=== PATIENT | male | born 1950 | race Caucasian/White ===

== ENCOUNTER 2020-08-25 07:57 | Day surgery (SDC) | payer MEDICARE, MEDICAID, SELFPAY ==
[2020-08-18 10:04] VITALS: BMI 35.6
--- NOTE | 2020-08-24 09:35 | P.CONAN_ITS ---
Documented by User: Carolyne Escudero 08/24/20 09:45 HPI - Anesthesia Eval Consult details Narrative: 69yo M for Colonoscopy PMFSH Past Medical History Medical History Arthritis Diabetes History of BPH HTN (hypertension) Lab test negative for COVID-19 virus Family History Family History Father Diabetes Mother Kidney problem Sister Asthma Hypertension Surgical History Surgical History History of bilateral cataract extraction History of colonoscopy History of transurethral resection of prostate Social History Social History Are you a primary care program director to a significant other at home: No Do you presently have visiting nurse or other home services: Yes (technical support consultant) Alcohol intake: never Smoking Status: Former smoker Tobacco Type: Cigarette Smoked in Last 30 Days: No Smoking Quit Date: age 29 Use of substances other than those prescribed or required for medical reasons: No Advance Directives Information Provided: No Recently lost weight without trying: No Meds Allergies Allergy/AdvReac Type Severity Reaction Status Date / Time amoxicillin [AMOXICILLIN] Allergy Intermediate Rash Verified 08/18/20 10:11 clindamycin [Clindamycin] Allergy Intermediate RASH Verified 08/18/20 10:11 Sulfa (Sulfonamide Allergy Intermediate RASH Verified 08/18/20 10:11 Antibiotics) Motrin AdvReac Intermediate Gastrointestinal Verified 08/18/20 10:11 Upset Home Medications Medication Instructions Recorded Confirmed Type cholecalciferol (vitamin D3) 25 25 mcg PO DAILY 06/24/20 08/18/20 History mcg (1,000 unit) capsule glipizide 10 mg tablet, extended 10 mg PO DAILY tab 06/24/20 08/18/20 History release 24 hr metformin 1,000 mg tablet 1,000 mg PO BID tab 06/24/20 08/18/20 History pioglitazone 30 mg tablet 30 mg PO DAILY tab 06/24/20 08/18/20 History sitagliptin 100 mg tablet 100 mg PO DAILY tab 06/24/20 08/18/20 History tamsulosin 0.4 mg capsule 0.4 mg PO DAILY cap 06/24/20 08/18/20 History tramadol 50 mg tablet 50 mg PO DAILY tab 06/24/20 08/18/20 History Exam Exam Date and Time: August 24, 2020 0935 Height,Weight and Vital Signs: Height 5 ft 7 in Weight 103.419 kg Pertinent Lab Results Pertinent Lab Results: Laboratory Tests 06/01/20 06/01/20 07:52 07:52 WBC 7.7 Hgb 13.0 L Hct 40.9 L Plt Count 279 Sodium 140 Potassium 4.7 Chloride 104 BUN 20 H Creatinine 1.02 Assessment and Plan Assessment Anesthesia Assessment: Chart Reviewed Documented by User: Libra Moya 08/25/20 09:16 PMFSH Past Medical History Medical History Arthritis Diabetes History of BPH HTN (hypertension) Lab test negative for COVID-19 virus Family History Family History Father Diabetes Mother Kidney problem Sister Asthma Hypertension Surgical History Surgical History History of bilateral cataract extraction History of colonoscopy History of transurethral resection of prostate Social History Social History Are you a primary care program director to a significant other at home: No Do you presently have visiting nurse or other home services: Yes (technical support consultant) Alcohol intake: never Smoking Status: Former smoker Tobacco Type: Cigarette Smoked in Last 30 Days: No Smoking Quit Date: age 29 Use of substances other than those prescribed or required for medical reasons: No Advance Directives Information Provided: No Recently lost weight without trying: No Meds Allergies Allergy/AdvReac Type Severity Reaction Status Date / Time amoxicillin [AMOXICILLIN] Allergy Intermediate Rash Verified 08/18/20 10:11 clindamycin [Clindamycin] Allergy Intermediate RASH Verified 08/18/20 10:11 Sulfa (Sulfonamide Allergy Intermediate RASH Verified 08/18/20 10:11 Antibiotics) Motrin AdvReac Intermediate Gastrointestinal Verified 08/18/20 10:11 Upset Home Medications Medication Instructions Recorded Confirmed Type cholecalciferol (vitamin D3) 25 25 mcg PO DAILY 06/24/20 08/18/20 History mcg (1,000 unit) capsule glipizide 10 mg tablet, extended 10 mg PO DAILY tab 06/24/20 08/18/20 History release 24 hr metformin 1,000 mg tablet 1,000 mg PO BID tab 06/24/20 08/18/20 History pioglitazone 30 mg tablet 30 mg PO DAILY tab 06/24/20 08/18/20 History sitagliptin 100 mg tablet 100 mg PO DAILY tab 06/24/20 08/18/20 History tamsulosin 0.4 mg capsule 0.4 mg PO DAILY cap 06/24/20 08/18/20 History tramadol 50 mg tablet 50 mg PO DAILY tab 06/24/20 08/18/20 History Exam Airway Mallampati Class: II TM Dist: >3cm Neck ROM: Full Denture: Upper and Lower
--- NOTE | 2020-08-25 09:21 | MHC.SHP ---
Pre-Procedural Eval Section B Chief Complaint: Screening Relevant Family History (Specify if Yes): No Present Medications: see Short Stay Collaborative assessment Medical History: Significant History (Arthritis Diabetes History of BPH HTN (hypertension)) History of Previous Operations: Relevant previous surgery/procedure and date(s) (cataract, TURP) Allergies: Allergies Allergy/AdvReac Type Severity Reaction Status Date / Time amoxicillin [AMOXICILLIN] Allergy Intermediate Rash Verified 08/18/20 10:11 clindamycin [Clindamycin] Allergy Intermediate RASH Verified 08/18/20 10:11 Sulfa (Sulfonamide Allergy Intermediate RASH Verified 08/18/20 10:11 Antibiotics) Motrin AdvReac Intermediate Gastrointestinal Verified 08/18/20 10:11 Upset Review of Systems Sugical H&P ROS: Negative: Constitution, Cardiovascular, Respiratory, Neurological, Psychiatric, Hem-Onc, Allergic/Immunologic, Gastrointestinal, Genitourinary, Musculoskeletal, Integumentary, Endocrine and Eyes/Ears/Nose/Throat Exam Surgical H&P Exam: Normal: HEENT, Normal: Heart, Normal: Lungs, Normal: Extremities, Normal: Abdomen, Normal: Skin and Normal: Neurological Plan Diagnosis/Plan: Unchanged Patient has been examined and remains a candidate for the planned procedure
[2020-08-25 09:25] LABS: Glucose, Whole Blood 138 mg/dL (60-115)
[2020-08-25 10:33] VITALS: BP 82/53; PULSE 78; RESP 20; TEMP 36.2; O2SAT 92
[2020-08-25 10:48] VITALS: BP 114/69; PULSE 86; RESP 20; TEMP 36.2; O2SAT 94
--- NOTE | 2020-08-25 11:45 | HO.POSTANES ---
Post Anesthesia Evaluation Post Anesthesia Evaluation Vital Signs: Vital Signs Temp Pulse Resp BP Pulse Ox 08/25/20 10:48 97.2 F 86 20 114/69 94 08/25/20 10:33 97.2 F 78 20 82/53 L 92 Anesthesia: Monitored Mental Status: Awake Pain Control: Satisfactory Nausea/Vomiting: None Hydration: Adequate Anesthesia-Related Issues: No Anes. Related Issues
--- NOTE | 2020-09-23 21:20 | W.PM.OPN ---
Operative Note Operative Note Date of Service: 08/25/20 Narrative: Date of Service: 08/25/20 Pre-op diagnosis: colon screen Post-op diagnosis: same Procedure: Operative Information Procedure Description: Colonoscopy COLONOSCOPY Instrument: Olympus variable stiffness pediatric scope 190L-swapped to adult scope due to looping and instability with pediatric scope Colonoscopy Monitoring: Vital signs and clinical assessment, continuous EKG monitoring, Pulse oximetry, Carbon Dioxide monitoring and blood pressure monitoring were done throughout the procedure. Colon withdrawal time was 41 minutes. Procedure: The patient was placed in the left lateral decubitis position and pre-procedure medications were administered. After a digital rectal examination of the ano-rectum, the video colonoscope was inserted into the rectum and advanced through the colon to the cecum. The colonoscope was slowly withdrawn in a retrograde panoramic fashion and the colon mucosa was carefully examined including a retroflexed view of the rectum. Findings and interventions are described below. Procedure Difficulty: moderate Findings: Terminal Ileum-not intubated Cecum: normal Ascending Colon: x 4 sessile polyps ranging from 8-12 mm in size, 3 removed with cold snare and one with biopsy forceps Transverse Colon -normal Descending Colon: 12-16 mm semi pedunculated polyp removed piece meal with cold snare, x 4 clips applied due to oozing, this stopped after clips applied Sigmoid Colon: many moderate sized to small tics seen Rectum: Retroflexion with small internal hemorrhoids, grade II Anorectum - internal hemorrhoids seen at anal verge Colon preparation: [place] Bowel Preparation Scale Right colon; 1 Transverse colon: 2 Left colon; 1 (0 = Unprepared colon segment with mucosa not seen due to solid stool that cannot be cleared. 1 = Portion of mucosa of the colon segment seen, but other areas of the colon segment not well seen due to staining, residual stool and/or opaque liquid. 2 = Minor amount of residual staining, small fragments of stool and/or opaque liquid, but mucosa of colon segment seen well. 3 = Entire mucosa of colon segment seen well with no residual staining, small fragments of stool or opaque liquid) Impression and Post Procedure Diagnosis: polyps internal hemorrhoids diverticulosis Plan: High fiber diet leaflet Avoid straining at stool, epsom salts and sitz bath, anusol supps or cream Repeat Colonoscopy in 1 year or earlier if clinically indicated avoid nsaids for 5 days, can use tylenol for pain if needed Above findings were reviewed with the patient and relevant handouts were provided if indicated. Surgeon: Talha Chew MD Anesthesia: MAC Estimated blood loss (mL): 0 Condition: stable Disposition: PACU
== END 2020-08-25 11:51 | disposition home or self-care (01) ==
PROVIDERS: PCP Internal Medicine; Visit Provider Internal Medicine Gastroenterology
PROC: 0DJD8ZZ Inspection of Lower Intestinal Tract, Via Natural or Artificial Opening Endoscopic (ICD-10-PCS; CPT 45378; principal; 2020-08-25 09:30)
DX: Z12.11 Encounter for screening for malignant neoplasm of colon (principal); K56.2 Volvulus; D12.2 Benign neoplasm of ascending colon; D12.4 Benign neoplasm of descending colon; K57.30 Diverticulosis of large intestine without perforation or abscess without bleeding; K64.1 Second degree hemorrhoids; E11.9 Type 2 diabetes mellitus without complications; Z79.84 Long term (current) use of oral hypoglycemic drugs; Z88.0 Allergy status to penicillin; Z88.2 Allergy status to sulfonamides; Z88.8 Allergy status to other drugs, medicaments and biological substances
CPT/HCPCS: 45385; 45380; 82947; 88305

== ENCOUNTER → 2020-09-20 10:42 | Outpatient (BNVA) | payer MEDICARE, MEDICAID, SELFPAY | PROVIDERS: PCP Internal Medicine; Visit Provider Physician Assistant | DX: Z76.89 Persons encountering health services in other specified circumstances (principal) | CPT/HCPCS: Q3014 ==

== ENCOUNTER → 2020-09-23 08:31 | Outpatient (BNVA) | payer MEDICARE, MEDICAID, SELFPAY | PROVIDERS: PCP Internal Medicine; Visit Provider Urology | DX: Z13.89 Encounter for screening for other disorder (principal) | CPT/HCPCS: Q3014 ==

== ENCOUNTER 2020-11-04 13:52 | Outpatient (REF) | payer MEDICARE, MEDICAID, SELFPAY ==
--- NOTE | ~2020-11-04 | XR_ITS ---
EXAMINATION: XR KNEE, BILATERAL XR KNEE, LEFT CLINICAL INFORMATION: Pain left knee. COMPARISON: 11/11/2014 TECHNIQUE: AP bilateral knees one view. Left knee two views. FINDINGS: LEFT KNEE: No acute fracture or dislocation. Medial and lateral compartment joint space is maintained. Small marginal patellar spurring. Small chronic ossification adjacent to the medial pole of the patella. Small suprapatellar joint fluid. Enthesopathy of the patella both at the quadriceps and patellar insertions. Tibial tubercle enthesopathy. LEFT KNEE: No acute finding. Joint spaces are maintained. XR/XR knee LT 2V IMPRESSION: No acute findings. Mild left knee patellofemoral arthritis. Additional degenerative changes as above.
--- NOTE | ~2020-11-04 | XR_ITS ---
EXAMINATION: XR KNEE, BILATERAL XR KNEE, LEFT CLINICAL INFORMATION: Pain left knee. COMPARISON: 11/11/2014 TECHNIQUE: AP bilateral knees one view. Left knee two views. FINDINGS: LEFT KNEE: No acute fracture or dislocation. Medial and lateral compartment joint space is maintained. Small marginal patellar spurring. Small chronic ossification adjacent to the medial pole of the patella. Small suprapatellar joint fluid. Enthesopathy of the patella both at the quadriceps and patellar insertions. Tibial tubercle enthesopathy. LEFT KNEE: No acute finding. Joint spaces are maintained. XR/XR knee standing BI IMPRESSION: No acute findings. Mild left knee patellofemoral arthritis. Additional degenerative changes as above.
== END 2020-11-04 13:53 | disposition home or self-care (01) ==
LOC: HO.XRAY 13:52
PROVIDERS: PCP Internal Medicine; Visit Provider Physician Assistant
DX: G89.29 Other chronic pain (principal); M25.562 Pain in left knee
CPT/HCPCS: 73560; 73565; 99212

== ENCOUNTER 2020-11-26 06:37 | Outpatient (REF) | payer MEDICARE, MEDICAID, SELFPAY ==
[2020-11-26 07:01] LABS: MANUAL DIFF FLAG NO
[2020-11-26 07:04] LABS: Basophils Absolute Auto 0.1 X10*3/uL (0.0-0.2); Basophils Percent Auto 0.6 % (0-2); Eosinophils Absolute Auto 0.3 X10*3/uL (0.0-0.4); Eosinophils Percent Auto 3.1 % (0-4); Hematocrit 38.4 % (42-52); Imm Gran Abs Auto 0.03 X10*3/uL (0.00-0.03); Imm Gran Pct Auto 0.3 % (0.0-0.4); Mean Corpuscular HGB Conc 31.3 g/dl (31.0-36.0); Mean Corpuscular Hemoglobin 27.2 pg (27.0-33.0); Mean Corpuscular Volume 87.1 fL (80-98); Mean Platelet Volume 11.4 fL (9.4-12.4); Monocytes Absolute Auto 0.9 X10*3/uL (0.1-1.2); Monocytes Percent Auto 10.8 % (2-11); Neutrophils Absolute Auto 5.4 X10*3/uL (2.0-8.3); Neutrophils Percent Auto 62.2 % (45-73); Platelet Count 248 X10*3/uL (160-400); Red Blood Count 4.41 X10*6/uL (4.60-5.80); Red Cell Distribution Width 15.3 % (11.0-16.0); White Blood Count 8.6 X10*3/uL (4.8-10.8)
[2020-11-26 07:17] LABS: Glucose Urine UA NEG (NEG); Leukocyte Esterase Urine NEG (NEG); Nitrite Urine NEG (NEG); PH 5.5 (5.0-8.0); Specific Gravity - Urine >= 1.030 (1.005-1.025); Urine Blood NEG (NEG); Urine Ketones NEG (NEG); Urine Protein NEG (NEG-TRACE)
[2020-11-26 07:18] LABS: Appearance Urine CLEAR; Color Urine YELLOW
[2020-11-26 07:33] LABS: Estimated Average Glucose 131 mg/dL; Hemoglobin A1c % 6.2 %
[2020-11-26 07:51] LABS: Alanine Aminotransferase 28 U/L (0-40); Albumin Level 4.4 g/dL (3.5-5.0); Alkaline Phosphatase 73 U/L (39-117); Anion Gap 13 (12-20); Aspartate Amino Transferase 26 U/L (5-37); Bilirubin Total 0.7 mg/dL (0.0-1.0); Blood Urea Nitrogen 20 mg/dL (9-16); Calcium 9.5 mg/dL (8.4-10.2); Carbon Dioxide 27 mmol/L (22-29); Chloride 105 mmol/L (96-108); Cholesterol 173 mg/dL; Estimated Glomerular Filt Rate > 60; Glucose Fasting 118 mg/dL (60-99); HDL Cholesterol 83 mg/dL; LDL Cholesterol Calculated 83 mg/dl; Potassium 4.8 mmol/L (3.3-5.1); Sodium 140 mmol/L (135-145); Total Protein 7.2 g/dL (6.5-8.0); Triglycerides 36 mg/dL
[2020-11-26 07:56] LABS: TSH reflex Free T4 1.98 uIU/mL (0.32-4.0); Vitamin D 25-OH Total 47.6 ng/mL (>30)
[2020-11-26 08:10] LABS: Creatinine Urine 145.98 mg/dL; Microalbum/Creatinine Ratio Ur 10.2 ug/mg cr
== END 2020-11-26 06:38 | disposition home or self-care (01) ==
LOC: HO.LAB 06:37
PROVIDERS: PCP Internal Medicine; Visit Provider Internal Medicine
DX: E55.9 Vitamin D deficiency, unspecified (principal); E78.00 Pure hypercholesterolemia, unspecified; E11.9 Type 2 diabetes mellitus without complications; I10 Essential (primary) hypertension; N40.1 Benign prostatic hyperplasia with lower urinary tract symptoms; N13.8 Other obstructive and reflux uropathy
CPT/HCPCS: 36415; 80053; 80061; 81003; 82043; 82306; 83036; 84443; 85025

== ENCOUNTER 2020-12-09 07:00 | Outpatient (RCR) | payer MEDICARE, MEDICAID, SELFPAY ==
--- NOTE | 2020-11-23 08:37 | MHC.PT.EP ---
[facility] [place] Office [place] Office [place] Office [address] Felipe Means [address] [phone] F: [phone] F: [phone] F: [phone] F: [phone] Physical Therapy Plan of Care Date of Evaluation: 11/23/20 Date of Surgery: Diagnosis: unilateral OA of right knee. Assessment: The patient arrived reporting left knee pain that has been getting better since it began a few months ago. He has decreased knee extension ROM, decreased knee extension strength, and decreased functional movements limited by knee pain. X-ray images show OA of the left knee although the patient relates the injury to stepping on 2 steps while carrying a heavy bucket. He has been wearing a knee brace daily, but the brace is leaving a rash. I recommended trying to avoid the use of the brace for one day. I used KT in replacement of the brace and I carefully avoiding covering the rash with the tape. Pt asked to take tape off if it begins to itch. Pt asked to take the tape off in 2 days time. Frequency and Duration: The patient will be seen 2x/week x 4 weeks Short Term Goals: 2 weeks 1.Pt to able to demonstrate proper sitting posture with the use of a lumbar roll to decrease aggravating factors. 2.Pt to be able to demonstrate proper posture for common leisure activities such as crocheting and phone/tablet use. 3.For the patient to demonstrate proper upright sitting posture with use of the lumbar roll to improve compliance and carryover. Agricultural Research Director Goals: 4 weeks - the patient will have no limiting pain in her knees during gait with community ambulation to show improved activity tolerance. 4 weeks - pt will have more quad control with TKE demonstrated by no medial collapse during a curb height step. 4 weeks -patient to be able to return to all functional movements and ADL's without limiting knee pain to show return to PLOF. Treatment Plan: Modalities to reduce pain, spasms and effusion. Manual therapy to restore motion and function. Therapeutic exercise to improve strength and flexibility. Neuromuscular re-education for posture and balance. Therapeutic activities to return to functional activities of daily living. Electronically signed by: Trang Yip PT DPT Please sign and return to therapist. Thank you for your referral.
--- NOTE | 2020-12-17 11:39 | MHC.PT.DC ---
[facility] [place] Office [place] Office [place] Office [address] [phone] F: [phone] F: [phone] F: [phone] F: [phone] Physical Therapy Discharge Report Diagnosis: unilateral OA of right knee. Date of Surgery: Date of Evaluation: 11/23/20 Date of Discharge: 12/17/20 Treatments to Date: 6 Cancellations to Date: 0 No Shows to Date: Discharge Status: Achieved Goals Improved Function Independent with HEP Discharge Summary: No TET today. Pt. reported no px with ex. pt requests D/C today. no pain, if I need to come back I will . Pt.states the ex have helped. Electronically signed by: Evita Hodges CURTAIN CLEANER Please sign and return to therapist. Thank you for your referral.
== END 2020-12-22 07:34 | disposition other institution (70) ==
LOC: HO.PT 07:00
PROVIDERS: PCP Internal Medicine; Visit Provider Physician Assistant
DX: M17.10 Unilateral primary osteoarthritis, unspecified knee (principal)
CPT/HCPCS: 97110; 97140; 97162

== ENCOUNTER → 2021-01-18 10:10 | Outpatient (BNVA) | payer MEDICARE, MEDICAID, SELFPAY | PROVIDERS: Referring Provider Internal Medicine; Visit Provider Internal Medicine Gastroenterology | DX: D36.9 Benign neoplasm, unspecified site (principal) | CPT/HCPCS: 99212 ==

== ENCOUNTER 2021-02-01 07:40 | Outpatient (REF) | payer MEDICARE, MEDICAID, SELFPAY ==
[2021-02-01 08:24] LABS: MANUAL DIFF FLAG NO
[2021-02-01 08:32] LABS: Basophils Percent Auto 0.6 % (0-2); Eosinophils Absolute Auto 0.1 X10*3/uL (0.0-0.4); Eosinophils Percent Auto 1.9 % (0-4); Hematocrit 40.1 % (42-52); Hemoglobin 12.3 g/dl (14.0-18.0); Imm Gran Abs Auto 0.03 X10*3/uL (0.00-0.03); Imm Gran Pct Auto 0.4 % (0.0-0.4); Lymphocytes Absolute Auto 1.7 X10*3/uL (1.2-4.9); Lymphocytes Percent Auto 23.4 % (20-40); Mean Corpuscular HGB Conc 30.7 g/dl (31.0-36.0); Mean Corpuscular Hemoglobin 26.5 pg (27.0-33.0); Mean Corpuscular Volume 86.2 fL (80-98); Mean Platelet Volume 11.6 fL (9.4-12.4); Monocytes Absolute Auto 0.8 X10*3/uL (0.1-1.2); Monocytes Percent Auto 10.5 % (2-11); Neutrophils Absolute Auto 4.6 X10*3/uL (2.0-8.3); Neutrophils Percent Auto 63.2 % (45-73); Platelet Count 254 X10*3/uL (160-400); Red Blood Count 4.65 X10*6/uL (4.60-5.80); Red Cell Distribution Width 15.2 % (11.0-16.0); White Blood Count 7.2 X10*3/uL (4.8-10.8)
[2021-02-01 08:46] LABS: Glucose Urine UA NEG (NEG); Leukocyte Esterase Urine NEG (NEG); Nitrite Urine NEG (NEG); Specific Gravity - Urine >= 1.030 (1.005-1.025); Urine Blood NEG (NEG); Urine Ketones NEG (NEG); Urine Protein NEG (NEG-TRACE)
[2021-02-01 08:47] LABS: Appearance Urine CLEAR; Color Urine YELLOW
[2021-02-01 10:30] LABS: Estimated Average Glucose 128 mg/dL; Hemoglobin A1c % 6.1 %
[2021-02-01 10:34] LABS: Creatinine Urine 147.38 mg/dL; Microalbum/Creatinine Ratio Ur 14.9 ug/mg cr
[2021-02-01 11:22] LABS: Alanine Aminotransferase 20 U/L (0-40); Albumin Level 4.2 g/dL (3.5-5.0); Alkaline Phosphatase 76 U/L (39-117); Anion Gap 15 (12-20); Aspartate Amino Transferase 18 U/L (5-37); Bilirubin Total 0.6 mg/dL (0.0-1.0); Blood Urea Nitrogen 16 mg/dL (9-16); Calcium 9.4 mg/dL (8.4-10.2); Carbon Dioxide 25 mmol/L (22-29); Chloride 103 mmol/L (96-108); Cholesterol 173 mg/dL; Estimated Glomerular Filt Rate > 60; Glucose Fasting 115 mg/dL (60-99); HDL Cholesterol 81 mg/dL; LDL Cholesterol Calculated 84 mg/dl; Potassium 4.6 mmol/L (3.3-5.1); Sodium 138 mmol/L (135-145); Triglycerides 41 mg/dL
[2021-02-01 11:41] LABS: Vitamin D 25-OH Total 52.7 ng/mL (>30)
== END 2021-02-01 07:41 | disposition home or self-care (01) ==
LOC: HO.LAB 07:40
PROVIDERS: Absent Provider Internal Medicine Gastroenterology; PCP Internal Medicine; Visit Provider Internal Medicine
DX: E11.9 Type 2 diabetes mellitus without complications (principal); I10 Essential (primary) hypertension; E66.9 Obesity, unspecified; E78.1 Pure hyperglyceridemia; E55.9 Vitamin D deficiency, unspecified; J30.9 Allergic rhinitis, unspecified
CPT/HCPCS: 36415; 80053; 80061; 81003; 82043; 82306; 83036; 84443; 85025

== ENCOUNTER 2021-02-04 05:56 | Outpatient (REF) | payer MEDICARE, MEDICAID, SELFPAY ==
--- NOTE | ~2021-02-04 | CT_ITS ---
EXAMINATION: CT ABDOMEN AND PELVIS WITH CONTRAST CLINICAL INFORMATION: Benign neoplasm. COMPARISON: None TECHNIQUE: Multidetector volumetric images were obtained from the superior aspect of the liver through the pubic symphysis following administration 85 mL of Omnipaque 350 intravenous contrast. Sagittal and coronal reformatted images were obtained on the technologist's workstation. Oral contrast: No This CT examination was performed using dose optimization techniques as appropriate, variously including the following: *Automated exposure control *Adjustment of mA and/or kV according to patient size (this includes techniques or standardized protocols for targeted exams where dose is matched to indication/reason for exam; i.e. extremities or head) *Use of iterative reconstruction technique DLP: 557 mGy-cm FINDINGS: LUNG BASES: The heart size is borderline enlarged. The lungs are well expanded with minimal atelectatic changes left lung base. LIVER, GALLBLADDER, AND BILIARY TREE: The liver is normal in size, shape, and attenuation. No focal hepatic lesion or biliary ductal dilatation is present. The gallbladder is unremarkable with no evidence of radiopaque gallstones, gallbladder wall thickening, or obvious pericholecystic inflammatory changes. PANCREAS: Unremarkable. SPLEEN: Unremarkable. Lateral to the upper pole of spleen is a small peritoneal-based 5 mm nodule. ADRENAL GLANDS: Unremarkable. KIDNEYS AND URETERS: The kidneys are normal in size, shape, and attenuation. No hydronephrosis, hydroureter, or calculi seen. No perinephric stranding. BLADDER: Unremarkable. GASTROINTESTINAL TRACT: Scattered stool, diverticuli and gas seen throughout the colon without significant distention. The small bowel loops are normal caliber. The IC junction is normal. The appendix is normal caliber. No inflammatory process seen in the abdomen. ABDOMINAL WALL: No significant hernia is appreciated. LYMPH NODES: Normal. VASCULAR: Unremarkable. PELVIC VISCERA: The prostate gland is normal caliber. The central gland calcification seen. OSSEOUS STRUCTURES: There is no lytic process. There is mild ventral spondylosis L3-L4 and L4-L5 disc levels. No lytic or sclerotic process seen. CT/CT abdomen pelvis w con IMPRESSION: Scattered colonic diverticulosis without diverticulitis. Moderate constipation without obstruction. Normal appendix. Nonspecific peritoneal nodule left upper quadrant adjacent to the spleen.
[2021-02-04] MEDS: iohexoL 350 MG/ML 100 ML INFUS..BTL IV (09:53)
[2021-02-04] MEDS: Barium Sulfate Oral (Vanilla) 450 ML ORAL.SUSP 900 ML PO (09:54)
== END 2021-02-04 05:57 | disposition home or self-care (01) ==
LOC: HO.CT 05:56
PROVIDERS: PCP Internal Medicine; Visit Provider Internal Medicine Gastroenterology
DX: D36.9 Benign neoplasm, unspecified site (principal)
CPT/HCPCS: 74177; Q9967

== ENCOUNTER 2021-02-10 11:54 | Day surgery (SDC) | payer MEDICARE, MEDICAID, SELFPAY ==
[2021-02-03 13:04] VITALS: BMI 34.4
--- NOTE | 2021-02-08 14:36 | HO.ANESPROP2 ---
Documented by User: Carolyne Vargasney 02/08/21 14:37 HPI - Anesthesia Eval Consult details Narrative: 70yo M for Colonoscopy s/p colonoscopy with MAC 08/2020 [facility] Active Problems Active Problems: All Active Problems (Updated 02/03/21 @ 13:07 by Gila Son) Tubulovillous adenoma (Acute) Left knee pain (Acute) Patellofemoral arthritis of left knee (Acute) BPH associated with nocturia (Acute) Obesity (BMI 30-39.9) (Acute) Benign prostatic hyperplasia (Acute) Erectile dysfunction (Acute) Allergic rhinitis (Acute) Primary osteoarthritis of left shoulder (Acute) Osteoarthritis of knee (Acute) Vitamin D deficiency (Acute) Hypertriglyceridemia (Acute) Benign essential hypertension (Acute) Diabetes mellitus (Acute) Past Medical History Medical History Allergic rhinitis Arthritis Benign essential hypertension Benign prostatic hyperplasia BPH associated with nocturia Carpal tunnel syndrome on both sides COVID-19 vaccine series completed Diabetes Diabetes mellitus Erectile dysfunction History of BPH HTN (hypertension) Hypertriglyceridemia Lab test negative for COVID-19 virus Obesity (BMI 30-39.9) Osteoarthritis of knee Primary osteoarthritis of left shoulder Vitamin D deficiency Family History Family History Father Diabetes Mother Kidney problem Sister Asthma Hypertension Surgical History Surgical History History of bilateral cataract extraction History of colonoscopy History of transurethral resection of prostate Social History Social History Are you a primary tree care foreman to a significant other at home: No Do you presently have visiting nurse or other home services: No Alcohol intake: never Patient Tobacco Use Status: Former Tobacco user Tobacco use type: Cigarette Use of substances other than those prescribed or required for medical reasons: No Have you been hit, kicked, punched, or otherwise hurt by someone within the past year? If so, by whom?: No Are you DNR?: No Advance Directives: No Advance Directives Information Provided: No Advance Directives on File: No Recently lost weight without trying: No Eating poorly because of decreased appetite: No Nutrition Risks: No Nutritional Risk Meds Allergies Allergy/AdvReac Type Severity Reaction Status Date / Time amoxicillin [AMOXICILLIN] Allergy Intermediate Rash Verified 02/03/21 12:48 clindamycin [Clindamycin] Allergy Intermediate RASH Verified 02/03/21 12:48 Sulfa (Sulfonamide Allergy Intermediate RASH Verified 02/03/21 12:48 Antibiotics) Motrin AdvReac Intermediate Gastrointestinal Verified 02/03/21 12:48 Upset Home Medications Medication Instructions Recorded Confirmed Last Taken Type glipizide 10 mg tablet, extended 10 mg PO DAILY tab 06/24/20 02/03/21 Unknown History release 24 hr metformin 1,000 mg tablet 1,000 mg PO BID tab 06/24/20 02/03/21 Unknown History pioglitazone 30 mg tablet 30 mg PO DAILY tab 06/24/20 02/03/21 Unknown History sitagliptin [Januvia] 1 tab PO DAILY 02/03/21 02/03/21 Unknown History Exam Exam Date and Time: February 08, 2021 1436 Height,Weight and Vital Signs: Height 5 ft 7 in Weight 99.79 kg Assessment and Plan Assessment Anesthesia Assessment: Chart Reviewed Documented by User: Rashida Chang 02/10/21 12:39 [facility] Past Medical History Medical History Allergic rhinitis Arthritis Benign essential hypertension Benign prostatic hyperplasia BPH associated with nocturia Carpal tunnel syndrome on both sides COVID-19 vaccine series completed Diabetes Diabetes mellitus Erectile dysfunction History of BPH HTN (hypertension) Hypertriglyceridemia Lab test negative for COVID-19 virus Obesity (BMI 30-39.9) Osteoarthritis of knee Primary osteoarthritis of left shoulder Vitamin D deficiency Family History Family History Father Diabetes Mother Kidney problem Sister Asthma Hypertension Surgical History Surgical History History of bilateral cataract extraction History of colonoscopy History of transurethral resection of prostate Social History Social History Are you a primary tree care foreman to a significant other at home: No Do you presently have visiting nurse or other home services: No Alcohol intake: never Patient Tobacco Use Status: Former Tobacco user Tobacco use type: Cigarette Use of substances other than those prescribed or required for medical reasons: No Have you been hit, kicked, punched, or otherwise hurt by someone within the past year? If so, by whom?: No Are you DNR?: No Advance Directives: No Advance Directives Information Provided: No Advance Directives on File: No Recently lost weight without trying: No Eating poorly because of decreased appetite: No Nutrition Risks: No Nutritional Risk Meds Allergies Allergy/AdvReac Type Severity Reaction Status Date / Time amoxicillin [AMOXICILLIN] Allergy Intermediate Rash Verified 02/03/21 12:48 clindamycin [Clindamycin] Allergy Intermediate RASH Verified 02/03/21 12:48 Sulfa (Sulfonamide Allergy Intermediate RASH Verified 02/03/21 12:48 Antibiotics) Motrin AdvReac Intermediate Gastrointestinal Verified 02/03/21 12:48 Upset Home Medications Medication Instructions Recorded Confirmed Last Taken Type glipizide 10 mg tablet, extended 10 mg PO DAILY tab 06/24/20 02/03/21 Unknown History release 24 hr metformin 1,000 mg tablet 1,000 mg PO BID tab 06/24/20 02/03/21 Unknown History pioglitazone 30 mg tablet 30 mg PO DAILY tab 06/24/20 02/03/21 Unknown History sitagliptin [Januvia] 1 tab PO DAILY 02/03/21 02/03/21 Unknown History Exam Airway Mallampati Class: II TM Dist: >3cm Neck ROM: Full Assessment and Plan Assessment Anesthesia Assessment: Chart Reviewed Final Anesthetic Review NPO: Yes ASA Class: II Final Preanesthetic Review: No Changes in Pt Med Stat, Meds/Allgs Chart Reviewed, Consent Obtained/Reviewed and Anes Risks/Benef Reviewed Patient Risk: Low Procedure Risk: Low Assessment/Block/Sedation in SS: Assess/Block/Sedation-SS Anesthetic Plan Anesthetic Plan: MAC: Disposition: Standard PACU
[2021-02-10 12:38] VITALS: BP 134/77; PULSE 104; RESP 18; TEMP 36.5; O2SAT 96
[2021-02-10 12:48] LABS: Glucose, Whole Blood 113 mg/dL (60-115)
--- NOTE | 2021-02-10 12:50 | MHC.SHP ---
Pre-Procedural Eval Section B Chief Complaint: tubulovillous adenoma Relevant Family History (Specify if Yes): No Relevant Social History: None Present Medications: see Short Stay Collaborative assessment Medical History: Significant History (Allergic rhinitis Arthritis Benign essential hypertension Benign prostatic hyperplasia BPH associated with nocturia Carpal tunnel syndrome on both sides COVID-19 vaccine series completed Diabetes Diabetes mellitus Erectile dysfunction History of BPH HTN (hypertension) Hypertriglyceridemia Lab test n) History of Previous Operations: Relevant previous surgery/procedure and date(s) (History of bilateral cataract extraction History of colonoscopy History of transurethral resection of prostate) Allergies: Allergies Allergy/AdvReac Type Severity Reaction Status Date / Time amoxicillin [AMOXICILLIN] Allergy Intermediate Rash Verified 02/10/21 12:45 clindamycin [Clindamycin] Allergy Intermediate RASH Verified 02/10/21 12:45 Sulfa (Sulfonamide Allergy Intermediate RASH Verified 02/10/21 12:45 Antibiotics) Motrin AdvReac Intermediate Gastrointestinal Verified 02/10/21 12:45 Upset Review of Systems Sugical H&P ROS: Negative: Constitution, Cardiovascular, Respiratory, Neurological, Psychiatric, Hem-Onc, Allergic/Immunologic, Gastrointestinal, Genitourinary, Musculoskeletal, Integumentary, Endocrine and Eyes/Ears/Nose/Throat Exam Surgical H&P Exam: Normal: HEENT, Normal: Heart, Normal: Lungs, Normal: Extremities, Normal: Abdomen, Normal: Skin and Normal: Neurological Plan Diagnosis/Plan: Unchanged I have reviewed the history and physical and performed a pertinent physical examination on my patient. No changes have occurred unless specified.
[2021-02-10] MEDS: Lactated Ringers 1,000 ML 100 ML IVCONT (12:52)
--- NOTE | 2021-02-10 13:24 | PM.OP ---
Brief Operative Note Date of Service: 02/10/21 Pre-op diagnosis: hx of polyps, incl with HGD Post-op diagnosis: same Procedure: see op note Surgeon: Talha Chew MD Anesthesia: MAC Was an District Scout Executive used for this Procedure?: No Estimated blood loss (mL): 0 Condition: stable Disposition: PACU
--- NOTE | 2021-02-10 13:24 | W.PM.OPN ---
Operative Note Operative Note Date of Service: 02/10/21 Narrative: Operative Information Procedure Description: Colonoscopy COLONOSCOPY Instrument: Olympus variable stiffness adult scope 190L Colonoscopy Monitoring: Vital signs and clinical assessment, continuous EKG monitoring, Pulse oximetry, Carbon Dioxide monitoring and blood pressure monitoring were done throughout the procedure. Colon withdrawal time was 39 minutes. Procedure: The patient was placed in the left lateral decubitis position and pre-procedure medications were administered. After a digital rectal examination of the ano-rectum, the video colonoscope was inserted into the rectum and advanced through the colon to the cecum The colonoscope was slowly withdrawn in a retrograde panoramic fashion and the colon mucosa was carefully examined including a retroflexed view of the rectum. Findings and interventions are described below. Procedure Difficulty:difficult due to looping and poor prep Findings: Terminal Ileum-unable to see Cecum:normal Ascending Colon: x 4 sessile polyps noted, 2 removed with cold snare measuring 6-9 mm and x 2 removed with forcpes measuring 6-8 mm. Transverse Colon - x 1 sessile polyp removed with cold snare 8-10 mm Descending Colon: x 2 sessile polyps 8-9 mm removed with cold snare Sigmoid Colon: diverticulosis noted Rectum: Retroflexion not done Anorectum - internal hemorrhoids seen on forward view Colon preparation: [place] Bowel Preparation Scale Right colon; 1 Transverse colon: 1 Left colon; 1 (0 = Unprepared colon segment with mucosa not seen due to solid stool that cannot be cleared. 1 = Portion of mucosa of the colon segment seen, but other areas of the colon segment not well seen due to staining, residual stool and/or opaque liquid. 2 = Minor amount of residual staining, small fragments of stool and/or opaque liquid, but mucosa of colon segment seen well. 3 = Entire mucosa of colon segment seen well with no residual staining, small fragments of stool or opaque liquid) Impression and Post Procedure Diagnosis: polyps internal hemorrhoids diverticular disease Plan: High fiber diet leaflet Avoid straining at stool, epsom salts and sitz bath, anusol supps or cream Repeat Colonoscopy in 6-12 months, needs compliance with prep, lots of soldi debris present, may need 2 d of clears next time Above findings were reviewed with the patient and relevant handouts were provided if indicated.
[2021-02-10 14:27] VITALS: BP 104/62; PULSE 86; RESP 14; TEMP 36.9; O2SAT 94
[2021-02-10 14:42] VITALS: BP 124/74; PULSE 88; RESP 18; O2SAT 95
== END 2021-02-10 15:21 | disposition home or self-care (01) ==
PROVIDERS: PCP Internal Medicine; Visit Provider Internal Medicine Gastroenterology
PROC: 0DJD8ZZ Inspection of Lower Intestinal Tract, Via Natural or Artificial Opening Endoscopic (ICD-10-PCS; CPT 45378; principal; 2021-02-10 13:40)
DX: Z12.11 Encounter for screening for malignant neoplasm of colon (principal); Z86.010 Personal history of colon polyps; D12.2 Benign neoplasm of ascending colon; D12.3 Benign neoplasm of transverse colon; D12.4 Benign neoplasm of descending colon; K57.30 Diverticulosis of large intestine without perforation or abscess without bleeding; K64.8 Other hemorrhoids; I10 Essential (primary) hypertension; N40.1 Benign prostatic hyperplasia with lower urinary tract symptoms; R35.1 Nocturia; E55.9 Vitamin D deficiency, unspecified; E11.9 Type 2 diabetes mellitus without complications; Z79.84 Long term (current) use of oral hypoglycemic drugs; Z79.899 Other long term (current) drug therapy; Z87.891 Personal history of nicotine dependence; Z88.1 Allergy status to other antibiotic agents; Z88.2 Allergy status to sulfonamides; Z88.8 Allergy status to other drugs, medicaments and biological substances
CPT/HCPCS: 45385; 45380; 82947; 88305; J1610

== ENCOUNTER 2021-03-02 09:26 | Outpatient (REF) | payer MEDICARE, MEDICAID, SELFPAY | END 2021-03-02 09:27 | disposition home or self-care (01) | LOC: HO.LAB 09:26 | PROVIDERS: PCP Internal Medicine; Visit Provider Urology | DX: Z12.5 Encounter for screening for malignant neoplasm of prostate (principal); N13.8 Other obstructive and reflux uropathy; N40.1 Benign prostatic hyperplasia with lower urinary tract symptoms | CPT/HCPCS: 36415; 84153 ==

== ENCOUNTER → 2021-03-16 13:28 | Outpatient (REF) | payer MEDICARE, MEDICAID, SELFPAY ==
--- NOTE | 2021-03-16 13:32 | CA_ITS ---
Transthoracic Echocardiogram Patient (Last, First, Middle): Alex Palacio E Gender: Male Date of : 1950 Age: 70 Procedure Date: 03/16/2021 Procedure Type: Transthoracic Echocardiogram Location: OP Height: 170.18 cm Weight: 102.06 kg BSA: 2.13 m2 Heart Rate: bpm BP: 130 / 80 mmHg Solar Sales Consultant: DORIS Referring MD: Alphonse Senior MD Symptoms: I49.9 - Cardiac arrhythmia, unspecified Study Quality: Technically Difficult/Contrast ECG Rhythm: Sinus Conclusions: - The left ventricular systolic function is severely decreased. The visually estimated ejection fraction is between 15-20%. - No obvious valvular pathology seen on this study. - Mild pulmonary hypertension is present. Findings Procedure Information Contrast agent, definity, is being given per protocol without apparent complications. Left Ventricle Mildly increased left ventricular cavity size. There is normal left ventricular wall thickness. The left ventricular systolic function is severely decreased. The visually estimated ejection fraction is between 15 20%. There is severe global hypokinesis. Probable grade 2 diastolic dysfunction. Right Ventricle Normal right ventricular cavity size and systolic function. Atria The left atrium is mildly dilated. The right atrium is normal in size. Dilated coronary sinus. Aortic Valve There is a normal trileaflet aortic valve. There is no aortic valve stenosis. There is no aortic valve regurgitation. Mitral Valve The mitral valve appears normal. There is mild mitral valve regurgitation. There is no mitral valve stenosis. Pulmonic Valve The pulmonic valve was not well visualized. There is trace pulmonic valve regurgitation. Tricuspid Valve Normal tricuspid valve structure. There is mild tricuspid valve regurgitation. The right ventricular systolic pressure is 47 mmHg. Mild pulmonary hypertension is present. Great Vessels The asc aorta is normal in size. Venous The inferior vena cava is mildly dilated and collapses less than 50% with inspiration. Pericardium/Pleural There is no evidence of pericardial effusion. Prior Study Comparison No prior study available for comparison. Recommendations, Care & Conclusions No obvious valvular pathology seen on this study. Measurements 2D Linear Measurements IVSd: 0.98 0.6-0.9/0.6-1.0 cm LVIDd: 5.90 3.9-5.3/4.2-5.9 cm LVIDd Index: 2.77 2.4-3.2/2.2-3.1 cm/m2 LVIDs: 5.47 2.0-3.6 cm LVPWd: 0.90 0.7-1.1 cm Ao Root: 3.30 2.1-3.5 cm LA Diam: 3.80 2.7-3.8/3.0-4.0 cm LAIDs Index: 1.78 1.5-2.3 cm/m2 LV Mass: 277.10 67-162/88-224 g LV Mass Index: 130.09 43-95/49-115 g/m2 LVOT Diam: 2.00 3.0+(-)1.3 cm 2D Systolic Function EF 4C: 16.60 >55% EF 2C: 17.10 >55% EF BiP: 19.20 >55% Aortic Valve AoV Pk Wilver: 1.16 AoV Mn Wilver: 0.80 AoV VTI: 0.23 AoV Pk Grad: 5.00 Aov Mn Grad: 3.00 VONNIE Cont.VTI: 2.16 LVOT LVOT Pk Wilver: 0.76 LVOT Mn Wilver: 0.48 LVOT VTI: 0.16 LVOT Pk Grad: 2.00 LVOT Mn Grad: 1.00 LVOT Diam: 2.00 LVOT Area: 3.14 Tricuspid Valve TR Pk Wilver: 2.85 TR Pk Grad: 32.00 RA Press: 15.00 RVSP: 47.00 Great Vessels Aorta Ao Root-2D: 3.30 2.0-3.7 cm Ao Asc: 3.00 2.1-3.4 cm Ao Arch: 2.30 Updated in Other Vendor System with Status of Final Alfa Freedman MD electronically signed on 03/18/2021 11:13:26 AM with status of Final
== END ==
LOC: HO.CARD 13:28
PROVIDERS: Visit Provider Internal Medicine
DX: I49.9 Cardiac arrhythmia, unspecified (principal)
CPT/HCPCS: 93306; Q9957

== ENCOUNTER → 2021-03-29 13:39 | Outpatient (BNVA) | payer MEDICARE, MEDICAID, SELFPAY | PROVIDERS: PCP Internal Medicine; Referring Provider Internal Medicine; Visit Provider Internal Medicine Cardiovascular Disease | DX: I42.9 Cardiomyopathy, unspecified (principal); E11.9 Type 2 diabetes mellitus without complications; I10 Essential (primary) hypertension; N40.1 Benign prostatic hyperplasia with lower urinary tract symptoms; R35.1 Nocturia; E55.9 Vitamin D deficiency, unspecified; E78.1 Pure hyperglyceridemia; Z87.891 Personal history of nicotine dependence; Z88.1 Allergy status to other antibiotic agents; Z88.6 Allergy status to analgesic agent; Z88.2 Allergy status to sulfonamides; Z79.84 Long term (current) use of oral hypoglycemic drugs; Z79.899 Other long term (current) drug therapy | CPT/HCPCS: 93005; 99202 ==

== ENCOUNTER 2021-03-30 06:20 | Outpatient (REF) | payer MEDICARE, MEDICAID, SELFPAY ==
[2021-03-30 06:56] LABS: Hematocrit 39.4 % (42-52); Hemoglobin 12.1 g/dl (14.0-18.0); INTERNATIONAL NORM RATIO 1.1 (0.9-1.1); Mean Corpuscular HGB Conc 30.7 g/dl (31.0-36.0); Mean Corpuscular Hemoglobin 26.1 pg (27.0-33.0); Mean Corpuscular Volume 85.1 fL (80-98); Mean Platelet Volume 10.9 fL (9.4-12.4); Platelet Count 255 X10*3/uL (160-400); Prothrombin Time 12.1 SEC (9.9-13.0); Red Blood Count 4.63 X10*6/uL (4.60-5.80); Red Cell Distribution Width 16.1 % (11.0-16.0); White Blood Count 7.5 X10*3/uL (4.8-10.8)
[2021-03-30 07:27] LABS: Anion Gap 14 (12-20); Blood Urea Nitrogen 20 mg/dL (9-16); Calcium 9.5 mg/dL (8.4-10.2); Carbon Dioxide 25 mmol/L (22-29); Chloride 104 mmol/L (96-108); Estimated Glomerular Filt Rate > 60; Glucose Random 131 mg/dL (60-115); Potassium 4.6 mmol/L (3.3-5.1); Sodium 138 mmol/L (135-145)
== END 2021-03-30 06:21 | disposition home or self-care (01) ==
LOC: HO.LAB 06:20
PROVIDERS: PCP Internal Medicine; Visit Provider Internal Medicine Cardiovascular Disease
DX: I42.9 Cardiomyopathy, unspecified (principal)
CPT/HCPCS: 36415; 80048; 85027; 85610

== ENCOUNTER → 2021-05-11 16:07 | Outpatient (BNVA) | payer MEDICARE, MEDICAID, SELFPAY | PROVIDERS: PCP Internal Medicine; Visit Provider Urology | DX: N40.1 Benign prostatic hyperplasia with lower urinary tract symptoms (principal); R35.1 Nocturia; N52.9 Male erectile dysfunction, unspecified | CPT/HCPCS: Q3014 ==

== ENCOUNTER → 2021-05-17 13:22 | Outpatient (BNVA) | payer MEDICARE, MEDICAID, SELFPAY | PROVIDERS: PCP Internal Medicine; Visit Provider Nurse Practitioner Family | DX: I42.9 Cardiomyopathy, unspecified (principal); I44.7 Left bundle-branch block, unspecified; I10 Essential (primary) hypertension; Z98.890 Other specified postprocedural states | CPT/HCPCS: 99212 ==

== ENCOUNTER 2021-06-09 06:19 | Outpatient (REF) | payer MEDICARE, MEDICAID, SELFPAY ==
[2021-06-09 06:40] LABS: MANUAL DIFF FLAG NO
[2021-06-09 07:21] LABS: Basophils Percent Auto 0.5 % (0-2); Eosinophils Absolute Auto 0.3 X10*3/uL (0.0-0.4); Eosinophils Percent Auto 3.3 % (0-4); Hematocrit 37.6 % (42-52); Hemoglobin 11.6 g/dl (14.0-18.0); Imm Gran Abs Auto 0.04 X10*3/uL (0.00-0.03); Imm Gran Pct Auto 0.5 % (0.0-0.4); Lymphocytes Absolute Auto 1.8 X10*3/uL (1.2-4.9); Lymphocytes Percent Auto 23.2 % (20-40); Mean Corpuscular HGB Conc 30.9 g/dl (31.0-36.0); Mean Corpuscular Hemoglobin 26.2 pg (27.0-33.0); Mean Corpuscular Volume 84.9 fL (80-98); Mean Platelet Volume 11.1 fL (9.4-12.4); Monocytes Absolute Auto 0.9 X10*3/uL (0.1-1.2); Monocytes Percent Auto 11.4 % (2-11); Neutrophils Absolute Auto 4.8 X10*3/uL (2.0-8.3); Neutrophils Percent Auto 61.1 % (45-73); Platelet Count 257 X10*3/uL (160-400); Red Blood Count 4.43 X10*6/uL (4.60-5.80); Red Cell Distribution Width 16.4 % (11.0-16.0); White Blood Count 7.9 X10*3/uL (4.8-10.8)
[2021-06-09 08:08] LABS: Alanine Aminotransferase 18 U/L (0-40); Albumin Level 4.1 g/dL (3.5-5.0); Alkaline Phosphatase 90 U/L (39-117); Anion Gap 15 (12-20); Aspartate Amino Transferase 20 U/L (5-37); Bilirubin Total 0.5 mg/dL (0.0-1.0); Blood Urea Nitrogen 16 mg/dL (9-16); Calcium 9.5 mg/dL (8.4-10.2); Carbon Dioxide 23 mmol/L (22-29); Chloride 104 mmol/L (96-108); Cholesterol 134 mg/dL; Estimated Glomerular Filt Rate > 60; Glucose Fasting 105 mg/dL (60-99); HDL Cholesterol 75 mg/dL; LDL Cholesterol Calculated 52 mg/dl; Potassium 4.7 mmol/L (3.3-5.1); Sodium 137 mmol/L (135-145); Triglycerides 36 mg/dL
[2021-06-09 08:10] LABS: TSH reflex Free T4 2.12 uIU/mL (0.32-4.0); Vitamin D 25-OH Total 40.2 ng/mL (>30)
[2021-06-09 08:26] LABS: Estimated Average Glucose 128 mg/dL; Hemoglobin A1c % 6.1 %
[2021-06-09 10:06] LABS: Appearance Urine CLEAR; Color Urine YELLOW; Glucose Urine UA NEG (NEG); Leukocyte Esterase Urine NEG (NEG); Nitrite Urine NEG (NEG); Specific Gravity - Urine 1.025 (1.005-1.025); Urine Blood NEG (NEG); Urine Ketones NEG (NEG); Urine Protein NEG (NEG-TRACE)
[2021-06-09 13:12] LABS: Creatinine Urine 88.28 mg/dL
== END 2021-06-09 06:20 | disposition home or self-care (01) ==
LOC: HO.LAB 06:19
PROVIDERS: PCP Internal Medicine; Visit Provider Internal Medicine
DX: I10 Essential (primary) hypertension (principal); I47.9 Paroxysmal tachycardia, unspecified; E11.9 Type 2 diabetes mellitus without complications; E78.1 Pure hyperglyceridemia; E78.00 Pure hypercholesterolemia, unspecified; E55.9 Vitamin D deficiency, unspecified
CPT/HCPCS: 36415; 80053; 80061; 81003; 82043; 82306; 83036; 84443; 85025

== ENCOUNTER → 2021-08-02 14:52 | Outpatient (REF) | payer MEDICARE, MEDICAID, SELFPAY ==
--- NOTE | 2021-08-02 15:22 | CA_ITS ---
Transthoracic Echocardiogram Patient (Last, First, Middle): Alex Palacio E Gender: Male Date of : 1950 Age: 70 Procedure Date: 08/02/2021 Procedure Type: Transthoracic Echocardiogram Location: OP Height: 170.18 cm Weight: 103.42 kg BSA: 2.14 m2 Heart Rate: bpm BP: 128 / 60 mmHg Back Roll Lathe Operator: NORIS Referring MD: Beatriz Givens REGULATORY CONSULTANT-Willow Estate Administrator: Saud Chawla MD Symptoms: I42.9 - Cardiomyopathy, unspecified Study Quality: Fair, Good with Contrast ECG Rhythm: Sinus with extra beats Conclusions: - severe LV systolic dysfunction with LVEF of 20-25% with moderately dilated left ventricle Findings Procedure Information Contrast agent, definity, is being given per protocol without apparent complications. Left Ventricle Moderately increased left ventricular cavity size. There is normal left ventricular wall thickness. The left ventricular systolic function is severely decreased. The visually estimated ejection fraction is between 20 25%. There is severe global hypokinesis. There is paradoxical septal motion consistent with a left bundle branch block. Diastolic function is indeterminate on the basis of available data. Pericardium/Pleural There is no evidence of pericardial effusion. Prior Study Comparison No significant change compared to prior study dated: 03/16/2021. Measurements 2D Linear Measurements IVSd: 1.15 0.6-0.9/0.6-1.0 cm LVIDd: 6.23 3.9-5.3/4.2-5.9 cm LVIDd Index: 2.91 2.4-3.2/2.2-3.1 cm/m2 LVIDs: 5.23 2.0-3.6 cm LVPWd: 1.07 0.7-1.1 cm LV Mass: 376.01 67-162/88-224 g LV Mass Index: 175.70 43-95/49-115 g/m2 LVOT Diam: 1.90 3.0+(-)1.3 cm 2D Systolic Function EF 4C: 18.30 >55% EF 2C: 27.30 >55% EF BiP: 23.10 >55% LVOT LVOT Pk Wilver: 0.88 LVOT Mn Wilver: 0.63 LVOT VTI: 0.17 LVOT Pk Grad: 3.00 LVOT Mn Grad: 2.00 LVOT Diam: 1.90 LVOT Area: 2.84 Updated in Other Vendor System with Status of Final Saud Chawla MD electronically signed on 08/04/2021 10:03:06 AM with status of Final
== END ==
LOC: HO.CARD 14:52
PROVIDERS: PCP Internal Medicine; Visit Provider Nurse Practitioner Family
DX: I42.9 Cardiomyopathy, unspecified (principal)
CPT/HCPCS: 93308; Q9957

== ENCOUNTER → 2021-08-08 15:20 | Outpatient (BNVA) | payer MEDICARE, MEDICAID, SELFPAY | PROVIDERS: PCP Internal Medicine; Referring Provider Internal Medicine; Visit Provider Internal Medicine Cardiovascular Disease | DX: I44.7 Left bundle-branch block, unspecified (principal); I42.9 Cardiomyopathy, unspecified | CPT/HCPCS: 99212 ==

== ENCOUNTER 2021-12-07 06:02 | Outpatient (REF) | payer MEDICARE, MEDICAID, SELFPAY ==
[2021-12-07 06:33] LABS: MANUAL DIFF FLAG NO
[2021-12-07 07:35] LABS: Basophils Absolute Auto 0.1 X10*3/uL (0.0-0.2); Basophils Percent Auto 0.8 % (0-2); Eosinophils Absolute Auto 0.2 X10*3/uL (0.0-0.4); Hematocrit 39.6 % (42.0-52.0); Hemoglobin 12.4 g/dl (14.0-18.0); Imm Gran Abs Auto 0.05 X10*3/uL (0.00-0.03); Imm Gran Pct Auto 0.6 % (0.0-0.4); Lymphocytes Absolute Auto 1.4 X10*3/uL (1.2-4.9); Lymphocytes Percent Auto 17.4 % (20-40); Mean Corpuscular HGB Conc 31.3 g/dl (31.0-36.0); Mean Corpuscular Hemoglobin 27.1 pg (27.0-33.0); Mean Corpuscular Volume 86.5 fL (80.0-98.0); Mean Platelet Volume 11.6 fL (9.4-12.4); Monocytes Absolute Auto 0.8 X10*3/uL (0.1-1.2); Monocytes Percent Auto 10.2 % (2-11); Neutrophils Absolute Auto 5.4 x10*3/uL (2.0-8.3); Platelet Count 212 X10*3/uL (160-400); Red Blood Count 4.58 X10*6/uL (4.60-5.80); Red Cell Distribution Width 15.2 % (11.0-16.0)
[2021-12-07 07:51] LABS: Estimated Average Glucose 151 mg/dL; Hemoglobin A1c % 6.9 %
[2021-12-07 08:01] LABS: Alanine Aminotransferase 24 U/L (0-40); Albumin Level 4.2 g/dL (3.5-5.0); Alkaline Phosphatase 100 U/L (39-117); Anion Gap 13 (12-20); Aspartate Amino Transferase 21 U/L (5-37); Bilirubin Total 0.4 mg/dL (0.0-1.0); Blood Urea Nitrogen 18 mg/dL (9-16); Calcium 9.8 mg/dL (8.4-10.2); Carbon Dioxide 26 mmol/L (22-29); Chloride 103 mmol/L (96-108); Cholesterol 135 mg/dL; Estimated Glomerular Filt Rate > 60; Glucose Fasting 114 mg/dL (60-99); HDL Cholesterol 65 mg/dL; LDL Cholesterol Calculated 56 mg/dl; Potassium 4.7 mmol/L (3.3-5.1); Sodium 137 mmol/L (135-145); Total Protein 7.2 g/dL (6.5-8.0); Triglycerides 74 mg/dL
[2021-12-07 08:02] LABS: B Type Natriuretic Peptide 175 pg/mL (<100)
[2021-12-07 08:24] LABS: TSH reflex Free T4 1.88 uIU/mL (0.32-4.0); Vitamin D 25-OH Total 39.9 ng/mL (>30)
[2021-12-07 09:17] LABS: Appearance Urine CLEAR; Color Urine YELLOW; Glucose Urine UA NEG (NEG); Leukocyte Esterase Urine NEG (NEG); Nitrite Urine NEG (NEG); PH 5.5 (5.0-8.0); Specific Gravity - Urine >= 1.030 (1.005-1.025); Urine Blood NEG (NEG); Urine Ketones NEG (NEG); Urine Protein NEG (NEG-TRACE)
[2021-12-07 10:11] LABS: Microalbum/Creatinine Ratio Ur 13.5 ug/mg cr
== END 2021-12-07 06:03 | disposition home or self-care (01) ==
LOC: HO.LAB 06:02
PROVIDERS: PCP Internal Medicine; Visit Provider Internal Medicine
DX: I10 Essential (primary) hypertension (principal); E55.9 Vitamin D deficiency, unspecified; E11.9 Type 2 diabetes mellitus without complications; E78.00 Pure hypercholesterolemia, unspecified; I42.9 Cardiomyopathy, unspecified
CPT/HCPCS: 36415; 80053; 80061; 81003; 82043; 82306; 83036; 83880; 84443; 85025

== ENCOUNTER → 2021-12-08 10:34 | Outpatient (BNVA) | payer MEDICARE, MEDICAID, SELFPAY | PROVIDERS: PCP Internal Medicine; Referring Provider Internal Medicine; Visit Provider Internal Medicine Cardiovascular Disease | DX: Z45.018 Encounter for adjustment and management of other part of cardiac pacemaker (principal); I42.9 Cardiomyopathy, unspecified; I10 Essential (primary) hypertension | CPT/HCPCS: 93005; 99212 ==

== ENCOUNTER → 2022-02-21 08:03 | Outpatient (REF) | payer MEDICARE, MEDICAID, SELFPAY ==
--- NOTE | 2022-02-21 08:06 | CA_ITS ---
Transthoracic Echocardiogram Patient (Last, First, Middle): Alex Palacio E Gender: Male Date of : 1950 Age: 71 Procedure Date: 02/21/2022 Procedure Type: Transthoracic Echocardiogram Location: OP Height: 170.18 cm Weight: 99.79 kg BSA: 2.11 m2 Heart Rate: 80 bpm BP: 146 / 79 mmHg Linen Room Attendant: SB Referring MD: Jairo Lua MD Symptoms: I42.9 - Cardiomyopathy, unspecified Study Quality: Fair/Contrast ECG Rhythm: Sinus Conclusions: - Mildly increased left ventricular cavity size. There is normal left ventricular wall thickness. The left ventricular systolic function is mildly decreased. The visually estimated ejection fraction is between 40-45%. - Normal right ventricular cavity size and systolic function. - The left atrium is mildly dilated. Findings Left Ventricle Mildly increased left ventricular cavity size. There is normal left ventricular wall thickness. The left ventricular systolic function is mildly decreased. The visually estimated ejection fraction is between 40-45%. Abnormal diastolic function is noted. Spectral Doppler is indicative of an impaired relaxation filling pattern. E/E prime ratio is between 8 and 15 consistent with indeterminate filling pressures. Right Ventricle Normal right ventricular cavity size and systolic function. Atria The left atrium is mildly dilated. Aortic Valve The aortic valve was not well visualized. There is no aortic valve stenosis. There is no aortic valve regurgitation. Mitral Valve There is mild mitral annular calcification. There is no mitral valve regurgitation. There is no mitral valve stenosis. Pulmonic Valve The pulmonic valve is likely normal. Tricuspid Valve Normal tricuspid valve structure. There is no tricuspid valve regurgitation. Tricuspid regurgitation envelope is inadequate for calculation of right ventricular systolic pressure. Great Vessels All visible segments of the aorta are normal in size. The visualized portions of the pulmonary artery and branches are normal. Venous The inferior vena cava is normal in size and collapses greater than 50% with inspiration. Pericardium/Pleural There is no evidence of pericardial effusion. Prior Study Comparison Changes noted compared to prior study. LVEF 40-45% now Measurements 2D Linear Measurements IVSd: 0.74 0.6-0.9/0.6-1.0 cm LVIDd: 6.25 3.9-5.3/4.2-5.9 cm LVIDd Index: 2.96 2.4-3.2/2.2-3.1 cm/m2 LVIDs: 4.93 2.0-3.6 cm LVPWd: 0.85 0.7-1.1 cm LA Diam: 3.80 2.7-3.8/3.0-4.0 cm LAIDs Index: 1.80 1.5-2.3 cm/m2 LV Mass: 246.88 67-162/88-224 g LV Mass Index: 117.00 43-95/49-115 g/m2 LVOT Diam: 2.00 3.0+(-)1.3 cm 2D Systolic Function EF 4C: 37.70 >55% EF 2C: 47.80 >55% EF BiP: 41.20 >55% Mitral Valve MV Pk E: 0.70 MV PK A: 1.16 MV Decel Time: 211.00 E/A: 0.60 E'Lateral: 6.20 E'Medial: 3.92 E/E' Med: 17.80 E/E' Lat: 11.30 PHT: 62.00 MVA PHT: 3.55 Decel [place]: 3.31 Aortic Valve AoV Pk Wilver: 1.47 AoV Mn Wilver: 1.02 AoV VTI: 0.29 AoV Pk Grad: 9.00 Aov Mn Grad: 5.00 VONNIE Cont.VTI: 1.70 LVOT LVOT Pk Wilver: 0.79 LVOT Mn Wilver: 0.58 LVOT VTI: 0.16 LVOT Pk Grad: 3.00 LVOT Mn Grad: 1.00 LVOT Diam: 2.00 LVOT Area: 3.14 Diastolic Function MV Pk E: 0.70 MV Pk A: 1.16 E/A: 0.60 E'Medial: 3.92 E/E' Med: 17.80 E' Laterial: 6.20 E/E' Lat: 11.30 Right Ventricle TVS' Wilver: 25.10 Tricuspid Valve RA Press: 8.00 Great Vessels Aorta Sinus of Valsalva: 2.93 2.0-3.5 cm Ao Asc: 3.20 2.1-3.4 cm Pulmonary Veins Pulm Vein S/D 1.30 Pulmonary Valve PV Pk Wilver: 1.22 Peak PV Grad: 6.00 Updated in Other Vendor System with Status of Final Jairo Lua MD electronically signed on 02/21/2022 10:23:18 PM with status of Final
== END ==
LOC: HO.CARD 08:03
PROVIDERS: PCP Internal Medicine; Visit Provider Internal Medicine Cardiovascular Disease
DX: I42.9 Cardiomyopathy, unspecified (principal)
CPT/HCPCS: 93306; Q9957

== ENCOUNTER 2022-03-16 06:11 | Outpatient (REF) | payer MEDICARE, MEDICAID, SELFPAY ==
[2022-03-16 06:30] LABS: MANUAL DIFF FLAG NO
[2022-03-16 07:25] LABS: Basophils Absolute Auto 0.1 X10*3/uL (0.0-0.2); Basophils Percent Auto 0.7 % (0-2); Eosinophils Absolute Auto 0.2 X10*3/uL (0.0-0.4); Eosinophils Percent Auto 2.1 % (0-4); Hematocrit 39.8 % (42.0-52.0); Hemoglobin 12.4 g/dl (14.0-18.0); Imm Gran Abs Auto 0.08 X10*3/uL (0.00-0.03); Imm Gran Pct Auto 0.9 % (0.0-0.4); Lymphocytes Absolute Auto 1.7 X10*3/uL (1.2-4.9); Lymphocytes Percent Auto 18.3 % (20-40); Mean Corpuscular HGB Conc 31.2 g/dl (31.0-36.0); Mean Corpuscular Hemoglobin 27.2 pg (27.0-33.0); Mean Corpuscular Volume 87.3 fL (80.0-98.0); Mean Platelet Volume 11.9 fL (9.4-12.4); Monocytes Absolute Auto 0.9 X10*3/uL (0.1-1.2); Monocytes Percent Auto 10.1 % (2-11); Neutrophils Absolute Auto 6.4 x10*3/uL (2.0-8.3); Neutrophils Percent Auto 67.9 % (45-73); Platelet Count 241 X10*3/uL (160-400); Red Blood Count 4.56 X10*6/uL (4.60-5.80); Red Cell Distribution Width 14.9 % (11.0-16.0); White Blood Count 9.4 X10*3/uL (4.8-10.8)
[2022-03-16 07:40] LABS: Alanine Aminotransferase 32 U/L (0-40); Albumin Level 4.3 g/dL (3.5-5.0); Alkaline Phosphatase 106 U/L (39-117); Anion Gap 15 (12-20); Aspartate Amino Transferase 27 U/L (5-37); Bilirubin Total 0.5 mg/dL (0.0-1.0); Blood Urea Nitrogen 18 mg/dL (9-16); Calcium 9.2 mg/dL (8.4-10.2); Carbon Dioxide 25 mmol/L (22-29); Chloride 103 mmol/L (96-108); Cholesterol 109 mg/dL; Estimated Glomerular Filt Rate > 60; Glucose Fasting 139 mg/dL (60-99); HDL Cholesterol 54 mg/dL; LDL Cholesterol Calculated 43 mg/dl; Potassium 4.9 mmol/L (3.3-5.1); Sodium 138 mmol/L (135-145); Total Protein 7.3 g/dL (6.5-8.0); Triglycerides 60 mg/dL
[2022-03-16 07:43] LABS: Estimated Average Glucose 160 mg/dL; Hemoglobin A1c % 7.2 %
[2022-03-16 08:01] LABS: TSH reflex Free T4 2.91 uIU/mL (0.32-4.0); Vitamin D 25-OH Total 47.2 ng/mL (>30)
[2022-03-16 09:09] LABS: Appearance Urine CLEAR; Color Urine YELLOW; Glucose Urine UA NEG (NEG); Leukocyte Esterase Urine NEG (NEG); Nitrite Urine NEG (NEG); PH 5.5 (5.0-8.0); Specific Gravity - Urine >= 1.030 (1.005-1.025); Urine Blood NEG (NEG); Urine Ketones NEG (NEG); Urine Protein NEG (NEG-TRACE)
[2022-03-16 09:36] LABS: Creatinine Urine 108.83 mg/dL; Microalbum/Creatinine Ratio Ur 7.3 ug/mg cr
== END 2022-03-16 06:12 | disposition home or self-care (01) ==
LOC: HO.LAB 06:11
PROVIDERS: PCP Internal Medicine; Visit Provider Internal Medicine
DX: E78.00 Pure hypercholesterolemia, unspecified (principal); E11.9 Type 2 diabetes mellitus without complications; E55.9 Vitamin D deficiency, unspecified; I10 Essential (primary) hypertension
CPT/HCPCS: 36415; 80053; 80061; 81003; 82043; 82306; 83036; 84443; 85025

== ENCOUNTER 2022-04-26 05:52 | Outpatient (REF) | payer MEDICARE, MEDICAID, SELFPAY ==
[2022-04-26 08:07] LABS: Prostate Specific Antigen 3.34 ng/mL (<0.05-4.0)
== END 2022-04-26 05:53 | disposition home or self-care (01) ==
LOC: HO.LAB 05:52
PROVIDERS: PCP Internal Medicine; Visit Provider Urology
DX: Z12.5 Encounter for screening for malignant neoplasm of prostate (principal); N40.1 Benign prostatic hyperplasia with lower urinary tract symptoms; N13.8 Other obstructive and reflux uropathy
CPT/HCPCS: 36415; 84153

== ENCOUNTER → 2022-05-11 09:55 | Outpatient (BNVA) | payer MEDICARE, MEDICAID, SELFPAY | PROVIDERS: PCP Internal Medicine; Visit Provider Urology | DX: N40.1 Benign prostatic hyperplasia with lower urinary tract symptoms (principal); N13.8 Other obstructive and reflux uropathy; R35.1 Nocturia; N52.9 Male erectile dysfunction, unspecified; Z79.899 Other long term (current) drug therapy | CPT/HCPCS: Q3014 ==

== ENCOUNTER 2022-06-14 05:59 | Outpatient (REF) | payer MEDICARE, MEDICAID, SELFPAY ==
[2022-06-14 06:13] LABS: MANUAL DIFF FLAG NO
[2022-06-14 07:34] LABS: Basophils Absolute Auto 0.1 X10*3/uL (0.0-0.2); Basophils Percent Auto 1.1 % (0-2); Eosinophils Absolute Auto 0.2 X10*3/uL (0.0-0.4); Eosinophils Percent Auto 2.5 % (0-4); Hematocrit 38.3 % (42.0-52.0); Imm Gran Abs Auto 0.04 X10*3/uL (0.00-0.03); Imm Gran Pct Auto 0.5 % (0.0-0.4); Lymphocytes Absolute Auto 1.8 X10*3/uL (1.2-4.9); Lymphocytes Percent Auto 23.5 % (20-40); Mean Corpuscular HGB Conc 31.3 g/dl (31.0-36.0); Mean Corpuscular Hemoglobin 27.6 pg (27.0-33.0); Mean Corpuscular Volume 88.2 fL (80.0-98.0); Mean Platelet Volume 11.5 fL (9.4-12.4); Monocytes Absolute Auto 0.9 X10*3/uL (0.1-1.2); Neutrophils Absolute Auto 4.5 x10*3/uL (2.0-8.3); Neutrophils Percent Auto 60.4 % (45-73); Platelet Count 238 X10*3/uL (160-400); Red Blood Count 4.34 X10*6/uL (4.60-5.80); Red Cell Distribution Width 15.1 % (11.0-16.0); White Blood Count 7.5 X10*3/uL (4.8-10.8)
[2022-06-14 07:53] LABS: Estimated Average Glucose 146 mg/dL; Hemoglobin A1c % 6.7 %
[2022-06-14 08:02] LABS: Appearance Urine Clear; B Type Natriuretic Peptide 34 pg/mL (<100); Color Urine Yellow; Glucose Urine UA Negative (Negative); Leukocyte Esterase Urine Negative (Negative); Nitrite Urine Negative (Negative); PH 5.5 (5.0-9.0); Specific Gravity - Urine 1.025 (1.005-1.025); Urine Blood Negative (Negative); Urine Ketones Trace mg/dL (Negative); Urine Protein Negative (Neg-Trace)
[2022-06-14 08:04] LABS: Alanine Aminotransferase 22 U/L (0-40); Albumin Level 4.2 g/dL (3.5-5.0); Alkaline Phosphatase 80 U/L (39-117); Anion Gap 14 (12-20); Aspartate Amino Transferase 22 U/L (5-37); Bilirubin Total 0.5 mg/dL (0.0-1.0); Blood Urea Nitrogen 17 mg/dL (9-16); Calcium 9.2 mg/dL (8.4-10.2); Carbon Dioxide 26 mmol/L (22-29); Chloride 103 mmol/L (96-108); Cholesterol 128 mg/dL; Estimated Glomerular Filt Rate > 60; Glucose Fasting 101 mg/dL (60-99); HDL Cholesterol 72 mg/dL; LDL Cholesterol Calculated 45 mg/dl; Potassium 4.4 mmol/L (3.3-5.1); Sodium 139 mmol/L (135-145); Triglycerides 59 mg/dL
[2022-06-14 08:13] LABS: Creatinine Urine 152.48 mg/dL; Microalbum/Creatinine Ratio Ur 5.9 ug/mg cr
[2022-06-14 08:26] LABS: Vitamin D 25-OH Total 42.3 ng/mL (>30)
== END 2022-06-14 06:00 | disposition home or self-care (01) ==
LOC: HO.LAB 05:59
PROVIDERS: PCP Internal Medicine; Visit Provider Internal Medicine
DX: I11.0 Hypertensive heart disease with heart failure (principal); I50.9 Heart failure, unspecified; E78.00 Pure hypercholesterolemia, unspecified; E11.9 Type 2 diabetes mellitus without complications; E55.9 Vitamin D deficiency, unspecified
CPT/HCPCS: 36415; 80053; 80061; 81003; 82043; 82306; 83036; 83880; 84443; 85025

== ENCOUNTER → 2022-07-03 15:18 | Outpatient (BNVA) | payer MEDICARE, MEDICAID, SELFPAY | PROVIDERS: PCP Internal Medicine; Referring Provider Internal Medicine; Visit Provider Internal Medicine Cardiovascular Disease | DX: I42.9 Cardiomyopathy, unspecified (principal); I44.7 Left bundle-branch block, unspecified | CPT/HCPCS: 93005; 99212 ==

== ENCOUNTER → 2022-09-05 13:24 | Outpatient (REF) | payer MEDICARE, MEDICAID, SELFPAY ==
--- NOTE | 2022-09-05 13:27 | CA_ITS ---
Transthoracic Echocardiogram Patient (Last, First, Middle): Alex Palacio E Gender: Male Date of : 1950 Age: 71 Procedure Date: 09/05/2022 Procedure Type: Transthoracic Echocardiogram Location: OP Height: 172.72 cm Weight: 104.33 kg BSA: 2.17 m2 Heart Rate: bpm BP: 138 / 64 mmHg Public Health Outreach Worker: TO Referring MD: Jairo Lua MD Commodities Requirements Analyst: Jairo Lua MD Symptoms: I42.9 - Cardiomyopathy, unspecified Study Quality: Technically Difficult/Contrast Conclusions: - There is normal left ventricular wall thickness. The left ventricular systolic function is borderline reduced. The visually estimated ejection fraction is between 45-50%. - LV size is at upper limit of normal. - Normal right ventricular cavity size and systolic function. - The right ventricular systolic pressure is 39 mmHg. Moderately elevated right atrial pressure. Mild pulmonary hypertension is present. - There is mild dilatation of the ascending aorta measuring 3.60 cm. Findings Procedure Information Contrast agent, definity, is being given per protocol without apparent complications. Left Ventricle There is normal left ventricular wall thickness. The left ventricular systolic function is borderline reduced. The visually estimated ejection fraction is between 45-50%. There is no evidence of regional wall motion abnormalities. Diastolic function is indeterminate on the basis of available data. LV size is at upper limit of normal. Right Ventricle Normal right ventricular cavity size and systolic function. Atria The left atrium is normal in size. Aortic Valve Normal aortic valve structure and function. There is no aortic valve stenosis. There is no aortic valve regurgitation. Mitral Valve Normal mitral valve structure and function. There is no mitral valve regurgitation. There is no mitral valve stenosis. Pulmonic Valve The pulmonic valve is likely normal. Tricuspid Valve Normal tricuspid valve structure and function. There is no tricuspid valve regurgitation. The right ventricular systolic pressure is 39 mmHg. Moderately elevated right atrial pressure. Mild pulmonary hypertension is present. Great Vessels There is mild dilatation of the ascending aorta measuring 3.60 cm. The visualized portions of the pulmonary artery and branches are normal. Venous The inferior vena cava is dilated and collapses less than 50% with inspiration. Pericardium/Pleural There is no evidence of pericardial effusion. Prior Study Comparison Changes noted compared to prior study dated: 02/21/2022. EF mildly better, Mild pulm hypertension and moderately increased RA pressures. Measurements 2D Linear Measurements IVSd: 0.92 0.6-0.9/0.6-1.0 cm LVIDd: 5.47 3.9-5.3/4.2-5.9 cm LVIDd Index: 2.52 2.4-3.2/2.2-3.1 cm/m2 LVIDs: 4.07 2.0-3.6 cm LVPWd: 0.92 0.7-1.1 cm LA Diam: 3.90 2.7-3.8/3.0-4.0 cm LAIDs Index: 1.80 1.5-2.3 cm/m2 LV Mass: 235.20 67-162/88-224 g LV Mass Index: 108.39 43-95/49-115 g/m2 LVOT Diam: 2.20 3.0+(-)1.3 cm 2D Systolic Function EF 4C: 40.50 >55% EF 2C: 48.20 >55% EF BiP: 43.80 >55% Mitral Valve MV VTI: 0.34 MV Pk Wilver: 1.26 MV Mn Wilver: 0.76 MV Pk Grad: 6.00 MV Mn Grad: 3.00 MV Pk E: 0.74 MV PK A: 1.04 MV Decel Time: 211.00 E/A: 0.70 E'Lateral: 7.94 E'Medial: 5.77 E/E' Med: 12.80 E/E' Lat: 9.30 PHT: 62.00 MVA PHT: 3.55 MVA Continuity: 1.89 Decel [place]: 3.51 Aortic Valve AoV Pk Wilver: 1.49 AoV Mn Wilver: 1.06 AoV VTI: 0.32 AoV Pk Grad: 9.00 Aov Mn Grad: 5.00 VONNIE Cont.VTI: 2.02 LVOT LVOT Pk Wilver: 0.79 LVOT Mn Wilver: 0.54 LVOT VTI: 0.17 LVOT Pk Grad: 2.00 LVOT Mn Grad: 1.00 LVOT Diam: 2.20 LVOT Area: 3.80 Diastolic Function MV Pk E: 0.74 MV Pk A: 1.04 E/A: 0.70 E'Medial: 5.77 E/E' Med: 12.80 E' Laterial: 7.94 E/E' Lat: 9.30 Right Ventricle TAPSE (mm): 29.50 TVS' Wilver: 19.40 Tricuspid Valve TR Pk Wilver: 2.44 TR Pk Grad: 24.00 RA Press: 15.00 RVSP: 39.00 Great Vessels Aorta Sinus of Valsalva: 3.47 2.0-3.[address] [place]: 2.71 1.7-3.4 cm Ao Asc: 3.60 2.1-3.4 cm Updated in Other Vendor System with Status of Final Jairo Lua MD electronically signed on 09/06/2022 1:11:37 PM with status of Final
== END ==
LOC: HO.CARD 13:24
PROVIDERS: PCP Internal Medicine; Visit Provider Internal Medicine Cardiovascular Disease
DX: I42.9 Cardiomyopathy, unspecified (principal)
CPT/HCPCS: 93306; Q9957

== ENCOUNTER 2022-10-18 05:58 | Outpatient (REF) | payer MEDICARE, MEDICAID, SELFPAY ==
[2022-10-18 06:09] LABS: MANUAL DIFF FLAG NO
[2022-10-18 07:40] LABS: Basophils Absolute Auto 0.1 X10*3/uL (0.0-0.2); Basophils Percent Auto 0.8 % (0-2); Eosinophils Absolute Auto 0.3 X10*3/uL (0.0-0.4); Eosinophils Percent Auto 3.3 % (0-4); Hematocrit 35.7 % (42.0-52.0); Hemoglobin 11.2 g/dl (14.0-18.0); Imm Gran Abs Auto 0.06 X10*3/uL (0.00-0.03); Imm Gran Pct Auto 0.8 % (0.0-0.4); Lymphocytes Absolute Auto 1.8 X10*3/uL (1.2-4.9); Lymphocytes Percent Auto 23.4 % (20-40); Mean Corpuscular HGB Conc 31.4 g/dl (31.0-36.0); Mean Corpuscular Hemoglobin 27.8 pg (27.0-33.0); Mean Corpuscular Volume 88.6 fL (80.0-98.0); Mean Platelet Volume 11.1 fL (9.4-12.4); Monocytes Absolute Auto 0.9 X10*3/uL (0.1-1.2); Monocytes Percent Auto 12.3 % (2-11); Neutrophils Absolute Auto 4.5 x10*3/uL (2.0-8.3); Neutrophils Percent Auto 59.4 % (45-73); Platelet Count 214 X10*3/uL (160-400); Red Blood Count 4.03 X10*6/uL (4.60-5.80); Red Cell Distribution Width 15.1 % (11.0-16.0); White Blood Count 7.6 X10*3/uL (4.8-10.8)
[2022-10-18 07:46] LABS: Estimated Average Glucose 134 mg/dL; Hemoglobin A1c % 6.3 %
[2022-10-18 08:09] LABS: Alanine Aminotransferase 15 U/L (0-40); Albumin Level 3.9 g/dL (3.5-5.0); Alkaline Phosphatase 82 U/L (39-117); Anion Gap 17 (12-20); Aspartate Amino Transferase 18 U/L (5-37); Bilirubin Total 0.6 mg/dL (0.0-1.0); Blood Urea Nitrogen 16 mg/dL (9-16); Calcium 9.1 mg/dL (8.4-10.2); Carbon Dioxide 22 mmol/L (22-29); Chloride 105 mmol/L (96-108); Cholesterol 130 mg/dL; Estimated Glomerular Filt Rate > 60; Glucose Fasting 102 mg/dL (60-99); HDL Cholesterol 73 mg/dL; LDL Cholesterol Calculated 50 mg/dl; Potassium 4.6 mmol/L (3.3-5.1); Sodium 139 mmol/L (135-145); Total Protein 6.6 g/dL (6.5-8.0); Triglycerides 37 mg/dL
[2022-10-18 08:13] LABS: Appearance Urine Clear; Color Urine Yellow; Glucose Urine UA Negative (Negative); Leukocyte Esterase Urine Negative (Negative); Nitrite Urine Negative (Negative); PH 5.5 (5.0-9.0); Specific Gravity - Urine <= 1.005 (1.005-1.025); Urine Blood Negative (Negative); Urine Ketones Negative (Negative); Urine Protein Negative (Neg-Trace)
[2022-10-18 08:29] LABS: TSH reflex Free T4 1.87 uIU/mL (0.32-4.0); Vitamin D 25-OH Total 40.9 ng/mL (>30)
== END 2022-10-18 05:59 | disposition home or self-care (01) ==
LOC: HO.LAB 05:58
PROVIDERS: PCP Internal Medicine; Visit Provider Internal Medicine
DX: E11.9 Type 2 diabetes mellitus without complications (principal); I10 Essential (primary) hypertension; E55.9 Vitamin D deficiency, unspecified; R30.0 Dysuria; E78.00 Pure hypercholesterolemia, unspecified
CPT/HCPCS: 36415; 80053; 80061; 81003; 82306; 83036; 84443; 85025

== ENCOUNTER → 2023-01-26 09:57 | Outpatient (BNVA) | payer MEDICARE, MEDICAID, SELFPAY | PROVIDERS: PCP Internal Medicine; Visit Provider Internal Medicine Gastroenterology | DX: Z86.010 Personal history of colon polyps (principal) | CPT/HCPCS: 99212 ==

== ENCOUNTER → 2023-02-08 14:32 | Outpatient (BNVA) | payer MEDICARE, MEDICAID, SELFPAY | PROVIDERS: PCP Internal Medicine; Referring Provider Internal Medicine; Visit Provider Internal Medicine Cardiovascular Disease | DX: I42.9 Cardiomyopathy, unspecified (principal) | CPT/HCPCS: 93005; 99212 ==

== ENCOUNTER 2023-03-08 08:26 | Day surgery (SDC) | payer MEDICARE, MEDICAID, SELFPAY ==
[2023-03-06 10:02] VITALS: BMI 35.4
--- NOTE | 2023-03-07 13:06 | P.CONAN_ITS ---
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 Clinically he did not have heart failure before and continues to be euvolemic and compensated.? [facility] Active Problems Active Problems: All Active Problems (Updated 03/06/23 @ 09:55 by Isela Timmons RN) Tubulovillous adenoma (Acute) Left knee pain (Acute) Patellofemoral arthritis of left knee (Acute) Left bundle branch block (Acute) Adult general medical exam (Acute) Screening for colon cancer (Acute) Left foot pain (Acute) Status post cardiac catheterization (Acute) Cardiomyopathy (Acute) Cardiac arrhythmia, unspecified (Acute) BPH associated with nocturia (Acute) Obesity (BMI 30-39.9) (Acute) Benign prostatic hyperplasia (Acute) Erectile dysfunction (Acute) Allergic rhinitis (Acute) Primary osteoarthritis of left shoulder (Acute) Osteoarthritis of knee (Acute) Vitamin D deficiency (Acute) Hypertriglyceridemia (Acute) Benign essential hypertension (Acute) Diabetes mellitus (Acute) Past Medical History Medical History (Updated 03/08/23 @ 09:33 by Ying Carter, DWIGHT) Allergic rhinitis Arthritis Benign essential hypertension Benign prostatic hyperplasia BPH associated with nocturia Cardiac arrhythmia, unspecified Cardiomyopathy Carpal tunnel syndrome on both sides COVID-19 vaccine series completed Diabetes Diabetes mellitus Erectile dysfunction History of BPH History of macular degeneration HTN (hypertension) Hx of TB skin testing Hypertriglyceridemia Obesity (BMI 30-39.9) Osteoarthritis of knee Primary osteoarthritis of left shoulder Vitamin D deficiency Family History Family History Father Diabetes Mother Kidney problem Sister Asthma Hypertension Surgical History Surgical History H/O cardiac catheterization History of bilateral cataract extraction History of colonoscopy History of implantable cardioverter-defibrillator (ICD) insertion History of transurethral resection of prostate Status post cardiac catheterization Social History Social History Housing: Apartment Are you a primary healthcare administration intern to a significant other at home: No Do you presently have visiting nurse or other home services: No Alcohol intake: never Patient Tobacco Use Status: Former Tobacco user Quit Date: 15 yrs ago Tobacco use type: Cigarette e-Cigarette/Vaping Use: Never Used Second Hand Smoke Exposure: Yes Use of substances other than those prescribed or required for medical reasons: No Are you DNR?: No Advance Directives: No Advance Directives Information Provided: Yes service: No Current occupational status: employed Cognitive needs: No Hearing needs: No Vision needs: Yes Meds Allergies Allergy/AdvReac Type Severity Reaction Status Date / Time amoxicillin [AMOXICILLIN] Allergy Intermediate Rash Verified 03/08/23 09:05 clindamycin [Clindamycin] Allergy Intermediate RASH Verified 03/08/23 09:05 Sulfa (Sulfonamide Allergy Intermediate RASH Verified 03/08/23 09:05 Antibiotics) ibuprofen [From Motrin] AdvReac Intermediate Gastrointestinal Verified 03/08/23 09:05 Upset Home Medications Medication Instructions Recorded Confirmed Last Taken Type atorvastatin 20 mg tablet 20 mg PO BEDTIME 01/26/23 03/08/23 Unknown History carvedilol 12.5 mg tablet 12.5 mg PO BID 01/26/23 03/08/23 Unknown History aspirin 81 mg tablet 81 mg PO DAILY 03/08/23 03/08/23 03/01/23 History Exam Exam Date and Time: March 07, 2023 1306 Height,Weight and Vital Signs: Height 5 ft 7 in Weight 102.512 kg Narrative Narrative: EKG 02/2023 Sinus rhythm, rightward axis, low voltage, atrial sensed V pacing with QRS interval of 94 milliseconds.? QTC 430 milliseconds. Cardiac Device Check 02/2023 Details: HF monitoring 99% V paced Stable thoracic impedance Assessment and Plan Assessment Anesthesia Assessment: Chart Reviewed Documented by User: Helio Camarillo MD 03/08/23 09:43 [facility] Past Medical History Medical History (Updated 03/08/23 @ 09:33 by Ying Carter RN) Allergic rhinitis Arthritis Benign essential hypertension Benign prostatic hyperplasia BPH associated with nocturia Cardiac arrhythmia, unspecified Cardiomyopathy Carpal tunnel syndrome on both sides COVID-19 vaccine series completed Diabetes Diabetes mellitus Erectile dysfunction History of BPH History of macular degeneration HTN (hypertension) Hx of TB skin testing Hypertriglyceridemia Obesity (BMI 30-39.9) Osteoarthritis of knee Primary osteoarthritis of left shoulder Vitamin D deficiency Family History Family History Father Diabetes Mother Kidney problem Sister Asthma Hypertension Family history of problems with anesthesia: No Surgical History Surgical History H/O cardiac catheterization History of bilateral cataract extraction History of colonoscopy History of implantable cardioverter-defibrillator (ICD) insertion History of transurethral resection of prostate Status post cardiac catheterization History of Problems with Anesthesia: No Social History Social History Housing: Apartment Are you a primary healthcare administration intern to a significant other at home: No Do you presently have visiting nurse or other home services: No Alcohol intake: never Patient Tobacco Use Status: Former Tobacco user Quit Date: 15 yrs ago Tobacco use type: Cigarette e-Cigarette/Vaping Use: Never Used Second Hand Smoke Exposure: Yes Use of substances other than those prescribed or required for medical reasons: No Are you DNR?: No Advance Directives: No Advance Directives Information Provided: Yes service: No Current occupational status: employed Cognitive needs: No Hearing needs: No Vision needs: Yes Meds Allergies Allergy/AdvReac Type Severity Reaction Status Date / Time amoxicillin [AMOXICILLIN] Allergy Intermediate Rash Verified 03/08/23 09:05 clindamycin [Clindamycin] Allergy Intermediate RASH Verified 03/08/23 09:05 Sulfa (Sulfonamide Allergy Intermediate RASH Verified 03/08/23 09:05 Antibiotics) ibuprofen [From Motrin] AdvReac Intermediate Gastrointestinal Verified 03/08/23 09:05 Upset Home Medications Medication Instructions Recorded Confirmed Last Taken Type atorvastatin 20 mg tablet 20 mg PO BEDTIME 01/26/23 03/08/23 Unknown History carvedilol 12.5 mg tablet 12.5 mg PO BID 01/26/23 03/08/23 Unknown History aspirin 81 mg tablet 81 mg PO DAILY 03/08/23 03/08/23 03/01/23 History Exam Airway Mallampati Class: I TM Dist: >3cm Neck ROM: Full Heart: ok Lungs: ok Assessment and Plan Assessment Anesthesia Assessment: Anesthesia Plan Discussed Final Anesthetic Review Family History of Problems with Anesthesia: No History of Problems with Anesthesia: No NPO: Yes ASA Class: III Final Preanesthetic Review: No Changes in Pt Med Stat, Meds/Allgs Chart Reviewed, Consent Obtained/Reviewed and Anes Risks/Benef Reviewed Patient Risk: Intermediate Procedure Risk: Low Anesthetic Plan Anesthetic Plan: MAC: and Agree w/ Assess. and Plan Disposition: Standard PACU
[2023-03-08 09:11] VITALS: BP 148/85; PULSE 90; RESP 16; TEMP 36; O2SAT 95
[2023-03-08 09:13] LABS: Glucose, Whole Blood 129 mg/dL (60-115)
[2023-03-08] MEDS: Lactated Ringers 1,000 ML 50 ML IVCONT (09:31)
--- NOTE | 2023-03-08 09:38 | MHC.SHP ---
Pre-Procedural Eval Section A Date of Service: 03/08/23 Section B Chief Complaint: Encounter for screening for malignant neoplasm Relevant Family History (Specify if Yes): No Relevant Social History: None Present Medications: see Short Stay Collaborative assessment Medical History: Significant History (Allergic rhinitis Arthritis Benign essential hypertension Benign prostatic hyperplasia BPH associated with nocturia Cardiac arrhythmia, unspecified Cardiomyopathy Carpal tunnel syndrome on both sides COVID-19 vaccine series completed Diabetes Diabetes mellitus Erectile dysfunction History of BPH His) History of Previous Operations: Relevant previous surgery/procedure and date(s) (H/O cardiac catheterization History of bilateral cataract extraction History of colonoscopy History of implantable cardioverter-defibrillator (ICD) insertion History of transurethral resection of prostate Status post cardiac catheterization) Allergies: Allergies Allergy/AdvReac Type Severity Reaction Status Date / Time amoxicillin [AMOXICILLIN] Allergy Intermediate Rash Verified 03/08/23 09:05 clindamycin [Clindamycin] Allergy Intermediate RASH Verified 03/08/23 09:05 Sulfa (Sulfonamide Allergy Intermediate RASH Verified 03/08/23 09:05 Antibiotics) ibuprofen [From Motrin] AdvReac Intermediate Gastrointestinal Verified 03/08/23 09:05 Upset Review of Systems Sugical H&P ROS: Negative: Constitution, Cardiovascular, Respiratory, Neurological, Psychiatric, Hem-Onc, Allergic/Immunologic, Gastrointestinal, Genitourinary, Musculoskeletal, Integumentary, Endocrine and Eyes/Ears/Nose/Throat Exam Surgical H&P Exam: Normal: HEENT, Normal: Heart, Normal: Lungs, Normal: Extremities, Normal: Abdomen, Normal: Skin and Normal: Neurological Plan Diagnosis/Plan: Unchanged I have reviewed the history and physical and performed a pertinent physical examination on my patient. No changes have occurred unless specified. Time Spent With Patient Time: Total time managing care of this patient today ____ minutes.
--- NOTE | 2023-03-08 11:10 | P.OP_ITS ---
Operative Note Operative Note Date of Service: 03/08/23 Narrative: Operative Information Procedure Description: Colonoscopy Indication: hx of colon polyps Anesthesia: MAC COLONOSCOPY Instrument: Olympus variable stiffness ADULT scope 190L Colonoscopy Monitoring: Vital signs and clinical assessment, continuous EKG monitoring, Pulse oximetry, Carbon Dioxide monitoring and blood pressure monitoring were done throughout the procedure. Colon withdrawal time was 12 minutes. Procedure: The patient was placed in the left lateral decubitis position and pre-procedure medications were administered. After a digital rectal examination of the ano-rectum, the video colonoscope was inserted into the rectum and advanced through the colon to the cecum/TI. The colonoscope was slowly withdrawn in a retrograde panoramic fashion and the colon mucosa was carefully examined including a retroflexed view of the rectum. Findings and interventions are described below. Procedure Difficulty: moderate Findings: Terminal Ileum-not intubated Cecum: x 2 sessile polyps 4-6 mm removed with cold forceps Ascending Colon: normal Transverse Colon -normal Descending Colon: x 2 semi pedunculated polyps 8-10 mm removed with cold snare Sigmoid Colon: mild diverticulosis Rectum: Retroflexion with small internal hemorrhoids, grade I Anorectum - normal Colon preparation: Mcwilliams Bowel Preparation Scale Right colon; 2 Transverse colon: 2 Left colon; 2 (0 = Unprepared colon segment with mucosa not seen due to solid stool that cannot be cleared. 1 = Portion of mucosa of the colon segment seen, but other areas of the colon segment not well seen due to staining, residual stool and/or opaque liquid. 2 = Minor amount of residual staining, small fragments of stool and/or opaque liquid, but mucosa of colon segment seen well. 3 = Entire mucosa of colon segment seen well with no residual staining, small fragments of stool or opaque liquid) Impression and Post Procedure Diagnosis: polyps internal hemorrhoids diverticular disease Plan: High fiber diet leaflet Avoid straining at stool, epsom salts and sitz bath, anusol supps or cream Repeat Colonoscopy in 3 years or earlier if clinically indicated Above findings were reviewed with the patient and relevant handouts were provided if indicated.
[2023-03-08 11:12] VITALS: BP 88/56; PULSE 79; RESP 16; TEMP 36.5; O2SAT 95
[2023-03-08 11:27] VITALS: BP 110/66; PULSE 83; RESP 16; TEMP 37; O2SAT 98
== END 2023-03-08 12:30 | disposition home or self-care (01) ==
PROVIDERS: PCP Internal Medicine; Visit Provider Internal Medicine Gastroenterology
PROC: 0DJD8ZZ Inspection of Lower Intestinal Tract, Via Natural or Artificial Opening Endoscopic (ICD-10-PCS; CPT 45378; principal; 2023-03-08 10:30)
DX: Z12.11 Encounter for screening for malignant neoplasm of colon (principal); D12.0 Benign neoplasm of cecum; D12.4 Benign neoplasm of descending colon; K57.30 Diverticulosis of large intestine without perforation or abscess without bleeding; K64.0 First degree hemorrhoids; Z86.010 Personal history of colon polyps; I10 Essential (primary) hypertension; E11.9 Type 2 diabetes mellitus without complications; Z88.1 Allergy status to other antibiotic agents; Z88.2 Allergy status to sulfonamides
CPT/HCPCS: 45385; 45380; 82947; 88305

== ENCOUNTER → 2023-03-11 23:59 | Outpatient (BNV) | payer MEDICARE, MEDICAID, SELFPAY ==
--- NOTE | 2023-04-03 20:49 | MHC.OFFVIS ---
Intake Intake Visit Reasons: Remote HF Monitoring- [employer] Allergies amoxicillin [AMOXICILLIN] Allergy (Intermediate, Verified 03/08/23 09:05) Rash clindamycin [Clindamycin] Allergy (Intermediate, Verified 03/08/23 09:05) RASH Sulfa (Sulfonamide Antibiotics) Allergy (Intermediate, Verified 03/08/23 09:05) RASH ibuprofen [From Motrin] Adverse Reaction (Intermediate, Verified 03/08/23 09:05) Gastrointestinal Upset PFSH Medical History (Updated 03/08/23 @ 09:33 by Ying Carter, RN) Allergic rhinitis Arthritis Benign essential hypertension Benign prostatic hyperplasia BPH associated with nocturia Cardiac arrhythmia, unspecified Cardiomyopathy Carpal tunnel syndrome on both sides COVID-19 vaccine series completed Diabetes Diabetes mellitus Erectile dysfunction History of BPH History of macular degeneration HTN (hypertension) Hx of TB skin testing Hypertriglyceridemia Obesity (BMI 30-39.9) Osteoarthritis of knee Primary osteoarthritis of left shoulder Vitamin D deficiency Surgical History H/O cardiac catheterization History of bilateral cataract extraction History of colonoscopy History of implantable cardioverter-defibrillator (ICD) insertion History of transurethral resection of prostate Status post cardiac catheterization Family History Father Diabetes Mother Kidney problem Sister Asthma Hypertension Social History Housing: Apartment Are you a primary palliative care nurse to a significant other at home: No Do you presently have visiting nurse or other home services: No Alcohol intake: never Patient Tobacco Use Status: Former Tobacco user Quit Date: 15 yrs ago Tobacco use type: Cigarette e-Cigarette/Vaping Use: Never Used Second Hand Smoke Exposure: Yes service: No Current occupational status: employed Cognitive needs: No Hearing needs: No Vision needs: Yes Office Procedures Cardiac Device Check Cardiac Device Check Details: HF monitoring. Stable thoracic impedance. [id number] Cardiac Device Interrogation, cardio physiologic monitor Procedure code (CPT) selection complete Assessment & Plan Assessment & Plan (1) Cardiomyopathy: Code(s): I42.9 - Cardiomyopathy, unspecified Qualifiers: Cardiomyopathy type: unspecified Qualified Code(s): I42.9 - Cardiomyopathy, unspecified Coding Level of Care Code Procedure Only Diagnoses Cardiomyopathy I42.9 Cardiomyopathy type: unspecified CPT Codes Cardiac Device Check - Cardiac Device 15: [id number] Cardiac Device Interrogation, cardio physiologic monitor ([id number])
== END ==
PROVIDERS: PCP Internal Medicine; Visit Provider Internal Medicine Cardiovascular Disease
DX: I42.9 Cardiomyopathy, unspecified (principal)
CPT/HCPCS: 93297

== ENCOUNTER → 2023-04-11 23:59 | Outpatient (BNV) | payer MEDICARE, MEDICAID, SELFPAY ==
--- NOTE | 2023-05-06 19:05 | A.OFFVIS_ITS ---
Intake Intake Visit Reasons: Remote ICD Check- [employer] Allergies amoxicillin [AMOXICILLIN] Allergy (Intermediate, Verified 03/08/23 09:05) Rash clindamycin [Clindamycin] Allergy (Intermediate, Verified 03/08/23 09:05) RASH Sulfa (Sulfonamide Antibiotics) Allergy (Intermediate, Verified 03/08/23 09:05) RASH ibuprofen [From Motrin] Adverse Reaction (Intermediate, Verified 03/08/23 09:05) Gastrointestinal Upset PFSH Medical History (Updated 03/08/23 @ 09:33 by Ying Carter, RN) Allergic rhinitis Arthritis Benign essential hypertension Benign prostatic hyperplasia BPH associated with nocturia Cardiac arrhythmia, unspecified Cardiomyopathy Carpal tunnel syndrome on both sides COVID-19 vaccine series completed Diabetes Diabetes mellitus Erectile dysfunction History of BPH History of macular degeneration HTN (hypertension) Hx of TB skin testing Hypertriglyceridemia Obesity (BMI 30-39.9) Osteoarthritis of knee Primary osteoarthritis of left shoulder Vitamin D deficiency Surgical History H/O cardiac catheterization History of bilateral cataract extraction History of colonoscopy History of implantable cardioverter-defibrillator (ICD) insertion History of transurethral resection of prostate Status post cardiac catheterization Family History Father Diabetes Mother Kidney problem Sister Asthma Hypertension Social History Housing: Apartment Are you a primary health care facility administrator to a significant other at home: No Do you presently have visiting nurse or other home services: No Alcohol intake: never Patient Tobacco Use Status: Former Tobacco user Quit Date: 15 yrs ago Tobacco use type: Cigarette e-Cigarette/Vaping Use: Never Used Second Hand Smoke Exposure: Yes service: No Current occupational status: employed Cognitive needs: No Hearing needs: No Vision needs: Yes Office Procedures Cardiac Device Check Cardiac Device Check Details: Good battery life. Nonsustained VT noted. V paced 99% percent. [id number] Cardiac Device Interrogation, pacemaker or defibrillator Procedure code (CPT) selection complete Assessment & Plan Assessment & Plan (1) Cardiomyopathy: Code(s): I42.9 - Cardiomyopathy, unspecified Qualifiers: Cardiomyopathy type: unspecified Qualified Code(s): I42.9 - Cardiomyopathy, unspecified Coding Level of Care Code Procedure Only Diagnoses Cardiomyopathy I42.9 Cardiomyopathy type: unspecified CPT Codes Cardiac Device Check - Cardiac Device 14: [id number] Cardiac Device Interrogation, pacemaker or defibrillator ([id number])
== END ==
PROVIDERS: PCP Internal Medicine; Visit Provider Internal Medicine Cardiovascular Disease
DX: I42.9 Cardiomyopathy, unspecified (principal); Z95.810 Presence of automatic (implantable) cardiac defibrillator
CPT/HCPCS: 93295

== ENCOUNTER 2023-05-09 07:38 | Outpatient (REF) | payer MEDICARE, MEDICAID, SELFPAY ==
[2023-05-09 09:10] LABS: Prostate Specific Antigen 3.19 ng/mL (<0.05-4.0)
== END 2023-05-09 07:39 | disposition home or self-care (01) ==
LOC: HO.LAB 07:38
PROVIDERS: PCP Internal Medicine; Visit Provider Urology
DX: Z12.5 Encounter for screening for malignant neoplasm of prostate (principal); N13.8 Other obstructive and reflux uropathy; N40.1 Benign prostatic hyperplasia with lower urinary tract symptoms; R35.1 Nocturia
CPT/HCPCS: 36415; 84153

== ENCOUNTER → 2023-05-12 23:59 | Outpatient (BNV) | payer MEDICARE, MEDICAID, SELFPAY ==
--- NOTE | 2023-06-06 21:00 | A.OFFVIS_ITS ---
Intake Intake Visit Reasons: Remote HF Monitoring- [employer] Allergies amoxicillin [AMOXICILLIN] Allergy (Intermediate, Verified 05/15/23 14:53) Rash clindamycin [Clindamycin] Allergy (Intermediate, Verified 05/15/23 14:53) RASH Sulfa (Sulfonamide Antibiotics) Allergy (Intermediate, Verified 05/15/23 14:53) RASH ibuprofen [From Motrin] Adverse Reaction (Intermediate, Verified 05/15/23 14:53) Gastrointestinal Upset PFSH Medical History Allergic rhinitis Arthritis Benign essential hypertension Benign prostatic hyperplasia BPH associated with nocturia Cardiac arrhythmia, unspecified Cardiomyopathy Carpal tunnel syndrome on both sides COVID-19 vaccine series completed Diabetes Diabetes mellitus Erectile dysfunction History of BPH History of macular degeneration HTN (hypertension) Hx of TB skin testing Hypertriglyceridemia Obesity (BMI 30-39.9) Osteoarthritis of knee Primary osteoarthritis of left shoulder Vitamin D deficiency Surgical History H/O cardiac catheterization History of bilateral cataract extraction History of colonoscopy History of implantable cardioverter-defibrillator (ICD) insertion History of transurethral resection of prostate Status post cardiac catheterization Family History Father Diabetes Mother Kidney problem Sister Asthma Hypertension Social History Housing: Apartment Are you a primary wound care physician to a significant other at home: No Do you presently have visiting nurse or other home services: No Alcohol intake: never Patient Tobacco Use Status: Former Tobacco user Quit Date: 15 yrs ago Tobacco use type: Cigarette e-Cigarette/Vaping Use: Never Used Second Hand Smoke Exposure: Yes service: No Current occupational status: employed Cognitive needs: No Hearing needs: No Vision needs: Yes Office Procedures Cardiac Device Check Cardiac Device Check Details: HF monitoring Stable thoracic impedance. [id number] Cardiac Device Interrogation, cardio physiologic monitor Procedure code (CPT) selection complete Assessment & Plan Assessment & Plan (1) Cardiomyopathy: Code(s): I42.9 - Cardiomyopathy, unspecified Qualifiers: Cardiomyopathy type: unspecified Qualified Code(s): I42.9 - Cardiomyopathy, unspecified Coding Level of Care Code Procedure Only Diagnoses Cardiomyopathy, unspecified type I42.9 Cardiomyopathy type: unspecified CPT Codes Cardiac Device Check - Cardiac Device 15: [id number] Cardiac Device Interrogation, cardio physiologic monitor ([id number])
== END ==
PROVIDERS: PCP Internal Medicine; Visit Provider Internal Medicine Cardiovascular Disease
DX: I42.9 Cardiomyopathy, unspecified (principal)
CPT/HCPCS: 93297

== ENCOUNTER 2023-05-15 14:45 | Outpatient (AMB) | payer MEDICARE, MEDICAID, SELFPAY ==
--- NOTE | 2023-05-15 14:50 | MHC.OFFVIS ---
Intake Intake Visit Reasons: 1Y PSA(set) Intake Note: Patient is present for Follow Up PSA Urology Med: Tamsulosin Antibiotic Allergy: Amoxicillin, Clindamycin, Sulfa Blood Thinner: Aspirin Pharmacy: [facility] Allergies amoxicillin [AMOXICILLIN] Allergy (Intermediate, Verified 05/15/23 14:53) Rash clindamycin [Clindamycin] Allergy (Intermediate, Verified 05/15/23 14:53) RASH Sulfa (Sulfonamide Antibiotics) Allergy (Intermediate, Verified 05/15/23 14:53) RASH ibuprofen [From Motrin] Adverse Reaction (Intermediate, Verified 05/15/23 14:53) Gastrointestinal Upset Medication List - Last Reconciled 05/15/23 by Romie Sanchez MD aspirin 81 mg PO DAILY atorvastatin 20 mg PO BEDTIME carvedilol 12.5 mg PO BID 90 days cholecalciferol (vitamin D3) (Vitamin D3) 25 mcg PO DAILY flash glucose scanning reader ([employer] Zofia 14 Day [place]) As directed flash glucose sensor ([employer]ube[employer] Zofia 14 Day Sensor kit) 1 ea topical DIRECTED glipizide ER 10 mg PO DAILY 90 days loratadine 10 mg PO DAILY PRN 90 days losartan 50 mg PO DAILY metformin 1,000 mg PO BID pioglitazone 45 mg PO DAILY 90 days sitagliptin phosphate (Januvia) 100 mg PO DAILY tamsulosin 0.4 mg PO BEDTIME 90 days tramadol 50 mg PO BID-TID PRN HPI HPI Comments History of Present Illness Details Alex is a pleasant male. He is seen for the following urologic condition - lower urinary tract symptoms Accompanied by billiard table mechanic Twelve month follow-up PSA stable PVR low Continue good response to tamsulosin Twelve month follow-up Lower urinary tract symptoms Primarily obstructive symptoms at initial diagnosis, weakness of stream, incomplete emptying Previously found to have high postvoid residual of 180 cc Current therapy tamsulosin PSA - 2018 3.1, 02/28 3.1, 05/01 3.3, 11/30 3.2 No family history of prostate cancer Therapeutic plan - remain on Flomax with yearly PSA testing Erectile dysfunction Background of diabetes Successful with oral medications May increase dose is required [facility] Medical History Allergic rhinitis Arthritis Benign essential hypertension Benign prostatic hyperplasia BPH associated with nocturia Cardiac arrhythmia, unspecified Cardiomyopathy Carpal tunnel syndrome on both sides COVID-19 vaccine series completed Diabetes Diabetes mellitus Erectile dysfunction History of BPH History of macular degeneration HTN (hypertension) Hx of TB skin testing Hypertriglyceridemia Obesity (BMI 30-39.9) Osteoarthritis of knee Primary osteoarthritis of left shoulder Vitamin D deficiency Surgical History H/O cardiac catheterization History of bilateral cataract extraction History of colonoscopy History of implantable cardioverter-defibrillator (ICD) insertion History of transurethral resection of prostate Status post cardiac catheterization Family History Father Diabetes Mother Kidney problem Sister Asthma Hypertension Social History Housing: Apartment Are you a primary child care education coordinator to a significant other at home: No Do you presently have visiting nurse or other home services: No Alcohol intake: never Patient Tobacco Use Status: Former Tobacco user Quit Date: 15 yrs ago Tobacco use type: Cigarette e-Cigarette/Vaping Use: Never Used Second Hand Smoke Exposure: Yes service: No Current occupational status: employed Cognitive needs: No Hearing needs: No Vision needs: Yes Review of Systems Const Denies chills and Denies fever(s) Card Reports no additional complaints and Denies syncope Resp Denies cough GI Denies abdominal pain and Denies heartburn Reports as per HPI and Denies change in libido Neuro Denies syncope Psych Denies change in libido Endo Denies change in libido Physical Exam Const General: cooperative, healthy appearing, comfortable and no acute distress Orientation/consciousness: patient oriented x3 HEENT Face and sinus: Yes normal facial exam Mouth: moist mucous membranes Neck Neck: Yes normal visual inspection, Yes full ROM and Yes trachea midline Chest Chest palpation & inspection: normal inspection of the chest Resp Effort & Inspection: normal respiratory effort, able to speak in complete sentences and no respiratory distress GI Inspection: Yes normal to inspection Back/Spine/Pelvis Cervical Spine: normal cervical lordosis Thoracic/Lumbar Spine: thoracic and lumbar spine normal to inspection Skin General skin exam: no rashes or lesions noted Neuro General: patient oriented x3, gait normal, tone normal and moves all extremities Extrem General: Yes normal to inspection and Yes capillary refill normal Assessment & Plan Assessment & Plan (1) BPH associated with nocturia: Code(s): N40.1 - Benign prostatic hyperplasia with lower urinary tract symptoms; R35.1 - Nocturia Plan Twelve month follow-up PVR and PSA Patient Instructions: Imaging studies, laboratory and physical exam results were discussed and reviewed in detail. No major barriers to patient understanding were identified. An opportunity to ask questions regarding the treatment plan was provided. All questions were answered. The patient expressed understanding and agreement with the above treatment plan. The patient is aware they should contact our office by phone for worsening of their current condition or the appearance of new urologic symptoms. Compliance is encouraged with any medications and followup testing that is ordered. It is a privilege to participate in the urologic care of your patient. If you have any questions or concerns regarding treatment for the above conditions, or other urologic issues, please do not hesitate to contact me. The office telephone contact is [phone]. This note is constructed using voice recognition software. While every effort has been made to ensure accuracy truck and transport mechanic errors may have been included. Yours sincerely, Dr Romie Sanchez MD, [facility] - Urology Providers of Expert, Compassionate Care for the Genitourinary System Telehealth Telehealth Location of provider rendering services: practice address Location of patient: address on file Patient Identification confirmed using: Name, : Yes Telehealth method: voice only Patient verbally consented to treatment: Yes Patient verbally consented to billing insurance company: Yes Patient informed of any privacy concerns related to visit: Yes Coding Level of Care Code Est Pt Level 4 (92917) Diagnoses BPH associated with nocturia N40.1; R35.1
== END 2023-05-15 15:14 | disposition home or self-care (01) ==
LOC: HO.HUSH 14:45
PROVIDERS: PCP Internal Medicine; Visit Provider Urology
DX: N40.1 Benign prostatic hyperplasia with lower urinary tract symptoms (principal); R35.1 Nocturia
CPT/HCPCS: 99442

== ENCOUNTER → 2023-05-15 14:45 | Outpatient (BNVA) | payer MEDICARE, MEDICAID, SELFPAY | PROVIDERS: PCP Internal Medicine; Visit Provider Urology ==

== ENCOUNTER 2023-06-11 15:20 | Outpatient (AMB) | payer MEDICARE, MEDICAID, SELFPAY ==
--- NOTE | 2023-06-11 15:26 | MHC.PC.OV ---
Vital Signs 06/11/23 15:27 Height 5 ft 7 in Weight 222 lb 4 oz BMI 34.8 BP 126/80 Blood Pressure Location Lt brachial Position Sitting Pulse 76 Pulse Source Pulse Oximeter Pulse Oximetry (%) 98 Oxygen Delivery Method Room Air Intake Visit Reasons: hyperlipidemia, HTN, DM Annual Giving Director Required: No Accompanied by: Self / Same As Patient Allergies amoxicillin [AMOXICILLIN] Allergy (Intermediate, Verified 06/11/23 15:58) Rash clindamycin [Clindamycin] Allergy (Intermediate, Verified 06/11/23 15:58) RASH Sulfa (Sulfonamide Antibiotics) Allergy (Intermediate, Verified 06/11/23 15:58) RASH ibuprofen [From Motrin] Adverse Reaction (Intermediate, Verified 06/11/23 15:58) Gastrointestinal Upset Medication List - Last Reconciled 06/11/23 by Alphonse Senior MD aspirin 81 mg PO DAILY atorvastatin 20 mg PO BEDTIME carvedilol 12.5 mg PO BID 90 days cholecalciferol (vitamin D3) (Vitamin D3) 25 mcg PO DAILY flash glucose scanning reader ([employer] Zofia 14 Day [place]) As directed flash glucose sensor ([employer] Zofia 14 Day Sensor kit) 1 ea topical DIRECTED glipizide ER 10 mg PO DAILY 90 days loratadine 10 mg PO DAILY PRN 90 days losartan 50 mg PO DAILY metformin 1,000 mg PO BID pioglitazone 45 mg PO DAILY 90 days sitagliptin phosphate (Januvia) 100 mg PO DAILY tamsulosin 0.4 mg PO BEDTIME 90 days tramadol 50 mg PO BID-TID PRN Tobacco use date assessed: 06/11/23 Fall risk assessment: No Falls in past year Last assessed Fall Risk: 06/11/23 Dental Screening Dental Screen Date: 06/11/23 Did you have a dental visit in the last 12 months?: No Did you have a dental problem in the last 6 months where you did not have access to dental care?: No Was dental information given to patient?: Patient has dentist HPI hyperlipidemia, HTN, DM HPI Details Patient comes in today for his follow up visit States that he feels okay He denies any headaches or dizziness Denies any chest pains, no SOB No nausea/vomiting, no abdominal pain No change in bowel habits noted Needs his Tramadol Rx refilled today for his joint pains; also needs his Pioglitazone Rx refilled Was not able to get his follow up labs done before his appt today; states that he will try to get them done [facility] Medical History Hx of TB skin testing History of macular degeneration Cardiomyopathy Cardiac arrhythmia, unspecified COVID-19 vaccine series completed BPH associated with nocturia Obesity (BMI 30-39.9) Carpal tunnel syndrome on both sides Benign prostatic hyperplasia Erectile dysfunction Allergic rhinitis Primary osteoarthritis of left shoulder Osteoarthritis of knee Vitamin D deficiency Hypertriglyceridemia Benign essential hypertension Diabetes mellitus Arthritis Diabetes History of BPH HTN (hypertension) Surgical History History of implantable cardioverter-defibrillator (ICD) insertion Status post cardiac catheterization H/O cardiac catheterization History of bilateral cataract extraction History of colonoscopy History of transurethral resection of prostate Family History Father Diabetes Mother Kidney problem Sister Asthma Hypertension Social History Housing: Apartment Are you a primary healthcare science specialist to a significant other at home: No Do you presently have visiting nurse or other home services: No Alcohol intake: never Patient Tobacco Use Status: Former Tobacco user Quit Date: 15 yrs ago Tobacco use type: Cigarette e-Cigarette/Vaping Use: Never Used Second Hand Smoke Exposure: Yes service: No Current occupational status: employed Cognitive needs: No Hearing needs: No Vision needs: Yes Questionnaire PHQ-9 Over the last 2 weeks, how often have you been bothered by any of the following problems? 1. Little interest or pleasure in doing things: not at all 2. Feeling down, depressed, or hopeless: not at all 3. Trouble falling or staying asleep, or sleeping too much: not at all 4. Feeling tired or having little energy: not at all 5. Poor appetite or overeating: not at all 6. Feeling bad about yourself - or that you are a failure or have let yourself or your family down: not at all 7. Trouble concentrating on things, such as reading the newspaper or watching television: not at all 8. Moving or speaking so slowly that other people could have noticed. Or the opposite - being so fidgety or restless that you have been moving around a lot more than usual: not at all 9. Thoughts that you would be better off or of hurting yourself in some way: not at all Total score: 0 Depression Screening Interpretation: Negative 32963 - PHQ-9 Billing: Yes Source: Developed by Drs. Edu Will, Brittanie Salgado, Yogesh Copeland and colleagues, with an educational celina from [employer]. Thrive Questionnaire Date Thrive assessed: 06/11/23 I am a: Patient What is your living situation today?: I have a steady place to live Within the past 12 months, did the food you bought not last and you didn't have the money to get more?: Never true Within the past 12 months, did you worry whether your food would run out before you got money to buy more?: Never true Do you have trouble paying for medicines?: No Do you have trouble getting transportation to medical appointments?: No Do you have trouble paying your heating and electricity bill?: No Do you have trouble taking care of your child, family member or friend?: No Do you have trouble with day-to-day activities such as bathing, preparing meals, shopping, managing finances, etc.?: No Are you currently unemployed and looking for a job?: No Are you interested in more education?: No Please select the resources that you would like help with: None Currently or been in a relationship where the following occur: no concerns reported AUDIT C Alcohol Use Questionnaire (AUDIT-C) 1. How often do you have a drink containing alcohol?: Never 3. How often do you have six or more drinks on one occasion?: Never Total Score: 0 Score Reviewed/Action Taken: Yes CAREY-7 AMB Questionnaire CAREY-7 Date CAREY - 7 assessed: 06/11/23 Feeling nervous, anxious, or on edge: 0 = Not at all Not being able to stop or control worryin = Not at all Worrying too much about different things: 0 = Not at all Trouble relaxin = Not at all Being so restless that it is hard to sit still: 0 = Not at all Becoming easily annoyed or irritable: 0 = Not at all Feeling afraid as if something awful might happen: 0 = Not at all Total CAREY-7 score (0-4 normal; 5-9 mild; 10-14 moderate; 15-21 severe): 0 Source: Developed by Drs. Edu Will, Brittanie Salgado, Yogesh Copeland and colleagues, with an educational celina from [employer]. CAREY-7 Assessment Billing CAREY-7 Assessment Tool: CAREY-7 Assessment 09252 Review of Systems Const Denies fatigue, Denies fever(s) and Denies headache(s) ENT Denies dysphagia, Denies dizziness, Denies otalgia, Denies headache(s), Denies neck pain, Denies odynophagia and Denies sore throat Card Denies chest pain, Denies palpitations and Denies dyspnea Resp Denies cough and Denies dyspnea GI Denies abdominal pain, Denies constipation, Denies dysphagia, Denies heartburn, Denies diarrhea, Denies nausea, Denies odynophagia and Denies vomiting Denies dysuria, Denies nocturia and Denies urinary frequency Musc Reports arthralgias (on and off in both knees) and Denies neck pain Skin/Breast Denies rash Neuro Denies dizziness and Denies headache(s) Endo Denies fatigue and Denies palpitations Physical exam (Primary Care) Vital Signs: Last Vital Signs Pulse 76 06/11/23 15:27 BP 126/80 06/11/23 15:27 Pulse Ox 98 06/11/23 15:27 Oxygen Delivery Method Room Air 06/11/23 15:27 BMI result Body Mass Index 34.8 Tobacco/Smoking Status: Tobacco use Status Tobacco use date assessed 06/11/23 06/11/23 15:37 Patient Tobacco Use Status Former Tobacco user 06/11/23 15:37 Tobacco use type Cigarette 06/11/23 15:37 e-Cigarette/Vaping Use Never Used 06/11/23 15:37 PHQ-9: PHQ-9 Score PHQ-9: Total score 0 06/11/23 15:56 Depression Screening Interpretation: Negative Thrive Assessment: Date of Thrive Assessment Date Thrive assessed 06/11/23 06/11/23 15:37 Currently or been in a relationship where the following occur: no concerns reported Const General: no acute distress and alert HENMT Ears: TM's normal bilaterally and EAC's normal Throat: Yes posterior oropharynx normal and Yes tonsils normal (no TP congestion noted) Neck Neck: Yes no lymphadenopathy and Yes supple Resp Auscultation: clear to auscultation bilaterally, no rales and no wheezes Cardio Rate: regular rate Rhythm: abnormal rhythm with ectopic beats Heart sounds: no murmurs GI Palpation (GI): Soft to palpation and nontender Auscultation: normal bowel sounds General: Yes no CVA tenderness Back/Spine/Pelvis Back: no CVA tenderness Skin Rashes: no rashes Extrem General: Yes no clubbing, cyanosis or edema Left upper extremity: shoulder/upper arm Details: tenderness (mild) Location: of the A-C joint Left lower extremity: knee Details: tenderness; no swelling and foot Details: tenderness Location: of the dorsal foot and no edema Office Procedures Flu Questionnaire Does the patient have a severe egg allergy?: No Immunizations flu vacc [id number] 6mos up(PF) 60 mcg(15 mcgx4)/0.5 mL IM syringe Performing Provider: Alphonse Senior MD [facility] Documented (not given) by: Kenny Yu on 06/11/23 15:51 Reason Not Given: Received Previously Assessment and Plan Assessment & Plan (1) Benign essential hypertension: Code(s): I10 - Essential (primary) hypertension Plan: Reinforced low-sodium diet - goal is systolic BP of at least 130 to 140 mm or less Continue Losartan 50 mg QD and Verapamil ER 300 mg Q HS (2) Diabetes mellitus: Code(s): E11.9 - Type 2 diabetes mellitus without complications Qualifiers: Diabetes mellitus complication status: without complication Diabetes mellitus senior living insulin use: without termite control service representative use Diabetes mellitus type: type 2 Qualified Code(s): E11.9 - Type 2 diabetes mellitus without complications Plan: HgbA1c was at 6.3% a few months ago & was at 6.7% previously - goal is < 7.0% Reinforced diabetic diet Continue Glipizide ER 10 mg QD, Metformin 1000 mg BID, Januvia 100 mg QD and Pioglitazone 45 mg QD (3) Hypertriglyceridemia: Code(s): E78.1 - Pure hyperglyceridemia Plan: Was not able to get his follow up labs done prior to his appt today - states that he will try to get them done [facility] Reinforced low cholesterol diet Continue Atorvastatin 20 mg QD Will recheck his labs and fasting lipids in 4 months for follow-up (4) Cardiomyopathy: Code(s): I42.9 - Cardiomyopathy, unspecified Qualifiers: Cardiomyopathy type: unspecified Qualified Code(s): I42.9 - Cardiomyopathy, unspecified Plan: EF was incidentally noted to be at 15-20% on echocardiogram; patient was clinically not in heart failure as he denied any symptoms or shortness of breath, easy fatigability or edema at the time S/P DRY CAN TENDER - defibrillator placed by cardiology on 11/23/2021 Most recent echocardiogram done in August 2022 showed (+) significant improvement of his cardiac function - there is normal left ventricular wall thickness;?the left ventricular systolic function is borderline reduced and?the visually estimated ejection fraction is between 45-50% Follow up with cardiology as scheduled (5) Vitamin D deficiency: Code(s): E55.9 - Vitamin D deficiency, unspecified Plan: Corrected - continue Vitamin D3 1000 units QD (6) Primary osteoarthritis of left shoulder: Code(s): M19.012 - Primary osteoarthritis, left shoulder Plan: X-rays of the left shoulder done a few months ago showed (+) OA changes Encouraged to continue with regular shoulder exercises to help manage her symptoms Follow-up with Orthopedics as scheduled (7) Osteoarthritis of knee: Code(s): M17.10 - Unilateral primary osteoarthritis, unspecified knee Qualifiers: Laterality: unspecified laterality Osteoarthritis type: primary Qualified Code(s): M17.10 - Unilateral primary osteoarthritis, unspecified knee Plan: Continue Ibuprofen 400 mg 3 times a day as needed and Tramadol 50 mg TID PRN (Rx refilled) for symptomatic relief (8) Allergic rhinitis: Code(s): J30.9 - Allergic rhinitis, unspecified Qualifiers: Allergic rhinitis seasonality: unspecified Allergic rhinitis trigger: unspecified Qualified Code(s): J30.9 - Allergic rhinitis, unspecified Plan: Continue Loratadine 10 mg QD PRN (9) Erectile dysfunction: Code(s): N52.9 - Male erectile dysfunction, unspecified Qualifiers: Erectile dysfunction type: unspecified Qualified Code(s): N52.9 - Male erectile dysfunction, unspecified Plan: Continue SIldenafil 50 mg QD PRN as instructed (10) Benign prostatic hyperplasia: Code(s): N40.0 - Benign prostatic hyperplasia without lower urinary tract symptoms Qualifiers: Lower urinary tract symptom presence: unspecified whether lower urinary tract symptoms present Qualified Code(s): N40.0 - Benign prostatic hyperplasia without lower urinary tract symptoms Plan: Continue Tamsulosin 0.4 mg Q HS PSA done was most recently at 3.10 a few months ago Follow-up with urology as scheduled (11) Obesity (BMI 30-39.9): Code(s): E66.9 - Obesity, unspecified Plan: Reinforced diet/ exercise as tolerated/ lose weight Plan Follow up in 4 months Orders: Orders Lipid Panel 4 Months E78.00 - Pure hypercholesterolemia, unspecified Complete Blood Count Auto Diff 4 Months I10 - Essential (primary) hypertension Microalbumin, Random (w Creat) 4 Months E11.9 - Type 2 diabetes mellitus without complications UA CC w/rflx Micro + Cult 4 Months R30.0 - Dysuria Vitamin D 25-OH Total 4 Months E55.9 - Vitamin D deficiency, unspecified Influenza [id number] Immunization 06/11/23 Z23 - Encounter for immunization Comprehensive [place]. Panel Fast 4 Months E78.00 - Pure hypercholesterolemia, unspecified Hemoglobin A1c 4 Months E11.9 - Type 2 diabetes mellitus without complications TSH reflex Free T4 4 Months E78.00 - Pure hypercholesterolemia, unspecified Medications: Refilled pioglitazone 45 mg PO DAILY 90 tabs 1RF 90 days tramadol 50 mg PO BID-TID PRN 30 tabs 0RF pain G89.29 - Other chronic pain, M25.562 - Pain in left knee Coding Level of Care Code Est Pt Level 4 (84127) Diagnoses Benign essential hypertension I10 Type 2 diabetes mellitus without complication, without long-term current use of insulin E11.9 Diabetes mellitus complication status: without complication 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 insulin use: without senior living use Diabetes mellitus type: type 2 Hypertriglyceridemia E78.1 Cardiomyopathy, unspecified type I42.9 Cardiomyopathy type: unspecified Vitamin D deficiency E55.9 Primary osteoarthritis of left shoulder M19.012 Primary osteoarthritis of knee, unspecified laterality M17.10 Laterality: unspecified laterality Osteoarthritis type: primary Allergic rhinitis, unspecified seasonality, unspecified trigger J30.9 Allergic rhinitis seasonality: unspecified Allergic rhinitis trigger: unspecified Erectile dysfunction, unspecified erectile dysfunction type N52.9 Erectile dysfunction type: unspecified Benign prostatic hyperplasia, unspecified whether lower urinary tract symptoms present N40.0 Lower urinary tract symptom presence: unspecified whether lower urinary tract symptoms present Obesity (BMI 30-39.9) E66.9 Additional Codes CAREY-7 Assessment Billing - CAREY-7 Assessment Tool: CAREY-7 Assessment 97484 ([id number])
[2023-06-11 15:27] VITALS: BP 126/80; PULSE 76; O2SAT 98; BMI 34.8
== END 2023-06-11 16:08 | disposition home or self-care (01) ==
PROVIDERS: PCP Internal Medicine; Visit Provider Internal Medicine
DX: E11.9 Type 2 diabetes mellitus without complications (principal); I42.9 Cardiomyopathy, unspecified; I10 Essential (primary) hypertension; E78.1 Pure hyperglyceridemia; E55.9 Vitamin D deficiency, unspecified; M19.012 Primary osteoarthritis, left shoulder; M17.10 Unilateral primary osteoarthritis, unspecified knee; J30.9 Allergic rhinitis, unspecified; N52.9 Male erectile dysfunction, unspecified; N40.0 Benign prostatic hyperplasia without lower urinary tract symptoms; E66.9 Obesity, unspecified
CPT/HCPCS: 99214

== ENCOUNTER → 2023-06-12 23:59 | Outpatient (BNV) | payer MEDICARE, MEDICAID, SELFPAY ==
--- NOTE | 2023-06-13 09:20 | A.OFFVIS_ITS ---
Intake Intake Visit Reasons: Remote HF Monitoring- [employer] Allergies amoxicillin [AMOXICILLIN] Allergy (Intermediate, Verified 06/11/23 15:58) Rash clindamycin [Clindamycin] Allergy (Intermediate, Verified 06/11/23 15:58) RASH Sulfa (Sulfonamide Antibiotics) Allergy (Intermediate, Verified 06/11/23 15:58) RASH ibuprofen [From Motrin] Adverse Reaction (Intermediate, Verified 06/11/23 15:58) Gastrointestinal Upset PFSH Medical History Allergic rhinitis Arthritis Benign essential hypertension Benign prostatic hyperplasia BPH associated with nocturia Cardiac arrhythmia, unspecified Cardiomyopathy Carpal tunnel syndrome on both sides COVID-19 vaccine series completed Diabetes Diabetes mellitus Erectile dysfunction History of BPH History of macular degeneration HTN (hypertension) Hx of TB skin testing Hypertriglyceridemia Obesity (BMI 30-39.9) Osteoarthritis of knee Primary osteoarthritis of left shoulder Vitamin D deficiency Surgical History History of implantable cardioverter-defibrillator (ICD) insertion Status post cardiac catheterization H/O cardiac catheterization History of bilateral cataract extraction History of colonoscopy History of transurethral resection of prostate Family History Father Diabetes Mother Kidney problem Sister Asthma Hypertension Social History Housing: Apartment Are you a primary healthcare network pricing consultant to a significant other at home: No Do you presently have visiting nurse or other home services: No Alcohol intake: never Patient Tobacco Use Status: Former Tobacco user Quit Date: 15 yrs ago Tobacco use type: Cigarette e-Cigarette/Vaping Use: Never Used Second Hand Smoke Exposure: Yes service: No Current occupational status: employed Cognitive needs: No Hearing needs: No Vision needs: Yes Office Procedures Cardiac Device Check Cardiac Device Check Details: HF monitoring Stable thoracic impedance. [id number] Cardiac Device Interrogation, cardio physiologic monitor Procedure code (CPT) selection complete Assessment & Plan Assessment & Plan (1) Cardiomyopathy: Code(s): I42.9 - Cardiomyopathy, unspecified Qualifiers: Cardiomyopathy type: unspecified Qualified Code(s): I42.9 - Cardiomyopathy, unspecified Orders: Orders AMB Cardiac Device Follow-up 06/12/23 I42.9 - Cardiomyopathy, unspecified Coding Level of Care Code Procedure Only Diagnoses Cardiomyopathy, unspecified type I42.9 Cardiomyopathy type: unspecified CPT Codes Cardiac Device Check - Cardiac Device 15: [id number] Cardiac Device Interrogation, cardio physiologic monitor ([id number])
== END ==
PROVIDERS: PCP Internal Medicine; Visit Provider Internal Medicine Cardiovascular Disease
DX: I42.9 Cardiomyopathy, unspecified (principal)
CPT/HCPCS: 93297

== ENCOUNTER 2023-06-15 07:14 | Outpatient (REF) | payer MEDICARE, MEDICAID, SELFPAY | END 2023-06-15 07:15 | disposition home or self-care (01) | LOC: HO.LAB 07:14 | PROVIDERS: PCP Internal Medicine; Visit Provider Internal Medicine | DX: R30.0 Dysuria (principal); I11.0 Hypertensive heart disease with heart failure; I50.9 Heart failure, unspecified; E11.9 Type 2 diabetes mellitus without complications; E78.00 Pure hypercholesterolemia, unspecified | CPT/HCPCS: 36415; 80053; 80061; 81003; 82043; 82570; 83036; 83880; 84443; 85025 ==

== ENCOUNTER 2023-06-22 15:09 | Outpatient (AMB) | payer MEDICARE, MEDICAID, SELFPAY ==
[2023-06-22 15:21] VITALS: BP 136/62; PULSE 69; O2SAT 99; BMI 34.5
--- NOTE | 2023-06-22 15:21 | AM.OFFVISMDC ---
Intake Vital Signs 06/22/23 15:21 Height 5 ft 7 in Weight 220 lb 0.4 oz BMI 34.5 BP 136/62 Blood Pressure Location Lt brachial Position Sitting Pulse 69 Pulse Source Pulse Oximeter Temp Source Skin Pulse Oximetry (%) 99 Oxygen Delivery Method Room Air Intake Visit Reasons: MARBINV G0439, Discuss/Bill ACP Senior Integration Architect Required: No Allergies amoxicillin [AMOXICILLIN] Allergy (Intermediate, Verified 06/22/23 16:06) Rash clindamycin [Clindamycin] Allergy (Intermediate, Verified 06/22/23 16:06) RASH Sulfa (Sulfonamide Antibiotics) Allergy (Intermediate, Verified 06/22/23 16:06) RASH ibuprofen [From Motrin] Adverse Reaction (Intermediate, Verified 06/22/23 16:06) Gastrointestinal Upset Medication List - Last Reconciled 06/22/23 by AVERY Renteria aspirin 81 mg PO DAILY atorvastatin 20 mg PO BEDTIME carvedilol 12.5 mg PO BID 90 days cholecalciferol (vitamin D3) (Vitamin D3) 25 mcg PO DAILY flash glucose scanning reader (Svpply Zofia 14 Day Joseph) As directed flash glucose sensor ([employer] Zofia 14 Day Sensor kit) 1 ea topical DIRECTED glipizide ER 10 mg PO DAILY 90 days loratadine 10 mg PO DAILY PRN 90 days losartan 50 mg PO DAILY metformin 1,000 mg PO BID pioglitazone 45 mg PO DAILY 90 days sitagliptin phosphate (Januvia) 100 mg PO DAILY tamsulosin 0.4 mg PO BEDTIME 90 days tramadol 50 mg PO BID-TID PRN HPI SWV [id number], Discuss/Bill ACP HPI Details Patient is a 72-year-old male who presents today for subsequent wellness visit. Patient of Dr. Senior. Patient is up-to-date with his health preventative screenings and immunizations. Colonoscopy 02/2023 with tubular adenoma and repeat in [address] Chew. [place] of care was reviewed with the patient and he was provided with a screening schedule. End of life planning was discussed with the patient and he was provided with healthcare proxy and MOLST forms. [facility] Medical History Hx of TB skin testing History of macular degeneration Cardiomyopathy Cardiac arrhythmia, unspecified COVID-19 vaccine series completed BPH associated with nocturia Obesity (BMI 30-39.9) Carpal tunnel syndrome on both sides Benign prostatic hyperplasia Erectile dysfunction Allergic rhinitis Primary osteoarthritis of left shoulder Osteoarthritis of knee Vitamin D deficiency Hypertriglyceridemia Benign essential hypertension Diabetes mellitus Arthritis Diabetes History of BPH HTN (hypertension) Surgical History (Updated 06/22/23 @ 16:28 by AVERY Renteria) History of implantable cardioverter-defibrillator (ICD) insertion Status post cardiac catheterization H/O cardiac catheterization History of bilateral cataract extraction History of colonoscopy History of transurethral resection of prostate Family History Father Diabetes Mother Kidney problem Sister Asthma Hypertension Social History Housing: Apartment Are you a primary healthcare administrator to a significant other at home: No Do you presently have visiting nurse or other home services: No Alcohol intake: never Patient Tobacco Use Status: Former Tobacco user Quit Date: 15 yrs ago Tobacco use type: Cigarette e-Cigarette/Vaping Use: Never Used Second Hand Smoke Exposure: Yes service: No Current occupational status: employed Cognitive needs: No Hearing needs: No Vision needs: Yes Questionnaire Medicare Wellness Checkup [age] What gender do you identify with?: male During the past 4 weeks, how much have you been bothered by emotional problems such as feeling anxious, depressed, irritable, sad or downhearted, and blue?: not at all During the past 4 weeks, has your physical & emotional health limited your social activities with family, friends, neighbors, or groups?: not at all During the past 4 weeks, how much bodily pain have you generally had?: mild pain During the past 4 weeks, was someone available to help you if you needed & wanted help?: yes, quite a bit During the past 4 weeks, what was the hardest physical activity you could do for at least 2 minutes?: very heavy Can you get to places out of walking distance without help? (For eg., can you travel alone on buses, taxis or drive your car?): Yes Can you go shopping for groceries or clothes without someone's help?: Yes Can you prepare your own meals?: Yes Can you do your housework without help?: Yes Because of any health problems, do you need the help of another person with your personal care needs such as eating, bathing, dressing or getting around the house?: No Can you handle your own money without help?: Yes During the past 4 weeks, how would you rate your health in general?: good During the past 4 weeks how have things been going for you?: very well; could hardly better Are you having difficulties driving your car?: not applicable, I don't use a car Do you always fasten your seat belt when you are in a car?: yes, usually During past 4 weeks, have you been bothered by the following: never: Falling or dizzy when standing up, Trouble eating well?, Teeth or denture problems? and Problems using the telephone? and sometimes: Sexual problems? and Tiredness or fatigue? Have you fallen 2 or more times in the past year?: Yes Are you afraid of falling?: Yes Are you a smoker?: no During the past 4 weeks, how many drinks of wine, beer, or other alcoholic beverages did you have?: no alcohol at all Do you exercise for about 20 minutes 3 or more times a week?: yes, most of the time (walking) Have you been given information to help with the following?: yes: Keeping track of your medications? and no: Hazards in your house that might hurt you? How often do you have trouble taking medicines the way you have been told to take them?: I always take medicine as prescribed How confident are you that you can control & manage most of your health problems?: very confident What is your race?: White Mini Mental State Exam (MMSE) Orientation What is the (year) (season) (date) (day) (month)?: year, season, date, day and month Score Score: 5 Activity of Daily Living Bathing - sponge bath, tub bath or shower: receives no assistance (gets in/out by self, if usual bathing means Dressing - getting clothes from closets & drawers, including inner/outer garments & fasteners.: gets clothes & gets completely dressed without help Toileting - going to the 'toilet room' for urine/bowel elimination & cleaning self/arranging clothes: goes to toilet room, cleans self, arranges clothes without help Transfer: moves in & out of bed and chair without help (may use support object) Continence: controls urination/bowel movements completely by self Feeding: feeds self without help Total Score: 0 Information obtained from: patient Using telephone: independent Traveling: needs assistance Shopping: independent Preparing meals: independent Housework: independent Taking medicine: independent Managing money: independent PHQ-9 Over the last 2 weeks, how often have you been bothered by any of the following problems? 1. Little interest or pleasure in doing things: not at all 2. Feeling down, depressed, or hopeless: not at all 3. Trouble falling or staying asleep, or sleeping too much: not at all 4. Feeling tired or having little energy: not at all 5. Poor appetite or overeating: not at all 6. Feeling bad about yourself - or that you are a failure or have let yourself or your family down: not at all 7. Trouble concentrating on things, such as reading the newspaper or watching television: not at all 8. Moving or speaking so slowly that other people could have noticed. Or the opposite - being so fidgety or restless that you have been moving around a lot more than usual: not at all 9. Thoughts that you would be better off or of hurting yourself in some way: not at all Total score: 0 Depression Screening Interpretation: Negative Depression Screening Done: Yes 29205 - PHQ-9 Billing: Yes Source: Developed by Drs. Edu Will, Brittanie Salgado, Ygoesh Copeland and colleagues, with an educational celina from [employer]. Physical Exam Vital Signs: Last Vital Signs Pulse 69 06/22/23 15:21 BP 136/62 06/22/23 15:21 Pulse Ox 99 06/22/23 15:21 Oxygen Delivery Method Room Air 06/22/23 15:21 BMI result Body Mass Index 34.5 Const General: cooperative and no acute distress Orientation/consciousness: patient oriented x3 HEENT Other: Whisper test: fail Neuro Other: Balance: Normal Get up and walk: able to Romberg: negative Tandem gait: unable to General: patient oriented x3 Assessment & Plan Assessment & Plan (1) Adult general medical exam: Code(s): Z00.00 - Encounter for general adult medical examination without abnormal findings (2) Left bundle branch block: Code(s): I44.7 - Left bundle-branch block, unspecified Plan: Continue to follow-up with [facility] (3) Cardiomyopathy: Code(s): I42.9 - Cardiomyopathy, unspecified Qualifiers: Cardiomyopathy type: unspecified Qualified Code(s): I42.9 - Cardiomyopathy, unspecified Plan: Continue to follow-up with [facility] (4) Tubulovillous adenoma: Code(s): D36.9 - Benign neoplasm, unspecified site Plan: Colonoscopy 02/2023 with tubular adenoma and repeat in [address] Chew. (5) Obesity (BMI 30-39.9): Code(s): E66.9 - Obesity, unspecified Plan: Reinforced healthy food choices and exercise as tolerated (6) Benign prostatic hyperplasia: Code(s): N40.0 - Benign prostatic hyperplasia without lower urinary tract symptoms Qualifiers: Lower urinary tract symptom presence: unspecified whether lower urinary tract symptoms present Qualified Code(s): N40.0 - Benign prostatic hyperplasia without lower urinary tract symptoms Plan: Continue to follow-up with urology Dr. Sanchez. Patient is on tamsulosin (7) Allergic rhinitis: Code(s): J30.9 - Allergic rhinitis, unspecified Qualifiers: Allergic rhinitis trigger: unspecified Allergic rhinitis seasonality: unspecified Qualified Code(s): J30.9 - Allergic rhinitis, unspecified Plan: Continue current treatment (8) Vitamin D deficiency: Code(s): E55.9 - Vitamin D deficiency, unspecified Plan: On vitamin D3 25 mcg daily (9) Hypertriglyceridemia: Code(s): E78.1 - Pure hyperglyceridemia Plan: Continue current treatment. Reinforced low-cholesterol diet. (10) Diabetes mellitus: Code(s): E11.9 - Type 2 diabetes mellitus without complications Qualifiers: Diabetes mellitus type: type 2 Diabetes mellitus mechanical design drafter insulin use: without group home use Diabetes mellitus complication status: without complication Qualified Code(s): E11.9 - Type 2 diabetes mellitus without complications Plan: A1c 5.9 06/2023. Continue current treatment. Reinforced low-carbohydrate diet. (11) Benign essential hypertension: Code(s): I10 - Essential (primary) hypertension Plan: Continue current treatment. Reinforced low-sodium diet and weight loss Quality Reporting (2019) Depression/Bipolar (159/160/161/177) PHQ-9: Total score: 0 Coding Level of Care Code Medicare Subsequent (G0439) Diagnoses Adult general medical exam Z00.00 Left bundle branch block I44.7 Cardiomyopathy, unspecified type I42.9 Cardiomyopathy type: unspecified Tubulovillous adenoma D36.9 Obesity (BMI 30-39.9) E66.9 Benign prostatic hyperplasia, unspecified whether lower urinary tract symptoms present N40.0 Lower urinary tract symptom presence: unspecified whether lower urinary tract symptoms present Allergic rhinitis, unspecified seasonality, unspecified trigger J30.9 Allergic rhinitis trigger: unspecified Allergic rhinitis seasonality: unspecified Vitamin D deficiency E55.9 Hypertriglyceridemia E78.1 Type 2 diabetes mellitus without complication, without long-term current use of insulin E11.9 Diabetes mellitus type: type 2 Diabetes mellitus mechanical design drafter insulin use: without mechanical design drafter use Diabetes mellitus complication status: without complication Benign essential hypertension I10 CPT Codes Advance Care Planning - Time spent: 1-15 minutes, not on file ([id number]) Advance Care Planning Date of discussion: 06/22/23 Who was present: pt and inpatient services rn Forms completed: None Time spent: 1-15 minutes, not on file Actual minutes spent: 3 Did not discuss due to Cultural/Spiritual beliefs: No
== END 2023-06-22 16:22 | disposition home or self-care (01) ==
PROVIDERS: Visit Provider Nurse Practitioner Family
DX: Z00.00 Encounter for general adult medical examination without abnormal findings (principal); I47.9 Paroxysmal tachycardia, unspecified; E11.9 Type 2 diabetes mellitus without complications; Z86.010 Personal history of colon polyps; E66.9 Obesity, unspecified; N40.0 Benign prostatic hyperplasia without lower urinary tract symptoms; J30.9 Allergic rhinitis, unspecified; E55.9 Vitamin D deficiency, unspecified; E78.1 Pure hyperglyceridemia; I10 Essential (primary) hypertension
CPT/HCPCS: 1124F; G0439

== ENCOUNTER → 2023-07-13 23:59 | Outpatient (BNV) | payer MEDICARE, MEDICAID, SELFPAY ==
--- NOTE | 2023-08-06 21:36 | A.OFFVIS_ITS ---
Intake Intake Visit Reasons: Remote HF Monitoring- Medtronic Allergies amoxicillin [AMOXICILLIN] Allergy (Intermediate, Verified 07/27/23 09:27) Rash clindamycin [Clindamycin] Allergy (Intermediate, Verified 07/27/23 09:27) RASH Sulfa (Sulfonamide Antibiotics) Allergy (Intermediate, Verified 07/27/23 09:27) RASH ibuprofen [From Motrin] Adverse Reaction (Intermediate, Verified 07/27/23 09:27) Gastrointestinal Upset PFSH Medical History Hx of TB skin testing History of macular degeneration Cardiomyopathy Cardiac arrhythmia, unspecified COVID-19 vaccine series completed BPH associated with nocturia Obesity (BMI 30-39.9) Carpal tunnel syndrome on both sides Benign prostatic hyperplasia Erectile dysfunction Allergic rhinitis Primary osteoarthritis of left shoulder Osteoarthritis of knee Vitamin D deficiency Hypertriglyceridemia Benign essential hypertension Diabetes mellitus Arthritis Diabetes History of BPH HTN (hypertension) Surgical History History of implantable cardioverter-defibrillator (ICD) insertion Status post cardiac catheterization H/O cardiac catheterization History of bilateral cataract extraction History of colonoscopy History of transurethral resection of prostate Family History Father Diabetes Mother Kidney problem Sister Asthma Hypertension Housing: Apartment Are you a primary attending ambulatory care to a significant other at home: No Do you presently have visiting nurse or other home services: No Alcohol intake: never Patient Tobacco Use Status: Former Tobacco user Quit Date: 15 yrs ago Tobacco use type: Cigarette e-Cigarette/Vaping Use: Never Used Second Hand Smoke Exposure: Yes service: No Current occupational status: employed Cognitive needs: No Hearing needs: No Vision needs: Yes Office Procedures Cardiac Device Check Cardiac Device Check Details: HF monitoring Stable thoracic impedance. [id number] Cardiac Device Interrogation, cardio physiologic monitor Procedure code (CPT) selection complete Assessment & Plan Assessment & Plan (1) Cardiomyopathy: Code(s): I42.9 - Cardiomyopathy, unspecified Qualifiers: Cardiomyopathy type: unspecified Qualified Code(s): I42.9 - Cardiomyopathy, unspecified Coding Level of Care Code Procedure Only Diagnoses Cardiomyopathy, unspecified type I42.9 Cardiomyopathy type: unspecified CPT Codes Cardiac Device Check - Cardiac Device 15: [id number] Cardiac Device Interrogation, cardio physiologic monitor ([id number])
== END ==
PROVIDERS: PCP Internal Medicine; Visit Provider Internal Medicine Cardiovascular Disease
DX: I42.9 Cardiomyopathy, unspecified (principal); Z95.810 Presence of automatic (implantable) cardiac defibrillator
CPT/HCPCS: 93297

== ENCOUNTER → 2023-07-13 23:59 | Outpatient (BNV) | payer MEDICARE, MEDICAID, SELFPAY ==
--- NOTE | 2023-08-06 21:34 | MHC.OFFVIS ---
Intake Intake Visit Reasons: Remote ICD Check- Medtronic Allergies amoxicillin [AMOXICILLIN] Allergy (Intermediate, Verified 07/27/23 09:27) Rash clindamycin [Clindamycin] Allergy (Intermediate, Verified 07/27/23 09:27) RASH Sulfa (Sulfonamide Antibiotics) Allergy (Intermediate, Verified 07/27/23 09:27) RASH ibuprofen [From Motrin] Adverse Reaction (Intermediate, Verified 07/27/23 09:27) Gastrointestinal Upset PFSH Medical History Hx of TB skin testing History of macular degeneration Cardiomyopathy Cardiac arrhythmia, unspecified COVID-19 vaccine series completed BPH associated with nocturia Obesity (BMI 30-39.9) Carpal tunnel syndrome on both sides Benign prostatic hyperplasia Erectile dysfunction Allergic rhinitis Primary osteoarthritis of left shoulder Osteoarthritis of knee Vitamin D deficiency Hypertriglyceridemia Benign essential hypertension Diabetes mellitus Arthritis Diabetes History of BPH HTN (hypertension) Surgical History History of implantable cardioverter-defibrillator (ICD) insertion Status post cardiac catheterization H/O cardiac catheterization History of bilateral cataract extraction History of colonoscopy History of transurethral resection of prostate Family History Father Diabetes Mother Kidney problem Sister Asthma Hypertension Housing: Apartment Are you a primary cattle care worker to a significant other at home: No Do you presently have visiting nurse or other home services: No Alcohol intake: never Patient Tobacco Use Status: Former Tobacco user Quit Date: 15 yrs ago Tobacco use type: Cigarette e-Cigarette/Vaping Use: Never Used Second Hand Smoke Exposure: Yes service: No Current occupational status: employed Cognitive needs: No Hearing needs: No Vision needs: Yes Office Procedures Cardiac Device Check Cardiac Device Check Details: BivAICD Good battery life. No new alerts. 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 [id number] Cardiac Device Interrogation, pacemaker or defibrillator Procedure code (CPT) selection complete Assessment & Plan Assessment & Plan (1) Cardiomyopathy: Code(s): I42.9 - Cardiomyopathy, unspecified Qualifiers: Cardiomyopathy type: unspecified Qualified Code(s): I42.9 - Cardiomyopathy, unspecified Coding Level of Care Code Procedure Only Diagnoses Cardiomyopathy, unspecified type I42.9 Cardiomyopathy type: unspecified CPT Codes Cardiac Device Check - Cardiac Device 14: [id number] Cardiac Device Interrogation, pacemaker or defibrillator ([id number])
== END ==
PROVIDERS: PCP Internal Medicine; Visit Provider Internal Medicine Cardiovascular Disease
DX: I42.9 Cardiomyopathy, unspecified (principal); Z95.810 Presence of automatic (implantable) cardiac defibrillator
CPT/HCPCS: 93295

== ENCOUNTER 2023-07-27 09:19 | Outpatient (AMB) | payer MEDICARE, MEDICAID, SELFPAY ==
--- NOTE | 2023-07-27 09:27 | A.OFFVIS_ITS ---
Intake Vital Signs 07/27/23 09:29 Height 5 ft 5.5 in Weight 218 lb BMI 35.7 BP 142/64 H Blood Pressure Location Lt brachial Position Sitting Pulse 63 Intake Visit Reasons: 6 mnth follow up Intake Note: Patient follow up for Patient denies any GI issues. Scarifier Operator Required: No Accompanied by: Employee Allergies amoxicillin [AMOXICILLIN] Allergy (Intermediate, Verified 07/27/23 09:27) Rash clindamycin [Clindamycin] Allergy (Intermediate, Verified 07/27/23 09:27) RASH Sulfa (Sulfonamide Antibiotics) Allergy (Intermediate, Verified 07/27/23 09:27) RASH ibuprofen [From Motrin] Adverse Reaction (Intermediate, Verified 07/27/23 09:27) Gastrointestinal Upset HPI 6 mnth follow up HPI Details 72 yr old m here for f/u RECAP: He had colonoscopy 2020, x 7 colon polyps removed, poor prep also colo 2019-- with 5 polyps removed, tubulovillous and adenomas -poor prep chronic anemia on labs Colonoscopy: 2022: tubulovillous polyp in descending and adenomas as well INTERIM: no abdominal pain appetite is good no complaints EXAM: GENERAL: The patient is well developed and nontoxic. VITAL SIGNS:see workflow HEENT: Nonicteric sclerae, PERRLA, EOMI. Oropharynx clear. Moist mucous membranes. Conjunctivae appear well perfused. No thyroid mass. CHEST: Chest wall is nontender. HEART: Regular rate and rhythm without murmurs. LUNGS: Clear to auscultation bilaterally. ABDOMEN: Soft, positive bowel sounds, nontender, no organomegaly.no flank tenderness SKIN: No rash, no excessive bruising, petechiae, or purpura. NEUROLOGIC: Cranial nerves II-XII intact without motor/sensory deficit. a/P: 1/ Hx of colonic polyps, tubulovillous t ype also removed PLAN: 1/ Initially I had said 3 yrs for next c olo in my report but due to recurrent tubulovillous adenoma in descending will repeat in about 1 year--- 2 d clears, suprep 2/refer for genetic testing [facility] Medical History Hx of TB skin testing History of macular degeneration Cardiomyopathy Cardiac arrhythmia, unspecified COVID-19 vaccine series completed BPH associated with nocturia Obesity (BMI 30-39.9) Carpal tunnel syndrome on both sides Benign prostatic hyperplasia Erectile dysfunction Allergic rhinitis Primary osteoarthritis of left shoulder Osteoarthritis of knee Vitamin D deficiency Hypertriglyceridemia Benign essential hypertension Diabetes mellitus Arthritis Diabetes History of BPH HTN (hypertension) Surgical History History of implantable cardioverter-defibrillator (ICD) insertion Status post cardiac catheterization H/O cardiac catheterization History of bilateral cataract extraction History of colonoscopy History of transurethral resection of prostate Family History Father Diabetes Mother Kidney problem Sister Asthma Hypertension Social History Housing: Apartment Are you a primary complex care nurse to a significant other at home: No Do you presently have visiting nurse or other home services: No Alcohol intake: never Patient Tobacco Use Status: Former Tobacco user Quit Date: 15 yrs ago Tobacco use type: Cigarette e-Cigarette/Vaping Use: Never Used Second Hand Smoke Exposure: Yes service: No Current occupational status: employed Cognitive needs: No Hearing needs: No Vision needs: Yes Physical Exam Vital Signs: Last Vital Signs Pulse 63 07/27/23 09:29 BP 142/64 H 07/27/23 09:29 BMI result Body Mass Index 35.7 Assessment & Plan Assessment & Plan (1) Tubulovillous adenoma: Code(s): D36.9 - Benign neoplasm, unspecified site (2) Screening for colon cancer: Code(s): Z12.11 - Encounter for screening for malignant neoplasm of colon Coding Level of Care Code Est Pt Level 3 (11344) Diagnoses Tubulovillous adenoma D36.9 Screening for colon cancer Z12.11
[2023-07-27 09:29] VITALS: BP 142/64; PULSE 63; BMI 35.7
== END 2023-07-27 10:08 | disposition home or self-care (01) ==
PROVIDERS: PCP Internal Medicine; Visit Provider Internal Medicine Gastroenterology
DX: D36.9 Benign neoplasm, unspecified site (principal); Z12.11 Encounter for screening for malignant neoplasm of colon
CPT/HCPCS: 99213

== ENCOUNTER → 2023-07-27 09:19 | Outpatient (BNVA) | payer MEDICARE, MEDICAID, SELFPAY | PROVIDERS: PCP Internal Medicine; Visit Provider Internal Medicine Gastroenterology | DX: Z12.11 Encounter for screening for malignant neoplasm of colon (principal); D36.9 Benign neoplasm, unspecified site | CPT/HCPCS: 99212 ==

== ENCOUNTER → 2023-08-12 23:59 | Outpatient (BNV) | payer MEDICARE, MEDICAID, SELFPAY ==
--- NOTE | 2023-08-20 17:43 | MHC.OFFVIS ---
Intake Intake Visit Reasons: Remote HF Monitoring- Medtronic Allergies amoxicillin [AMOXICILLIN] Allergy (Intermediate, Verified 07/27/23 09:27) Rash clindamycin [Clindamycin] Allergy (Intermediate, Verified 07/27/23 09:27) RASH Sulfa (Sulfonamide Antibiotics) Allergy (Intermediate, Verified 07/27/23 09:27) RASH ibuprofen [From Motrin] Adverse Reaction (Intermediate, Verified 07/27/23 09:27) Gastrointestinal Upset PFSH Medical History Hx of TB skin testing History of macular degeneration Cardiomyopathy Cardiac arrhythmia, unspecified COVID-19 vaccine series completed BPH associated with nocturia Obesity (BMI 30-39.9) Carpal tunnel syndrome on both sides Benign prostatic hyperplasia Erectile dysfunction Allergic rhinitis Primary osteoarthritis of left shoulder Osteoarthritis of knee Vitamin D deficiency Hypertriglyceridemia Benign essential hypertension Diabetes mellitus Arthritis Diabetes History of BPH HTN (hypertension) Surgical History History of implantable cardioverter-defibrillator (ICD) insertion Status post cardiac catheterization H/O cardiac catheterization History of bilateral cataract extraction History of colonoscopy History of transurethral resection of prostate Family History Father Diabetes Mother Kidney problem Sister Asthma Hypertension Social History Housing: Apartment Are you a primary career development associate to a significant other at home: No Do you presently have visiting nurse or other home services: No Alcohol intake: never Patient Tobacco Use Status: Former Tobacco user Quit Date: 15 yrs ago Tobacco use type: Cigarette e-Cigarette/Vaping Use: Never Used Second Hand Smoke Exposure: Yes service: No Current occupational status: employed Cognitive needs: No Hearing needs: No Vision needs: Yes Office Procedures Cardiac Device Check Cardiac Device Check Details: HF monitoring Stable thoracic impedance. [id number] Device Interrogation, subcut cardiac rhythm monitor [id number] Cardiac Device Interrogation, pacemaker Procedure code (CPT) selection complete Assessment & Plan Assessment & Plan (1) Cardiomyopathy: Code(s): I42.9 - Cardiomyopathy, unspecified Qualifiers: Cardiomyopathy type: unspecified Qualified Code(s): I42.9 - Cardiomyopathy, unspecified Plan: Coding Level of Care Code Procedure Only Diagnoses Cardiomyopathy, unspecified type I42.9 Cardiomyopathy type: unspecified CPT Codes Cardiac Device Check - Cardiac Device 11: [id number] Device Interrogation, subcut cardiac rhythm monitor ([id number]) Cardiac Device Check - Cardiac Device 12: [id number] Cardiac Device Interrogation, pacemaker ([id number])
== END ==
PROVIDERS: PCP Internal Medicine; Visit Provider Internal Medicine Cardiovascular Disease
DX: I42.9 Cardiomyopathy, unspecified (principal)
CPT/HCPCS: 93297

== ENCOUNTER 2023-08-29 14:15 | Outpatient (AMB) | payer MEDICARE, MEDICAID, SELFPAY ==
[2023-08-29 14:26] VITALS: BP 108/56; PULSE 84; BMI 36.5
--- NOTE | 2023-08-29 14:26 | MHC.OFFVIS ---
Intake Vital Signs 08/29/23 14:26 Height 5 ft 5.5 in Weight 222 lb 10.67 oz BMI 36.5 BP 108/56 L Blood Pressure Location Lt brachial Position Sitting Pulse 84 Intake Visit Reasons: 6 mth fu Intake Note: 6 month follow up Bankman Required: No Accompanied by: Self / Same As Patient Allergies amoxicillin [AMOXICILLIN] Allergy (Intermediate, Verified 08/29/23 14:26) Rash clindamycin [Clindamycin] Allergy (Intermediate, Verified 08/29/23 14:26) RASH Sulfa (Sulfonamide Antibiotics) Allergy (Intermediate, Verified 08/29/23 14:26) RASH ibuprofen [From Motrin] Adverse Reaction (Intermediate, Verified 08/29/23 14:26) Gastrointestinal Upset Medication List - Last Reconciled 08/29/23 by Jairo Lua MD aspirin 81 mg PO DAILY atorvastatin 20 mg PO BEDTIME carvedilol 12.5 mg PO BID 90 days cholecalciferol (vitamin D3) (Vitamin D3) 25 mcg PO DAILY flash glucose scanning reader ([email or web address] Zofia 14 Day Coyle) As directed flash glucose sensor ([employer] Zofia 14 Day Sensor kit) 1 ea topical DIRECTED glipizide ER 10 mg PO DAILY 90 days loratadine 10 mg PO DAILY PRN 90 days losartan 50 mg PO DAILY metformin 1,000 mg PO BID pioglitazone 45 mg PO DAILY 90 days sitagliptin phosphate (Januvia) 100 mg PO DAILY tamsulosin 0.4 mg PO BEDTIME 90 days tramadol 50 mg PO BID-TID PRN HPI HPI Comments History of Present Illness Details 72-year-old gentleman who has a background history of hypertension and diabetes who is presenting for new diagnosis of cardiomyopathy on echocardiography. He said he saw his primary care physician and underwent echocardiography. Echocardiography showed EF of 15-20%. He is denying any chest discomfort shortness of breath. No orthopnea PND. No significant peripheral edema. He underwent cardiac catheterization which did not show any significant coronary disease. He was referred for Bi V pacing. Underwent [employer] D with left bundle-branch pacing by Dr Zhou. Repeat echocardiography showed ejection fraction of 45-50%. Continues to be asymptomatic. No chest discomfort shortness of breath. Not in heart failure clinically. Blood pressure control is good. 08/29/2023: He returns for follow-up. He has been doing well. No chest pain or shortness of breath. He is asking whether pioglitazone is safe for him to use. He has known history of cardiomyopathy and pioglitazone can lead to fluid buildup. He is saying he has not been taking it since the pharmacist told him not to take it. He will discuss this with his primary care physician. [facility] Medical History Hx of TB skin testing History of macular degeneration Cardiomyopathy Cardiac arrhythmia, unspecified COVID-19 vaccine series completed BPH associated with nocturia Obesity (BMI 30-39.9) Carpal tunnel syndrome on both sides Benign prostatic hyperplasia Erectile dysfunction Allergic rhinitis Primary osteoarthritis of left shoulder Osteoarthritis of knee Vitamin D deficiency Hypertriglyceridemia Benign essential hypertension Diabetes mellitus Arthritis Diabetes History of BPH HTN (hypertension) Surgical History History of implantable cardioverter-defibrillator (ICD) insertion Status post cardiac catheterization H/O cardiac catheterization History of bilateral cataract extraction History of colonoscopy History of transurethral resection of prostate Family History Father Diabetes Mother Kidney problem Sister Asthma Hypertension Social History Housing: Apartment Are you a primary pet care technician to a significant other at home: No Do you presently have visiting nurse or other home services: No Alcohol intake: never Patient Tobacco Use Status: Former Tobacco user Quit Date: 15 yrs ago Tobacco use type: Cigarette e-Cigarette/Vaping Use: Never Used Second Hand Smoke Exposure: Yes service: No Current occupational status: employed Cognitive needs: No Hearing needs: No Vision needs: Yes Review of Systems Const Denies weakness ENT Denies dizziness Card Denies chest pain, Denies chest pain with activity, Denies syncope, Denies rapid heart rate, Denies pedal edema, Denies edema, Denies leg edema, Denies lightheadedness, Denies palpitations, Denies dyspnea, Denies dyspnea on exertion and Denies orthopnea Resp Denies cough, Denies dyspnea and Denies dyspnea on exertion GI Denies hematochezia and Denies change in stool character Musc Denies abnormal gait, Denies muscle cramps, Denies muscle weakness, Denies numbness, Denies radiating pain into limb and Denies tingling Neuro Denies abnormal gait, Denies dizziness, Denies syncope, Denies numbness, Denies tingling and Denies weakness Endo Denies palpitations Physical Exam Vital Signs: Last Vital Signs Pulse 84 08/29/23 14:26 BP 108/56 L 08/29/23 14:26 BMI result Body Mass Index 36.5 GENERAL APPEARANCE: in no acute distress, pleasant. NECK: no carotid bruit, no jugular venous distention. SKIN: no suspicious lesions, warm and dry. HEART: no murmurs, regular rate and rhythm. LUNGS: clear to auscultation bilaterally. ABDOMEN: soft, nontender. EXTREMITIES: no edema. PERIPHERAL PULSES: equal. NEUROLOGIC: No gross deficits, AAO X 3 Assessment & Plan Assessment & Plan (1) Benign essential hypertension: Code(s): I10 - Essential (primary) hypertension (2) Cardiomyopathy: Code(s): I42.9 - Cardiomyopathy, unspecified Qualifiers: Cardiomyopathy type: unspecified Qualified Code(s): I42.9 - Cardiomyopathy, unspecified Plan Pleasant 72-year-old gentleman presenting for follow-up. He has known history of left bundle-branch block and nonischemic cardiomyopathy secondary to left bundle-branch block. He had [employer] D and improvement in ejection fraction. No congestive heart failure. NYHA class 1. Clinically stable and should continue same medications for now. He will discuss about pioglitazone with his primary care physician. Follow-up in 6 months. Thank you for allowing me to participate in the care of your patient. Please feel free to contact me if you have any questions. Coding Level of Care Code Est Pt Level 3 (27413) Diagnoses Benign essential hypertension I10 Cardiomyopathy, unspecified type I42.9 Cardiomyopathy type: unspecified
== END 2023-08-29 14:59 | disposition home or self-care (01) ==
PROVIDERS: PCP Internal Medicine; Visit Provider Internal Medicine Cardiovascular Disease
DX: I10 Essential (primary) hypertension (principal); I42.9 Cardiomyopathy, unspecified
CPT/HCPCS: 99213

== ENCOUNTER → 2023-08-29 14:15 | Outpatient (BNVA) | payer MEDICARE, MEDICAID, SELFPAY | PROVIDERS: PCP Internal Medicine; Visit Provider Internal Medicine Cardiovascular Disease | DX: I10 Essential (primary) hypertension (principal); I42.9 Cardiomyopathy, unspecified | CPT/HCPCS: 99212 ==

== ENCOUNTER → 2023-09-12 23:59 | Outpatient (BNV) | payer MEDICARE, MEDICAID, SELFPAY ==
--- NOTE | 2023-09-17 13:38 | MHC.OFFVIS ---
Intake Intake Visit Reasons: Remote HF Monitoring- [employer] Allergies amoxicillin [AMOXICILLIN] Allergy (Intermediate, Verified 08/29/23 14:26) Rash clindamycin [Clindamycin] Allergy (Intermediate, Verified 08/29/23 14:26) RASH Sulfa (Sulfonamide Antibiotics) Allergy (Intermediate, Verified 08/29/23 14:26) RASH ibuprofen [From Motrin] Adverse Reaction (Intermediate, Verified 08/29/23 14:26) Gastrointestinal Upset PFSH Medical History Hx of TB skin testing History of macular degeneration Cardiomyopathy Cardiac arrhythmia, unspecified COVID-19 vaccine series completed BPH associated with nocturia Obesity (BMI 30-39.9) Carpal tunnel syndrome on both sides Benign prostatic hyperplasia Erectile dysfunction Allergic rhinitis Primary osteoarthritis of left shoulder Osteoarthritis of knee Vitamin D deficiency Hypertriglyceridemia Benign essential hypertension Diabetes mellitus Arthritis Diabetes History of BPH HTN (hypertension) Surgical History History of implantable cardioverter-defibrillator (ICD) insertion Status post cardiac catheterization H/O cardiac catheterization History of bilateral cataract extraction History of colonoscopy History of transurethral resection of prostate Family History Father Diabetes Mother Kidney problem Sister Asthma Hypertension Social History Housing: Apartment Are you a primary in home caregiver to a significant other at home: No Do you presently have visiting nurse or other home services: No Alcohol intake: never Patient Tobacco Use Status: Former Tobacco user Quit Date: 15 yrs ago Tobacco use type: Cigarette e-Cigarette/Vaping Use: Never Used Second Hand Smoke Exposure: Yes service: No Current occupational status: employed Cognitive needs: No Hearing needs: No Vision needs: Yes Office Procedures Cardiac Device Check Cardiac Device Check Details: Heart failure monitoring. Stable thoracic impedance. [id number] Cardiac Device Interrogation, cardio physiologic monitor Procedure code (CPT) selection complete Assessment & Plan Assessment & Plan (1) Cardiomyopathy: Code(s): I42.9 - Cardiomyopathy, unspecified Qualifiers: Cardiomyopathy type: unspecified Qualified Code(s): I42.9 - Cardiomyopathy, unspecified Plan Orders: Orders AMB Cardiac Device Follow-up 09/12/23 I42.9 - Cardiomyopathy, unspecified Coding Level of Care Code Procedure Only Diagnoses Cardiomyopathy, unspecified type I42.9 Cardiomyopathy type: unspecified CPT Codes Cardiac Device Check - Cardiac Device 15: [id number] Cardiac Device Interrogation, cardio physiologic monitor ([id number])
== END ==
PROVIDERS: PCP Internal Medicine; Visit Provider Internal Medicine Cardiovascular Disease
DX: I42.9 Cardiomyopathy, unspecified (principal); Z95.810 Presence of automatic (implantable) cardiac defibrillator
CPT/HCPCS: 93297

== ENCOUNTER 2023-09-28 06:25 | Outpatient (REF) | payer MEDICARE, MEDICAID, SELFPAY ==
[2023-09-28 06:40] LABS: MANUAL DIFF FLAG NO
[2023-09-28 07:07] LABS: Basophils Absolute Auto 0.1 X10*3/uL (0.0-0.2); Basophils Percent Auto 0.6 % (0-2); Eosinophils Absolute Auto 0.2 X10*3/uL (0.0-0.4); Eosinophils Percent Auto 2.1 % (0-4); Hematocrit 37.5 % (42.0-52.0); Hemoglobin 11.9 g/dl (14.0-18.0); Imm Gran Abs Auto 0.03 X10*3/uL (0.00-0.03); Imm Gran Pct Auto 0.3 % (0.0-0.4); Lymphocytes Absolute Auto 1.8 X10*3/uL (1.2-4.9); Lymphocytes Percent Auto 20.7 % (20-40); Mean Corpuscular HGB Conc 31.7 g/dl (31.0-36.0); Mean Corpuscular Hemoglobin 27.1 pg (27.0-33.0); Mean Corpuscular Volume 85.4 fL (80.0-98.0); Mean Platelet Volume 11.3 fL (9.4-12.4); Monocytes Absolute Auto 0.9 X10*3/uL (0.1-1.2); Monocytes Percent Auto 9.6 % (2-11); Neutrophils Absolute Auto 5.9 x10*3/uL (2.0-8.3); Neutrophils Percent Auto 66.7 % (45-73); Platelet Count 228 X10*3/uL (160-400); Red Blood Count 4.39 X10*6/uL (4.60-5.80); Red Cell Distribution Width 14.7 % (11.0-16.0); White Blood Count 8.9 X10*3/uL (4.8-10.8)
[2023-09-28 07:12] LABS: Estimated Average Glucose 146 mg/dL; Hemoglobin A1c % 6.7 % (<6.0)
[2023-09-28 07:27] LABS: Alanine Aminotransferase 24 U/L (0-40); Albumin Level 4.1 g/dL (3.5-5.0); Alkaline Phosphatase 93 U/L (39-117); Anion Gap 12 (12-20); Aspartate Amino Transferase 22 U/L (5-37); Bilirubin Total 0.5 mg/dL (0.0-1.0); Blood Urea Nitrogen 13 mg/dL (9-16); Calcium 9.4 mg/dL (8.4-10.2); Carbon Dioxide 27 mmol/L (22-29); Chloride 105 mmol/L (96-108); Cholesterol 116 mg/dL (<200); Estimated Glomerular Filt Rate > 60; Glucose Fasting 148 mg/dL (60-99); HDL Cholesterol 63 mg/dL (>40); LDL Cholesterol Calculated 45 mg/dL (<100); Potassium 4.4 mmol/L (3.3-5.1); Sodium 140 mmol/L (135-145); Total Protein 7.5 g/dL (6.5-8.0); Triglycerides 42 mg/dL (<150)
[2023-09-28 07:36] LABS: TSH reflex Free T4 2.06 uIU/mL (0.32-4.0); Vitamin D 25-OH Total 37.8 ng/mL (>30)
[2023-09-28 07:40] LABS: Appearance Urine Clear; Color Urine Yellow; Glucose Urine UA Negative (Negative); Leukocyte Esterase Urine Negative (Negative); Nitrite Urine Negative (Negative); PH 5.5 (5.0-9.0); Urine Blood Negative (Negative); Urine Ketones Negative (Negative); Urine Protein Negative (Neg-Trace)
[2023-09-28 08:08] LABS: Creatinine Urine 148.81 mg/dL; Microalbum/Creatinine Ratio Ur 7.3 ug/mg cr (<30)
== END 2023-09-28 06:26 | disposition home or self-care (01) ==
LOC: HO.LAB 06:25
PROVIDERS: PCP Internal Medicine; Visit Provider Internal Medicine
DX: E78.00 Pure hypercholesterolemia, unspecified (principal); E55.9 Vitamin D deficiency, unspecified; R30.0 Dysuria; E11.9 Type 2 diabetes mellitus without complications; I10 Essential (primary) hypertension
CPT/HCPCS: 36415; 80053; 80061; 81003; 82043; 82306; 82570; 83036; 84443; 85025

== ENCOUNTER → 2023-10-12 23:59 | Outpatient (BNV) | payer MEDICARE, MEDICAID, SELFPAY ==
--- NOTE | 2023-10-20 20:41 | MHC.OFFVIS ---
Intake Intake Visit Reasons: Remote HF Monitoring- [employer] Allergies amoxicillin [AMOXICILLIN] Allergy (Intermediate, Verified 10/15/23 16:35) Rash clindamycin [Clindamycin] Allergy (Intermediate, Verified 10/15/23 16:35) RASH Sulfa (Sulfonamide Antibiotics) Allergy (Intermediate, Verified 10/15/23 16:35) RASH ibuprofen [From Motrin] Adverse Reaction (Intermediate, Verified 10/15/23 16:35) Gastrointestinal Upset PFSH Medical History (Updated 10/16/23 @ 04:43 by Alphonse Senior MD) Hx of TB skin testing History of macular degeneration Cardiomyopathy Cardiac arrhythmia, unspecified COVID-19 vaccine series completed BPH associated with nocturia Obesity (BMI 30-39.9) Carpal tunnel syndrome on both sides Benign prostatic hyperplasia Erectile dysfunction Allergic rhinitis Primary osteoarthritis of left shoulder Osteoarthritis of knee Vitamin D deficiency Hypertriglyceridemia Benign essential hypertension Diabetes mellitus Arthritis Diabetes History of BPH Surgical History History of implantable cardioverter-defibrillator (ICD) insertion Status post cardiac catheterization H/O cardiac catheterization History of bilateral cataract extraction History of colonoscopy History of transurethral resection of prostate Family History Father Diabetes Mother Kidney problem Sister Asthma Hypertension Social History Housing: Apartment Are you a primary customer care consultant to a significant other at home: No Do you presently have visiting nurse or other home services: No Alcohol intake: never Patient Tobacco Use Status: Former Tobacco user Quit Date: 15 yrs ago Tobacco use type: Cigarette e-Cigarette/Vaping Use: Never Used Second Hand Smoke Exposure: Yes service: No Current occupational status: employed Cognitive needs: No Hearing needs: No Vision needs: Yes Office Procedures Cardiac Device Check Cardiac Device Check Details: HF monitoring Stable thoracic impedance [id number] Cardiac Device Interrogation, cardio physiologic monitor Procedure code (CPT) selection complete Assessment & Plan Assessment & Plan (1) Cardiomyopathy: Code(s): I42.9 - Cardiomyopathy, unspecified Qualifiers: Cardiomyopathy type: unspecified Qualified Code(s): I42.9 - Cardiomyopathy, unspecified Plan Coding Level of Care Code Procedure Only Diagnoses Cardiomyopathy, unspecified type I42.9 Cardiomyopathy type: unspecified CPT Codes Cardiac Device Check - Cardiac Device 15: [id number] Cardiac Device Interrogation, cardio physiologic monitor ([id number])
== END ==
PROVIDERS: PCP Internal Medicine; Visit Provider Internal Medicine Cardiovascular Disease
DX: I42.9 Cardiomyopathy, unspecified (principal); Z95.810 Presence of automatic (implantable) cardiac defibrillator
CPT/HCPCS: 93297

== ENCOUNTER → 2023-10-12 23:59 | Outpatient (BNV) | payer MEDICARE, MEDICAID, SELFPAY ==
--- NOTE | 2023-10-20 20:43 | A.OFFVIS_ITS ---
Intake Intake Visit Reasons: Remote ICD Check- [employer] Allergies amoxicillin [AMOXICILLIN] Allergy (Intermediate, Verified 10/15/23 16:35) Rash clindamycin [Clindamycin] Allergy (Intermediate, Verified 10/15/23 16:35) RASH Sulfa (Sulfonamide Antibiotics) Allergy (Intermediate, Verified 10/15/23 16:35) RASH ibuprofen [From Motrin] Adverse Reaction (Intermediate, Verified 10/15/23 16:35) Gastrointestinal Upset PFSH Medical History (Updated 10/16/23 @ 04:43 by Alphonse Senior MD) Hx of TB skin testing History of macular degeneration Cardiomyopathy Cardiac arrhythmia, unspecified COVID-19 vaccine series completed BPH associated with nocturia Obesity (BMI 30-39.9) Carpal tunnel syndrome on both sides Benign prostatic hyperplasia Erectile dysfunction Allergic rhinitis Primary osteoarthritis of left shoulder Osteoarthritis of knee Vitamin D deficiency Hypertriglyceridemia Benign essential hypertension Diabetes mellitus Arthritis Diabetes History of BPH Surgical History History of implantable cardioverter-defibrillator (ICD) insertion Status post cardiac catheterization H/O cardiac catheterization History of bilateral cataract extraction History of colonoscopy History of transurethral resection of prostate Family History Father Diabetes Mother Kidney problem Sister Asthma Hypertension Social History Housing: Apartment Are you a primary skin care instructor to a significant other at home: No Do you presently have visiting nurse or other home services: No Alcohol intake: never Patient Tobacco Use Status: Former Tobacco user Quit Date: 15 yrs ago Tobacco use type: Cigarette e-Cigarette/Vaping Use: Never Used Second Hand Smoke Exposure: Yes service: No Current occupational status: employed Cognitive needs: No Hearing needs: No Vision needs: Yes Office Procedures Cardiac Device Check Cardiac Device Check Details: MEDICAL SERVICES COORDINATOR-D Good battery life MANAGER OF PURCHASING 99%. No new alerts. [id number] Cardiac Device Interrogation, pacemaker or defibrillator Procedure code (CPT) selection complete Assessment & Plan Assessment & Plan (1) Cardiomyopathy: Code(s): I42.9 - Cardiomyopathy, unspecified Qualifiers: Cardiomyopathy type: unspecified Qualified Code(s): I42.9 - Cardiomyopathy, unspecified Plan Coding Level of Care Code Procedure Only Diagnoses Cardiomyopathy, unspecified type I42.9 Cardiomyopathy type: unspecified CPT Codes Cardiac Device Check - Cardiac Device 14: [id number] Cardiac Device Interrogation, pacemaker or defibrillator ([id number])
== END ==
PROVIDERS: PCP Internal Medicine; Visit Provider Internal Medicine Cardiovascular Disease
DX: I42.9 Cardiomyopathy, unspecified (principal); Z95.810 Presence of automatic (implantable) cardiac defibrillator
CPT/HCPCS: 93295

== ENCOUNTER 2023-10-15 14:53 | Outpatient (AMB) | payer MEDICARE, MEDICAID, SELFPAY ==
[2023-10-15 14:54] VITALS: BP 138/84; PULSE 86; O2SAT 97; BMI 35.8
--- NOTE | 2023-10-15 14:54 | A.OFFPC_ITS ---
Vital Signs 10/15/23 14:54 Height 5 ft 5.5 in Weight 218 lb 4 oz BMI 35.8 BP 138/84 Blood Pressure Location Lt brachial Position Sitting Pulse 86 Pulse Source Pulse Oximeter Pulse Oximetry (%) 97 Oxygen Delivery Method Room Air Intake Visit Reasons: DM, hyperlipidemia, HTN Manager Skilled Required: No Accompanied by: Self / Same As Patient Allergies amoxicillin [AMOXICILLIN] Allergy (Intermediate, Verified 10/15/23 16:35) Rash clindamycin [Clindamycin] Allergy (Intermediate, Verified 10/15/23 16:35) RASH Sulfa (Sulfonamide Antibiotics) Allergy (Intermediate, Verified 10/15/23 16:35) RASH ibuprofen [From Motrin] Adverse Reaction (Intermediate, Verified 10/15/23 16:35) Gastrointestinal Upset Medication List - Last Reconciled 10/15/23 by Alphonse Senior MD aspirin 81 mg PO DAILY atorvastatin 20 mg PO BEDTIME carvedilol 12.5 mg PO BID 90 days cholecalciferol (vitamin D3) (Vitamin D3) 25 mcg PO DAILY flash glucose scanning reader ([email or web address] Zofia 14 Day [place]) As directed flash glucose sensor ([employer] Zofia 14 Day Sensor kit) 1 ea topical DIRECTED glipizide ER 10 mg PO DAILY 90 days loratadine 10 mg PO DAILY PRN 90 days losartan 50 mg PO DAILY metformin 1,000 mg PO BID pioglitazone 45 mg PO DAILY 90 days sitagliptin phosphate (Januvia) 100 mg PO DAILY tamsulosin 0.4 mg PO BEDTIME 90 days tramadol 50 mg PO BID-TID PRN Tobacco use date assessed: 10/15/23 Fall risk assessment: No Falls in past year Last assessed Fall Risk: 10/15/23 Dental Screening Dental Screen Date: 10/15/23 Did you have a dental visit in the last 12 months?: Yes Did you have a dental problem in the last 6 months where you did not have access to dental care?: No Was dental information given to patient?: Patient has dentist HPI DM, hyperlipidemia, HTN HPI Details Patient comes in today for his follow up visit States that he feels okay He denies any headaches or dizziness Denies any chest pains, no SOB No nausea/vomiting, no abdominal pain No change in bowel habits noted Had his follow up labs done a few weeks ago - to discuss his results [facility] Medical History (Updated 10/16/23 @ 04:43 by Alphonse Senior MD) Hx of TB skin testing History of macular degeneration Cardiomyopathy Cardiac arrhythmia, unspecified COVID-19 vaccine series completed BPH associated with nocturia Obesity (BMI 30-39.9) Carpal tunnel syndrome on both sides Benign prostatic hyperplasia Erectile dysfunction Allergic rhinitis Primary osteoarthritis of left shoulder Osteoarthritis of knee Vitamin D deficiency Hypertriglyceridemia Benign essential hypertension Diabetes mellitus Arthritis Diabetes History of BPH Surgical History History of implantable cardioverter-defibrillator (ICD) insertion Status post cardiac catheterization H/O cardiac catheterization History of bilateral cataract extraction History of colonoscopy History of transurethral resection of prostate Family History Father Diabetes Mother Kidney problem Sister Asthma Hypertension Social History Housing: Apartment Are you a primary laboratory animal care veterinarian to a significant other at home: No Do you presently have visiting nurse or other home services: No Alcohol intake: never Patient Tobacco Use Status: Former Tobacco user Quit Date: 15 yrs ago Tobacco use type: Cigarette e-Cigarette/Vaping Use: Never Used Second Hand Smoke Exposure: Yes service: No Current occupational status: employed Cognitive needs: No Hearing needs: No Vision needs: Yes Questionnaire PHQ-9 Over the last 2 weeks, how often have you been bothered by any of the following problems? 1. Little interest or pleasure in doing things: not at all 2. Feeling down, depressed, or hopeless: not at all 3. Trouble falling or staying asleep, or sleeping too much: not at all 4. Feeling tired or having little energy: not at all 5. Poor appetite or overeating: not at all 6. Feeling bad about yourself - or that you are a failure or have let yourself or your family down: not at all 7. Trouble concentrating on things, such as reading the newspaper or watching television: not at all 8. Moving or speaking so slowly that other people could have noticed. Or the opposite - being so fidgety or restless that you have been moving around a lot more than usual: not at all 9. Thoughts that you would be better off or of hurting yourself in some way: not at all Total score: 0 Depression Screening Interpretation: Negative Depression Screening Done: Yes [id number] - PHQ-9 Billing: Yes Source: Developed by Drs. Edu Will, Brittanie Salgado, Yogesh Copeland and colleagues, with an educational celina from [employer]. Thrive Questionnaire Date Thrive assessed: 10/15/23 I am a: Patient What is your living situation today?: I have a steady place to live Within the past 12 months, did the food you bought not last and you didn't have the money to get more?: Never true Within the past 12 months, did you worry whether your food would run out before you got money to buy more?: Never true Do you have trouble paying for medicines?: No Do you have trouble getting transportation to medical appointments?: No Do you have trouble paying your heating and electricity bill?: No Do you have trouble taking care of your child, family member or friend?: No Do you have trouble with day-to-day activities such as bathing, preparing meals, shopping, managing finances, etc.?: No Are you currently unemployed and looking for a job?: No Are you interested in more education?: No Please select the resources that you would like help with: None Currently or been in a relationship where the following occur: no concerns reported THRIVE Score: 0 AUDIT C Alcohol Use Questionnaire (AUDIT-C) 1. How often do you have a drink containing alcohol?: Never 3. How often do you have six or more drinks on one occasion?: Never Total Score: 0 Score Reviewed/Action Taken: Yes CAREY-7 AMB Questionnaire CAREY-7 Date CAREY - 7 assessed: 10/15/23 Feeling nervous, anxious, or on edge: 0 = Not at all Not being able to stop or control worryin = Not at all Worrying too much about different things: 0 = Not at all Trouble relaxin = Not at all Being so restless that it is hard to sit still: 0 = Not at all Becoming easily annoyed or irritable: 0 = Not at all Feeling afraid as if something awful might happen: 0 = Not at all Total CAREY-7 score (0-4 normal; 5-9 mild; 10-14 moderate; 15-21 severe): 0 Source: Developed by Drs. Edu Will, Brittanie Salgado, Yogesh Copeland and colleagues, with an educational celina from [employer]. CAREY-7 Assessment Billing CAREY-7 Assessment Tool: CAREY-7 Assessment 41657 Review of Systems Const Denies chills, Denies fatigue, Denies fever(s) and Denies headache(s) ENT Denies dysphagia, Denies dizziness, Denies otalgia, Denies headache(s), Denies neck pain, Denies odynophagia and Denies sore throat Card Denies chest pain, Denies palpitations and Denies dyspnea Resp Denies cough and Denies dyspnea GI Denies abdominal pain, Denies constipation, Denies dysphagia, Denies heartburn, Denies diarrhea, Denies nausea, Denies odynophagia and Denies vomiting Denies dysuria, Denies nocturia and Denies urinary frequency Musc Denies back pain, Reports arthralgias (on and off in both knees) and Denies neck pain Skin/Breast Denies rash Neuro Denies dizziness and Denies headache(s) Endo Denies fatigue and Denies palpitations Physical exam (Primary Care) Vital Signs: Last Vital Signs Pulse 86 10/15/23 14:54 BP 138/84 10/15/23 14:54 Pulse Ox 97 10/15/23 14:54 Oxygen Delivery Method Room Air 10/15/23 14:54 BMI result Body Mass Index 35.8 Tobacco/Smoking Status: Tobacco use Status Tobacco use date assessed 10/15/23 10/15/23 14:56 Patient Tobacco Use Status Former Tobacco user 10/15/23 14:56 Tobacco use type Cigarette 10/15/23 14:56 e-Cigarette/Vaping Use Never Used 10/15/23 14:56 PHQ-9: PHQ-9 Score PHQ-9: Total score 0 10/15/23 16:37 Depression Screening Interpretation: Negative Thrive Assessment: Date of Thrive Assessment Date Thrive assessed 10/15/23 10/15/23 14:56 Currently or been in a relationship where the following occur: no concerns reported Const General: no acute distress and alert HENMT Ears: TM's normal bilaterally and EAC's normal Throat: Yes posterior oropharynx normal and Yes tonsils normal (no TP congestion noted) Neck Neck: Yes no lymphadenopathy and Yes supple Resp Auscultation: clear to auscultation bilaterally, no rales and no wheezes Cardio Rate: regular rate Rhythm: abnormal rhythm with ectopic beats Heart sounds: no murmurs GI Palpation (GI): Soft to palpation and nontender Auscultation: normal bowel sounds General: Yes no CVA tenderness Back/Spine/Pelvis Back: no CVA tenderness Skin Rashes: no rashes Extrem General: Yes no clubbing, cyanosis or edema Left upper extremity: shoulder/upper arm Details: tenderness (mild) Location: of the A-C joint Left lower extremity: knee Details: tenderness; no swelling and foot Details: tenderness Location: of the dorsal foot and no edema Results Reviewed Results Reviewed: Laboratory Tests 09/28/23 09/28/23 09/28/23 06:10 06:10 06:39 WBC 8.9 Hgb 11.9 L Hct 37.5 L Plt Count 228 Sodium 140 Potassium 4.4 Creatinine 1.06 Estimated GFR > 60 Fasting Glucose 148 H Hemoglobin A1c % Calcium 9.4 AST 22 ALT 24 Triglycerides 42 Cholesterol 116 LDL Cholesterol, Calc 45 HDL Cholesterol 63 25-OH Vitamin D Total 37.8 TSH 2.06 Ur Specific [place] 1.020 Urine Protein Negative Urine Glucose (UA) Negative Urine Blood Negative Urine Nitrite Negative Ur Leukocyte Esterase Negative Microalb/Creat Ratio 7.3 09/28/23 06:39 WBC Hgb Hct Plt Count Sodium Potassium Creatinine Estimated GFR Fasting Glucose Hemoglobin A1c % 6.7 H Calcium AST ALT Triglycerides Cholesterol LDL Cholesterol, Calc HDL Cholesterol 25-OH Vitamin D Total TSH Ur Specific [place] Urine Protein Urine Glucose (UA) Urine Blood Urine Nitrite Ur Leukocyte Esterase Microalb/Creat Ratio Assessment and Plan Assessment & Plan (1) Diabetes mellitus: Code(s): E11.9 - Type 2 diabetes mellitus without complications Qualifiers: Diabetes mellitus complication status: without complication Diabetes mellitus exterminator helper insulin use: without retirement use Diabetes mellitus type: type 2 Qualified Code(s): E11.9 - Type 2 diabetes mellitus without complications Plan: HgbA1c was at 6.7% on his labs done a few weeks ago (was previously at 6.3% a few months ago) - goal is < 7.0% Reinforced diabetic diet Continue Glipizide ER 10 mg QD, Metformin 1000 mg BID and Januvia 100 mg QD He was also on Pioglitazone 45 mg QD but patient has not taken this in a while since his pharmacist mentioned to him that Pioglitazone can cause fluid to build up and exacerbate heart failure symptoms - this is also probably why his HgbA1c has gone from before Have advised patient that he is presently no longer in heart failure and that it should be safe him to go back on Pioglitazone and we will continue to monitor him closely and regularly regarding this going forward (2) Benign essential hypertension: Code(s): I10 - Essential (primary) hypertension Plan: Reinforced low-sodium diet - goal is systolic BP of at least 130 to 140 mm or less Continue Losartan 50 mg QD and Verapamil ER 300 mg Q HS (3) Hypertriglyceridemia: Code(s): E78.1 - Pure hyperglyceridemia Plan: Results of his labs done a few weeks ago reviewed and discussed with patient Reinforced low cholesterol diet Continue Atorvastatin 20 mg QD Will recheck his labs and fasting lipids in 4 months for follow-up (4) Cardiomyopathy: Code(s): I42.9 - Cardiomyopathy, unspecified Qualifiers: Cardiomyopathy type: unspecified Qualified Code(s): I42.9 - Cardiomyopathy, unspecified Plan: EF was incidentally noted to be at 15-20% on echocardiogram; patient was clinically not in heart failure as he denied any symptoms or shortness of breath, easy fatigability or edema at the time 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 placed by cardiology on 11/23/2021 Most recent echocardiogram done in August 2022 showed (+) significant improvement of his cardiac function - there is normal left ventricular wall thickness;?the left ventricular systolic function is borderline reduced and?the visually estimated ejection fraction is between 45-50% Follow up with cardiology as scheduled (5) Vitamin D deficiency: Code(s): E55.9 - Vitamin D deficiency, unspecified Plan: Continue Vitamin D3 1000 units QD (6) Primary osteoarthritis of left shoulder: Code(s): M19.012 - Primary osteoarthritis, left shoulder Plan: X-rays of the left shoulder done last year showed (+) OA changes Patient is encouraged to continue with regular shoulder exercises to help manage his symptoms Follow-up with Orthopedics as scheduled (7) Osteoarthritis of knee: Code(s): M17.10 - Unilateral primary osteoarthritis, unspecified knee Qualifiers: Laterality: unspecified laterality Osteoarthritis type: primary Qualified Code(s): M17.10 - Unilateral primary osteoarthritis, unspecified knee Plan: Continue Ibuprofen 400 mg 3 times a day as needed and Tramadol 50 mg TID PRN for symptomatic relief (8) Allergic rhinitis: Code(s): J30.9 - Allergic rhinitis, unspecified Qualifiers: Allergic rhinitis seasonality: unspecified Allergic rhinitis trigger: unspecified Qualified Code(s): J30.9 - Allergic rhinitis, unspecified Plan: Continue Loratadine 10 mg QD PRN (9) Erectile dysfunction: Code(s): N52.9 - Male erectile dysfunction, unspecified Qualifiers: Erectile dysfunction type: unspecified Qualified Code(s): N52.9 - Male erectile dysfunction, unspecified Plan: Continue SIldenafil 50 mg QD PRN as instructed (10) Benign prostatic hyperplasia: Code(s): N40.0 - Benign prostatic hyperplasia without lower urinary tract symptoms Qualifiers: Lower urinary tract symptom presence: unspecified whether lower urinary tract symptoms present Qualified Code(s): N40.0 - Benign prostatic hyperplasia without lower urinary tract symptoms Plan: Continue Tamsulosin 0.4 mg Q HS Follow-up with urology as scheduled (11) Obesity (BMI 30-39.9): Code(s): E66.9 - Obesity, unspecified Plan: Reinforced diet/ exercise as tolerated/ lose weight Plan Follow up in 4 months Orders: Orders B Type Natriuretic Peptide 4 Months I50.9 - Heart failure, unspecified Hemoglobin A1c 4 Months E11.9 - Type 2 diabetes mellitus without complications Complete Blood Count Auto Diff 4 Months D64.9 - Anemia, unspecified Comprehensive [place]. Panel Fast 4 Months E78.00 - Pure hypercholesterolemia, unspecified Lipid Panel 4 Months E78.00 - Pure hypercholesterolemia, unspecified TSH reflex Free T4 4 Months E78.00 - Pure hypercholesterolemia, unspecified Microalbumin, Random (w Creat) 4 Months E11.9 - Type 2 diabetes mellitus without complications Vitamin B12 and Folate 4 Months E53.8 - Deficiency of other specified B group vitamins UA CC w/rflx Micro + Cult 4 Months R30.0 - Dysuria Vitamin D 25-OH Total 4 Months E55.9 - Vitamin D deficiency, unspecified Coding Level of Care Code Est Pt Level 4 (74201) Diagnoses Type 2 diabetes mellitus without complication, without long-term current use of insulin E11.9 Diabetes mellitus complication status: without complication Diabetes mellitus exterminator helper insulin use: without exterminator helper use Diabetes mellitus type: type 2 Benign essential hypertension I10 Hypertriglyceridemia E78.1 Cardiomyopathy, unspecified type I42.9 Cardiomyopathy type: unspecified Vitamin D deficiency E55.9 Primary osteoarthritis of left shoulder M19.012 Primary osteoarthritis of knee, unspecified laterality M17.10 Laterality: unspecified laterality Osteoarthritis type: primary Allergic rhinitis, unspecified seasonality, unspecified trigger J30.9 Allergic rhinitis seasonality: unspecified Allergic rhinitis trigger: unspecified Erectile dysfunction, unspecified erectile dysfunction type N52.9 Erectile dysfunction type: unspecified Benign prostatic hyperplasia, unspecified whether lower urinary tract symptoms present N40.0 Lower urinary tract symptom presence: unspecified whether lower urinary tract symptoms present Obesity (BMI 30-39.9) E66.9 Additional Codes CAREY-7 Assessment Billing - CAREY-7 Assessment Tool: CAREY-7 Assessment 20616 ([id number])
== END 2023-10-15 17:26 | disposition home or self-care (01) ==
LOC: HO.HMGH 14:53
PROVIDERS: PCP Internal Medicine; Visit Provider Internal Medicine
DX: E11.9 Type 2 diabetes mellitus without complications (principal); I42.9 Cardiomyopathy, unspecified; E66.9 Obesity, unspecified; Z68.35 Body mass index [BMI] 35.0-35.9, adult; I10 Essential (primary) hypertension; E78.1 Pure hyperglyceridemia; E55.9 Vitamin D deficiency, unspecified; M19.012 Primary osteoarthritis, left shoulder; M17.10 Unilateral primary osteoarthritis, unspecified knee; J30.9 Allergic rhinitis, unspecified; N52.9 Male erectile dysfunction, unspecified; N40.0 Benign prostatic hyperplasia without lower urinary tract symptoms
CPT/HCPCS: 99214

== ENCOUNTER → 2023-11-12 23:59 | Outpatient (BNV) | payer MEDICARE, MEDICAID, SELFPAY ==
--- NOTE | 2023-11-26 12:49 | A.OFFVIS_ITS ---
Intake Intake Visit Reasons: Remote HF Monitoring- [employer] Allergies amoxicillin [AMOXICILLIN] Allergy (Intermediate, Verified 10/15/23 16:35) Rash clindamycin [Clindamycin] Allergy (Intermediate, Verified 10/15/23 16:35) RASH Sulfa (Sulfonamide Antibiotics) Allergy (Intermediate, Verified 10/15/23 16:35) RASH ibuprofen [From Motrin] Adverse Reaction (Intermediate, Verified 10/15/23 16:35) Gastrointestinal Upset PFSH Medical History (Updated 10/16/23 @ 04:43 by Alphonse Senior MD) Hx of TB skin testing History of macular degeneration Cardiomyopathy Cardiac arrhythmia, unspecified COVID-19 vaccine series completed BPH associated with nocturia Obesity (BMI 30-39.9) Carpal tunnel syndrome on both sides Benign prostatic hyperplasia Erectile dysfunction Allergic rhinitis Primary osteoarthritis of left shoulder Osteoarthritis of knee Vitamin D deficiency Hypertriglyceridemia Benign essential hypertension Diabetes mellitus Arthritis Diabetes History of BPH Surgical History History of implantable cardioverter-defibrillator (ICD) insertion Status post cardiac catheterization H/O cardiac catheterization History of bilateral cataract extraction History of colonoscopy History of transurethral resection of prostate Family History Father Diabetes Mother Kidney problem Sister Asthma Hypertension Social History Housing: Apartment Are you a primary adult day care worker to a significant other at home: No Do you presently have visiting nurse or other home services: No Alcohol intake: never Patient Tobacco Use Status: Former Tobacco user Quit Date: 15 yrs ago Tobacco use type: Cigarette e-Cigarette/Vaping Use: Never Used Second Hand Smoke Exposure: Yes service: No Current occupational status: employed Cognitive needs: No Hearing needs: No Vision needs: Yes Office Procedures Cardiac Device Check Cardiac Device Check Details: Heart failure monitoring. Stable thoracic impedance. [id number] Cardiac Device Interrogation, cardio physiologic monitor Procedure code (CPT) selection complete Assessment & Plan Assessment & Plan (1) Cardiomyopathy: Code(s): I42.9 - Cardiomyopathy, unspecified Qualifiers: Cardiomyopathy type: unspecified Qualified Code(s): I42.9 - Cardiomyopathy, unspecified Plan Coding Level of Care Code Procedure Only Diagnoses Cardiomyopathy, unspecified type I42.9 Cardiomyopathy type: unspecified CPT Codes Cardiac Device Check - Cardiac Device 15: [id number] Cardiac Device Interrogation, cardio physiologic monitor ([id number])
== END ==
PROVIDERS: PCP Internal Medicine; Visit Provider Internal Medicine Cardiovascular Disease
DX: I42.9 Cardiomyopathy, unspecified (principal); Z95.810 Presence of automatic (implantable) cardiac defibrillator
CPT/HCPCS: 93297

== ENCOUNTER 2023-12-12 06:44 | Outpatient (REF) | payer MEDICARE, MEDICAID, SELFPAY ==
[2023-12-12 06:56] LABS: MANUAL DIFF FLAG NO
[2023-12-12 07:11] LABS: Basophils Absolute Auto 0.1 X10*3/uL (0.0-0.2); Basophils Percent Auto 0.6 % (0-2); Eosinophils Absolute Auto 0.2 X10*3/uL (0.0-0.4); Eosinophils Percent Auto 2.4 % (0-4); Hematocrit 38.3 % (42.0-52.0); Imm Gran Abs Auto 0.05 X10*3/uL (0.00-0.03); Imm Gran Pct Auto 0.6 % (0.0-0.4); Lymphocytes Absolute Auto 1.6 X10*3/uL (1.2-4.9); Lymphocytes Percent Auto 20.4 % (20-40); Mean Corpuscular HGB Conc 31.3 g/dl (31.0-36.0); Mean Corpuscular Hemoglobin 27.3 pg (27.0-33.0); Mean Platelet Volume 10.7 fL (9.4-12.4); Monocytes Absolute Auto 0.8 X10*3/uL (0.1-1.2); Neutrophils Absolute Auto 5.3 x10*3/uL (2.0-8.3); Platelet Count 254 X10*3/uL (160-400); Red Cell Distribution Width 14.8 % (11.0-16.0)
[2023-12-12 07:40] LABS: B Type Natriuretic Peptide 58 pg/mL (<100)
[2023-12-12 07:56] LABS: Alanine Aminotransferase 25 U/L (0-40); Alkaline Phosphatase 104 U/L (39-117); Anion Gap 13 (12-20); Aspartate Amino Transferase 22 U/L (5-37); Bilirubin Total 0.4 mg/dL (0.0-1.0); Blood Urea Nitrogen 14 mg/dL (9-16); Calcium 9.3 mg/dL (8.4-10.2); Carbon Dioxide 27 mmol/L (22-29); Chloride 104 mmol/L (96-108); Cholesterol 114 mg/dL (<200); Estimated Glomerular Filt Rate > 60; Glucose Fasting 173 mg/dL (60-99); HDL Cholesterol 61 mg/dL (>40); LDL Cholesterol Calculated 45 mg/dL (<100); Potassium 4.3 mmol/L (3.3-5.1); Sodium 140 mmol/L (135-145); Total Protein 7.6 g/dL (6.5-8.0); Triglycerides 41 mg/dL (<150)
[2023-12-12 08:00] LABS: Estimated Average Glucose 151 mg/dL; Hemoglobin A1c % 6.9 % (<6.0)
[2023-12-12 08:02] LABS: TSH reflex Free T4 2.23 uIU/mL (0.32-4.0)
[2023-12-12 08:11] LABS: Folate 14.7 ng/mL (> or = 4.0); Vitamin B12 306 pg/mL (200-900)
[2023-12-12 08:40] LABS: Appearance Urine Clear; Color Urine Yellow; Glucose Urine UA 100 mg/dL (Negative); Leukocyte Esterase Urine Negative (Negative); Nitrite Urine Negative (Negative); PH 5.5 (5.0-9.0); Urine Blood Negative (Negative); Urine Ketones Negative (Negative); Urine Protein Negative (Neg-Trace)
[2023-12-12 09:15] LABS: Creatinine Urine 119.42 mg/dL; Microalbum/Creatinine Ratio Ur 9.2 ug/mg cr (<30)
== END 2023-12-12 06:45 | disposition home or self-care (01) ==
LOC: HO.LAB 06:44
PROVIDERS: PCP Internal Medicine; Visit Provider Internal Medicine
DX: E78.00 Pure hypercholesterolemia, unspecified (principal); E55.9 Vitamin D deficiency, unspecified; E53.8 Deficiency of other specified B group vitamins; R30.0 Dysuria; E11.9 Type 2 diabetes mellitus without complications; D64.9 Anemia, unspecified; I50.9 Heart failure, unspecified
CPT/HCPCS: 36415; 80053; 80061; 81003; 82043; 82306; 82570; 82607; 82746; 83036; 83880; 84443; 85025

== ENCOUNTER → 2023-12-13 23:59 | Outpatient (BNV) | payer MEDICARE, MEDICAID, SELFPAY ==
--- NOTE | 2023-12-14 20:17 | A.OFFVIS_ITS ---
Intake Intake Visit Reasons: Remote HF Monitoring- [employer] Allergies amoxicillin [AMOXICILLIN] Allergy (Intermediate, Verified 10/15/23 16:35) Rash clindamycin [Clindamycin] Allergy (Intermediate, Verified 10/15/23 16:35) RASH Sulfa (Sulfonamide Antibiotics) Allergy (Intermediate, Verified 10/15/23 16:35) RASH ibuprofen [From Motrin] Adverse Reaction (Intermediate, Verified 10/15/23 16:35) Gastrointestinal Upset PFSH Medical History (Updated 10/16/23 @ 04:43 by Alphonse Senior MD) Hx of TB skin testing History of macular degeneration Cardiomyopathy Cardiac arrhythmia, unspecified COVID-19 vaccine series completed BPH associated with nocturia Obesity (BMI 30-39.9) Carpal tunnel syndrome on both sides Benign prostatic hyperplasia Erectile dysfunction Allergic rhinitis Primary osteoarthritis of left shoulder Osteoarthritis of knee Vitamin D deficiency Hypertriglyceridemia Benign essential hypertension Diabetes mellitus Arthritis Diabetes History of BPH Surgical History History of implantable cardioverter-defibrillator (ICD) insertion Status post cardiac catheterization H/O cardiac catheterization History of bilateral cataract extraction History of colonoscopy History of transurethral resection of prostate Family History Father Diabetes Mother Kidney problem Sister Asthma Hypertension Social History Housing: Apartment Are you a primary school childcare attendant to a significant other at home: No Do you presently have visiting nurse or other home services: No Alcohol intake: never Patient Tobacco Use Status: Former Tobacco user Quit Date: 15 yrs ago Tobacco use type: Cigarette e-Cigarette/Vaping Use: Never Used Second Hand Smoke Exposure: Yes service: No Current occupational status: employed Cognitive needs: No Hearing needs: No Vision needs: Yes Office Procedures Cardiac Device Check Cardiac Device Check Details: 12/13/23 HF monitoring Stable thoracic impedance. [id number] Cardiac Device Interrogation, cardio physiologic monitor Procedure code (CPT) selection complete Assessment & Plan Assessment & Plan (1) Cardiomyopathy: Code(s): I42.9 - Cardiomyopathy, unspecified Qualifiers: Cardiomyopathy type: unspecified Qualified Code(s): I42.9 - Cardiomyopathy, unspecified Plan: Orders: Orders AMB Cardiac Device Follow-up 12/13/23 I48.0 - Paroxysmal atrial fibrillation Coding Level of Care Code Procedure Only Diagnoses Cardiomyopathy, unspecified type I42.9 Cardiomyopathy type: unspecified CPT Codes Cardiac Device Check - Cardiac Device 15: [id number] Cardiac Device Interrogation, cardio physiologic monitor ([id number])
== END ==
PROVIDERS: PCP Internal Medicine; Visit Provider Internal Medicine Cardiovascular Disease
DX: I42.9 Cardiomyopathy, unspecified (principal); Z95.810 Presence of automatic (implantable) cardiac defibrillator
CPT/HCPCS: 93297

== ENCOUNTER → 2024-01-13 23:59 | Outpatient (BNV) | payer MEDICARE, MEDICAID, SELFPAY ==
--- NOTE | 2024-02-11 12:13 | A.OFFVIS_ITS ---
Intake Visit Reasons: Remote HF monitoring- [employer] Allergies amoxicillin [AMOXICILLIN] Allergy (Intermediate, Verified 10/15/23 16:35) Rash clindamycin [Clindamycin] Allergy (Intermediate, Verified 10/15/23 16:35) RASH Sulfa (Sulfonamide Antibiotics) Allergy (Intermediate, Verified 10/15/23 16:35) RASH ibuprofen [From Motrin] Adverse Reaction (Intermediate, Verified 10/15/23 16:35) Gastrointestinal Upset PFSH Medical History (Updated 10/16/23 @ 04:43 by Alphonse Senior MD) Hx of TB skin testing History of macular degeneration Cardiomyopathy Cardiac arrhythmia, unspecified COVID-19 vaccine series completed BPH associated with nocturia Obesity (BMI 30-39.9) Carpal tunnel syndrome on both sides Benign prostatic hyperplasia Erectile dysfunction Allergic rhinitis Primary osteoarthritis of left shoulder Osteoarthritis of knee Vitamin D deficiency Hypertriglyceridemia Benign essential hypertension Diabetes mellitus Arthritis Diabetes History of BPH Surgical History History of implantable cardioverter-defibrillator (ICD) insertion Status post cardiac catheterization H/O cardiac catheterization History of bilateral cataract extraction History of colonoscopy History of transurethral resection of prostate Family History Father Diabetes Mother Kidney problem Sister Asthma Hypertension Social History Housing: Apartment Are you a primary medicare compliance auditor to a significant other at home: No Do you presently have visiting nurse or other home services: No Alcohol intake: never Patient Tobacco Use Status: Former Tobacco user Tobacco use type: Cigarette e-Cigarette/Vaping Use: Never Used Second Hand Smoke Exposure: Yes service: No Current occupational status: employed Cognitive needs: No Hearing needs: No Vision needs: Yes Office Procedures Cardiac Device Check Cardiac Device Check Details: HF monitoring PURSE [employer]KER 99% Stable thoracic impedance. [id number] Cardiac Device Interrogation, cardio physiologic monitor Procedure code (CPT) selection complete Assessment & Plan Assessment & Plan (1) Cardiomyopathy: Code(s): I42.9 - Cardiomyopathy, unspecified Category: Medical Qualifiers: Cardiomyopathy type: unspecified Qualified Code(s): I42.9 - Cardiomyopathy, unspecified Plan Coding Level of Care Code Procedure Only Diagnoses Cardiomyopathy, unspecified type I42.9 Cardiomyopathy type: unspecified CPT Codes Cardiac Device Check - Cardiac Device 15: [id number] Cardiac Device Interrogation, cardio physiologic monitor ([id number])
== END ==
PROVIDERS: PCP Internal Medicine; Visit Provider Internal Medicine Cardiovascular Disease
DX: I42.9 Cardiomyopathy, unspecified (principal); Z95.810 Presence of automatic (implantable) cardiac defibrillator
CPT/HCPCS: 93297

== ENCOUNTER → 2024-01-13 23:59 | Outpatient (BNV) | payer MEDICARE, MEDICAID, SELFPAY ==
--- NOTE | 2024-02-11 12:15 | MHC.OFFVIS ---
Intake Visit Reasons: Remote ICD check- [employer] Allergies amoxicillin [AMOXICILLIN] Allergy (Intermediate, Verified 10/15/23 16:35) Rash clindamycin [Clindamycin] Allergy (Intermediate, Verified 10/15/23 16:35) RASH Sulfa (Sulfonamide Antibiotics) Allergy (Intermediate, Verified 10/15/23 16:35) RASH ibuprofen [From Motrin] Adverse Reaction (Intermediate, Verified 10/15/23 16:35) Gastrointestinal Upset PFSH Medical History (Updated 10/16/23 @ 04:43 by Alphonse Senior MD) Hx of TB skin testing History of macular degeneration Cardiomyopathy Cardiac arrhythmia, unspecified COVID-19 vaccine series completed BPH associated with nocturia Obesity (BMI 30-39.9) Carpal tunnel syndrome on both sides Benign prostatic hyperplasia Erectile dysfunction Allergic rhinitis Primary osteoarthritis of left shoulder Osteoarthritis of knee Vitamin D deficiency Hypertriglyceridemia Benign essential hypertension Diabetes mellitus Arthritis Diabetes History of BPH Surgical History History of implantable cardioverter-defibrillator (ICD) insertion Status post cardiac catheterization H/O cardiac catheterization History of bilateral cataract extraction History of colonoscopy History of transurethral resection of prostate Family History Father Diabetes Mother Kidney problem Sister Asthma Hypertension Social History Housing: Apartment Are you a primary client care specialist to a significant other at home: No Do you presently have visiting nurse or other home services: No Alcohol intake: never Patient Tobacco Use Status: Former Tobacco user Tobacco use type: Cigarette e-Cigarette/Vaping Use: Never Used Second Hand Smoke Exposure: Yes service: No Current occupational status: employed Cognitive needs: No Hearing needs: No Vision needs: Yes Office Procedures Cardiac Device Check Cardiac Device Check Details: Biv AICD DDD V paced 99.2 No new alerts. [id number] Cardiac Device Check, multi lead implantable defibrillator Procedure code (CPT) selection complete Assessment & Plan Assessment & Plan (1) Cardiomyopathy: Code(s): I42.9 - Cardiomyopathy, unspecified Category: Medical Qualifiers: Cardiomyopathy type: unspecified Qualified Code(s): I42.9 - Cardiomyopathy, unspecified Plan Coding Level of Care Code Procedure Only Diagnoses Cardiomyopathy, unspecified type I42.9 Cardiomyopathy type: unspecified CPT Codes Cardiac Device Check - Cardiac Device 6: [id number] Cardiac Device Check, multi lead implantable defibrillator ([id number])
== END ==
PROVIDERS: PCP Internal Medicine; Visit Provider Internal Medicine Cardiovascular Disease
DX: I42.9 Cardiomyopathy, unspecified (principal); Z95.810 Presence of automatic (implantable) cardiac defibrillator
CPT/HCPCS: 93295

== ENCOUNTER → 2024-02-13 23:59 | Outpatient (BNV) | payer MEDICARE, MEDICAID, SELFPAY ==
--- NOTE | 2024-02-26 21:59 | A.OFFVIS_ITS ---
Intake Visit Reasons: Remote HF Monitoring- [employer] Allergies amoxicillin [AMOXICILLIN] Allergy (Intermediate, Verified 02/15/24 13:58) Rash clindamycin [Clindamycin] Allergy (Intermediate, Verified 02/15/24 13:58) RASH Sulfa (Sulfonamide Antibiotics) Allergy (Intermediate, Verified 02/15/24 13:58) RASH ibuprofen [From Motrin] Adverse Reaction (Intermediate, Verified 02/15/24 13:58) Gastrointestinal Upset PFSH Medical History Hx of TB skin testing History of macular degeneration Cardiomyopathy Cardiac arrhythmia, unspecified COVID-19 vaccine series completed BPH associated with nocturia Obesity (BMI 30-39.9) Carpal tunnel syndrome on both sides Benign prostatic hyperplasia Erectile dysfunction Allergic rhinitis Primary osteoarthritis of left shoulder Osteoarthritis of knee Vitamin D deficiency Hypertriglyceridemia Benign essential hypertension Diabetes mellitus Arthritis Diabetes History of BPH Surgical History History of implantable cardioverter-defibrillator (ICD) insertion Status post cardiac catheterization H/O cardiac catheterization History of bilateral cataract extraction History of colonoscopy History of transurethral resection of prostate Family History Father Diabetes Mother Kidney problem Sister Asthma Hypertension Social History Housing: Apartment Are you a primary career development facilitator to a significant other at home: No Do you presently have visiting nurse or other home services: No Alcohol intake: never Patient Tobacco Use Status: Former Tobacco user Tobacco use type: Cigarette e-Cigarette/Vaping Use: Never Used Second Hand Smoke Exposure: Yes service: No Current occupational status: employed Cognitive needs: No Hearing needs: No Vision needs: Yes (glasses) Office Procedures Cardiac Device Check Cardiac Device Check Details: HF monitoring Stable thoracic impedance. [id number] Cardiac Device Interrogation, cardio physiologic monitor Procedure code (CPT) selection complete Assessment & Plan Assessment & Plan (1) Cardiomyopathy: Code(s): I42.9 - Cardiomyopathy, unspecified Category: Medical Qualifiers: Cardiomyopathy type: unspecified Qualified Code(s): I42.9 - Cardiomyopathy, unspecified Plan Coding Level of Care Code Procedure Only Diagnoses Cardiomyopathy, unspecified type I42.9 Cardiomyopathy type: unspecified CPT Codes Cardiac Device Check - Cardiac Device 15: [id number] Cardiac Device Interrogation, cardio physiologic monitor ([id number])
== END ==
PROVIDERS: PCP Internal Medicine; Visit Provider Internal Medicine Cardiovascular Disease
DX: I42.9 Cardiomyopathy, unspecified (principal); Z95.810 Presence of automatic (implantable) cardiac defibrillator
CPT/HCPCS: 93297

== ENCOUNTER 2024-02-15 12:59 | Outpatient (AMB) | payer MEDICARE, MEDICAID, SELFPAY ==
--- NOTE | 2024-02-15 13:03 | MHC.PC.OV ---
Vital Signs 02/15/24 13:04 Height 5 ft 5.5 in Weight 215 lb BMI 35.2 BP 112/58 L Blood Pressure Location Lt brachial Position Sitting Pulse 75 Pulse Source Pulse Oximeter Pulse Oximetry (%) 99 Oxygen Delivery Method Room Air Intake Visit Reasons: DM, hyperlipidemia, HTN, OA, cardiomyopathy Tenter Required: No Oracle Pl Sql Developer: Not Required per policy Accompanied by: Self / Same As Patient Allergies amoxicillin [AMOXICILLIN] Allergy (Intermediate, Verified 02/15/24 13:58) Rash clindamycin [Clindamycin] Allergy (Intermediate, Verified 02/15/24 13:58) RASH Sulfa (Sulfonamide Antibiotics) Allergy (Intermediate, Verified 02/15/24 13:58) RASH ibuprofen [From Motrin] Adverse Reaction (Intermediate, Verified 02/15/24 13:58) Gastrointestinal Upset Medication List - Last Reconciled 02/15/24 by Alphonse Senior MD aspirin 81 mg PO DAILY atorvastatin 20 mg PO BEDTIME carvedilol 12.5 mg PO BID 90 days cholecalciferol (vitamin D3) (Vitamin D3) 25 mcg PO DAILY flash glucose scanning reader ([employer] Zofia 14 Day [place]) As directed flash glucose sensor ([employer] Zofia 14 Day Sensor kit) 1 ea topical DIRECTED glipizide ER 10 mg PO DAILY 90 days loratadine 10 mg PO DAILY PRN 90 days losartan 50 mg PO DAILY pioglitazone 30 mg PO DAILY sitagliptin phosphate (Januvia) 100 mg PO DAILY tamsulosin 0.4 mg PO BEDTIME 90 days Tradjenta (linagliptin) 5 mg PO DAILY NS tramadol 50 mg PO BID-TID PRN Tobacco use date assessed: 10/15/23 Fall risk assessment: No Falls in past year Last assessed Fall Risk: 02/15/24 Dental Screening Dental Screen Date: 10/15/23 HPI DM, hyperlipidemia, HTN, OA, cardiomyopathy HPI Details Patient comes in today for his follow up visit States that he feels okay He denies any headaches or dizziness Denies any chest pains, no SOB No nausea/vomiting, no abdominal pain No change in bowel habits noted Had his follow up labs done a couple of months ago - to discuss his results [facility] Medical History Hx of TB skin testing History of macular degeneration Cardiomyopathy Cardiac arrhythmia, unspecified COVID-19 vaccine series completed BPH associated with nocturia Obesity (BMI 30-39.9) Carpal tunnel syndrome on both sides Benign prostatic hyperplasia Erectile dysfunction Allergic rhinitis Primary osteoarthritis of left shoulder Osteoarthritis of knee Vitamin D deficiency Hypertriglyceridemia Benign essential hypertension Diabetes mellitus Arthritis Diabetes History of BPH Surgical History History of implantable cardioverter-defibrillator (ICD) insertion Status post cardiac catheterization H/O cardiac catheterization History of bilateral cataract extraction History of colonoscopy History of transurethral resection of prostate Family History Father Diabetes Mother Kidney problem Sister Asthma Hypertension Social History Housing: Apartment Are you a primary care process manager to a significant other at home: No Do you presently have visiting nurse or other home services: No Alcohol intake: never Patient Tobacco Use Status: Former Tobacco user Tobacco use type: Cigarette e-Cigarette/Vaping Use: Never Used Second Hand Smoke Exposure: Yes service: No Current occupational status: employed Cognitive needs: No Hearing needs: No Vision needs: Yes (glasses) Questionnaire Thrive Questionnaire Date Thrive assessed: 10/15/23 CAREY-7 AMB Questionnaire CAREY-7 Date CAREY - 7 assessed: 10/15/23 Source: Developed by Drs. Edu Will, Brittanie Salgado, Yogesh Copeland and colleagues, with an educational celina from [employer]. Review of Systems Const Denies chills, Denies fatigue, Denies fever(s) and Denies headache(s) ENT Denies dysphagia, Denies dizziness, Denies otalgia, Denies headache(s), Denies neck pain, Denies odynophagia and Denies sore throat Card Denies chest pain, Denies palpitations and Denies dyspnea Resp Denies cough and Denies dyspnea GI Denies abdominal pain, Denies constipation, Denies dysphagia, Denies heartburn, Denies diarrhea, Denies nausea, Denies odynophagia and Denies vomiting Denies dysuria, Denies nocturia and Denies urinary frequency Musc Denies back pain, Reports arthralgias (on and off in both knees) and Denies neck pain Skin/Breast Denies rash Neuro Denies dizziness and Denies headache(s) Endo Denies fatigue and Denies palpitations Physical exam (Primary Care) Vital Signs: Last Vital Signs Pulse 75 02/15/24 13:04 BP 112/58 L 02/15/24 13:04 Pulse Ox 99 02/15/24 13:04 Oxygen Delivery Method Room Air 02/15/24 13:04 BMI result Body Mass Index 35.2 Tobacco/Smoking Status: Tobacco use Status Tobacco use date assessed 10/15/23 02/15/24 13:04 Patient Tobacco Use Status Former Tobacco user 02/15/24 13:04 Tobacco use type Cigarette 02/15/24 13:04 e-Cigarette/Vaping Use Never Used 02/15/24 13:04 Thrive Assessment: Date of Thrive Assessment Date Thrive assessed 10/15/23 02/15/24 13:04 Const General: no acute distress and alert HENMT Ears: TM's normal bilaterally and EAC's normal Throat: Yes posterior oropharynx normal and Yes tonsils normal (no TP congestion noted) Neck Neck: Yes no lymphadenopathy and Yes supple Thyroid: Thyroid normal Resp Auscultation: clear to auscultation bilaterally, no rales and no wheezes Cardio Rate: regular rate Rhythm: abnormal rhythm with ectopic beats Heart sounds: no murmurs GI Palpation (GI): Soft to palpation and nontender Auscultation: normal bowel sounds General: Yes no CVA tenderness Back/Spine/Pelvis Back: no CVA tenderness Skin Rashes: no rashes Extrem General: Yes no clubbing, cyanosis or edema Left upper extremity: shoulder/upper arm Details: tenderness (mild) Location: of the A-C joint Left lower extremity: knee Details: tenderness; no swelling and foot Details: tenderness Location: of the dorsal foot and no edema Results Reviewed Results Reviewed: Laboratory Tests 12/12/23 12/12/23 06:50 06:54 WBC 8.0 Hgb 12.0 L Hct 38.3 L Plt Count 254 Sodium 140 Potassium 4.3 Creatinine 1.01 Estimated GFR > 60 Fasting Glucose 173 H Hemoglobin A1c % 6.9 H Calcium 9.3 AST 22 ALT 25 B-Natriuretic Peptide 58 Triglycerides 41 Cholesterol 114 LDL Cholesterol, Calc 45 HDL Cholesterol 61 Vitamin B12 306 25-OH Vitamin D Total 36.0 TSH 2.23 Ur Specific [place] 1.020 Urine Protein Negative Urine Glucose (UA) 100 H Urine Blood Negative Urine Nitrite Negative Ur Leukocyte Esterase Negative Urine Microalbumin 11.0 Microalb/Creat Ratio 9.2 Assessment and Plan Assessment & Plan (1) Diabetes mellitus: Code(s): E11.9 - Type 2 diabetes mellitus without complications Qualifiers: Diabetes mellitus type: type 2 Diabetes mellitus correction insulin use: without correction use Diabetes mellitus complication status: without complication Qualified Code(s): E11.9 - Type 2 diabetes mellitus without complications Plan: His HgbA1c was at 6.9% on his labs done a couple of months ago (was previously at 6.7% a few months ago) - goal is < 7.0% He is cautioned that since last year, his HgbA1c has been slowly but steadily climbing up so he should really try watching his diet better Is advised that if his HgbA1c goes over 7.0% at his next appointment, we will then need to make some adjustments to his medications or Rx Reinforced diabetic diet Continue Glipizide ER 10 mg QD, Metformin 1000 mg BID, Januvia 100 mg QD and Piogitazone 30 mg QD He previously stopped taking his Pioglitazone for a while as his pharmacist mentioned to him that Pioglitazone can cause fluid to build up and exacerbate heart failure symptoms but have advised him at his last visit that as he is presently no longer in heart failure, it should be safe him to go back on Pioglitazone (2) Hypertriglyceridemia: Code(s): E78.1 - Pure hyperglyceridemia Plan: Results of his labs done a couple of months ago reviewed and discussed with patient Reinforced low cholesterol diet Continue Atorvastatin 20 mg QD Will recheck his labs and fasting lipids in 4 months for follow-up (3) Benign essential hypertension: Code(s): I10 - Essential (primary) hypertension Plan: Reinforced low-sodium diet - goal is systolic BP of at least 130 to 140 mm or less Continue Losartan 50 mg QD (4) Cardiomyopathy: Code(s): I42.9 - Cardiomyopathy, unspecified Qualifiers: Cardiomyopathy type: unspecified Qualified Code(s): I42.9 - Cardiomyopathy, unspecified Plan: EF was incidentally noted to be at 15-20% on echocardiogram; patient was clinically not in heart failure as he denied any symptoms or shortness of breath, easy fatigability or edema at the time S/P [employer]OCK[employer]ER - defibrillator placed by cardiology on 11/23/2021 Most recent echocardiogram done in August 2022 showed (+) significant improvement of his cardiac function - there is normal left ventricular wall thickness;?the left ventricular systolic function is borderline reduced and?the visually estimated ejection fraction is between 45-50% Follow up with cardiology as scheduled (5) Vitamin D deficiency: Code(s): E55.9 - Vitamin D deficiency, unspecified Plan: Continue Vitamin D3 1000 units QD (6) Primary osteoarthritis of left shoulder: Code(s): M19.012 - Primary osteoarthritis, left shoulder Plan: X-rays of the left shoulder done last year showed (+) OA changes Patient is encouraged to continue with regular shoulder exercises to help manage his symptoms Follow-up with Orthopedics as scheduled (7) Osteoarthritis of knee: Code(s): M17.10 - Unilateral primary osteoarthritis, unspecified knee Qualifiers: Osteoarthritis type: primary Laterality: unspecified laterality Qualified Code(s): M17.10 - Unilateral primary osteoarthritis, unspecified knee Plan: Continue Ibuprofen 400 mg 3 times a day as needed and Tramadol 50 mg TID PRN for symptomatic relief (8) Allergic rhinitis: Code(s): J30.9 - Allergic rhinitis, unspecified Qualifiers: Allergic rhinitis trigger: unspecified Allergic rhinitis seasonality: unspecified Qualified Code(s): J30.9 - Allergic rhinitis, unspecified Plan: Continue Loratadine 10 mg QD PRN (9) Erectile dysfunction: Code(s): N52.9 - Male erectile dysfunction, unspecified Qualifiers: Erectile dysfunction type: unspecified Qualified Code(s): N52.9 - Male erectile dysfunction, unspecified Plan: Continue SIldenafil 50 mg QD PRN as instructed (10) Benign prostatic hyperplasia: Code(s): N40.0 - Benign prostatic hyperplasia without lower urinary tract symptoms Qualifiers: Lower urinary tract symptom presence: unspecified whether lower urinary tract symptoms present Qualified Code(s): N40.0 - Benign prostatic hyperplasia without lower urinary tract symptoms Plan: Continue Tamsulosin 0.4 mg Q HS Follow-up with urology as scheduled (11) Obesity (BMI 30-39.9): Code(s): E66.9 - Obesity, unspecified Plan: Reinforced diet/ exercise as tolerated/ lose weight Plan Follow up in 4 months Orders: Orders Lipid Panel 4 Months E78.00 - Pure hypercholesterolemia, unspecified TSH reflex Free T4 4 Months E78.00 - Pure hypercholesterolemia, unspecified Microalbumin, Random (w Creat) 4 Months E11.9 - Type 2 diabetes mellitus without complications UA CC w/rflx Micro + Cult 4 Months R30.0 - Dysuria Vitamin D 25-OH Total 4 Months E55.9 - Vitamin D deficiency, unspecified B Type Natriuretic Peptide 4 Months I50.9 - Heart failure, unspecified Hemoglobin A1c 4 Months E11.9 - Type 2 diabetes mellitus without complications Complete Blood Count Auto Diff 4 Months D64.9 - Anemia, unspecified Comprehensive [place]. Panel Fast 4 Months E78.00 - Pure hypercholesterolemia, unspecified Vitamin B12 and Folate 4 Months E53.8 - Deficiency of other specified B group vitamins Coding Level of Care Code Est Pt Level 4 (40560) Complex EM visit Add On G2211 Diagnoses Type 2 diabetes mellitus without complication, without long-term current use of insulin E11.9 Diabetes mellitus type: type 2 Diabetes mellitus correction insulin use: without correction use Diabetes mellitus complication status: without complication Hypertriglyceridemia E78.1 Benign essential hypertension I10 Cardiomyopathy, unspecified type I42.9 Cardiomyopathy type: unspecified Vitamin D deficiency E55.9 Primary osteoarthritis of left shoulder M19.012 Primary osteoarthritis of knee, unspecified laterality M17.10 Osteoarthritis type: primary Laterality: unspecified laterality Allergic rhinitis, unspecified seasonality, unspecified trigger J30.9 Allergic rhinitis trigger: unspecified Allergic rhinitis seasonality: unspecified Erectile dysfunction, unspecified erectile dysfunction type N52.9 Erectile dysfunction type: unspecified Benign prostatic hyperplasia, unspecified whether lower urinary tract symptoms present N40.0 Lower urinary tract symptom presence: unspecified whether lower urinary tract symptoms present Obesity (BMI 30-39.9) E66.9
[2024-02-15 13:04] VITALS: BP 112/58; PULSE 75; O2SAT 99; BMI 35.2
== END 2024-02-15 14:10 | disposition home or self-care (01) ==
PROVIDERS: PCP Internal Medicine; Visit Provider Internal Medicine
DX: E11.9 Type 2 diabetes mellitus without complications (principal); E78.1 Pure hyperglyceridemia; I10 Essential (primary) hypertension; I42.9 Cardiomyopathy, unspecified; E55.9 Vitamin D deficiency, unspecified; M19.012 Primary osteoarthritis, left shoulder; M17.10 Unilateral primary osteoarthritis, unspecified knee; J30.9 Allergic rhinitis, unspecified; N52.9 Male erectile dysfunction, unspecified; N40.0 Benign prostatic hyperplasia without lower urinary tract symptoms
CPT/HCPCS: 99214; G2211

== ENCOUNTER 2024-03-10 08:52 | Outpatient (AMB) | payer MEDICARE, MEDICAID, SELFPAY ==
[2024-03-10 08:57] VITALS: BP 140/60; PULSE 76; BMI 35.9
--- NOTE | 2024-03-10 08:57 | A.OFFVIS_ITS ---
Vital Signs 03/10/24 08:57 Height 5 ft 5 in Weight 216 lb 0.848 oz BMI 35.9 BP 140/60 H Blood Pressure Location Lt brachial Position Sitting Pulse 76 Pulse Source Monitor Intake Visit Reasons: 6 mth f/up Intake Note: pt is here for his 6 mith f/up with ekg/ pt state that he is doing fine. Sort Line Required: No Accompanied by: Self / Same As Patient Allergies amoxicillin [AMOXICILLIN] Allergy (Intermediate, Verified 02/15/24 13:58) Rash clindamycin [Clindamycin] Allergy (Intermediate, Verified 02/15/24 13:58) RASH Sulfa (Sulfonamide Antibiotics) Allergy (Intermediate, Verified 02/15/24 13:58) RASH ibuprofen [From Motrin] Adverse Reaction (Intermediate, Verified 02/15/24 13:58) Gastrointestinal Upset Medication List - Last Reconciled 03/10/24 by Jairo Lua MD aspirin 81 mg PO DAILY atorvastatin 20 mg PO BEDTIME carvedilol 12.5 mg PO BID 90 days cholecalciferol (vitamin D3) (Vitamin D3) 25 mcg PO DAILY flash glucose scanning reader ([employer] 14 Day [place]) As directed flash glucose sensor ([employer]ofia 14 Day Sensor kit) 1 ea topical DIRECTED glipizide ER 10 mg PO DAILY 90 days loratadine 10 mg PO DAILY PRN 90 days losartan 25 mg PO DAILY pioglitazone 30 mg PO DAILY tamsulosin 0.4 mg PO BEDTIME 90 days Tradjenta (linagliptin) 5 mg PO DAILY NS tramadol 50 mg PO BID-TID PRN HPI Comments Details: 73-year-old gentleman who has a background history of hypertension and diabetes who is presenting for new diagnosis of cardiomyopathy on echocardiography. He said he saw his primary care physician and underwent echocardiography. Echocardiography showed EF of 15-20%. He is denying any chest discomfort shortness of breath. No orthopnea PND. No significant peripheral edema. He underwent cardiac catheterization which did not show any significant coronary disease. He was referred for Bi V pacing. Underwent TYING MACHINE OPERATOR LUMBER D with left bundle- branch pacing by Dr Zhou. Repeat echocardiography showed ejection fraction of 45-50%. Continues to be asymptomatic. No chest discomfort shortness of breath. Not in heart failure clinically. Blood pressure control is good. 08/29/2023: He returns for follow-up. He has been doing well. No chest pain or shortness of breath. He is asking whether pioglitazone is safe for him to use. He has known history of cardiomyopathy and pioglitazone can lead to fluid buildup. He is saying he has not been taking it since the pharmacist told him not to take it. He will discuss this with his primary care physician. 03/10/24: He is here for follow-up. He has been doing well. No chest pain or shortness of breath. Taking medications regularly. He is saying that he has been laid off from his job and has not been as active as before. [facility] [place] Medical History Hx of TB skin testing History of macular degeneration Cardiomyopathy Cardiac arrhythmia, unspecified COVID-19 vaccine series completed BPH associated with nocturia Obesity (BMI 30-39.9) Carpal tunnel syndrome on both sides Benign prostatic hyperplasia Erectile dysfunction Allergic rhinitis Primary osteoarthritis of left shoulder Osteoarthritis of knee Vitamin D deficiency Hypertriglyceridemia Benign essential hypertension Diabetes mellitus Arthritis Diabetes History of BPH Surgical History History of implantable cardioverter-defibrillator (ICD) insertion Status post cardiac catheterization H/O cardiac catheterization History of bilateral cataract extraction History of colonoscopy History of transurethral resection of prostate Family History Father Diabetes Mother Kidney problem Sister Asthma Hypertension Social History Housing: Apartment Are you a primary healthcare interpreter to a significant other at home: No Do you presently have visiting nurse or other home services: No Alcohol intake: never Patient Tobacco Use Status: Former Tobacco user Tobacco use type: Cigarette e-Cigarette/Vaping Use: Never Used Second Hand Smoke Exposure: Yes service: No Current occupational status: employed Cognitive needs: No Hearing needs: No Vision needs: Yes (glasses) Review of Systems Const Denies chills, Denies fatigue, Denies fever(s), Denies frequent falls, Denies weakness, Denies weight gain and Denies weight loss ENT Denies dizziness Card Denies chest pain, Denies leg edema, Denies lightheadedness, Denies palpitations, Denies dyspnea and Denies dyspnea on exertion Resp Denies cough, Denies dyspnea and Denies dyspnea on exertion GI Denies hematochezia Musc Denies abnormal gait, Denies muscle weakness, Denies numbness, Denies radiating pain into limb and Denies tingling Neuro Denies abnormal gait, Denies dizziness, Denies frequent falls, Denies numbness, Denies tingling and Denies weakness Endo Denies fatigue and Denies palpitations Physical Exam Vital Signs: Last Vital Signs Pulse 76 03/10/24 08:57 BP 140/60 H 03/10/24 08:57 BMI result Body Mass Index 35.9 Manual blood pressure 120/60. GENERAL APPEARANCE: in no acute distress, pleasant. NECK: no carotid bruit, no jugular venous distention. SKIN: no suspicious lesions, warm and dry. HEART: no murmurs, regular rate and rhythm. LUNGS: clear to auscultation bilaterally. ABDOMEN: soft, nontender. EXTREMITIES: no edema. PERIPHERAL PULSES: equal. NEUROLOGIC: No gross deficits, AAO X 3 Office Procedures EKG Details: Sinus rhythm 76 beats per minute, normal axis, ventricular pacing with QRS duration 94 milliseconds, low voltage, QTC 456 milliseconds. [id number], Complete Assessment & Plan Assessment & Plan (1) Cardiomyopathy: Code(s): I42.9 - Cardiomyopathy, unspecified Category: Medical Qualifiers: Cardiomyopathy type: unspecified Qualified Code(s): I42.9 - Cardiomyopathy, unspecified Plan Pleasant 73 year gentleman who is here for follow-up. He has history of left bundle-branch block and bundle-branch cardiomyopathy. He was treated with TYING MACHINE OPERATOR LUMBER and had significant improvement in ejection fraction. Clinically never developed congestive heart failure. Overall stable. Taking medications regularly. Advised him to continue same medications for now. He will see us back in 6 months. Thank you for allowing me to participate in the care of your patient. Please feel free to contact me if you have any questions. Coding Level of Care Code Est Pt Level 4 (70933) Diagnoses Cardiomyopathy, unspecified type I42.9 Cardiomyopathy type: unspecified CPT Codes EKG - CPT: 20100-[id number], Complete ([id number])
== END 2024-03-10 09:18 | disposition home or self-care (01) ==
PROVIDERS: PCP Internal Medicine; Visit Provider Internal Medicine Cardiovascular Disease
DX: I42.9 Cardiomyopathy, unspecified (principal)
CPT/HCPCS: 93010; 99214

== ENCOUNTER → 2024-03-10 08:52 | Outpatient (BNVA) | payer MEDICARE, MEDICAID, SELFPAY | PROVIDERS: PCP Internal Medicine; Visit Provider Internal Medicine Cardiovascular Disease | DX: I42.9 Cardiomyopathy, unspecified (principal); I10 Essential (primary) hypertension | CPT/HCPCS: 93005; 99212 ==

== ENCOUNTER → 2024-03-15 23:59 | Outpatient (BNV) | payer MEDICARE, MEDICAID, SELFPAY ==
--- NOTE | 2024-04-02 09:17 | MHC.OFFVIS ---
Intake Visit Reasons: Remote HF Monitoring- [employer] Allergies amoxicillin [AMOXICILLIN] Allergy (Intermediate, Verified 02/15/24 13:58) Rash clindamycin [Clindamycin] Allergy (Intermediate, Verified 02/15/24 13:58) RASH Sulfa (Sulfonamide Antibiotics) Allergy (Intermediate, Verified 02/15/24 13:58) RASH ibuprofen [From Motrin] Adverse Reaction (Intermediate, Verified 02/15/24 13:58) Gastrointestinal Upset PFSH Medical History Hx of TB skin testing History of macular degeneration Cardiomyopathy Cardiac arrhythmia, unspecified COVID-19 vaccine series completed BPH associated with nocturia Obesity (BMI 30-39.9) Carpal tunnel syndrome on both sides Benign prostatic hyperplasia Erectile dysfunction Allergic rhinitis Primary osteoarthritis of left shoulder Osteoarthritis of knee Vitamin D deficiency Hypertriglyceridemia Benign essential hypertension Diabetes mellitus Arthritis Diabetes History of BPH Surgical History History of implantable cardioverter-defibrillator (ICD) insertion Status post cardiac catheterization H/O cardiac catheterization History of bilateral cataract extraction History of colonoscopy History of transurethral resection of prostate Family History Father Diabetes Mother Kidney problem Sister Asthma Hypertension Social History Housing: Apartment Are you a primary healthcare administrative assistant to a significant other at home: No Do you presently have visiting nurse or other home services: No Alcohol intake: never Patient Tobacco Use Status: Former Tobacco user Tobacco use type: Cigarette e-Cigarette/Vaping Use: Never Used Second Hand Smoke Exposure: Yes service: No Current occupational status: employed Cognitive needs: No Hearing needs: No Vision needs: Yes (glasses) Office Procedures Cardiac Device Check Cardiac Device Check Details: Heart failure monitoring. No arrhythmia documented. V pacing 98.9%. Atrial pacing 4.4%. Stable thoracic impedance. [id number] Cardiac Device Interrogation, cardio physiologic monitor Procedure code (CPT) selection complete Assessment & Plan Assessment & Plan (1) Cardiomyopathy: Code(s): I42.9 - Cardiomyopathy, unspecified Category: Medical Qualifiers: Cardiomyopathy type: unspecified Qualified Code(s): I42.9 - Cardiomyopathy, unspecified Plan Coding Level of Care Code Procedure Only Diagnoses Cardiomyopathy, unspecified type I42.9 Cardiomyopathy type: unspecified CPT Codes Cardiac Device Check - Cardiac Device 15: [id number] Cardiac Device Interrogation, cardio physiologic monitor ([id number])
== END ==
PROVIDERS: PCP Internal Medicine; Visit Provider Internal Medicine Cardiovascular Disease
DX: I42.9 Cardiomyopathy, unspecified (principal); Z95.810 Presence of automatic (implantable) cardiac defibrillator
CPT/HCPCS: 93297

== ENCOUNTER → 2024-04-15 23:59 | Outpatient (BNV) | payer MEDICARE, MEDICAID, SELFPAY ==
--- NOTE | 2024-04-16 21:13 | MHC.OFFVIS ---
Intake Visit Reasons: Remote HF monitoring- [employer] Allergies amoxicillin [AMOXICILLIN] Allergy (Intermediate, Verified 02/15/24 13:58) Rash clindamycin [Clindamycin] Allergy (Intermediate, Verified 02/15/24 13:58) RASH Sulfa (Sulfonamide Antibiotics) Allergy (Intermediate, Verified 02/15/24 13:58) RASH ibuprofen [From Motrin] Adverse Reaction (Intermediate, Verified 02/15/24 13:58) Gastrointestinal Upset PFSH Medical History Hx of TB skin testing History of macular degeneration Cardiomyopathy Cardiac arrhythmia, unspecified COVID-19 vaccine series completed BPH associated with nocturia Obesity (BMI 30-39.9) Carpal tunnel syndrome on both sides Benign prostatic hyperplasia Erectile dysfunction Allergic rhinitis Primary osteoarthritis of left shoulder Osteoarthritis of knee Vitamin D deficiency Hypertriglyceridemia Benign essential hypertension Diabetes mellitus Arthritis Diabetes History of BPH Surgical History History of implantable cardioverter-defibrillator (ICD) insertion Status post cardiac catheterization H/O cardiac catheterization History of bilateral cataract extraction History of colonoscopy History of transurethral resection of prostate Family History Father Diabetes Mother Kidney problem Sister Asthma Hypertension Social History Housing: Apartment Are you a primary hospice home care coordinator to a significant other at home: No Do you presently have visiting nurse or other home services: No Alcohol intake: never Patient Tobacco Use Status: Former Tobacco user Tobacco use type: Cigarette e-Cigarette/Vaping Use: Never Used Second Hand Smoke Exposure: Yes service: No Current occupational status: employed Cognitive needs: No Hearing needs: No Vision needs: Yes (glasses) Office Procedures Cardiac Device Check Cardiac Device Check Details: HF monitoring Stable thoracic impedance. [id number] Cardiac Device Interrogation, cardio physiologic monitor Procedure code (CPT) selection complete Assessment & Plan Assessment & Plan (1) Cardiomyopathy: Code(s): I42.9 - Cardiomyopathy, unspecified Category: Medical Qualifiers: Cardiomyopathy type: unspecified Qualified Code(s): I42.9 - Cardiomyopathy, unspecified Plan: Orders: Orders AMB Cardiac Device Follow-up 04/15/24 I42.9 - Cardiomyopathy, unspecified Coding Level of Care Code Procedure Only Diagnoses Cardiomyopathy, unspecified type I42.9 Cardiomyopathy type: unspecified CPT Codes Cardiac Device Check - Cardiac Device 15: [id number] Cardiac Device Interrogation, cardio physiologic monitor ([id number])
== END ==
PROVIDERS: PCP Internal Medicine; Visit Provider Internal Medicine Cardiovascular Disease
DX: I42.9 Cardiomyopathy, unspecified (principal); Z95.810 Presence of automatic (implantable) cardiac defibrillator
CPT/HCPCS: 93297

== ENCOUNTER → 2024-04-15 23:59 | Outpatient (BNV) | payer MEDICARE, MEDICAID, SELFPAY ==
--- NOTE | 2024-04-16 21:15 | MHC.OFFVIS ---
Intake Visit Reasons: Remote ICD check- Medtronic Allergies amoxicillin [AMOXICILLIN] Allergy (Intermediate, Verified 02/15/24 13:58) Rash clindamycin [Clindamycin] Allergy (Intermediate, Verified 02/15/24 13:58) RASH Sulfa (Sulfonamide Antibiotics) Allergy (Intermediate, Verified 02/15/24 13:58) RASH ibuprofen [From Motrin] Adverse Reaction (Intermediate, Verified 02/15/24 13:58) Gastrointestinal Upset PFSH Medical History Hx of TB skin testing History of macular degeneration Cardiomyopathy Cardiac arrhythmia, unspecified COVID-19 vaccine series completed BPH associated with nocturia Obesity (BMI 30-39.9) Carpal tunnel syndrome on both sides Benign prostatic hyperplasia Erectile dysfunction Allergic rhinitis Primary osteoarthritis of left shoulder Osteoarthritis of knee Vitamin D deficiency Hypertriglyceridemia Benign essential hypertension Diabetes mellitus Arthritis Diabetes History of BPH Surgical History History of implantable cardioverter-defibrillator (ICD) insertion Status post cardiac catheterization H/O cardiac catheterization History of bilateral cataract extraction History of colonoscopy History of transurethral resection of prostate Family History Father Diabetes Mother Kidney problem Sister Asthma Hypertension Social History Housing: Apartment Are you a primary lead caregiver to a significant other at home: No Do you presently have visiting nurse or other home services: No Alcohol intake: never Patient Tobacco Use Status: Former Tobacco user Tobacco use type: Cigarette e-Cigarette/Vaping Use: Never Used Second Hand Smoke Exposure: Yes service: No Current occupational status: employed Cognitive needs: No Hearing needs: No Vision needs: Yes (glasses) Office Procedures Cardiac Device Check Cardiac Device Check Details: DIRECTOR OF PHYSICIAN PRACTICES-D Good battery SENIOR MANAGER ASSET PROTECTION 99% No new alerts. [id number] Cardiac Device Check, multi lead implantable defibrillator Procedure code (CPT) selection complete Assessment & Plan Assessment & Plan (1) Cardiomyopathy: Code(s): I42.9 - Cardiomyopathy, unspecified Category: Medical Qualifiers: Cardiomyopathy type: unspecified Qualified Code(s): I42.9 - Cardiomyopathy, unspecified Plan: Orders: Orders AMB Cardiac Device Follow-up 04/15/24 I42.9 - Cardiomyopathy, unspecified, I48.0 - Paroxysmal atrial fibrillation Coding Level of Care Code Procedure Only Diagnoses Cardiomyopathy, unspecified type I42.9 Cardiomyopathy type: unspecified CPT Codes Cardiac Device Check - Cardiac Device 6: [id number] Cardiac Device Check, multi lead implantable defibrillator ([id number])
== END ==
PROVIDERS: PCP Internal Medicine; Visit Provider Internal Medicine Cardiovascular Disease
DX: I42.9 Cardiomyopathy, unspecified (principal); Z95.810 Presence of automatic (implantable) cardiac defibrillator
CPT/HCPCS: 93295

== ENCOUNTER 2024-05-10 07:07 | Outpatient (REF) | payer MEDICARE, MEDICAID, SELFPAY ==
[2024-05-10 07:31] LABS: MANUAL DIFF FLAG NO
[2024-05-10 08:22] LABS: Basophils Absolute Auto 0.1 X10*3/uL (0.0-0.2); Eosinophils Absolute Auto 0.2 X10*3/uL (0.0-0.4); Eosinophils Percent Auto 2.9 % (0-4); Hematocrit 39.2 % (42.0-52.0); Hemoglobin 12.4 g/dl (14.0-18.0); Imm Gran Abs Auto 0.05 X10*3/uL (0.00-0.03); Imm Gran Pct Auto 0.7 % (0.0-0.4); Lymphocytes Absolute Auto 1.6 X10*3/uL (1.2-4.9); Lymphocytes Percent Auto 21.3 % (20-40); Mean Corpuscular HGB Conc 31.6 g/dl (31.0-36.0); Mean Corpuscular Hemoglobin 27.5 pg (27.0-33.0); Mean Corpuscular Volume 86.9 fL (80.0-98.0); Mean Platelet Volume 11.7 fL (9.4-12.4); Monocytes Absolute Auto 0.8 X10*3/uL (0.1-1.2); Monocytes Percent Auto 10.3 % (2-11); Neutrophils Absolute Auto 4.6 x10*3/uL (2.0-8.3); Neutrophils Percent Auto 63.8 % (45-73); Platelet Count 226 X10*3/uL (160-400); Red Blood Count 4.51 X10*6/uL (4.60-5.80); Red Cell Distribution Width 14.7 % (11.0-16.0); White Blood Count 7.3 X10*3/uL (4.8-10.8)
[2024-05-10 08:29] LABS: Estimated Average Glucose 140 mg/dL; Hemoglobin A1c % 6.5 % (<6.0)
[2024-05-10 08:46] LABS: B Type Natriuretic Peptide 41 pg/mL (<100)
[2024-05-10 08:55] LABS: Alanine Aminotransferase 28 U/L (0-40); Albumin Level 4.2 g/dL (3.5-5.0); Alkaline Phosphatase 111 U/L (39-117); Anion Gap 14 (12-20); Aspartate Amino Transferase 25 U/L (5-37); Bilirubin Total 0.4 mg/dL (0.0-1.0); Blood Urea Nitrogen 11 mg/dL (9-16); Calcium 9.5 mg/dL (8.4-10.2); Carbon Dioxide 24 mmol/L (22-29); Chloride 108 mmol/L (96-108); Cholesterol 104 mg/dL (<200); Estimated Glomerular Filt Rate > 60; Glucose Fasting 130 mg/dL (60-99); HDL Cholesterol 57 mg/dL (>40); LDL Cholesterol Calculated 40 mg/dL (<100); Potassium 4.6 mmol/L (3.3-5.1); Sodium 141 mmol/L (135-145); Total Protein 7.5 g/dL (6.5-8.0); Triglycerides 38 mg/dL (<150)
[2024-05-10 09:05] LABS: Prostate Specific Antigen 3.82 ng/mL (<0.05-4.0)
[2024-05-10 09:05] LABS: Appearance Urine Clear; Color Urine Yellow; Glucose Urine UA Negative (Negative); Leukocyte Esterase Urine Negative (Negative); Nitrite Urine Negative (Negative); PH 5.5 (5.0-9.0); Specific Gravity - Urine 1.025 (1.005-1.025); Urine Blood Negative (Negative); Urine Ketones Trace mg/dL (Negative); Urine Protein Negative (Neg-Trace)
[2024-05-10 09:13] LABS: TSH reflex Free T4 2.23 uIU/mL (0.32-4.0); Vitamin D 25-OH Total 44.5 ng/mL (>30)
[2024-05-10 09:19] LABS: Folate 18.3 ng/mL (> or = 4.0); Vitamin B12 299 pg/mL (200-900)
[2024-05-10 09:42] LABS: Creatinine Urine 155.33 mg/dL; Microalbum/Creatinine Ratio Ur 6.4 ug/mg cr (<30)
== END 2024-05-10 07:08 | disposition home or self-care (01) ==
LOC: HO.LAB 07:07
PROVIDERS: Absent Provider Urology; PCP Internal Medicine; Visit Provider Internal Medicine
DX: E78.00 Pure hypercholesterolemia, unspecified (principal); R30.0 Dysuria; E11.9 Type 2 diabetes mellitus without complications; D64.9 Anemia, unspecified; E55.9 Vitamin D deficiency, unspecified; I50.9 Heart failure, unspecified; E53.8 Deficiency of other specified B group vitamins; N40.1 Benign prostatic hyperplasia with lower urinary tract symptoms; R35.1 Nocturia; N40.0 Benign prostatic hyperplasia without lower urinary tract symptoms; N52.9 Male erectile dysfunction, unspecified; Z12.5 Encounter for screening for malignant neoplasm of prostate
CPT/HCPCS: 36415; 80053; 80061; 81003; 82043; 82306; 82570; 82607; 82746; 83036; 83880; 84153; 84443; 85025

== ENCOUNTER 2024-05-14 15:33 | Outpatient (AMB) | payer MEDICARE, MEDICAID, SELFPAY ==
--- NOTE | 2024-05-14 15:36 | MHC.OFFVIS ---
Intake Visit Reasons: 1Y Follow Up-PSA/PVR(set) Intake Note: Patient is present for 1 yr Follow Up PSA Urology Med: Tamsulosin Antibiotic Allergy: Amoxicillin, Clindamycin, Sulfa Blood Thinner: Aspirin Pharmacy: [facility] Granulizing Machine Operator Required: No Allergies amoxicillin [AMOXICILLIN] Allergy (Intermediate, Verified 05/14/24 15:38) Rash clindamycin [Clindamycin] Allergy (Intermediate, Verified 05/14/24 15:38) RASH Sulfa (Sulfonamide Antibiotics) Allergy (Intermediate, Verified 05/14/24 15:38) RASH ibuprofen [From Motrin] Adverse Reaction (Intermediate, Verified 05/14/24 15:38) Gastrointestinal Upset Medication List - Last Reconciled 05/14/24 by Romie Sanchez MD aspirin 81 mg PO DAILY atorvastatin 20 mg PO BEDTIME carvedilol 12.5 mg PO BID 90 days cholecalciferol (vitamin D3) (Vitamin D3) 25 mcg PO DAILY flash glucose scanning reader ([employer] Zofia 14 Day [place]) As directed flash glucose sensor ([employer] Zofia 14 Day Sensor kit) 1 ea topical DIRECTED glipizide ER 10 mg PO DAILY 90 days loratadine 10 mg PO DAILY PRN 90 days losartan 25 mg PO DAILY metformin 1,000 mg PO BID 90 days pioglitazone 30 mg PO DAILY tamsulosin 0.4 mg PO BEDTIME 90 days Tradjenta (linagliptin) 5 mg PO DAILY NS tramadol 50 mg PO BID-TID PRN HPI Comments Details: Alex is a pleasant male. He is seen for the following urologic condition - lower urinary tract symptoms Twelve month follow-up PSA stable PVR low Continue good response to tamsulosin Twelve month follow-up Lower urinary tract symptoms Primarily obstructive symptoms at initial diagnosis, weakness of stream, incomplete emptying Previously found to have high postvoid residual of 180 cc Current therapy tamsulosin PSA - 2018 3.1, 02/28 3.1, 05/01 3.3, 11/30 3.2, 05/03 3.8 No family history of prostate cancer Therapeutic plan - remain on Flomax with yearly PSA testing Erectile dysfunction Background of diabetes Successful with oral medications May increase dose is required PFSH Medical History Hx of TB skin testing History of macular degeneration Cardiomyopathy Cardiac arrhythmia, unspecified COVID-19 vaccine series completed BPH associated with nocturia Obesity (BMI 30-39.9) Carpal tunnel syndrome on both sides Benign prostatic hyperplasia Erectile dysfunction Allergic rhinitis Primary osteoarthritis of left shoulder Osteoarthritis of knee Vitamin D deficiency Hypertriglyceridemia Benign essential hypertension Diabetes mellitus Arthritis Diabetes History of BPH Surgical History History of implantable cardioverter-defibrillator (ICD) insertion Status post cardiac catheterization H/O cardiac catheterization History of bilateral cataract extraction History of colonoscopy History of transurethral resection of prostate Family History Father Diabetes Mother Kidney problem Sister Asthma Hypertension Social History Housing: Apartment Are you a primary career development associate to a significant other at home: No Do you presently have visiting nurse or other home services: No Alcohol intake: never Patient Tobacco Use Status: Former Tobacco user Tobacco use type: Cigarette e-Cigarette/Vaping Use: Never Used Second Hand Smoke Exposure: Yes service: No Current occupational status: employed Cognitive needs: No Hearing needs: No Vision needs: Yes (glasses) Review of Systems Const Denies chills and Denies fever(s) Card Reports no additional complaints and Denies syncope Resp Denies cough GI Denies abdominal pain and Denies heartburn Reports as per HPI and Denies change in libido Neuro Denies syncope Psych Denies change in libido Endo Denies change in libido Physical Exam Const General: cooperative, healthy appearing, comfortable and no acute distress Orientation/consciousness: patient oriented x3 HEENT Face and sinus: Yes normal facial exam Mouth: moist mucous membranes Neck Neck: Yes normal visual inspection, Yes full ROM and Yes trachea midline Chest Chest palpation & inspection: normal inspection of the chest Resp Effort & Inspection: normal respiratory effort, able to speak in complete sentences and no respiratory distress GI Inspection: Yes normal to inspection Back/Spine/Pelvis Cervical Spine: normal cervical lordosis Thoracic/Lumbar Spine: thoracic and lumbar spine normal to inspection Skin General skin exam: no rashes or lesions noted Neuro General: patient oriented x3, gait normal, tone normal and moves all extremities Extrem General: Yes normal to inspection and Yes capillary refill normal Results AMB Urinalysis, Automated UA Leukoctes 0 Thom/uL Last Edit by Cherry Cassius on 05/14/24 15:53 UA Nitrite Negative Last Edit by Cherry Cassius on 05/14/24 15:53 UA Urobilinogen 0.2 mg/dL Last Edit by Cherry Cassius on 05/14/24 15:53 UA Protein 0 mg/dL Last Edit by Cherry Cassius on 05/14/24 15:53 UA pH 6.0 Last Edit by Cherry Cassius on 05/14/24 15:53 UA Blood 0 Danilo/uL Last Edit by Cherry Cassius on 05/14/24 15:53 UA Specific [place] 1.015 Last Edit by Cherry Cassius on 05/14/24 15:53 UA Ketone Negative Last Edit by Cherry Cassius on 05/14/24 15:53 UA Bilirubin 0 mg/dL Last Edit by Cherry Cassius on 05/14/24 15:53 UA Glucose 0 mg/dL Last Edit by Cherry Cassius on 05/14/24 15:53 Results Reviewed Results Reviewed: Laboratory Last Values Urine pH (Auto) 6.0 05/14/24 15:51 Specific [place] (Auto) 1.015 05/14/24 15:51 Urine Protein (Auto) 0 mg/dL 05/14/24 15:51 Glucose (UA)(Auto) 0 mg/dL 05/14/24 15:51 Urine Ketones (Auto) Negative 05/14/24 15:51 Urine Blood (Auto) 0 Danilo/uL 05/14/24 15:51 Urine Nitrite (Auto) Negative 05/14/24 15:51 Urine Bilirubin (Auto) 0 mg/dL 05/14/24 15:51 Urine Urobilinogen (Auto) 0.2 mg/dL 05/14/24 15:51 Leukocyte Esterase (Auto) 0 Thom/uL 05/14/24 15:51 Assessment & Plan Assessment & Plan (1) BPH associated with nocturia: Code(s): N40.1 - Benign prostatic hyperplasia with lower urinary tract symptoms; R35.1 - Nocturia Category: Medical Plan Twelve month follow-up Orders: Orders AMB Urinalysis Automated Today N40.0 - Benign prostatic hyperplasia without lower urinary tract symptoms Prostate Specific Antigen 364 Days N40.1 - Benign prostatic hyperplasia with lower urinary tract symptoms, R35.1 - Nocturia Patient Instructions: Imaging studies, laboratory and physical exam results were discussed and reviewed in detail. No major barriers to patient understanding were identified. An opportunity to ask questions regarding the treatment plan was provided. All questions were answered. The patient expressed understanding and agreement with the above treatment plan. The patient is aware they should contact our office by phone for worsening of their current condition or the appearance of new urologic symptoms. Compliance is encouraged with any medications and followup testing that is ordered. It is a privilege to participate in the urologic care of your patient. If you have any questions or concerns regarding treatment for the above conditions, or other urologic issues, please do not hesitate to contact me. The office telephone contact is [phone]. This note is constructed using voice recognition software. While every effort has been made to ensure accuracy patcher wood welder errors may have been included. Yours sincerely, Dr Romie Sanchez MD, [facility] - Urology Providers of Expert, Compassionate Care for the Genitourinary System Coding Level of Care Code Est Pt Level 4 (38371) Diagnoses BPH associated with nocturia N40.1; R35.1
== END 2024-05-14 16:06 | disposition home or self-care (01) ==
PROVIDERS: PCP Internal Medicine; Visit Provider Urology
DX: N40.1 Benign prostatic hyperplasia with lower urinary tract symptoms (principal); R35.1 Nocturia; N40.0 Benign prostatic hyperplasia without lower urinary tract symptoms
CPT/HCPCS: 99214

== ENCOUNTER → 2024-05-14 15:33 | Outpatient (BNVA) | payer MEDICARE, MEDICAID, SELFPAY | PROVIDERS: PCP Internal Medicine; Visit Provider Urology | DX: N40.1 Benign prostatic hyperplasia with lower urinary tract symptoms (principal); R35.1 Nocturia | CPT/HCPCS: 81003; 99212 ==

== ENCOUNTER → 2024-06-16 23:59 | Outpatient (BNV) | payer MEDICARE, MEDICAID, SELFPAY ==
--- NOTE | 2024-06-22 18:37 | A.OFFVIS_ITS ---
Intake Visit Reasons: Remote HF monitoring- [employer] Allergies amoxicillin [AMOXICILLIN] Allergy (Intermediate, Verified 05/14/24 15:38) Rash clindamycin [Clindamycin] Allergy (Intermediate, Verified 05/14/24 15:38) RASH Sulfa (Sulfonamide Antibiotics) Allergy (Intermediate, Verified 05/14/24 15:38) RASH ibuprofen [From Motrin] Adverse Reaction (Intermediate, Verified 05/14/24 15:38) Gastrointestinal Upset PFSH Medical History Hx of TB skin testing History of macular degeneration Cardiomyopathy Cardiac arrhythmia, unspecified COVID-19 vaccine series completed BPH associated with nocturia Obesity (BMI 30-39.9) Carpal tunnel syndrome on both sides Benign prostatic hyperplasia Erectile dysfunction Allergic rhinitis Primary osteoarthritis of left shoulder Osteoarthritis of knee Vitamin D deficiency Hypertriglyceridemia Benign essential hypertension Diabetes mellitus Arthritis Diabetes History of BPH Surgical History History of implantable cardioverter-defibrillator (ICD) insertion Status post cardiac catheterization H/O cardiac catheterization History of bilateral cataract extraction History of colonoscopy History of transurethral resection of prostate Family History Father Diabetes Mother Kidney problem Sister Asthma Hypertension Social History Housing: Apartment Are you a primary career resource technician to a significant other at home: No Do you presently have visiting nurse or other home services: No Alcohol intake: never Patient Tobacco Use Status: Former Tobacco user Tobacco use type: Cigarette e-Cigarette/Vaping Use: Never Used Second Hand Smoke Exposure: Yes service: No Current occupational status: employed Cognitive needs: No Hearing needs: No Vision needs: Yes (glasses) Office Procedures Cardiac Device Check Cardiac Device Check Details: HF monitoring Stable thoracic impedance. [id number] Device Interrogation, cardiac physiologic monitor system Procedure code (CPT) selection complete Assessment & Plan Assessment & Plan (1) Cardiomyopathy: Code(s): I42.9 - Cardiomyopathy, unspecified Category: Medical Qualifiers: Cardiomyopathy type: unspecified Qualified Code(s): I42.9 - Cardiomyopathy, unspecified Plan: Orders: Orders AMB Cardiac Device Follow-up 06/16/24 I42.9 - Cardiomyopathy, unspecified Coding Level of Care Code Procedure Only Diagnoses Cardiomyopathy, unspecified type I42.9 Cardiomyopathy type: unspecified CPT Codes Cardiac Device Check - Cardiac Device 10: [id number] Device Interrogation, cardiac physiologic monitor system ([id number])
== END ==
PROVIDERS: PCP Internal Medicine; Visit Provider Internal Medicine Cardiovascular Disease
DX: I42.9 Cardiomyopathy, unspecified (principal); Z95.810 Presence of automatic (implantable) cardiac defibrillator
CPT/HCPCS: 93297

== ENCOUNTER 2024-06-25 15:36 | Outpatient (AMB) | payer MEDICARE, MEDICAID, SELFPAY ==
[2024-06-25 16:00] VITALS: BP 110/70; PULSE 84; O2SAT 93; BMI 34.9
--- NOTE | 2024-06-25 16:00 | MHC.PC.OV ---
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 Required: No Accompanied by: Self / Same As Patient Allergies amoxicillin [AMOXICILLIN] Allergy (Intermediate, Verified 06/25/24 16:01) Rash clindamycin [Clindamycin] Allergy (Intermediate, Verified 06/25/24 16:01) RASH Sulfa (Sulfonamide Antibiotics) Allergy (Intermediate, Verified 06/25/24 16:01) RASH ibuprofen [From Motrin] Adverse Reaction (Intermediate, Verified 06/25/24 16:01) Gastrointestinal Upset Tobacco use date assessed: 06/25/24 Fall risk assessment: No Falls in past year Last assessed Fall Risk: 06/25/24 Dental Screening Dental Screen Date: 06/25/24 [facility] Medical History Hx of TB skin testing History of macular degeneration Cardiomyopathy Cardiac arrhythmia, unspecified COVID-19 vaccine series completed BPH associated with nocturia Obesity (BMI 30-39.9) Carpal tunnel syndrome on both sides Benign prostatic hyperplasia Erectile dysfunction Allergic rhinitis Primary osteoarthritis of left shoulder Osteoarthritis of knee Vitamin D deficiency Hypertriglyceridemia Benign essential hypertension Diabetes mellitus Arthritis Diabetes History of BPH Surgical History History of implantable cardioverter-defibrillator (ICD) insertion Status post cardiac catheterization H/O cardiac catheterization History of bilateral cataract extraction History of colonoscopy History of transurethral resection of prostate Family History Father Diabetes Mother Kidney problem Sister Asthma Hypertension Social History Housing: Apartment Are you a primary veterinarian laboratory animal care to a significant other at home: No Do you presently have visiting nurse or other home services: No Alcohol intake: never Patient Tobacco Use Status: Former Tobacco user Tobacco use type: Cigarette e-Cigarette/Vaping Use: Never Used Second Hand Smoke Exposure: Yes service: No Current occupational status: employed Cognitive needs: No Hearing needs: No Vision needs: Yes (glasses) Questionnaire PHQ-9 Over the last 2 weeks, how often have you been bothered by any of the following problems? 1. Little interest or pleasure in doing things: not at all 2. Feeling down, depressed, or hopeless: not at all 3. Trouble falling or staying asleep, or sleeping too much: not at all 4. Feeling tired or having little energy: not at all 5. Poor appetite or overeating: not at all 6. Feeling bad about yourself - or that you are a failure or have let yourself or your family down: not at all 7. Trouble concentrating on things, such as reading the newspaper or watching television: not at all 8. Moving or speaking so slowly that other people could have noticed. Or the opposite - being so fidgety or restless that you have been moving around a lot more than usual: not at all 9. Thoughts that you would be better off or of hurting yourself in some way: not at all Total score: 0 Depression Screening Interpretation: Negative Depression Screening Done: Yes [id number] - PHQ-9 Billing: Yes Source: Developed by Drs. Edu Will, Brittanie Salgado, Yogesh Copeland and colleagues, with an educational celina from [employer]. Thrive Questionnaire Date Thrive assessed: 06/25/24 I am a: Patient What is your living situation today?: I have a steady place to live Within the past 12 months, did the food you bought not last and you didn't have the money to get more?: Never true Within the past 12 months, did you worry whether your food would run out before you got money to buy more?: Never true Do you have trouble paying for medicines?: No Do you have trouble getting transportation to medical appointments?: No Do you have trouble paying your heating and electricity bill?: No Do you have trouble taking care of your child, family member or friend?: No Do you have trouble with day-to-day activities such as bathing, preparing meals, shopping, managing finances, etc.?: No Are you currently unemployed and looking for a job?: No Are you interested in more education?: No Please select the resources that you would like help with: None Currently or been in a relationship where the following occur: No concerns reported THRIVE Score: 0 AUDIT C Alcohol Use Questionnaire (AUDIT-C) 1. How often do you have a drink containing alcohol?: Never 3. How often do you have six or more drinks on one occasion?: Never Total Score: 0 Score Reviewed/Action Taken: Yes CAREY-7 AMB Questionnaire CAREY-7 Date CAREY - 7 assessed: 06/25/24 Feeling nervous, anxious, or on edge: 0 = Not at all Not being able to stop or control worryin = Not at all Worrying too much about different things: 0 = Not at all Trouble relaxin = Not at all Being so restless that it is hard to sit still: 0 = Not at all Becoming easily annoyed or irritable: 0 = Not at all Feeling afraid as if something awful might happen: 0 = Not at all Total CAREY-7 score (0-4 normal; 5-9 mild; 10-14 moderate; 15-21 severe): 0 Source: Developed by Drs. Edu Will, Brittanie Salgado, Yogesh Copeland and colleagues, with an educational celina from [employer]. Physical exam (Primary Care) Tobacco/Smoking Status: Tobacco use Status Tobacco use date assessed 10/15/23 02/15/24 13:04 Patient Tobacco Use Status Former Tobacco user 02/15/24 13:04 Tobacco use type Cigarette 02/15/24 13:04 e-Cigarette/Vaping Use Never Used 02/15/24 13:04 Depression Screening Interpretation: Negative Thrive Assessment: Date of Thrive Assessment Date Thrive assessed 10/15/23 02/15/24 13:04 Currently or been in a relationship where the following occur: No concerns reported Coding
--- NOTE | 2024-06-25 16:04 | AM.OFFVISMDC ---
Intake Vital Signs 06/25/24 16:00 Height 5 ft 5 in Weight 209 lb 8 oz BMI 34.9 BP 110/70 Blood Pressure Location Lt brachial Position Sitting Pulse 84 Pulse Source Pulse Oximeter Pulse Oximetry (%) 93 Oxygen Delivery Method Room Air Intake Visit Reasons: HUSEYIN G0439 - see comments Bi Developer Required: No Accompanied by: Self / Same As Patient Allergies amoxicillin [AMOXICILLIN] Allergy (Intermediate, Verified 06/29/24 01:24) Rash clindamycin [Clindamycin] Allergy (Intermediate, Verified 06/29/24 01:24) RASH Sulfa (Sulfonamide Antibiotics) Allergy (Intermediate, Verified 06/29/24 01:24) RASH ibuprofen [From Motrin] Adverse Reaction (Intermediate, Verified 06/29/24 01:24) Gastrointestinal Upset Medication List - Last Reconciled 06/29/24 by Alphonse Senior MD aspirin 81 mg PO DAILY atorvastatin 20 mg PO BEDTIME carvedilol 12.5 mg PO BID 90 days cholecalciferol (vitamin D3) (Vitamin D3) 25 mcg PO DAILY flash glucose scanning reader (L3 Zofia 14 Day Lily) As directed flash glucose sensor (Actiwaveyle Zofia 14 Day Sensor kit) 1 ea topical DIRECTED glipizide ER 10 mg PO DAILY 90 days loratadine 10 mg PO DAILY PRN 90 days losartan 25 mg PO DAILY metformin 1,000 mg PO BID 90 days pioglitazone 30 mg PO DAILY tamsulosin 0.4 mg PO BEDTIME 90 days Tradjenta (linagliptin) 5 mg PO DAILY NS tramadol 50 mg PO BID-TID PRN Do you need a note to return to daycare/school/sports/work: No HPI [facility] G0439 - see comments HPI Details Patient comes in today for Annual Medicare Wellness Exam Patient states that he feels okay He denies any headaches or dizziness Denies any chest pains, no shortness of breath No nausea/vomiting, no abdominal pain No change in bowel habits noted Needs his Tramadol Rx refilled He had his screening colonoscopy last done on 03/08/2023 - was recommended for repeat colonoscopy in 3 years (2025) [place] of care was reviewed and updated today Patient has a healthcare proxy in place and on file IPPE/AWV: c/o of Annual Wellness Visit, subsequent visit. Medical / Social History Reviewed Past Medical History Yes . [place] of Care / Care Team list updated Yes . Surgical/Hospitalization History Yes . Current Medications (including OTC and supplements) Yes . Family History Yes . Tobacco Control form Yes . AUDIT-C (Alcohol use) form Yes . Illicit drug use in Social History Yes . Current diagnosis of depression? No Appropriate PHQ2/PHQ9 completed Yes . Data entered by Elastic Attacher Coverstitch and reviewed by provider Home Safety Throw rugs? No Grab bars? No Raised toilet seats? No Working smoke detectors? Yes Working carbon monoxide detectors? Yes Data entered by Elastic Attacher Coverstitch and reviewed by provider Activities of Daily Living (ADLs) Difficulty bathing or showering? No Difficulty dressing? No Difficulty using the toilet? No Difficulty getting in and out of bed? No Difficulty walking? No Receives help from another person with any of the above tasks? No Instrumental Activities of Daily Living (IADLs) Uses the telephone without help Gets to places out of walking distance without help Goes shopping for groceries without help Prepares own meals without help Does own minor home maintenance without help Does own laundry without help Does own housework without help Manages own money without help Currently takes medications? Yes Takes medication without help End-of-Life Planning Discussed advance directive Yes Advance directive on file Discussed wishes expressed in advance directive agreed to following patient's wishes Fall Risk: Fall History Have you had any falls with injury in the past year? No . Have you had two or more falls in the past year? No . Fall Risk Assessment: No falls in the past year . HRA filled out by the patient, reviewed by Provider and scanned. [facility] Medical History Hx of TB skin testing History of macular degeneration Cardiomyopathy Cardiac arrhythmia, unspecified COVID-19 vaccine series completed BPH associated with nocturia Obesity (BMI 30-39.9) Carpal tunnel syndrome on both sides Benign prostatic hyperplasia Erectile dysfunction Allergic rhinitis Primary osteoarthritis of left shoulder Osteoarthritis of knee Vitamin D deficiency Hypertriglyceridemia Benign essential hypertension Diabetes mellitus Arthritis Diabetes History of BPH Surgical History History of implantable cardioverter-defibrillator (ICD) insertion Status post cardiac catheterization H/O cardiac catheterization History of bilateral cataract extraction History of colonoscopy History of transurethral resection of prostate Family History Father Diabetes Mother Kidney problem Sister Asthma Hypertension Social History Housing: Apartment Are you a primary lawn caretaker to a significant other at home: No Do you presently have visiting nurse or other home services: No Alcohol intake: never Patient Tobacco Use Status: Former Tobacco user Tobacco use type: Cigarette e-Cigarette/Vaping Use: Never Used Second Hand Smoke Exposure: Yes service: No Current occupational status: employed Cognitive needs: No Hearing needs: No Vision needs: Yes (glasses) Questionnaire Medicare Wellness Checkup [age] What gender do you identify with?: male During the past 4 weeks, how much have you been bothered by emotional problems such as feeling anxious, depressed, irritable, sad or downhearted, and blue?: not at all During the past 4 weeks, has your physical & emotional health limited your social activities with family, friends, neighbors, or groups?: not at all During the past 4 weeks, how much bodily pain have you generally had?: mild pain During the past 4 weeks, was someone available to help you if you needed & wanted help?: yes, as much as I wanted During the past 4 weeks, what was the hardest physical activity you could do for at least 2 minutes?: light Can you get to places out of walking distance without help? (For eg., can you travel alone on buses, taxis or drive your car?): Yes Can you go shopping for groceries or clothes without someone's help?: Yes Can you prepare your own meals?: Yes Can you do your housework without help?: Yes Because of any health problems, do you need the help of another person with your personal care needs such as eating, bathing, dressing or getting around the house?: No Can you handle your own money without help?: Yes During the past 4 weeks, how would you rate your health in general?: fair During the past 4 weeks how have things been going for you?: good & bad parts about equal Are you having difficulties driving your car?: no Do you always fasten your seat belt when you are in a car?: yes, usually During past 4 weeks, have you been bothered by the following: never: Falling or dizzy when standing up, Trouble eating well? and Problems using the telephone?, seldom: Teeth or denture problems? and sometimes: Sexual problems? and Tiredness or fatigue? Have you fallen 2 or more times in the past year?: No Are you afraid of falling?: Yes Are you a smoker?: no During the past 4 weeks, how many drinks of wine, beer, or other alcoholic beverages did you have?: no alcohol at all Do you exercise for about 20 minutes 3 or more times a week?: yes, most of the time Have you been given information to help with the following?: yes: Keeping track of your medications? and no: Hazards in your house that might hurt you? How often do you have trouble taking medicines the way you have been told to take them?: I always take medicine as prescribed How confident are you that you can control & manage most of your health problems?: very confident What is your race?: White Mini Mental State Exam (MMSE) Orientation What is the (year) (season) (date) (day) (month)?: year, season, date, day and month Where are we (state) (county) (town or city) (hospital) (floor)?: state, county, town or city, hospital/clinic and floor Score Score: 10 Activity of Daily Living Bathing - sponge bath, tub bath or shower: receives no assistance (gets in/out by self, if usual bathing means Dressing - getting clothes from closets & drawers, including inner/outer garments & fasteners.: gets clothes & gets completely dressed without help Toileting - going to the 'toilet room' for urine/bowel elimination & cleaning self/arranging clothes: goes to toilet room, cleans self, arranges clothes without help Transfer: moves in & out of bed and chair without help (may use support object) Continence: controls urination/bowel movements completely by self Feeding: feeds self without help Total Score: 0 Information obtained from: patient Using telephone: independent Traveling: needs assistance Shopping: independent Preparing meals: independent Housework: independent Taking medicine: independent Managing money: independent PHQ-9 Over the last 2 weeks, how often have you been bothered by any of the following problems? 1. Little interest or pleasure in doing things: nearly every day 2. Feeling down, depressed, or hopeless: several days 3. Trouble falling or staying asleep, or sleeping too much: not at all 4. Feeling tired or having little energy: not at all 5. Poor appetite or overeating: not at all 6. Feeling bad about yourself - or that you are a failure or have let yourself or your family down: not at all 7. Trouble concentrating on things, such as reading the newspaper or watching television: nearly every day 8. Moving or speaking so slowly that other people could have noticed. Or the opposite - being so fidgety or restless that you have been moving around a lot more than usual: nearly every day 9. Thoughts that you would be better off or of hurting yourself in some way: not at all Total score: 10 Depression Screening Interpretation: Negative (on Rx) Depression Screening Done: Yes 62328 - PHQ-9 Billing: Yes Source: Developed by Drs. Edu Will, Brittanie Salgado, Ygoesh Copeland and colleagues, with an educational celina from [employer]. PHQ-2/PHQ-9 PHQ-2 Over the last 2 weeks, how often have you been bothered by any of the following problems? 1. Little interest or pleasure in doing things: nearly every day 2. Feeling down, depressed, or hopeless: several days Total score: 4 If score is 3 or greater, continue 3. Trouble falling or staying asleep, or sleeping too much: not at all 4. Feeling tired or having little energy: not at all 5. Poor appetite or overeating: not at all 6. Feeling bad about yourself - or that you are a failure or have let yourself or your family down: not at all 7. Trouble concentrating on things, such as reading the newspaper or watching television: nearly every day 8. Moving or speaking so slowly that other people could have noticed. Or the opposite - being so fidgety or restless that you have been moving around a lot more than usual: nearly every day 9. Thoughts that you would be better off or of hurting yourself in some way: not at all Total score: 10 0-4 None-Minimal, 5-9 Mild, 10-14 Moderate, 15-19 Moderately Severe, 20-27 Severe Source: Developed by Drs. Edu Will, Yogesh Saini and colleagues, with an educational celina from [employer]. Thrive Questionnaire Date Thrive assessed: 06/25/24 I am a: Patient What is your living situation today?: I have a steady place to live Within the past 12 months, did the food you bought not last and you didn't have the money to get more?: Never true Within the past 12 months, did you worry whether your food would run out before you got money to buy more?: Never true Do you have trouble paying for medicines?: No Do you have trouble getting transportation to medical appointments?: No Do you have trouble paying your heating and electricity bill?: No Do you have trouble taking care of your child, family member or friend?: No Do you have trouble with day-to-day activities such as bathing, preparing meals, shopping, managing finances, etc.?: No Are you currently unemployed and looking for a job?: No Are you interested in more education?: No Please select the resources that you would like help with: None Currently or been in a relationship where the following occur: No concerns reported THRIVE Score: 0 CAREY-7 AMB Questionnaire CAREY-7 Date CAREY - 7 assessed: 06/25/24 Feeling nervous, anxious, or on edge: 0 = Not at all Not being able to stop or control worryin = Not at all Worrying too much about different things: 0 = Not at all Trouble relaxin = Not at all Being so restless that it is hard to sit still: 0 = Not at all Becoming easily annoyed or irritable: 0 = Not at all Feeling afraid as if something awful might happen: 0 = Not at all Total CAREY-7 score (0-4 normal; 5-9 mild; 10-14 moderate; 15-21 severe): 0 Source: Developed by Drs. Edu Will, Brittanie Salgado, Yogesh Copeland and colleagues, with an educational celina from [employer]. Review of Systems Const Denies chills, Denies fatigue, Denies fever(s) and Denies headache(s) ENT Denies dysphagia, Denies dizziness, Denies otalgia, Denies headache(s), Denies neck pain, Denies odynophagia and Denies sore throat Card Denies chest pain, Denies palpitations and Denies dyspnea Resp Denies cough and Denies dyspnea GI Denies abdominal pain, Denies constipation, Denies dysphagia, Denies heartburn, Denies diarrhea, Denies nausea, Denies odynophagia and Denies vomiting Denies dysuria, Denies nocturia and Denies urinary frequency Musc Denies back pain, Reports arthralgias (on and off in both knees) and Denies neck pain Skin/Breast Denies rash Neuro Denies dizziness and Denies headache(s) Endo Denies fatigue and Denies palpitations Physical Exam Vital Signs: Last Vital Signs Pulse 84 06/25/24 16:00 BP 110/70 06/25/24 16:00 Pulse Ox 93 06/25/24 16:00 Oxygen Delivery Method Room Air 06/25/24 16:00 BMI result Body Mass Index 34.9 IPPE/AWV: Balance Romberg Yes . Tandem walk Yes . Walk and Turn Yes . Rise from sit to stand Yes . Vision Corrective lens No Vision screen pass Hearing Whisper test pass . Urinary incont. no. EKG Not clinically necessary. Const General: no acute distress and alert HEENT Ears: TM's normal bilaterally and EAC's normal Throat: Yes posterior oropharynx normal and Yes tonsils normal (no TP congestion) Neck Neck: Yes no lymphadenopathy and Yes supple Resp Auscultation: clear to auscultation bilaterally, no rales and no wheezes Cardio Rate: regular rate Rhythm: regular rhythm Heart sounds: no murmurs GI Palpation (GI): Soft to palpation, nontender and No hepatosplenomegaly present Skin General skin exam: no rashes or lesions noted Extrem General: Yes no clubbing, cyanosis or edema Assessment & Plan Assessment & Plan (1) Medicare annual wellness visit, subsequent: Code(s): Z00.00 - Encounter for general adult medical examination without abnormal findings Plan: HRA form discussed and completed with patient; form will be scanned into patient's chart (2) Diabetes mellitus: Code(s): E11.9 - Type 2 diabetes mellitus without complications Qualifiers: Diabetes mellitus type: type 2 Diabetes mellitus [facility] insulin use: without [facility] use Diabetes mellitus complication status: without complication Qualified Code(s): E11.9 - Type 2 diabetes mellitus without complications Plan: His HgbA1c was at 6.5% back on 05/10/2025 - goal is <7.0% Reinforced diabetic diet Continue Glipizide ER 10 mg QD, Metformin 1000 mg BID, Januvia 100 mg QD and Piogitazone 30 mg QD (3) Hypertriglyceridemia: Code(s): E78.1 - Pure hyperglyceridemia Plan: Reinforced low cholesterol diet Continue Atorvastatin 20 mg QD Will recheck his labs and fasting lipids in 4 months for follow-up (4) Benign essential hypertension: Code(s): I10 - Essential (primary) hypertension Plan: Reinforced low-sodium diet - goal is systolic BP of at least 130 to 140 mm or less Continue Losartan 50 mg QD (5) Cardiomyopathy: Code(s): I42.9 - Cardiomyopathy, unspecified Qualifiers: Cardiomyopathy type: unspecified Qualified Code(s): I42.9 - Cardiomyopathy, unspecified Plan: EF was incidentally noted to be at 15-20% on echocardiogram; patient was clinically not in heart failure as he denied any symptoms or shortness of breath, easy fatigability or edema at the time 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 on 11/23/2021 Most recent echocardiogram done in August 2022 showed (+) significant improvement of his cardiac function - there is normal left ventricular wall thickness;?the left ventricular systolic function is borderline reduced and?the visually estimated ejection fraction is between 45-50% Follow up with cardiology as scheduled (6) Vitamin D deficiency: Code(s): E55.9 - Vitamin D deficiency, unspecified Plan: Continue Vitamin D3 1000 units QD (7) Primary osteoarthritis of left shoulder: Code(s): M19.012 - Primary osteoarthritis, left shoulder Plan: X-rays of the left shoulder done last year showed (+) OA changes Patient is encouraged to continue with regular shoulder exercises to help manage his symptoms Follow-up with Orthopedics as scheduled (8) Osteoarthritis of knee: Code(s): M17.10 - Unilateral primary osteoarthritis, unspecified knee Qualifiers: Osteoarthritis type: primary Laterality: unspecified laterality Qualified Code(s): M17.10 - Unilateral primary osteoarthritis, unspecified knee Plan: Continue Ibuprofen 400 mg 3 times a day as needed and Tramadol 50 mg TID PRN for symptomatic relief (Rx refilled) (9) Allergic rhinitis: Code(s): J30.9 - Allergic rhinitis, unspecified Qualifiers: Allergic rhinitis trigger: unspecified Allergic rhinitis seasonality: unspecified Qualified Code(s): J30.9 - Allergic rhinitis, unspecified Plan: Continue Loratadine 10 mg QD PRN (10) Erectile dysfunction: Code(s): N52.9 - Male erectile dysfunction, unspecified Qualifiers: Erectile dysfunction type: unspecified Qualified Code(s): N52.9 - Male erectile dysfunction, unspecified Plan: Continue SIldenafil 50 mg QD PRN as instructed (11) Benign prostatic hyperplasia: Code(s): N40.0 - Benign prostatic hyperplasia without lower urinary tract symptoms Qualifiers: Lower urinary tract symptom presence: unspecified whether lower urinary tract symptoms present Qualified Code(s): N40.0 - Benign prostatic hyperplasia without lower urinary tract symptoms Plan: Continue Tamsulosin 0.4 mg Q HS Follow-up with urology as scheduled (12) Obesity (BMI 30-39.9): Code(s): E66.9 - Obesity, unspecified Plan: Reinforced diet/ exercise as tolerated/ lose weight Plan Follow up in 4 months Orders: Orders Lipid Panel 4 Months E78.00 - Pure hypercholesterolemia, unspecified Complete Blood Count Auto Diff 4 Months D64.9 - Anemia, unspecified Hemoglobin A1c 4 Months E11.9 - Type 2 diabetes mellitus without complications Comprehensive [place]. Panel Fast 4 Months E78.00 - Pure hypercholesterolemia, unspecified Medications: Refilled tramadol 50 mg PO BID-TID PRN 30 tabs 0RF pain G89.29 - Other chronic pain, M25.562 - Pain in left knee Quality Reporting (2019) Depression/Bipolar (159/160/161/177) PHQ-9: Total score: 10 Coding Level of Care Code Medicare Subsequent (G0439) Est Pt Level 3 (29165) Diagnoses Medicare annual wellness visit, subsequent Z00.00 Type 2 diabetes mellitus without complication, without long-term current use of insulin E11.9 Diabetes mellitus type: type 2 Diabetes mellitus [facility] insulin use: without vermin exterminator use Diabetes mellitus complication status: without complication Hypertriglyceridemia E78.1 Benign essential hypertension I10 Cardiomyopathy, unspecified type I42.9 Cardiomyopathy type: unspecified Vitamin D deficiency E55.9 Primary osteoarthritis of left shoulder M19.012 Primary osteoarthritis of knee, unspecified laterality M17.10 Osteoarthritis type: primary Laterality: unspecified laterality Allergic rhinitis, unspecified seasonality, unspecified trigger J30.9 Allergic rhinitis trigger: unspecified Allergic rhinitis seasonality: unspecified Erectile dysfunction, unspecified erectile dysfunction type N52.9 Erectile dysfunction type: unspecified Benign prostatic hyperplasia, unspecified whether lower urinary tract symptoms present N40.0 Lower urinary tract symptom presence: unspecified whether lower urinary tract symptoms present Obesity (BMI 30-39.9) E66.9
== END 2024-06-25 17:07 | disposition home or self-care (01) ==
PROVIDERS: PCP Internal Medicine; Visit Provider Internal Medicine
DX: Z00.00 Encounter for general adult medical examination without abnormal findings (principal); E11.9 Type 2 diabetes mellitus without complications; I42.9 Cardiomyopathy, unspecified; E78.1 Pure hyperglyceridemia; I10 Essential (primary) hypertension; E66.9 Obesity, unspecified; E55.9 Vitamin D deficiency, unspecified; M19.012 Primary osteoarthritis, left shoulder; M17.10 Unilateral primary osteoarthritis, unspecified knee; J30.9 Allergic rhinitis, unspecified; N52.9 Male erectile dysfunction, unspecified; N40.0 Benign prostatic hyperplasia without lower urinary tract symptoms

== ENCOUNTER → 2024-06-25 15:36 | Outpatient (BNVA) | payer MEDICARE, MEDICAID, SELFPAY | PROVIDERS: PCP Internal Medicine; Visit Provider Internal Medicine | DX: Z00.00 Encounter for general adult medical examination without abnormal findings (principal); E11.9 Type 2 diabetes mellitus without complications; E78.1 Pure hyperglyceridemia; I10 Essential (primary) hypertension; I42.9 Cardiomyopathy, unspecified; E55.9 Vitamin D deficiency, unspecified; J30.9 Allergic rhinitis, unspecified; N52.9 Male erectile dysfunction, unspecified; N40.0 Benign prostatic hyperplasia without lower urinary tract symptoms | CPT/HCPCS: 96127; 99212 ==

== ENCOUNTER → 2024-07-17 23:59 | Outpatient (BNV) | payer MEDICARE, MEDICAID, SELFPAY ==
--- NOTE | 2024-08-02 20:55 | MHC.OFFVIS ---
Intake Visit Reasons: Remote ICD check- [employer] Allergies amoxicillin [AMOXICILLIN] Allergy (Intermediate, Verified 06/29/24 01:24) Rash clindamycin [Clindamycin] Allergy (Intermediate, Verified 06/29/24 01:24) RASH Sulfa (Sulfonamide Antibiotics) Allergy (Intermediate, Verified 06/29/24 01:24) RASH ibuprofen [From Motrin] Adverse Reaction (Intermediate, Verified 06/29/24 01:24) Gastrointestinal Upset PFSH Medical History Hx of TB skin testing History of macular degeneration Cardiomyopathy Cardiac arrhythmia, unspecified COVID-19 vaccine series completed BPH associated with nocturia Obesity (BMI 30-39.9) Carpal tunnel syndrome on both sides Benign prostatic hyperplasia Erectile dysfunction Allergic rhinitis Primary osteoarthritis of left shoulder Osteoarthritis of knee Vitamin D deficiency Hypertriglyceridemia Benign essential hypertension Diabetes mellitus Arthritis Diabetes History of BPH Surgical History History of implantable cardioverter-defibrillator (ICD) insertion Status post cardiac catheterization H/O cardiac catheterization History of bilateral cataract extraction History of colonoscopy History of transurethral resection of prostate Family History Father Diabetes Mother Kidney problem Sister Asthma Hypertension Social History Housing: Apartment Are you a primary hospice care transitions coordinator to a significant other at home: No Do you presently have visiting nurse or other home services: No Alcohol intake: never Patient Tobacco Use Status: Former Tobacco user Tobacco use type: Cigarette e-Cigarette/Vaping Use: Never Used Second Hand Smoke Exposure: Yes service: No Current occupational status: employed Cognitive needs: No Hearing needs: No Vision needs: Yes (glasses) Office Procedures Cardiac Device Check Cardiac Device Check Details: BiV AICD Good battery life BARKEEP 99% 1 episode NSVT. 20867-[id number] Cardiac Device Check, multi lead implantable defibrillator Procedure code (CPT) selection complete Assessment & Plan Assessment & Plan (1) Cardiomyopathy: Code(s): I42.9 - Cardiomyopathy, unspecified Category: Medical Qualifiers: Cardiomyopathy type: unspecified Qualified Code(s): I42.9 - Cardiomyopathy, unspecified Plan: Coding Level of Care Code Procedure Only Diagnoses Cardiomyopathy, unspecified type I42.9 Cardiomyopathy type: unspecified CPT Codes Cardiac Device Check - Cardiac Device 6: [id number] Cardiac Device Check, multi lead implantable defibrillator ([id number])
== END ==
PROVIDERS: PCP Internal Medicine; Visit Provider Internal Medicine Cardiovascular Disease
DX: I42.9 Cardiomyopathy, unspecified (principal); Z95.810 Presence of automatic (implantable) cardiac defibrillator
CPT/HCPCS: 93295

== ENCOUNTER → 2024-07-17 23:59 | Outpatient (BNV) | payer MEDICARE, MEDICAID, SELFPAY ==
--- NOTE | 2024-08-02 20:51 | A.OFFVIS_ITS ---
Intake Visit Reasons: Remote HF monitoring- [employer] Allergies amoxicillin [AMOXICILLIN] Allergy (Intermediate, Verified 06/29/24 01:24) Rash clindamycin [Clindamycin] Allergy (Intermediate, Verified 06/29/24 01:24) RASH Sulfa (Sulfonamide Antibiotics) Allergy (Intermediate, Verified 06/29/24 01:24) RASH ibuprofen [From Motrin] Adverse Reaction (Intermediate, Verified 06/29/24 01:24) Gastrointestinal Upset PFSH Medical History Hx of TB skin testing History of macular degeneration Cardiomyopathy Cardiac arrhythmia, unspecified COVID-19 vaccine series completed BPH associated with nocturia Obesity (BMI 30-39.9) Carpal tunnel syndrome on both sides Benign prostatic hyperplasia Erectile dysfunction Allergic rhinitis Primary osteoarthritis of left shoulder Osteoarthritis of knee Vitamin D deficiency Hypertriglyceridemia Benign essential hypertension Diabetes mellitus Arthritis Diabetes History of BPH Surgical History History of implantable cardioverter-defibrillator (ICD) insertion Status post cardiac catheterization H/O cardiac catheterization History of bilateral cataract extraction History of colonoscopy History of transurethral resection of prostate Family History Father Diabetes Mother Kidney problem Sister Asthma Hypertension Social History Housing: Apartment Are you a primary career and guidance counselor to a significant other at home: No Do you presently have visiting nurse or other home services: No Alcohol intake: never Patient Tobacco Use Status: Former Tobacco user Tobacco use type: Cigarette e-Cigarette/Vaping Use: Never Used Second Hand Smoke Exposure: Yes service: No Current occupational status: employed Cognitive needs: No Hearing needs: No Vision needs: Yes (glasses) Office Procedures Cardiac Device Check Cardiac Device Check Details: HF monitoring Stable thoracic impedance. [id number] Cardiac Interrogation, subcut cardiac rhythm monitor Procedure code (CPT) selection complete Assessment & Plan Assessment & Plan (1) Cardiomyopathy: Code(s): I42.9 - Cardiomyopathy, unspecified Category: Medical Qualifiers: Cardiomyopathy type: unspecified Qualified Code(s): I42.9 - Cardiomyopathy, unspecified Plan: Coding Level of Care Code Procedure Only Diagnoses Cardiomyopathy, unspecified type I42.9 Cardiomyopathy type: unspecified CPT Codes Cardiac Device Check - Cardiac Device 16: [id number] Cardiac Interrogation, subcut cardiac rhythm monitor ([id number])
== END ==
PROVIDERS: PCP Internal Medicine; Visit Provider Internal Medicine Cardiovascular Disease
DX: I42.9 Cardiomyopathy, unspecified (principal)
CPT/HCPCS: 93297

== ENCOUNTER → 2024-08-17 23:59 | Outpatient (BNV) | payer MEDICARE, MEDICAID, SELFPAY ==
--- NOTE | 2024-08-21 10:20 | A.OFFVIS_ITS ---
Intake Visit Reasons: Remote HF monitoring- [employer] Allergies amoxicillin [AMOXICILLIN] Allergy (Intermediate, Verified 06/29/24 01:24) Rash clindamycin [Clindamycin] Allergy (Intermediate, Verified 06/29/24 01:24) RASH Sulfa (Sulfonamide Antibiotics) Allergy (Intermediate, Verified 06/29/24 01:24) RASH ibuprofen [From Motrin] Adverse Reaction (Intermediate, Verified 06/29/24 01:24) Gastrointestinal Upset PFSH Medical History Hx of TB skin testing History of macular degeneration Cardiomyopathy Cardiac arrhythmia, unspecified COVID-19 vaccine series completed BPH associated with nocturia Obesity (BMI 30-39.9) Carpal tunnel syndrome on both sides Benign prostatic hyperplasia Erectile dysfunction Allergic rhinitis Primary osteoarthritis of left shoulder Osteoarthritis of knee Vitamin D deficiency Hypertriglyceridemia Benign essential hypertension Diabetes mellitus Arthritis Diabetes History of BPH Surgical History History of implantable cardioverter-defibrillator (ICD) insertion Status post cardiac catheterization H/O cardiac catheterization History of bilateral cataract extraction History of colonoscopy History of transurethral resection of prostate Family History Father Diabetes Mother Kidney problem Sister Asthma Hypertension Social History Housing: Apartment Are you a primary healthcare sales representative to a significant other at home: No Do you presently have visiting nurse or other home services: No Alcohol intake: never Patient Tobacco Use Status: Former Tobacco user Tobacco use type: Cigarette e-Cigarette/Vaping Use: Never Used Second Hand Smoke Exposure: Yes service: No Current occupational status: employed Cognitive needs: No Hearing needs: No Vision needs: Yes (glasses) Office Procedures Cardiac Device Check Cardiac Device Check Details: HF monitoring Stable thoracic impedance. [id number] Device Interrogation, cardiac physiologic monitor system Procedure code (CPT) selection complete Assessment & Plan Assessment & Plan (1) Cardiomyopathy: Code(s): I42.9 - Cardiomyopathy, unspecified Category: Medical Qualifiers: Cardiomyopathy type: unspecified Qualified Code(s): I42.9 - Cardiomyopathy, unspecified Plan Orders: Orders AMB Cardiac Device Follow-up 08/17/24 I42.9 - Cardiomyopathy, unspecified Coding Level of Care Code Procedure Only Diagnoses Cardiomyopathy, unspecified type I42.9 Cardiomyopathy type: unspecified CPT Codes Cardiac Device Check - Cardiac Device 10: [id number] Device Interrogation, cardiac physiologic monitor system ([id number])
== END ==
PROVIDERS: PCP Internal Medicine; Visit Provider Internal Medicine Cardiovascular Disease
DX: I42.9 Cardiomyopathy, unspecified (principal); Z95.810 Presence of automatic (implantable) cardiac defibrillator
CPT/HCPCS: 93297

== ENCOUNTER 2024-10-06 15:18 | Outpatient (AMB) | payer MEDICARE, MEDICAID, SELFPAY ==
[2024-10-06 15:23] VITALS: BP 141/68; PULSE 80; BMI 35.4
--- NOTE | 2024-10-06 15:23 | MHC.OFFVIS ---
Vital Signs 10/06/24 15:23 Height 5 ft 5 in Weight 212 lb 15.465 oz BMI 35.4 BP 141/68 H Blood Pressure Location Lt brachial Position Sitting Pulse 80 Intake Visit Reasons: 1 year follow up Intake Note: Alex presents to in office today in 1 year follow up. CC: Patient denies having any GI concerns today. Heel Cover Splitter Required: No Allergies amoxicillin [AMOXICILLIN] Allergy (Intermediate, Verified 10/06/24 15:33) Rash clindamycin [Clindamycin] Allergy (Intermediate, Verified 10/06/24 15:33) RASH Sulfa (Sulfonamide Antibiotics) Allergy (Intermediate, Verified 10/06/24 15:33) RASH ibuprofen [From Motrin] Adverse Reaction (Intermediate, Verified 10/06/24 15:33) Gastrointestinal Upset HPI HPI 1 year follow up: Details: 74 yr old m here for f/u RECAP: He had colonoscopy 2020, x 7 colon polyps removed, poor prep also colo 2019-- with 5 polyps removed, tubulovillous and adenomas -poor prep chronic anemia on labs Colonoscopy: 2022: tubulovillous polyp in descending and adenomas as well INTERIM: he feels good appetite is good no complaints no abdominal pain normal bowel habits EXAM: GENERAL: The patient is well developed and nontoxic. VITAL SIGNS:see workflow HEENT: Nonicteric sclerae, PERRLA, EOMI. Oropharynx clear. Moist mucous membranes. Conjunctivae appear well perfused. No thyroid mass. CHEST: Chest wall is nontender. HEART: Regular rate and rhythm without murmurs. LUNGS: Clear to auscultation bilaterally. ABDOMEN: Soft, positive bowel sounds, nontender, no organomegaly.no flank tenderness SKIN: No rash, no excessive bruising, petechiae, or purpura. NEUROLOGIC: Cranial nerves II-XII intact without motor/sensory deficit. a/P: 1/ Hx of colonic polyps, tubulovillous type also removed PLAN: 1/ Repeat colonoscopy due to hx fo polyps 2 d [facility] Medical History (Reviewed 10/06/24 @ 15:32 by Adrian Coello [facility]) Hx of TB skin testing History of macular degeneration Cardiomyopathy Cardiac arrhythmia, unspecified COVID-19 vaccine series completed BPH associated with nocturia Obesity (BMI 30-39.9) Carpal tunnel syndrome on both sides Benign prostatic hyperplasia Erectile dysfunction Allergic rhinitis Primary osteoarthritis of left shoulder Osteoarthritis of knee Vitamin D deficiency Hypertriglyceridemia Benign essential hypertension Diabetes mellitus Arthritis Diabetes History of BPH Surgical History History of implantable cardioverter-defibrillator (ICD) insertion Status post cardiac catheterization H/O cardiac catheterization History of bilateral cataract extraction History of colonoscopy History of transurethral resection of prostate Family History Father Diabetes Mother Kidney problem Sister Asthma Hypertension Social History Housing: Apartment Are you a primary manager home healthcare to a significant other at home: No Do you presently have visiting nurse or other home services: No Alcohol intake: never Patient Tobacco Use Status: Former Tobacco user Tobacco use type: Cigarette e-Cigarette/Vaping Use: Never Used Second Hand Smoke Exposure: Yes service: No Current occupational status: employed Cognitive needs: No Hearing needs: No Vision needs: Yes (glasses) Physical Exam Vital Signs: Last Vital Signs Pulse 80 10/06/24 15:23 BP 141/68 H 10/06/24 15:23 BMI result Body Mass Index 35.4 Assessment & Plan Assessment & Plan (1) Tubulovillous adenoma: Code(s): D36.9 - Benign neoplasm, unspecified site Category: Medical Plan: as above Coding Level of Care Code Est Pt Level 3 (96197) Diagnoses Tubulovillous adenoma D36.9
== END 2024-10-06 15:43 | disposition home or self-care (01) ==
PROVIDERS: PCP Internal Medicine; Visit Provider Internal Medicine Gastroenterology
DX: D36.9 Benign neoplasm, unspecified site (principal)
CPT/HCPCS: 99213

== ENCOUNTER → 2024-10-06 15:18 | Outpatient (BNVA) | payer MEDICARE, MEDICAID, SELFPAY | PROVIDERS: PCP Internal Medicine; Visit Provider Internal Medicine Gastroenterology | DX: D36.9 Benign neoplasm, unspecified site (principal) | CPT/HCPCS: 99212 ==

== ENCOUNTER → 2024-10-17 23:59 | Outpatient (BNV) | payer MEDICARE, MEDICAID, SELFPAY ==
--- NOTE | 2024-10-20 08:53 | A.OFFVIS_ITS ---
Intake Visit Reasons: Remote ICD check- [employer] Allergies amoxicillin [AMOXICILLIN] Allergy (Intermediate, Verified 10/06/24 15:33) Rash clindamycin [Clindamycin] Allergy (Intermediate, Verified 10/06/24 15:33) RASH Sulfa (Sulfonamide Antibiotics) Allergy (Intermediate, Verified 10/06/24 15:33) RASH ibuprofen [From Motrin] Adverse Reaction (Intermediate, Verified 10/06/24 15:33) Gastrointestinal Upset PFSH Medical History Hx of TB skin testing History of macular degeneration Cardiomyopathy Cardiac arrhythmia, unspecified COVID-19 vaccine series completed BPH associated with nocturia Obesity (BMI 30-39.9) Carpal tunnel syndrome on both sides Benign prostatic hyperplasia Erectile dysfunction Allergic rhinitis Primary osteoarthritis of left shoulder Osteoarthritis of knee Vitamin D deficiency Hypertriglyceridemia Benign essential hypertension Diabetes mellitus Arthritis Diabetes History of BPH Surgical History History of implantable cardioverter-defibrillator (ICD) insertion Status post cardiac catheterization H/O cardiac catheterization History of bilateral cataract extraction History of colonoscopy History of transurethral resection of prostate Family History Father Diabetes Mother Kidney problem Sister Asthma Hypertension Social History Housing: Apartment Are you a primary career technical education teacher to a significant other at home: No Do you presently have visiting nurse or other home services: No Alcohol intake: never Patient Tobacco Use Status: Former Tobacco user Tobacco use type: Cigarette e-Cigarette/Vaping Use: Never Used Second Hand Smoke Exposure: Yes service: No Current occupational status: employed Cognitive needs: No Hearing needs: No Vision needs: Yes (glasses) Office Procedures Cardiac Device Check Cardiac Device Check Details: Heart failure monitoring. V paced 98.8%. Stable thoracic impedance. [id number] Device Interrogation, cardiac physiologic monitor system Procedure code (CPT) selection complete Assessment & Plan Assessment & Plan (1) Cardiomyopathy: Code(s): I42.9 - Cardiomyopathy, unspecified Category: Medical Qualifiers: Cardiomyopathy type: unspecified Qualified Code(s): I42.9 - Cardiom yopathy, unspecified Plan Orders: Orders AMB Cardiac Device Follow-up 10/17/24 I42.9 - Cardiomyopathy, unspecified Coding Level of Care Code Procedure Only Diagnoses Cardiomyopathy, unspecified type I42.9 Cardiomyopathy type: unspecified CPT Codes Cardiac Device Check - Cardiac Device 10: [id number] Device Interrogation, c ardiac physiologic monitor system ([id number])
== END ==
PROVIDERS: PCP Internal Medicine; Visit Provider Internal Medicine Cardiovascular Disease
DX: I42.9 Cardiomyopathy, unspecified (principal); Z95.810 Presence of automatic (implantable) cardiac defibrillator
CPT/HCPCS: 93295

== ENCOUNTER 2024-10-24 06:49 | Outpatient (REF) | payer MEDICARE, MEDICAID, SELFPAY ==
[2024-10-24 07:12] LABS: MANUAL DIFF FLAG NO
[2024-10-24 07:50] LABS: Basophils Absolute Auto 0.1 X10*3/uL (0.0-0.2); Basophils Percent Auto 0.8 % (0-2); Eosinophils Absolute Auto 0.2 X10*3/uL (0.0-0.4); Eosinophils Percent Auto 2.2 % (0-4); Hematocrit 38.9 % (42.0-52.0); Hemoglobin 12.1 g/dl (14.0-18.0); Imm Gran Abs Auto 0.03 X10*3/uL (0.00-0.03); Imm Gran Pct Auto 0.4 % (0.0-0.4); Lymphocytes Absolute Auto 1.7 X10*3/uL (1.2-4.9); Lymphocytes Percent Auto 22.3 % (20-40); Mean Corpuscular HGB Conc 31.1 g/dl (31.0-36.0); Mean Corpuscular Hemoglobin 27.4 pg (27.0-33.0); Mean Platelet Volume 11.2 fL (9.4-12.4); Monocytes Absolute Auto 0.8 X10*3/uL (0.1-1.2); Monocytes Percent Auto 10.6 % (2-11); Neutrophils Absolute Auto 4.7 x10*3/uL (2.0-8.3); Neutrophils Percent Auto 63.7 % (45-73); Platelet Count 237 X10*3/uL (160-400); Red Blood Count 4.42 X10*6/uL (4.60-5.80); Red Cell Distribution Width 14.6 % (11.0-16.0); White Blood Count 7.4 X10*3/uL (4.8-10.8)
[2024-10-24 07:51] LABS: Estimated Average Glucose 140 mg/dL; Hemoglobin A1C 153.5756 umol/L; Hemoglobin A1c % 6.5 % (<6.0); Total Hemoglobin (HGBA1C) 3211.5772 umol/L
[2024-10-24 08:09] LABS: Alanine Aminotransferase 30 U/L (0-40); Albumin Level 4.1 g/dL (3.5-5.0); Alkaline Phosphatase 97 U/L (39-117); Anion Gap 11 (12-20); Aspartate Amino Transferase 28 U/L (5-37); Bilirubin Total 0.6 mg/dL (0.0-1.0); Blood Urea Nitrogen 14 mg/dL (9-16); Calcium 9.2 mg/dL (8.4-10.2); Carbon Dioxide 26 mmol/L (22-29); Chloride 105 mmol/L (96-108); Cholesterol 125 mg/dL (<200); Estimated Glomerular Filt Rate > 60; Glucose Fasting 117 mg/dL (60-99); HDL Cholesterol 71 mg/dL (>40); LDL Cholesterol Calculated 45 mg/dL (<100); Potassium 4.3 mmol/L (3.3-5.1); Sodium 138 mmol/L (135-145); Total Protein 7.5 g/dL (6.5-8.0); Triglycerides 45 mg/dL (<150)
== END 2024-10-24 06:50 | disposition home or self-care (01) ==
LOC: HO.LAB 06:49
PROVIDERS: PCP Internal Medicine; Visit Provider Internal Medicine
DX: E11.9 Type 2 diabetes mellitus without complications (principal); D64.9 Anemia, unspecified; E78.00 Pure hypercholesterolemia, unspecified
CPT/HCPCS: 36415; 80053; 80061; 83036; 85025

== ENCOUNTER 2024-10-27 14:06 | Outpatient (AMB) | payer MEDICARE, MEDICAID, SELFPAY ==
[2024-10-27 14:07] VITALS: BP 120/62; PULSE 72; O2SAT 99; BMI 34.4
--- NOTE | 2024-10-27 14:07 | A.OFFPC_ITS ---
Vital Signs 10/27/24 14:07 Height 5 ft 5 in Weight 207 lb BMI 34.4 BP 120/62 Blood Pressure Location Lt brachial Position Sitting Pulse 72 Pulse Source Pulse Oximeter Pulse Oximetry (%) 99 Oxygen Delivery Method Room Air Intake Visit Reasons: 4 Month follow up Online Marketing Strategist Required: No Accompanied by: Self / Same As Patient Allergies amoxicillin [AMOXICILLIN] Allergy (Intermediate, Verified 10/27/24 14:23) Rash clindamycin [Clindamycin] Allergy (Intermediate, Verified 10/27/24 14:23) RASH Sulfa (Sulfonamide Antibiotics) Allergy (Intermediate, Verified 10/27/24 14:23) RASH ibuprofen [From Motrin] Adverse Reaction (Intermediate, Verified 10/27/24 14:23) Gastrointestinal Upset Medication List - Last Reconciled 10/27/24 by Alphonse Senior MD aspirin 81 mg PO DAILY atorvastatin 20 mg PO BEDTIME carvedilol 12.5 mg PO BID 90 days cholecalciferol (vitamin D3) (Vitamin D3) 25 mcg PO DAILY flash glucose scanning reader (Smart Eye Zofia 14 Day Wassaic) As directed flash glucose sensor (E[employer]aniaStyle Zofia 14 Day Sensor kit) 1 ea topical DIRECTED glipizide ER 10 mg PO DAILY 90 days loratadine 10 mg PO DAILY PRN 90 days losartan 25 mg PO DAILY metformin 1,000 mg PO BID 90 days pioglitazone 30 mg PO DAILY sodium,potassium,mag sulfates 17.5-3.13-1.6 gram (Suprep Bowel Prep Kit) DILUTE; drink 1/2 at 6-8 pm and half at 11 PM- 1AM tamsulosin 0.4 mg PO BEDTIME 90 days Tradjenta (linagliptin) 5 mg PO DAILY NS tramadol 50 mg PO BID-TID PRN Tobacco use date assessed: 10/27/24 Last assessed Fall Risk: 10/27/24 Dental Screening Dental Screen Date: 10/27/24 HPI 4 Month follow up HPI Details Patient comes in today for his follow up visit States that he feels okay He denies any headaches or dizziness Denies any chest pains, no shortness of breath No nausea/vomiting, no abdominal pain No change in bowel habits noted States that he cannot afford to stay on Tradjenta as his insurance recently increased his copay for th Rx to over $300 He had his follow up labs done a few days ago - to discuss his results PFSH Medical History Hx of TB skin testing History of macular degeneration Cardiomyopathy Cardiac arrhythmia, unspecified COVID-19 vaccine series completed BPH associated with nocturia Obesity (BMI 30-39.9) Carpal tunnel syndrome on both sides Benign prostatic hyperplasia Erectile dysfunction Allergic rhinitis Primary osteoarthritis of left shoulder Osteoarthritis of knee Vitamin D deficiency Hypertriglyceridemia Benign essential hypertension Diabetes mellitus Arthritis Diabetes History of BPH Surgical History History of implantable cardioverter-defibrillator (ICD) insertion Status post cardiac catheterization H/O cardiac catheterization History of bilateral cataract extraction History of colonoscopy History of transurethral resection of prostate Family History Father Diabetes Mother Kidney problem Sister Asthma Hypertension Social History Housing: Apartment Are you a primary health care technician to a significant other at home: No Do you presently have visiting nurse or other home services: No Alcohol intake: never Patient Tobacco Use Status: Former Tobacco user Tobacco use type: Cigarette e-Cigarette/Vaping Use: Never Used Second Hand Smoke Exposure: Yes service: No Current occupational status: employed Cognitive needs: No Hearing needs: No Vision needs: Yes (glasses) Questionnaire PHQ-9 Over the last 2 weeks, how often have you been bothered by any of the following problems? 1. Little interest or pleasure in doing things: nearly every day 2. Feeling down, depressed, or hopeless: several days 3. Trouble falling or staying asleep, or sleeping too much: not at all 4. Feeling tired or having little energy: not at all 5. Poor appetite or overeating: not at all 6. Feeling bad about yourself - or that you are a failure or have let yourself or your family down: not at all 7. Trouble concentrating on things, such as reading the newspaper or watching television: nearly every day 8. Moving or speaking so slowly that other people could have noticed. Or the opposite - being so fidgety or restless that you have been moving around a lot more than usual: nearly every day 9. Thoughts that you would be better off or of hurting yourself in some way: not at all Total score: 10 Depression Screening Interpretation: Negative (on Rx) Depression Screening Done: Yes 71400 - PHQ-9 Billing: Yes Source: Developed by Drs. Edu Will, Brittanie Salgado, Yogesh Copeland and colleagues, with an educational celina from [employer]. Thrive Questionnaire Date Thrive assessed: 10/27/24 I am a: Patient What is your living situation today?: I have a steady place to live Within the past 12 months, did the food you bought not last and you didn't have the money to get more?: Never true Within the past 12 months, did you worry whether your food would run out before you got money to buy more?: Never true Do you have trouble paying for medicines?: No Do you have trouble getting transportation to medical appointments?: No Do you have trouble paying your heating and electricity bill?: No Do you have trouble taking care of your child, family member or friend?: No Do you have trouble with day-to-day activities such as bathing, preparing meals, shopping, managing finances, etc.?: No Are you currently unemployed and looking for a job?: No Are you interested in more education?: No Please select the resources that you would like help with: None Currently or been in a relationship where the following occur: No concerns reported THRIVE Score: 0 AUDIT C Alcohol Use Questionnaire (AUDIT-C) 1. How often do you have a drink containing alcohol?: Never 3. How often do you have six or more drinks on one occasion?: Never Total Score: 0 Score Reviewed/Action Taken: Yes CAREY-7 AMB Questionnaire CAREY-7 Date CAREY - 7 assessed: 10/27/24 Feeling nervous, anxious, or on edge: 0 = Not at all Not being able to stop or control worryin = Not at all Worrying too much about different things: 0 = Not at all Trouble relaxin = Not at all Being so restless that it is hard to sit still: 0 = Not at all Becoming easily annoyed or irritable: 0 = Not at all Feeling afraid as if something awful might happen: 0 = Not at all Total CAREY-7 score (0-4 normal; 5-9 mild; 10-14 moderate; 15-21 severe): 0 Source: Developed by Drs. Edu Will, Brittanie Salgado, Yogesh Copeland and colleagues, with an educational celina from [employer]. Review of Systems Const Denies chills, Denies fatigue, Denies fever(s) and Denies headache(s) ENT Denies dysphagia, Denies dizziness, Denies otalgia, Denies headache(s), Denies neck pain, Denies odynophagia and Denies sore throat Card Denies chest pain, Denies palpitations and Denies dyspnea Resp Denies cough and Denies dyspnea GI Denies abdominal pain, Denies constipation, Denies dysphagia, Denies heartburn, Denies diarrhea, Denies nausea, Denies odynophagia and Denies vomiting Denies dysuria, Denies nocturia and Denies urinary frequency Musc Denies back pain, Reports arthralgias (on and off in both knees) and Denies neck pain Skin/Breast Denies rash Neuro Denies dizziness and Denies headache(s) Endo Denies fatigue and Denies palpitations Physical exam (Primary Care) Vital Signs: Last Vital Signs Pulse 72 10/27/24 14:07 BP 120/62 10/27/24 14:07 Pulse Ox 99 10/27/24 14:07 Oxygen Delivery Method Room Air 10/27/24 14:07 BMI result Body Mass Index 34.4 Tobacco/Smoking Status: Tobacco use Status Tobacco use date assessed 10/27/24 10/27/24 14:11 Patient Tobacco Use Status Former Tobacco user 10/27/24 14:11 Tobacco use type Cigarette 10/27/24 14:11 e-Cigarette/Vaping Use Never Used 10/27/24 14:11 PHQ-9: PHQ-9 Score PHQ-9: Total score 10 10/27/24 14:11 Depression Screening Interpretation: Negative (on Rx) Thrive Assessment: Date of Thrive Assessment Date Thrive assessed 10/27/24 10/27/24 14:11 Currently or been in a relationship where the following occur: No concerns reported Const General: no acute distress and alert HENMT Ears: TM's normal bilaterally and EAC's normal Throat: Yes posterior oropharynx normal and Yes tonsils normal (no TP congestion noted) Neck Neck: Yes supple and No lymphadenopathy Thyroid: Thyroid normal Resp Auscultation: clear to auscultation bilaterally, no rales and no wheezes Cardio Rate: regular rate Rhythm: abnormal rhythm with ectopic beats Heart sounds: no murmurs GI Palpation (GI): Soft to palpation and nontender Auscultation: normal bowel sounds General: Yes no CVA tenderness Back/Spine/Pelvis Back: no CVA tenderness Skin Rashes: no rashes Extrem General: Yes no clubbing, cyanosis or edema Left upper extremity: shoulder/upper arm Details: tenderness (mild) Location: of the A-C joint Left lower extremity: knee Details: tenderness; no swelling and foot Details: tenderness Location: of the dorsal foot and no edema Results Reviewed Results Reviewed: Laboratory Tests 10/24/24 07:11 WBC 7.4 Hgb 12.1 L Hct 38.9 L Plt Count 237 Sodium 138 Potassium 4.3 Creatinine 0.93 Estimated GFR > 60 Fasting Glucose 117 H Hemoglobin A1c % 6.5 H Calcium 9.2 AST 28 ALT 30 Triglycerides 45 Cholesterol 125 LDL Cholesterol, Calc 45 HDL Cholesterol 71 Coding Level of Care Code Est Pt Level 4 (29319) Diagnoses Type 2 diabetes mellitus without complication, without long-term current use of insulin E11.9 Diabetes mellitus type: type 2 Diabetes mellitus correction insulin use: without tank terminal gauger use Diabetes mellitus complication status: without complication Hypertriglyceridemia E78.1 Benign essential hypertension I10 Cardiomyopathy, unspecified type I42.9 Cardiomyopathy type: unspecified Vitamin D deficiency E55.9 Primary osteoarthritis of left shoulder M19.012 Primary osteoarthritis of knee, unspecified laterality M17.10 Osteoarthritis type: primary Laterality: unspecified laterality Allergic rhinitis, unspecified seasonality, unspecified trigger J30.9 Allergic rhinitis trigger: unspecified Allergic rhinitis seasonality: unspecified Erectile dysfunction, unspecified erectile dysfunction type N52.9 Erectile dysfunction type: unspecified Benign prostatic hyperplasia, unspecified whether lower urinary tract symptoms present N40.0 Lower urinary tract symptom presence: unspecified whether lower urinary tract symptoms present Obesity (BMI 30-39.9) E66.9 Additional Codes PHQ-9 - 69306 - PHQ-9 Billing: Yes ([id number]) Assessment & Plan Assessment & Plan (1) Diabetes mellitus: Code(s): E11.9 - Type 2 diabetes mellitus without complications Category: Medical Qualifiers: Diabetes mellitus type: type 2 Diabetes mellitus correction insulin use: without tank terminal gauger use Diabetes mellitus complication status: without complicati on Qualified Code(s): E11.9 - Type 2 diabetes mellitus without complications Plan: His HgbA1c was at 6.5% on his recent labs; was previously also at 6.5% back on 05/10/2024 - goal is <7.0% Reinforced diabetic diet Continue Glipizide ER 10 mg QD, Metformin 1000 mg BID and Piogitazone 30 mg QD - he is being switched back from Tradjenta to Januvia 100 mg QD as Tradjenta is no longer covered by his insurance Will also refer him to Dr. Fernandez at [facility] for his annual diabetic foot exam - he used to see Dr. Sorensen, who last May 2024 (2) Hypertriglyceridemia: Code(s): E78.1 - Pure hyperglyceridemia Category: Medical Plan: Results of his labs done a few days ago reviewed and discussed with patient Reinforced low cholesterol diet Continue Atorvastatin 20 mg QD Will recheck his labs and fasting lipids in 4 months for follow-up (3) Benign essential hypertension: Code(s): I10 - Essential (primary) hypertension Category: Medical Plan: Reinforced low-sodium diet - goal is systolic BP of at least 130 to 140 mm or less Continue Losartan 50 mg QD (4) Cardiomyopathy: Code(s): I42.9 - Cardiomyopathy, unspecified Category: Medical Qualifiers: Cardiomyopathy type: unspecified Qualified Code(s): I42.9 - Cardiomyopathy, unspecified Plan: EF was incidentally noted to be at 15-20% on echocardiogram; patient was clinically not in heart failure as he denied any symptoms or shortness of breath, easy fatigability or edema at the time 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 placed by cardiology on 11/23/2021 Most recent echocardiogram done in August 2022 showed (+) significant improvement of his cardiac function - there is normal left ventricular wall thickness;?the left ventricular systolic function is borderline reduced and?the visually estimated ejection fraction is between 45-50% Follow up with cardiology as scheduled (5) Vitamin D deficiency: Code(s): E55.9 - Vitamin D deficiency, unspecified Category: Medical Plan: Continue Vitamin D3 1000 units QD (6) Primary osteoarthritis of left shoulder: Code(s): M19.012 - Primary osteoarthritis, left shoulder Category: Medical Plan: X-rays of the left shoulder done a couple of years ago showed (+) OA changes Patient is encouraged to continue with regular shoulder exercises to help manage his symptoms Follow-up with Orthopedics as scheduled (7) Osteoarthritis of knee: Code(s): M17.10 - Unilateral primary osteoarthritis, unspecified knee Category: Medical Qualifiers: Osteoarthritis type: primary Laterality: unspecified laterality Qualified Code(s): M17.10 - Unilateral primary osteoarthritis, unspecified knee Plan: Continue Ibuprofen 400 mg 3 times a day as needed and Tramadol 50 mg TID PRN for symptomatic relief (8) Allergic rhinitis: Code(s): J30.9 - Allergic rhinitis, unspecified Category: Medical Qualifiers: Allergic rhinitis trigger: unspecified Allergic rhinitis seasonality: unspecified Qualified Code(s): J30.9 - Allergic rhinitis, unspecified Plan: Continue Loratadine 10 mg QD PRN (9) Erectile dysfunction: Code(s): N52.9 - Male erectile dysfunction, unspecified Category: Medical Qualifiers: Erectile dysfunction type: unspecified Qualified Code(s): N52.9 - Male erectile dysfunction, unspecified Plan: Continue Sildenafil 50 mg QD PRN as instructed (10) Benign prostatic hyperplasia: Code(s): N40.0 - Benign prostatic hyperplasia without lower urinary tract symptoms Category: Medical Qualifiers: Lower urinary tract symptom presence: unspecified whether lower urinary tract symptoms present Qualified Code(s): N40.0 - Benign prostatic hyperplasia without lower urinary tract symptoms Plan: Continue Tamsulosin 0.4 mg Q HS Follow-up with urology as scheduled (11) Obesity (BMI 30-39.9): Code(s): E66.9 - Obesity, unspecified Category: Medical Plan: Reinforced diet/ exercise as tolerated/ lose weight Plan Follow up in 4 months Orders: Orders Hemoglobin A1c 4 Months E11.9 - Type 2 diabetes mellitus without complications Comprehensive [place]. Panel Fast 4 Months E78.00 - Pure hypercholesterolemia, unspecified Lipid Panel 4 Months E78.00 - Pure hypercholesterolemia, unspecified UA CC w/rflx Micro + Cult 4 Months R30.0 - Dysuria Vitamin B12 and Folate 4 Months E53.8 - Deficiency of other specified B group vitamins Complete Blood Count Auto Diff 4 Months D64.9 - Anemia, unspecified Microalbumin, Random (w Creat) 4 Months E11.9 - Type 2 diabetes mellitus without complications TSH reflex Free T4 4 Months E78.00 - Pure hypercholesterolemia, unspecified Vitamin D 25-OH Total 4 Months E55.9 - Vitamin D deficiency, unspecified Referrals Podiatry Referral E11.9 - Type 2 diabetes mellitus without complications Medications: New Januvia (sitagliptin phosphate) 100 mg PO DAILY 90 days 90 tabs 1RF NS Discontinued Tradjenta (linagliptin) Discontinued Reason: Insurance Denied 5 mg PO DAILY 90 tabs 3RF NS
== END 2024-10-27 14:41 | disposition home or self-care (01) ==
PROVIDERS: PCP Internal Medicine; Visit Provider Internal Medicine
DX: E11.9 Type 2 diabetes mellitus without complications (principal); I42.9 Cardiomyopathy, unspecified; E66.9 Obesity, unspecified; Z68.34 Body mass index [BMI] 34.0-34.9, adult; E78.1 Pure hyperglyceridemia; I10 Essential (primary) hypertension; E55.9 Vitamin D deficiency, unspecified; M19.012 Primary osteoarthritis, left shoulder; M17.10 Unilateral primary osteoarthritis, unspecified knee; J30.9 Allergic rhinitis, unspecified; N52.9 Male erectile dysfunction, unspecified; N40.0 Benign prostatic hyperplasia without lower urinary tract symptoms

== ENCOUNTER → 2024-10-27 14:06 | Outpatient (BNVA) | payer MEDICARE, MEDICAID, SELFPAY | PROVIDERS: PCP Internal Medicine; Visit Provider Internal Medicine | DX: E11.9 Type 2 diabetes mellitus without complications (principal); E78.1 Pure hyperglyceridemia; I10 Essential (primary) hypertension; I42.9 Cardiomyopathy, unspecified; E55.9 Vitamin D deficiency, unspecified; M19.012 Primary osteoarthritis, left shoulder; M17.10 Unilateral primary osteoarthritis, unspecified knee; J30.9 Allergic rhinitis, unspecified; N52.9 Male erectile dysfunction, unspecified; N40.0 Benign prostatic hyperplasia without lower urinary tract symptoms; E66.9 Obesity, unspecified; Z68.34 Body mass index [BMI] 34.0-34.9, adult; Z71.3 Dietary counseling and surveillance | CPT/HCPCS: 96127; 99212 ==

== ENCOUNTER → 2024-11-16 23:59 | Outpatient (BNV) | payer MEDICARE, MEDICAID, SELFPAY ==
--- NOTE | 2024-12-03 08:54 | MHC.OFFVIS ---
Intake Visit Reasons: Remote HF monitoring- [employer] Allergies amoxicillin [AMOXICILLIN] Allergy (Intermediate, Verified 10/27/24 14:23) Rash clindamycin [Clindamycin] Allergy (Intermediate, Verified 10/27/24 14:23) RASH Sulfa (Sulfonamide Antibiotics) Allergy (Intermediate, Verified 10/27/24 14:23) RASH ibuprofen [From Motrin] Adverse Reaction (Intermediate, Verified 10/27/24 14:23) Gastrointestinal Upset PFSH Medical History Hx of TB skin testing History of macular degeneration Cardiomyopathy Cardiac arrhythmia, unspecified COVID-19 vaccine series completed BPH associated with nocturia Obesity (BMI 30-39.9) Carpal tunnel syndrome on both sides Benign prostatic hyperplasia Erectile dysfunction Allergic rhinitis Primary osteoarthritis of left shoulder Osteoarthritis of knee Vitamin D deficiency Hypertriglyceridemia Benign essential hypertension Diabetes mellitus Arthritis Diabetes History of BPH Surgical History History of implantable cardioverter-defibrillator (ICD) insertion Status post cardiac catheterization H/O cardiac catheterization History of bilateral cataract extraction History of colonoscopy History of transurethral resection of prostate Family History Father Diabetes Mother Kidney problem Sister Asthma Hypertension Social History Housing: Apartment Are you a primary patient care manager to a significant other at home: No Do you presently have visiting nurse or other home services: No Alcohol intake: never Patient Tobacco Use Status: Former Tobacco user Tobacco use type: Cigarette e-Cigarette/Vaping Use: Never Used Second Hand Smoke Exposure: Yes service: No Current occupational status: employed Cognitive needs: No Hearing needs: No Vision needs: Yes (glasses) Office Procedures Cardiac Device Check Cardiac Device Check Details: Heart failure monitoring. V pacing 99.2%. Stable thoracic impedance. [id number] Cardiac Device Interrogation, cardio physiologic monitor Procedure code (CPT) selection complete Assessment & Plan Assessment & Plan (1) Cardiomyopathy: Code(s): I42.9 - Cardiomyopathy, unspecified Category: Medical Qualifiers: Cardiomyopathy type: unspecified Qualified Code(s): I42.9 - Cardiomyopathy, unspecified Plan Coding Level of Care Code Procedure Only Diagnoses Cardiomyopathy, unspecified type I42.9 Cardiomyopathy type: unspecified CPT Codes Cardiac Device Check - Cardiac Device 15: [id number] Cardiac Device Interrogation, cardio physiologic monitor ([id number])
== END ==
PROVIDERS: PCP Internal Medicine; Visit Provider Internal Medicine Cardiovascular Disease
DX: I42.9 Cardiomyopathy, unspecified (principal); Z95.810 Presence of automatic (implantable) cardiac defibrillator
CPT/HCPCS: 93297

== ENCOUNTER → 2024-12-17 23:59 | Outpatient (BNV) | payer MEDICARE, MEDICAID, SELFPAY ==
--- NOTE | 2025-01-04 21:27 | MHC.OFFVIS ---
Intake Visit Reasons: Remote HF monitoring- [employer] Allergies amoxicillin [AMOXICILLIN] Allergy (Intermediate, Verified 10/27/24 14:23) Rash clindamycin [Clindamycin] Allergy (Intermediate, Verified 10/27/24 14:23) RASH Sulfa (Sulfonamide Antibiotics) Allergy (Intermediate, Verified 10/27/24 14:23) RASH ibuprofen [From Motrin] Adverse Reaction (Intermediate, Verified 10/27/24 14:23) Gastrointestinal Upset PFSH Medical History Hx of TB skin testing History of macular degeneration Cardiomyopathy Cardiac arrhythmia, unspecified COVID-19 vaccine series completed BPH associated with nocturia Obesity (BMI 30-39.9) Carpal tunnel syndrome on both sides Benign prostatic hyperplasia Erectile dysfunction Allergic rhinitis Primary osteoarthritis of left shoulder Osteoarthritis of knee Vitamin D deficiency Hypertriglyceridemia Benign essential hypertension Diabetes mellitus Arthritis Diabetes History of BPH Surgical History History of implantable cardioverter-defibrillator (ICD) insertion Status post cardiac catheterization H/O cardiac catheterization History of bilateral cataract extraction History of colonoscopy History of transurethral resection of prostate Family History Father Diabetes Mother Kidney problem Sister Asthma Hypertension Social History Housing: Apartment Are you a primary child care lead teacher to a significant other at home: No Do you presently have visiting nurse or other home services: No Alcohol intake: never Patient Tobacco Use Status: Former Tobacco user Tobacco use type: Cigarette e-Cigarette/Vaping Use: Never Used Second Hand Smoke Exposure: Yes service: No Current occupational status: employed Cognitive needs: No Hearing needs: No Vision needs: Yes (glasses) Office Procedures Cardiac Device Check Cardiac Device Check Details: DIRECTOR OF STRATEGIC COMMUNICATIONS-D HF monitoring Stable thoracic impedance. [id number] Cardiac Device Interrogation, cardio physiologic monitor Procedure code (CPT) selection complete Assessment & Plan Assessment & Plan (1) Cardiomyopathy: Code(s): I42.9 - Cardiomyopathy, unspecified Category: Medical Qualifiers: Cardiomyopathy type: unspecified Qualified Code(s): I42.9 - Cardiomyopathy, unspecified Plan: Coding Level of Care Code Procedure Only Diagnoses Cardiomyopathy, unspecified type I42.9 Cardiomyopathy type: unspecified CPT Codes Cardiac Device Check - Cardiac Device 15: [id number] Cardiac Device Interrogation, cardio physiologic monitor ([id number])
== END ==
PROVIDERS: PCP Internal Medicine; Visit Provider Internal Medicine Cardiovascular Disease
DX: I42.9 Cardiomyopathy, unspecified (principal); Z95.810 Presence of automatic (implantable) cardiac defibrillator
CPT/HCPCS: 93297

== ENCOUNTER → 2025-01-17 23:59 | Outpatient (BNV) | payer MEDICARE, MEDICAID, SELFPAY ==
--- NOTE | 2025-02-20 10:29 | MHC.OFFVIS ---
Intake Visit Reasons: Remote ICD check- Medtronic Allergies amoxicillin [AMOXICILLIN] Allergy (Intermediate, Verified 02/19/25 07:01) Rash clindamycin [Clindamycin] Allergy (Intermediate, Verified 02/19/25 07:01) RASH Sulfa (Sulfonamide Antibiotics) Allergy (Intermediate, Verified 02/19/25 07:01) RASH ibuprofen [From Motrin] Adverse Reaction (Intermediate, Verified 02/19/25 07:01) Gastrointestinal Upset PFSH Medical History Hx of TB skin testing History of macular degeneration Cardiomyopathy Cardiac arrhythmia, unspecified COVID-19 vaccine series completed BPH associated with nocturia Obesity (BMI 30-39.9) Carpal tunnel syndrome on both sides Benign prostatic hyperplasia Erectile dysfunction Allergic rhinitis Primary osteoarthritis of left shoulder Osteoarthritis of knee Vitamin D deficiency Hypertriglyceridemia Benign essential hypertension Diabetes mellitus Arthritis Diabetes History of BPH Surgical History History of implantable cardioverter-defibrillator (ICD) insertion Status post cardiac catheterization H/O cardiac catheterization History of bilateral cataract extraction History of colonoscopy History of transurethral resection of prostate Family History Father Diabetes Mother Kidney problem Sister Asthma Hypertension Social History Housing: Apartment Are you a primary critical care physician to a significant other at home: No Do you presently have visiting nurse or other home services: No Alcohol intake: never Patient Tobacco Use Status: Former Tobacco user Tobacco use type: Cigarette e-Cigarette/Vaping Use: Never Used Second Hand Smoke Exposure: Yes service: No Current occupational status: employed Cognitive needs: No Hearing needs: No Vision needs: Yes (glasses) Office Procedures Cardiac Device Check Cardiac Device Check Details: 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 [id number] Cardiac Device Interrogation, pacemaker or defibrillator Procedure code (CPT) selection complete Assessment & Plan Assessment & Plan (1) Cardiomyopathy: Code(s): I42.9 - Cardiomyopathy, unspecified Category: Medical Qualifiers: Cardiomyopathy type: unspecified Qualified Code(s): I42.9 - Cardiomyopathy, unspecified Plan Coding Level of Care Code Procedure Only Diagnoses Cardiomyopathy, unspecified type I42.9 Cardiomyopathy type: unspecified CPT Codes Cardiac Device Check - Cardiac Device 14: [id number] Cardiac Device Interrogation, pacemaker or defibrillator ([id number])
== END ==
PROVIDERS: PCP Internal Medicine; Visit Provider Internal Medicine Cardiovascular Disease
DX: I42.9 Cardiomyopathy, unspecified (principal); Z95.810 Presence of automatic (implantable) cardiac defibrillator
CPT/HCPCS: 93295

== ENCOUNTER → 2025-01-17 23:59 | Outpatient (BNV) | payer MEDICARE, MEDICAID, SELFPAY ==
--- NOTE | 2025-02-20 10:25 | A.OFFVIS_ITS ---
Intake Visit Reasons: Remote HF monitoring- [employer] Allergies amoxicillin [AMOXICILLIN] Allergy (Intermediate, Verified 02/19/25 07:01) Rash clindamycin [Clindamycin] Allergy (Intermediate, Verified 02/19/25 07:01) RASH Sulfa (Sulfonamide Antibiotics) Allergy (Intermediate, Verified 02/19/25 07:01) RASH ibuprofen [From Motrin] Adverse Reaction (Intermediate, Verified 02/19/25 07:01) Gastrointestinal Upset PFSH Medical History Hx of TB skin testing History of macular degeneration Cardiomyopathy Cardiac arrhythmia, unspecified COVID-19 vaccine series completed BPH associated with nocturia Obesity (BMI 30-39.9) Carpal tunnel syndrome on both sides Benign prostatic hyperplasia Erectile dysfunction Allergic rhinitis Primary osteoarthritis of left shoulder Osteoarthritis of knee Vitamin D deficiency Hypertriglyceridemia Benign essential hypertension Diabetes mellitus Arthritis Diabetes History of BPH Surgical History History of implantable cardioverter-defibrillator (ICD) insertion Status post cardiac catheterization H/O cardiac catheterization History of bilateral cataract extraction History of colonoscopy History of transurethral resection of prostate Family History Father Diabetes Mother Kidney problem Sister Asthma Hypertension Social History Housing: Apartment Are you a primary intensive care unit registered nurse to a significant other at home: No Do you presently have visiting nurse or other home services: No Alcohol intake: never Patient Tobacco Use Status: Former Tobacco user Tobacco use type: Cigarette e-Cigarette/Vaping Use: Never Used Second Hand Smoke Exposure: Yes service: No Current occupational status: employed Cognitive needs: No Hearing needs: No Vision needs: Yes (glasses) Office Procedures Cardiac Device Check Cardiac Device Check Details: HF monitoring Thoracic impedance is stable. [id number] Cardiac Device Interrogation, cardio physiologic monitor Procedure code (CPT) selection complete Assessment & Plan Assessment & Plan (1) Cardiomyopathy: Code(s): I42.9 - Cardiomyopathy, unspecified Category: Medical Qualifiers: Cardiomyopathy type: unspecified Qualified Code(s): I42.9 - Cardiomyopathy, unspecified Plan Coding Level of Care Code Procedure Only Diagnoses Cardiomyopathy, unspecified type I42.9 Cardiomyopathy type: unspecified CPT Codes Cardiac Device Check - Cardiac Device 15: [id number] Cardiac Device Interrogation, cardio physiologic monitor ([id number])
== END ==
PROVIDERS: PCP Internal Medicine; Visit Provider Internal Medicine Cardiovascular Disease
DX: I42.9 Cardiomyopathy, unspecified (principal); Z95.810 Presence of automatic (implantable) cardiac defibrillator
CPT/HCPCS: 93297

== ENCOUNTER 2025-01-19 15:16 | Outpatient (AMB) | payer MEDICARE, MEDICAID, SELFPAY ==
--- OUTSIDE RECORDS SUMMARY | 2025-01-19 15:20 | XMS_ITS | Clinical Summary ---
Author Organization 175 [facility] Address [address] [place] [address] Phone Care Team Providers Care Pharmacy Retail Support Specialist Name Role Phone Alphonse Senior MD Primary Care Provider [phone] Social History Tobacco Use Types Packs/Day Years Used Date Smoking Tobacco: Never Assessed Sex and Gender Information Value Date Recorded Sex Assigned at Not on file Legal Sex Male 10:01 PM EST Gender Identity Not on file Sexual Orientation Not on file Plan of Treatment Upcoming Encounters Date Type Department Care Team ([facility] Contact Info) Description 02/11/2025 10:15 AM EDT Office Visit Orthopedic Surgery [place] [phone] [phone] Jamel Blas, DPM [address] [address] Health Maintenance Due Date Last Done Comments [...] Insurance MEDICARE MEDICAID - [place] Care Teams Pharmacy Retail Support Specialist Relationship Specialty Start Date End Date Alphonse Senior MD [address] [place] [address] [place] [address] PCP - General Internal Medicine 11/10/24
--- NOTE | 2025-01-19 15:49 | MHC.OFFVIS ---
Vital Signs 01/19/25 15:50 Height 5 ft 5 in Weight 210 lb 5.136 oz BMI 35.0 BP 130/62 Blood Pressure Location Lt brachial Position Sitting Pulse 79 Pulse Source Monitor Intake Visit Reasons: r/s 6 mth f/up Intake Note: 6 mth f/up Transmission And Coordination Engineer Required: No Accompanied by: Self / Same As Patient Allergies amoxicillin [AMOXICILLIN] Allergy (Intermediate, Verified 10/27/24 14:23) Rash clindamycin [Clindamycin] Allergy (Intermediate, Verified 10/27/24 14:23) RASH Sulfa (Sulfonamide Antibiotics) Allergy (Intermediate, Verified 10/27/24 14:23) RASH ibuprofen [From Motrin] Adverse Reaction (Intermediate, Verified 10/27/24 14:23) Gastrointestinal Upset Medication List - Last Reconciled 01/19/25 by Jairo Lua MD aspirin 81 mg PO DAILY atorvastatin 20 mg PO BEDTIME carvedilol 12.5 mg PO BID 90 days cholecalciferol (vitamin D3) (Vitamin D3) 25 mcg PO DAILY flash glucose scanning reader (Brandtone Zofia 14 Day [place]) As directed flash glucose sensor (FreeStyle Zofia 14 Day Sensor kit) 1 ea topical DIRECTED glipizide ER 10 mg PO DAILY 90 days Januvia (sitagliptin phosphate) 100 mg PO DAILY 90 days NS loratadine 10 mg PO DAILY PRN 90 days losartan 50 mg PO DAILY metformin 1,000 mg PO BID 90 days pioglitazone 30 mg PO DAILY sodium,potassium,mag sulfates 17.5-3.13-1.6 gram (Suprep Bowel Prep Kit) DILUTE; drink 1/2 at 6-8 pm and half at 11 PM- 1AM tamsulosin 0.4 mg PO BEDTIME 90 days tramadol 50 mg PO BID-TID PRN HPI Comments Details: 74-year-old gentleman who has a background history of hypertension and diabetes who is presenting for new diagnosis of cardiomyopathy on echocardiography. He said he saw his primary care physician and underwent echocardiography. Echocardiography showed EF of 15-20%. He is denying any chest discomfort shortness of breath. No orthopnea PND. No significant peripheral edema. He underwent cardiac catheterization which did not show any significant coronary disease. He was referred for Bi V pacing. Underwent JOURNEYMAN CARPENTER D with left bundle-branch pacing by Dr Zhou. Repeat echocardiography showed ejection fraction of 45-50%. Continues to be asymptomatic. No chest discomfort shortness of breath. Not in heart failure clinically. Blood pressure control is good. 08/29/2023: He returns for follow-up. He has been doing well. No chest pain or shortness of breath. He is asking whether pioglitazone is safe for him to use. He has known history of cardiomyopathy and pioglitazone can lead to fluid buildup. He is saying he has not been taking it since the pharmacist told him not to take it. He will discuss this with his primary care physician. 03/10/24: He is here for follow-up. He has been doing well. No chest pain or shortness of breath. Taking medications regularly. He is saying that he has been laid off from his job and has not been as active as before. 01/19/2025: he is here for follow-up. He is denying chest pain or shortness of breath. Taking medications regularly. [facility] Medical History Hx of TB skin testing History of macular degeneration Cardiomyopathy Cardiac arrhythmia, unspecified COVID-19 vaccine series completed BPH associated with nocturia Obesity (BMI 30-39.9) Carpal tunnel syndrome on both sides Benign prostatic hyperplasia Erectile dysfunction Allergic rhinitis Primary osteoarthritis of left shoulder Osteoarthritis of knee Vitamin D deficiency Hypertriglyceridemia Benign essential hypertension Diabetes mellitus Arthritis Diabetes History of BPH Surgical History History of implantable cardioverter-defibrillator (ICD) insertion Status post cardiac catheterization H/O cardiac catheterization History of bilateral cataract extraction History of colonoscopy History of transurethral resection of prostate Family History Father Diabetes Mother Kidney problem Sister Asthma Hypertension Social History Housing: Apartment Are you a primary career development consultant to a significant other at home: No Do you presently have visiting nurse or other home services: No Alcohol intake: never Patient Tobacco Use Status: Former Tobacco user Tobacco use type: Cigarette e-Cigarette/Vaping Use: Never Used Second Hand Smoke Exposure: Yes service: No Current occupational status: employed Cognitive needs: No Hearing needs: No Vision needs: Yes (glasses) Review of Systems Const Denies chills, Denies fatigue, Denies fever(s), Denies frequent falls, Denies weakness, Denies weight gain and Denies weight loss ENT Denies dizziness Card Denies chest pain, Denies leg edema, Denies lightheadedness, Denies palpitations, Denies dyspnea and Denies dyspnea on exertion Resp Denies cough, Denies dyspnea and Denies dyspnea on exertion GI Denies hematochezia Musc Denies abnormal gait, Denies muscle weakness, Denies numbness, Denies radiating pain into limb and Denies tingling Neuro Denies abnormal gait, Denies dizziness, Denies frequent falls, Denies numbness, Denies tingling and Denies weakness Endo Denies fatigue and Denies palpitations Physical Exam Vital Signs: Last Vital Signs Pulse 79 01/19/25 15:50 BP 130/62 01/19/25 15:50 BMI result Body Mass Index 35.0 GENERAL APPEARANCE: in no acute distress, pleasant. NECK: no carotid bruit, no jugular venous distention. SKIN: no suspicious lesions, warm and dry. HEART: no murmurs, regular rate and rhythm. LUNGS: clear to auscultation bilaterally. ABDOMEN: soft, nontender. EXTREMITIES: no edema. PERIPHERAL PULSES: equal. NEUROLOGIC: No gross deficits, AAO X 3 Office Procedures EKG Details: Sinus rhythm 79 beats per minute, rightward axis, can not rule out anteroseptal infarct, QTC 431 milliseconds. [id number], Complete Assessment & Plan Assessment & Plan (1) Cardiomyopathy: Code(s): I42.9 - Cardiomyopathy, unspecified Category: Medical Qualifiers: Cardiomyopathy type: unspecified Qualified Code(s): I42.9 - Cardiomyopathy, unspecified Plan [age] gentleman with left bundle-branch block and left bundle-branch block cardiomyopathy. He underwent JOURNEYMAN CARPENTER D and had improvement in ejection fraction significantly. Clinically did not develop any congestive heart failure and continues to be NYHA class 1. Blood pressure well controlled. Overall doing well. Same medications for now. Follow up with us in 4 months. Thank you for allowing me to participate in the care of your patient. Please feel free to contact me if you have any questions. Coding Level of Care Code Est Pt Level 4 (34514) Diagnoses Cardiomyopathy, unspecified type I42.9 Cardiomyopathy type: unspecified CPT Codes EKG - CPT: 54203-[id number], Complete ([id number])
[2025-01-19 15:50] VITALS: BP 130/62; PULSE 79; BMI 35.0
== END 2025-01-19 16:15 | disposition home or self-care (01) ==
LOC: HO.HCS 15:17
PROVIDERS: PCP Internal Medicine; Visit Provider Internal Medicine Cardiovascular Disease
DX: I42.9 Cardiomyopathy, unspecified (principal)
CPT/HCPCS: 93010; 99214

== ENCOUNTER → 2025-01-19 15:16 | Outpatient (BNVA) | payer MEDICARE, MEDICAID, SELFPAY | PROVIDERS: PCP Internal Medicine; Visit Provider Internal Medicine Cardiovascular Disease | DX: I10 Essential (primary) hypertension (principal); I42.9 Cardiomyopathy, unspecified; I44.7 Left bundle-branch block, unspecified; Z87.891 Personal history of nicotine dependence | CPT/HCPCS: 93005; 99212 ==

== ENCOUNTER 2025-02-17 06:07 | Outpatient (REF) | payer MEDICARE, MEDICAID, SELFPAY ==
--- OUTSIDE RECORDS SUMMARY | 2025-02-17 06:10 | XMS_ITS | Clinical Summary ---
Author Organization 175 [facility] Address [address] [place] [address] Phone Care Team Providers Care Defensive Secondary Coach Name Role Phone Alphonse Senior MD Primary Care Provider Social History Tobacco Use Types Packs/Day Years Used Date Smoking Tobacco: Never Assessed Sex and Gender Information Value Date Recorded Sex Assigned at Not on file Legal Sex Male 10:01 PM EST Gender Identity Not on file Sexual Orientation Not on file Plan of Treatment Upcoming Encounters Date Type Department Care Team ([facility] Contact Info) Description 04/13/2025 1:45 PM EDT Office Visit Orthopedic Surgery [place] [id number] [phone] Jamel Blas, DPM [address] [address] Health Maintenance Due Date Last Done Comments [...] Insurance MEDICARE [place] - [place] Care Teams Defensive Secondary Coach Relationship Specialty Start Date End Date Alphonse Senior MD [address] [place] [address] [place] [address] PCP - General Internal Medicine 11/10/24
[2025-02-17 06:23] LABS: MANUAL DIFF FLAG NO
[2025-02-17 07:16] LABS: Basophils Absolute Auto 0.1 X10*3/uL (0.0-0.2); Basophils Percent Auto 1.2 % (0-2); Eosinophils Absolute Auto 0.2 X10*3/uL (0.0-0.4); Eosinophils Percent Auto 2.3 % (0-4); Hematocrit 37.7 % (42.0-52.0); Hemoglobin 11.8 g/dl (14.0-18.0); Imm Gran Abs Auto 0.04 X10*3/uL (0.00-0.03); Imm Gran Pct Auto 0.6 % (0.0-0.4); Lymphocytes Absolute Auto 1.6 X10*3/uL (1.2-4.9); Lymphocytes Percent Auto 23.7 % (20-40); Mean Corpuscular HGB Conc 31.3 g/dl (31.0-36.0); Mean Corpuscular Hemoglobin 27.8 pg (27.0-33.0); Mean Corpuscular Volume 88.9 fL (80.0-98.0); Mean Platelet Volume 11.6 fL (9.4-12.4); Monocytes Absolute Auto 0.8 X10*3/uL (0.1-1.2); Monocytes Percent Auto 11.3 % (2-11); Neutrophils Absolute Auto 4.2 x10*3/uL (2.0-8.3); Neutrophils Percent Auto 60.9 % (45-73); Platelet Count 214 X10*3/uL (160-400); Red Blood Count 4.24 X10*6/uL (4.60-5.80); Red Cell Distribution Width 14.9 % (11.0-16.0); White Blood Count 6.9 X10*3/uL (4.8-10.8)
[2025-02-17 07:24] LABS: Estimated Average Glucose 137 mg/dL; Hemoglobin A1C 144.5098 umol/L; Hemoglobin A1c % 6.4 % (<6.0)
[2025-02-17 07:57] LABS: Alanine Aminotransferase 22 U/L (0-40); Albumin Level 4.3 g/dL (3.5-5.0); Alkaline Phosphatase 88 U/L (39-117); Anion Gap 12 (12-20); Aspartate Amino Transferase 25 U/L (5-37); Bilirubin Total 0.6 mg/dL (0.0-1.0); Blood Urea Nitrogen 12 mg/dL (9-16); Calcium 9.1 mg/dL (8.4-10.2); Carbon Dioxide 27 mmol/L (22-29); Chloride 107 mmol/L (96-108); Cholesterol 119 mg/dL (<200); Estimated Glomerular Filt Rate > 60; Glucose Fasting 107 mg/dL (60-99); HDL Cholesterol 65 mg/dL (>40); LDL Cholesterol Calculated 44 mg/dL (<100); Potassium 4.2 mmol/L (3.3-5.1); Sodium 142 mmol/L (135-145); Total Protein 6.9 g/dL (6.5-8.0); Triglycerides 50 mg/dL (<150)
[2025-02-17 08:02] LABS: TSH reflex Free T4 2.19 uIU/mL (0.32-4.0); Vitamin D 25-OH Total 45.2 ng/mL (>30)
[2025-02-17 08:18] LABS: Folate 14.7 ng/mL (> or = 4.0); Vitamin B12 249 pg/mL (200-900)
== END 2025-02-17 06:08 | disposition home or self-care (01) ==
LOC: HO.LAB 06:07
PROVIDERS: PCP Internal Medicine; Visit Provider Internal Medicine
DX: E11.9 Type 2 diabetes mellitus without complications (principal); E78.00 Pure hypercholesterolemia, unspecified; E53.8 Deficiency of other specified B group vitamins; D64.9 Anemia, unspecified; E55.9 Vitamin D deficiency, unspecified
CPT/HCPCS: 36415; 80053; 80061; 82306; 82607; 82746; 83036; 84443; 85025

== ENCOUNTER → 2025-02-17 23:59 | Outpatient (BNV) | payer MEDICARE, MEDICAID, SELFPAY ==
--- NOTE | 2025-02-20 10:50 | A.OFFVIS_ITS ---
Intake Visit Reasons: Remote HF monitoring- Medtronic Allergies amoxicillin [AMOXICILLIN] Allergy (Intermediate, Verified 02/19/25 07:01) Rash clindamycin [Clindamycin] Allergy (Intermediate, Verified 02/19/25 07:01) RASH Sulfa (Sulfonamide Antibiotics) Allergy (Intermediate, Verified 02/19/25 07:01) RASH ibuprofen [From Motrin] Adverse Reaction (Intermediate, Verified 02/19/25 07:01) Gastrointestinal Upset PFSH Medical History Hx of TB skin testing History of macular degeneration Cardiomyopathy Cardiac arrhythmia, unspecified COVID-19 vaccine series completed BPH associated with nocturia Obesity (BMI 30-39.9) Carpal tunnel syndrome on both sides Benign prostatic hyperplasia Erectile dysfunction Allergic rhinitis Primary osteoarthritis of left shoulder Osteoarthritis of knee Vitamin D deficiency Hypertriglyceridemia Benign essential hypertension Diabetes mellitus Arthritis Diabetes History of BPH Surgical History History of implantable cardioverter-defibrillator (ICD) insertion Status post cardiac catheterization H/O cardiac catheterization History of bilateral cataract extraction History of colonoscopy History of transurethral resection of prostate Family History Father Diabetes Mother Kidney problem Sister Asthma Hypertension Social History Housing: Apartment Are you a primary career services coordinator to a significant other at home: No Do you presently have visiting nurse or other home services: No Alcohol intake: never Patient Tobacco Use Status: Former Tobacco user Tobacco use type: Cigarette e-Cigarette/Vaping Use: Never Used Second Hand Smoke Exposure: Yes service: No Current occupational status: employed Cognitive needs: No Hearing needs: No Vision needs: Yes (glasses) Office Procedures Cardiac Device Check Cardiac Device Check Details: HF monitoring Stable thoracic impedance. [id number] Cardiac Device Interrogation, cardio physiologic monitor Procedure code (CPT) selection complete Assessment & Plan Assessment & Plan (1) Cardiomyopathy: Code(s): I42.9 - Cardiomyopathy, unspecified Category: Medical Qualifiers: Cardiomyopathy type: unspecified Qualified Code(s): I42.9 - Cardiomyopathy, unspecified Plan Coding Level of Care Code Procedure Only Diagnoses Cardiomyopathy, unspecified type I42.9 Cardiomyopathy type: unspecified CPT Codes Cardiac Device Check - Cardiac Device 15: [id number] Cardiac Device Interrogation, cardio physiologic monitor ([id number])
== END ==
PROVIDERS: PCP Internal Medicine; Visit Provider Internal Medicine Cardiovascular Disease
DX: I42.9 Cardiomyopathy, unspecified (principal); Z95.810 Presence of automatic (implantable) cardiac defibrillator
CPT/HCPCS: 93297

== ENCOUNTER 2025-02-18 07:52 | Outpatient (REF) | payer MEDICARE, MEDICAID, SELFPAY ==
[2025-02-18 08:00] LABS: Appearance Urine Clear; Color Urine Yellow; Glucose Urine UA Negative (Negative); Leukocyte Esterase Urine Negative (Negative); Nitrite Urine Negative (Negative); PH 7.5 (5.0-9.0); Specific Gravity - Urine 1.015 (1.005-1.025); Urine Blood Negative (Negative); Urine Ketones Negative (Negative); Urine Protein Negative (Neg-Trace)
[2025-02-18 09:09] LABS: Microalbumin Urine < 5.0 mg/L
== END 2025-02-18 07:53 | disposition home or self-care (01) ==
LOC: HO.LNP 07:52
PROVIDERS: Visit Provider Internal Medicine
DX: E11.9 Type 2 diabetes mellitus without complications (principal); R30.0 Dysuria
CPT/HCPCS: 81003; 82043; 82570

== ENCOUNTER 2025-02-19 05:55 | Day surgery (SDC) | payer MEDICARE, MEDICAID, SELFPAY ==
--- OUTSIDE RECORDS SUMMARY | 2025-01-09 07:47 | XMS_ITS | Clinical Summary ---
Author Organization [address] [facility] Address [address] [place] [address] Phone Care Team Providers Care Oxide Furnace Tender Name Role Phone Alphonse Senior MD Primary Care Provider Social History Tobacco Use Types Packs/Day Years Used Date Smoking Tobacco: Never Assessed Sex and Gender Information Value Date Recorded Sex Assigned at Not on file Legal Sex Male 10:01 PM EST Gender Identity Not on file Sexual Orientation Not on file Plan of Treatment Upcoming Encounters Date Type Department Care Team ([facility] Contact Info) Description 02/11/2025 10:15 AM EDT Office Visit Orthopedic Surgery [place] [id number] [phone] Jamel Blas, DPM [address] [address] Health Maintenance Due Date Last Done Comments Diabetes: Annual GFR (Glomer ular Filtration Rate) 1951 Diabetes: Annual Foot Exam 1961 Diabetes: Annual Retina Eye Exam 1961 DTaP,Tdap,and Td Vaccines (1 - Tdap) 1970 Pneumococcal Vaccine: 50+ Ye ars (1 of 2 - PCV) 1970 Zoster Vaccines (1 of 2) 2001 COVID-19 Vaccine (2023-2 5 season) 2024 Abdominal Aortic Aneurysm (A AA) Screen 10/04/2024 Cholesterol Screening (Lipid Panel) 10/04/2024 Colorectal Cancer Screening: Colonoscopy 10/04/2024 Depression Screening 10/04/2024 Falls Risk Assessment 10/04/2024 Hepatitis C Screening 10/04/2024 Medicare Annual Wellness Visit 10/04/2024 Social Influencers of Health Screening 10/04/2024 Diabetes: Annual Urine Albumin-Creatinine Ratio (uACR) 11/11/2024 Diabetes: Blood Sugar Contro l Test (HGBA1C) 11/11/2024 Influenza Vaccine (Season Ended) 2025 RSV Immunization Adult Patie nts (1 - 1-dose 75+ series) 2026 HIB Vaccines Aged Out No longer eligi ble based on patient's age to complete this topic HPV Vaccines Aged Out No longer eligi ble based on patient's age to complete this topic Hepatitis A Vaccines Aged Out No long er eligible based on patient's age to complete this topic Hepatitis B Vaccines Aged Out No long er eligible based on patient's age to complete this topic IPV Vaccines Aged Out No longer eligi ble based on patient's age to complete this topic MMR Vaccines Aged Out No longer eligi ble based on patient's age to complete this topic Meningococcal ACWY Vaccine Aged Out N o longer eligible based on patient's age to complete this topic Meningococcal B Vaccine Aged Out No l onger eligible based on patient's age to complete this topic RSV Immunization Patients Un mona 20 months Aged Out No longer eligible b ased on patient's age to complete this topic Varicella Vaccines Aged Out No longer eligible based on patient's age to complete this topic Insurance MEDICARE MEDICAID - [place] Care Teams Oxide Furnace Tender Relationship Specialty Start Date End Date Alphnose Senior MD [address] [place] [address] [place] [address] PCP - General Internal Medicine 11/10/24
[2025-02-17 15:01] VITALS: BMI 35.0
--- NOTE | 2025-02-18 10:50 | HO.ANESPROP2 ---
Documented by User: Carolyne Escudero NP 02/18/25 11:05 HPI - Anesthesia Eval Consult details Narrative: 74yo M for Colonoscopy [facility]. Last office visit 01/2025 cardiomyopathy secondary to left bundle-branch block.? He underwent AMMONIUM HYDROXIDE OPERATOR D and repeat echocardiography has shown improvement in EF to 45-50%.? Clinically he did not have heart failure before and continues to be euvolemic and compensated.? Anesthesia Pre-Procedure Meds Is the patient on any of the following meds?: GLP1/DPP4 PMFSH Active Problems Active Problems: All Active Problems Medicare annual wellness visit, subsequent (Acute) Tubulovillous adenoma (Acute) Left knee pain (Acute) Patellofemoral arthritis of left knee (Acute) Left bundle branch block (Acute) Adult general medical exam (Acute) Screening for colon cancer (Acute) Left foot pain (Acute) Status post cardiac catheterization (Acute) Cardiomyopathy (Acute) Cardiac arrhythmia, unspecified (Acute) BPH associated with nocturia (Acute) Obesity (BMI 30-39.9) (Acute) Benign prostatic hyperplasia (Acute) Erectile dysfunction (Acute) Allergic rhinitis (Acute) Primary osteoarthritis of left shoulder (Acute) Osteoarthritis of knee (Acute) Vitamin D deficiency (Acute) Hypertriglyceridemia (Acute) Benign essential hypertension (Acute) Diabetes mellitus (Acute) Past Medical History Medical History Hx of TB skin testing History of macular degeneration Cardiomyopathy Cardiac arrhythmia, unspecified COVID-19 vaccine series completed BPH associated with nocturia Obesity (BMI 30-39.9) Carpal tunnel syndrome on both sides Benign prostatic hyperplasia Erectile dysfunction Allergic rhinitis Primary osteoarthritis of left shoulder Osteoarthritis of knee Vitamin D deficiency Hypertriglyceridemia Benign essential hypertension Diabetes mellitus Arthritis Diabetes History of BPH Family History Family History Father Diabetes Mother Kidney problem Sister Asthma Hypertension Family history of problems with anesthesia: No Surgical History Surgical History History of implantable cardioverter-defibrillator (ICD) insertion Status post cardiac catheterization H/O cardiac catheterization History of bilateral cataract extraction History of colonoscopy History of transurethral resection of prostate History of Problems with Anesthesia: No Social History Social History Housing: Apartment Are you a primary child care giver to a significant other at home: No Do you presently have visiting nurse or other home services: No Alcohol intake: never Patient Tobacco Use Status: Former Tobacco user Tobacco use type: Cigarette Smoked in Last 30 Days: No e-Cigarette/Vaping Use: Never Used Second Hand Smoke Exposure: Yes Use of substances other than those prescribed or required for medical reasons: No Have you been hit, kicked, punched, or otherwise hurt by someone within the past year? If so, by whom?: No Are you DNR?: No Advance Directives: No Advance Directives Information Provided: Yes service: No Current occupational status: employed Cognitive needs: No Hearing needs: No Vision needs: Yes (glasses) Meds Allergies Allergy/AdvReac Type Severity Reaction Status Date / Time amoxicillin [AMOXICILLIN] Allergy Intermediate Rash Verified 02/19/25 07:01 clindamycin [Clindamycin] Allergy Intermediate RASH Verified 02/19/25 07:01 Sulfa (Sulfonamide Allergy Intermediate RASH Verified 02/19/25 07:01 Antibiotics) ibuprofen [From Motrin] AdvReac Intermediate Gastrointestinal Verified 02/19/25 07:01 Upset Home Medications ?Medication ?Instructions ?Recorded ?Confirmed ?Last Taken ?Type aspirin 81 mg tablet 81 mg PO DAILY 03/08/23 02/19/25 02/18/25 History Exam Height,Weight and Vital Signs: Height 5 ft 5 in Weight 95.396 kg Pertinent Lab Results Pertinent Lab Results: Laboratory Tests 02/17/25 06:22 WBC 6.9 Hgb 11.8 L Hct 37.7 L Plt Count 214 Sodium 142 Potassium 4.2 Chloride 107 Carbon Dioxide 27 BUN 12 Creatinine 1.04 Narrative Narrative: EKG 01/2025 EKG Details: Sinus rhythm 79 beats per minute, rightward axis, can not rule out anteroseptal infarct, QTC 431 milliseconds. [id number], Complete ECHO 2021 Conclusions: - There is normal left ventricular wall thickness. The left ventricular systolic function is borderline reduced. The visually estimated ejection fraction is between 45-50%. - LV size is at upper limit of normal. - Normal right ventricular cavity size and systolic function. - The right ventricular systolic pressure is 39 mmHg. Moderately elevated right atrial pressure. Mild pulmonary hypertension is present. - There is mild dilatation of the ascending aorta measuring 3.60 cm. Assessment and Plan Assessment Anesthesia Assessment: Chart Reviewed Final Anesthetic Review Family History of Problems with Anesthesia: No History of Problems with Anesthesia: No Documented by User: Valentín Dhillon MD 02/19/25 07:35 HPI - Anesthesia Eval Anesthesia Pre-Procedure Meds If yes to any meds - educate patient: Pt education - increased risk of aspiration and/or euvolemic DKA PMFSH Past Medical History Medical History Hx of TB skin testing History of macular degeneration Cardiomyopathy Cardiac arrhythmia, unspecified COVID-19 vaccine series completed BPH associated with nocturia Obesity (BMI 30-39.9) Carpal tunnel syndrome on both sides Benign prostatic hyperplasia Erectile dysfunction Allergic rhinitis Primary osteoarthritis of left shoulder Osteoarthritis of knee Vitamin D deficiency Hypertriglyceridemia Benign essential hypertension Diabetes mellitus Arthritis Diabetes History of BPH Family History Family History Father Diabetes Mother Kidney problem Sister Asthma Hypertension Surgical History Surgical History History of implantable cardioverter-defibrillator (ICD) insertion Status post cardiac catheterization H/O cardiac catheterization History of bilateral cataract extraction History of colonoscopy History of transurethral resection of prostate Social History Social History Housing: Apartment Are you a primary child care giver to a significant other at home: No Do you presently have visiting nurse or other home services: No Alcohol intake: never Patient Tobacco Use Status: Former Tobacco user Tobacco use type: Cigarette Smoked in Last 30 Days: No e-Cigarette/Vaping Use: Never Used Second Hand Smoke Exposure: Yes Use of substances other than those prescribed or required for medical reasons: No Have you been hit, kicked, punched, or otherwise hurt by someone within the past year? If so, by whom?: No Are you DNR?: No Advance Directives: No Advance Directives Information Provided: Yes service: No Current occupational status: employed Cognitive needs: No Hearing needs: No Vision needs: Yes (glasses) Meds Allergies Allergy/AdvReac Type Severity Reaction Status Date / Time amoxicillin [AMOXICILLIN] Allergy Intermediate Rash Verified 02/19/25 07:01 clindamycin [Clindamycin] Allergy Intermediate RASH Verified 02/19/25 07:01 Sulfa (Sulfonamide Allergy Intermediate RASH Verified 02/19/25 07:01 Antibiotics) ibuprofen [From Motrin] AdvReac Intermediate Gastrointestinal Verified 02/19/25 07:01 Upset Home Medications ?Medication ?Instructions ?Recorded ?Confirmed ?Last Taken ?Type aspirin 81 mg tablet 81 mg PO DAILY 03/08/23 02/19/25 02/18/25 History Exam Exam Date and Time: 02/19/2025 Airway Mallampati Class: II TM Dist: >3cm Neck ROM: Full Loose/Missing/Broken Teeth: No Heart: rrr Lungs: cta Assessment and Plan Final Anesthetic Review ASA Class: III Final Preanesthetic Review: No Changes in Pt Med Stat, Meds/Allgs Chart Reviewed, Consent Obtained/Reviewed and Anes Risks/Benef Reviewed Patient Risk: Intermediate Procedure Risk: Low Anesthetic Plan Anesthetic Plan: MAC:
[2025-02-19 06:53] VITALS: BMI 33.5
[2025-02-19 07:06] VITALS: BP 134/63; PULSE 65; RESP 17; TEMP 37.1; O2SAT 99
[2025-02-19] MEDS: Lactated Ringers 1,000 ML 50 ML IVCONT (07:13)
[2025-02-19 07:22] LABS: Glucose, Whole Blood 120 mg/dL (60-115)
--- NOTE | 2025-02-19 07:34 | MHC.SHP ---
Pre-Procedural Eval Section A - 24 Hr Update-Section A only Date of Service: 02/19/25 Section B - Complete if H&P > 30 days Chief Complaint: Benign neoplasm, unspecified site Relevant Family History (Specify if Yes): No Relevant Social History: None Present Medications: see Short Stay Collaborative assessment Medical History: Significant History (Hx of TB skin testing History of macular degeneration Cardiomyopathy Cardiac arrhythmia, unspecified COVID-19 vaccine series completed BPH associated with nocturia Obesity (BMI 30-39.9) Carpal tunnel syndrome on both sides Benign prostatic hyperplasia Erectile dysfunction Allergic rhinitis Primary o) History of Previous Operations: Relevant previous surgery/procedure and date(s) (History of implantable cardioverter-defibrillator (ICD) insertion Status post cardiac catheterization H/O cardiac catheterization History of bilateral cataract extraction History of colonoscopy History of transurethral resection of prostate) Allergies: Allergies Allergy/AdvReac Type Severity Reaction Status Date / Time amoxicillin [AMOXICILLIN] Allergy Intermediate Rash Verified 02/19/25 07:01 clindamycin [Clindamycin] Allergy Intermediate RASH Verified 02/19/25 07:01 Sulfa (Sulfonamide Allergy Intermediate RASH Verified 02/19/25 07:01 Antibiotics) ibuprofen [From Motrin] AdvReac Intermediate Gastrointestinal Verified 02/19/25 07:01 Upset Review of Systems Sugical H&P ROS: Negative: Constitution, Cardiovascular, Respiratory, Neurological, Psychiatric, Hem-Onc, Allergic/Immunologic, Gastrointestinal, Genitourinary, Musculoskeletal, Integumentary, Endocrine and Eyes/Ears/Nose/Throat Exam Surgical H&P Exam: Normal: HEENT, Normal: Heart, Normal: Lungs, Normal: Extremities, Normal: Abdomen, Normal: Skin and Normal: Neurological Plan Diagnosis/Plan: Unchanged I have reviewed the history and physical and performed a pertinent physical examination on my patient. No changes have occurred unless specified. Time Spent With Patient Time: Total time managing care of this patient today ____ minutes.
--- NOTE | 2025-02-19 08:00 | HO.OPN-COLON ---
Colonoscopy Operative Note Operative Note Date of Service: 02/19/25 Narrative: Operative Information Procedure Description: Colonoscopy Indication: screening Anesthesia: MAC COLONOSCOPY Instrument: Olympus variable stiffness ADULT scope 190L Colonoscopy Monitoring: Vital signs and clinical assessment, continuous EKG monitoring, Pulse oximetry, Carbon Dioxide monitoring and blood pressure monitoring were done throughout the procedure. Colon withdrawal time was 8 minutes. Procedure: The patient was placed in the left lateral decubitis position and pre-procedure medications were administered. After a digital rectal examination of the ano-rectum, the video colonoscope was inserted into the rectum and advanced through the colon to the cecum/TI. The colonoscope was slowly withdrawn in a retrograde panoramic fashion and the colon mucosa was carefully examined including a retroflexed view of the rectum. Findings and interventions are described below. Procedure Difficulty: moderate Findings: Terminal Ileum-not intubated Cecum: x 2 sessile polyps 6-8 mm, one removed with cold snare not retreived and the other with cold snare Ascending Colon: x 2 sessile polyps ranging from 8-12 mm in size, removed with cold forceps Transverse Colon - x 1 sessile polyp 5-7 mm removed with cold forceps Descending Colon: normal Sigmoid Colon: many moderate sized to small tics seen Rectum: Retroflexion with small internal hemorrhoids, grade II Anorectum - internal hemorrhoids seen at anal verge Intervention: codl snare and cold forceps Colon preparation: [place] Bowel Preparation Scale Right colon; 1-2 Transverse colon: 2 Left colon; 2 (0 = Unprepared colon segment with mucosa not seen due to solid stool that cannot be cleared. 1 = Portion of mucosa of the colon segment seen, but other areas of the colon segment not well seen due to staining, residual stool and/or opaque liquid. 2 = Minor amount of residual staining, small fragments of stool and/or opaque liquid, but mucosa of colon segment seen well. 3 = Entire mucosa of colon segment seen well with no residual staining, small fragments of stool or opaque liquid) Impression and Post Procedure Diagnosis: diverticulosis colon polyps x 5 internal hemorrhoids Plan: High fiber diet leaflet Avoid straining at stool, epsom salts and sitz bath, anusol supps or cream Repeat Colonoscopy in 1-2 years or earlier if clinically indicated Above findings were reviewed with the patient and relevant handouts were provided if indicated.
[2025-02-19 08:03] VITALS: BP 125/53; PULSE 70; RESP 16; TEMP 36.1; O2SAT 93
[2025-02-19 08:18] VITALS: BP 118/65; PULSE 65; RESP 16; TEMP 36.2; O2SAT 95
== END 2025-02-19 08:52 | disposition home or self-care (01) ==
PROVIDERS: PCP Internal Medicine; Visit Provider Internal Medicine Gastroenterology
PROC: 0DJD8ZZ Inspection of Lower Intestinal Tract, Via Natural or Artificial Opening Endoscopic (ICD-10-PCS; CPT 45378; principal; 2025-02-19 07:30)
DX: Z12.11 Encounter for screening for malignant neoplasm of colon (principal); Z86.0101 Personal history of adenomatous and serrated colon polyps; D12.0 Benign neoplasm of cecum; D12.2 Benign neoplasm of ascending colon; D12.3 Benign neoplasm of transverse colon; K57.30 Diverticulosis of large intestine without perforation or abscess without bleeding; K64.1 Second degree hemorrhoids; I10 Essential (primary) hypertension; E11.9 Type 2 diabetes mellitus without complications; I42.9 Cardiomyopathy, unspecified; I49.9 Cardiac arrhythmia, unspecified; Z95.810 Presence of automatic (implantable) cardiac defibrillator; J30.9 Allergic rhinitis, unspecified; N40.1 Benign prostatic hyperplasia with lower urinary tract symptoms; R35.1 Nocturia; N52.9 Male erectile dysfunction, unspecified; E66.9 Obesity, unspecified; Z68.35 Body mass index [BMI] 35.0-35.9, adult; Z79.82 Long term (current) use of aspirin; Z79.84 Long term (current) use of oral hypoglycemic drugs; Z88.1 Allergy status to other antibiotic agents; Z88.2 Allergy status to sulfonamides; Z88.6 Allergy status to analgesic agent; Z98.890 Other specified postprocedural states; Z87.891 Personal history of nicotine dependence
CPT/HCPCS: 45385; 45380; 82947; 88305; J2003; J2704; J3010

== ENCOUNTER → 2025-02-19 05:55 | Outpatient (BNV) | payer MEDICARE, MEDICAID, SELFPAY | PROVIDERS: PCP Internal Medicine; Visit Provider Internal Medicine Gastroenterology | DX: Z12.11 Encounter for screening for malignant neoplasm of colon (principal); D12.0 Benign neoplasm of cecum; D12.2 Benign neoplasm of ascending colon; D12.3 Benign neoplasm of transverse colon; K57.30 Diverticulosis of large intestine without perforation or abscess without bleeding; K64.1 Second degree hemorrhoids | CPT/HCPCS: 45380; 45385 ==

== ENCOUNTER 2025-03-05 11:03 | Outpatient (AMB) | payer MEDICARE, MEDICAID, SELFPAY ==
[2025-03-05 11:21] VITALS: BP 110/66; PULSE 67; O2SAT 98; BMI 34.4
--- NOTE | 2025-03-05 11:21 | A.OFFPC_ITS ---
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 Required: No Accompanied by: Self / Same As Patient Allergies amoxicillin (AMOXICILLIN) Allergy (Intermediate, Verified 03/05/25 11:51) Rash clindamycin (Clindamycin) Allergy (Intermediate, Verified 03/05/25 11:51) RASH Sulfa (Sulfonamide Antibiotics) Allergy (Intermediate, Verified 03/05/25 11:51) RASH ibuprofen (From Motrin) Adverse Reaction (Intermediate, Verified 03/05/25 11:51) Gastrointestinal Upset Medication List - Last Reconciled 03/05/25 by Alphonse Senior MD aspirin 81 mg PO DAILY atorvastatin 20 mg PO BEDTIME carvedilol 12.5 mg PO BID 90 days cholecalciferol (vitamin D3) (Vitamin D3) 25 mcg PO DAILY flash glucose scanning reader ([email or web address] Zofia 14 Day Cambria) As directed flash glucose sensor ([employer] Zofia 14 Day Sensor kit) 1 ea topical DIRECTED glipizide ER 10 mg PO DAILY 90 days Januvia (sitagliptin phosphate) 100 mg PO DAILY 90 days NS loratadine 10 mg PO DAILY PRN 90 days losartan 50 mg PO DAILY metformin 1,000 mg PO BID 90 days sodium,potassium,mag sulfates 17.5-3.13-1.6 gram (Suprep Bowel Prep Kit) DILUTE; drink 1/2 at 6-8 pm and half at 11 PM- 1AM tamsulosin 0.4 mg PO BEDTIME 90 days tramadol 50 mg PO BID-TID PRN Tobacco use date assessed: 03/05/25 Fall risk assessment: No Falls in past year Last assessed Fall Risk: 03/05/25 Dental Screening Dental Screen Date: 03/05/25 Did you have a dental visit in the last 12 months?: Yes Did you have a dental problem in the last 6 months where you did not have access to dental care?: No Was dental information given to patient?: Patient has dentist HPI 4 month HPI Details Patient comes in for his follow up visit States that he feels okay He denies any headaches or dizziness Denies any chest pains, no increased SOB No nausea/vomiting, no abdominal pain No change in bowel habits noted States that he's had a recurrent itchy rash on the dorsum of both of his hands for a while now He has been applying OTC Cortizone-10 on the rash for a few weeks now but states that it does not seem to be helping much Adds that he had his repeat colonoscopy done about 2 weeks ago on 02/19/[address] Chew His colonoscopy report indicated that he had about 5 polyps removed that came out as tubular adenomas on pathology and he has been recommended for repeat colonoscopy in 1 to 2 years He had his follow up labs done a few weeks ago - to discuss his results [facility] Medical History Hx of TB skin testing History of macular degeneration Cardiomyopathy Cardiac arrhythmia, unspecified COVID-19 vaccine series completed BPH associated with nocturia Obesity (BMI 30-39.9) Carpal tunnel syndrome on both sides Benign prostatic hyperplasia Erectile dysfunction Allergic rhinitis Primary osteoarthritis of left shoulder Osteoarthritis of knee Vitamin D deficiency Hypertriglyceridemia Benign essential hypertension Diabetes mellitus Arthritis Diabetes History of BPH Surgical History History of implantable cardioverter-defibrillator (ICD) insertion Status post cardiac catheterization H/O cardiac catheterization History of bilateral cataract extraction History of colonoscopy History of transurethral resection of prostate Family History Father Diabetes Mother Kidney problem Sister Asthma Hypertension Social History Housing: Apartment Are you a primary direct support professional caregiver to a significant other at home: No Do you presently have visiting nurse or other home services: No Alcohol intake: never Patient Tobacco Use Status: Former Tobacco user Tobacco use type: Cigarette e-Cigarette/Vaping Use: Never Used Second Hand Smoke Exposure: Yes service: No Current occupational status: employed Cognitive needs: No Hearing needs: No Vision needs: Yes (glasses) Questionnaire PHQ-9 Over the last 2 weeks, how often have you been bothered by any of the following problems? 1. Little interest or pleasure in doing things: not at all 2. Feeling down, depressed, or hopeless: not at all 3. Trouble falling or staying asleep, or sleeping too much: not at all 4. Feeling tired or having little energy: not at all 5. Poor appetite or overeating: not at all 6. Feeling bad about yourself - or that you are a failure or have let yourself or your family down: not at all 7. Trouble concentrating on things, such as reading the newspaper or watching television: not at all 8. Moving or speaking so slowly that other people could have noticed. Or the opposite - being so fidgety or restless that you have been moving around a lot more than usual: several days 9. Thoughts that you would be better off or of hurting yourself in some way: not at all Total score: 1 Depression Screening Interpretation: Negative Depression Screening Done: Yes 08609 - PHQ-9 Billing: Yes Source: Developed by Drs. Edu Will, Brittanie Salgado, Yogesh Copeland and colleagues, with an educational celina from [employer]. Thrive Questionnaire Date Thrive assessed: 03/05/25 I am a: Patient What is your living situation today?: I have a steady place to live Within the past 12 months, did the food you bought not last and you didn't have the money to get more?: Never true Within the past 12 months, did you worry whether your food would run out before you got money to buy more?: Never true Do you have trouble paying for medicines?: No Do you have trouble getting transportation to medical appointments?: No Do you have trouble paying your heating and electricity bill?: Yes Do you have trouble taking care of your child, family member or friend?: No Do you have trouble with day-to-day activities such as bathing, preparing meals, shopping, managing finances, etc.?: No Are you currently unemployed and looking for a job?: Yes Are you interested in more education?: No Please select the resources that you would like help with: Utilities Currently or been in a relationship where the following occur: No concerns reported THRIVE Score: 1 AUDIT C Alcohol Use Questionnaire (AUDIT-C) 1. How often do you have a drink containing alcohol?: Never 3. How often do you have six or more drinks on one occasion?: Never Total Score: 0 Score Reviewed/Action Taken: Yes CAREY-7 AMB Questionnaire CAREY-7 Date CAREY - 7 assessed: 03/05/25 Feeling nervous, anxious, or on edge: 0 = Not at all Not being able to stop or control worryin = Not at all Worrying too much about different things: 0 = Not at all Trouble relaxin = Not at all Being so restless that it is hard to sit still: 0 = Not at all Becoming easily annoyed or irritable: 0 = Not at all Feeling afraid as if something awful might happen: 1 = Several days Total CAREY-7 score (0-4 normal; 5-9 mild; 10-14 moderate; 15-21 severe): 1 Source: Developed by Drs. Edu Will, Brittanie Salgado, Yogesh Copeland and colleagues, with an educational celina from [employer]. Review of Systems Const Denies chills, Denies fatigue, Denies fever(s) and Denies headache(s) ENT Denies dysphagia, Denies dizziness, Denies otalgia, Denies headache(s), Denies neck pain, Denies odynophagia and Denies sore throat Card Denies chest pain, Denies palpitations and Denies dyspnea Resp Denies cough and Denies dyspnea GI Denies abdominal pain, Denies constipation, Denies dysphagia, Denies heartburn, Denies diarrhea, Denies nausea, Denies odynophagia and Denies vomiting Denies dysuria, Denies nocturia and Denies urinary frequency Musc Denies back pain, Reports arthralgias (on and off in both knees) and Denies neck pain Skin/Breast Reports rash (recurrent, itchy, on the dorsum of hands bilaterally) Neuro Denies dizziness and Denies headache(s) Endo Denies fatigue and Denies palpitations Physical exam (Primary Care) Vital Signs: Last Vital Signs Pulse 67 03/05/25 11:21 BP 110/66 03/05/25 11:21 Pulse Ox 98 03/05/25 11:21 Oxygen Delivery Method Room Air 03/05/25 11:21 BMI result Body Mass Index 34.4 Tobacco/Smoking Status: Tobacco use Status Tobacco use date assessed 03/05/25 03/05/25 11:26 Patient Tobacco Use Status Former Tobacco user 03/05/25 11:26 Tobacco use type Cigarette 03/05/25 11:26 e-Cigarette/Vaping Use Never Used 03/05/25 11:26 PHQ-9: PHQ-9 Score PHQ-9: Total score 1 03/05/25 12:20 Depression Screening Interpretation: Negative Thrive Assessment: Date of Thrive Assessment Date Thrive assessed 03/05/25 03/05/25 11:26 Currently or been in a relationship where the following occur: No concerns reported Const General: no acute distress and alert HENMT Ears: TM's normal bilaterally and EAC's normal Throat: Yes posterior oropharynx normal and Yes tonsils normal (no TP congestion noted) Neck Neck: Yes supple and No lymphadenopathy Thyroid: Thyroid normal Resp Auscultation: clear to auscultation bilaterally, no rales and no wheezes Cardio Rate: regular rate Rhythm: abnormal rhythm with ectopic beats Heart sounds: no murmurs GI Palpation (GI): Soft to palpation and nontender Auscultation: normal bowel sounds General: Yes no CVA tenderness Back/Spine/Pelvis Back: no CVA tenderness Skin Rashes: rashes noted (erythematous papular rash on the dorsum of both hands) Extrem General: Yes no clubbing, cyanosis or edema Left upper extremity: shoulder/upper arm Details: tenderness (mild) Location: of the A-C joint Left lower extremity: knee Details: tenderness; no swelling and foot Details: tenderness Location: of the dorsal foot and no edema Results Reviewed Results Reviewed: Laboratory Tests 02/17/25 02/18/25 06:22 04:00 WBC 6.9 Hgb 11.8 L Hct 37.7 L Plt Count 214 Sodium 142 Potassium 4.2 Creatinine 1.04 Estimated GFR > 60 Fasting Glucose 107 H Hemoglobin A1c % 6.4 H Calcium 9.1 AST 25 ALT 22 Triglycerides 50 Cholesterol 119 LDL Cholesterol, Calc 44 HDL Cholesterol 65 25-OH Vitamin D Total 45.2 TSH 2.19 Ur Specific [place] 1.015 Urine Protein Negative Urine Glucose (UA) Negative Urine Blood Negative Urine Nitrite Negative Ur Leukocyte Esterase Negative Coding Level of Care Code Est Pt Level 4 (64362) Complex EM visit Add On G2211 Diagnoses Type 2 diabetes mellitus without complication, without long-term current use of insulin E11.9 Diabetes mellitus complication status: without complication Diabetes mellitus long term care phlebotomist insulin use: without long term care phlebotomist use Diabetes mellitus type: type 2 Hypertriglyceridemia E78.1 Benign essential hypertension I10 Cardiomyopathy, unspecified type I42.9 Cardiomyopathy type: unspecified Vitamin D deficiency E55.9 Primary osteoarthritis of left shoulder M19.012 Primary osteoarthritis of knee, unspecified laterality M17.10 Laterality: unspecified laterality Osteoarthritis type: primary Allergic rhinitis, unspecified seasonality, unspecified trigger J30.9 Allergic rhinitis seasonality: unspecified Allergic rhinitis trigger: unspecified Acute atopic dermatitis of hand L20.9 Erectile dysfunction, unspecified erectile dysfunction type N52.9 Erectile dysfunction type: unspecified Benign prostatic hyperplasia, unspecified whether lower urinary tract symptoms present N40.0 Lower urinary tract symptom presence: unspecified whether lower urinary tract symptoms present Obesity (BMI 30-39.9) E66.9 Additional Codes PHQ-9 - 85728 - PHQ-9 Billing: Yes ([id number]) Assessment & Plan Assessment & Plan (1) Diabetes mellitus: Code(s): E11.9 - Type 2 diabetes mellitus without complications Category: Medical Qualifiers: Diabetes mellitus complication status: without complication Diabetes mellitus long term care phlebotomist insulin use: without mcfp use Diabetes mellitus type: type 2 Qualified Code(s): E11.9 - Type 2 diabetes mellitus without complications Plan: His HgbA1c was at 6.4% on his recent labs; was previously at 6.5% a few months ago - goal is <7.0% Reinforced diabetic diet Continue Glipizide ER 10 mg QD, Metformin 1000 mg BID and Piogitazone 30 mg QD He was switched back from Tradjenta to Januvia 100 mg QD previously as Tradjenta was no longer covered by his insurance (2) Hypertriglyceridemia: Code(s): E78.1 - Pure hyperglyceridemia Category: Medical Plan: Results of his labs done a few weeks ago reviewed and discussed with patient Reinforced low cholesterol diet Continue Atorvastatin 20 mg QD Will recheck his labs and fasting lipids in 4 months for follow-up (3) Benign essential hypertension: Code(s): I10 - Essential (primary) hypertension Category: Medical Plan: Reinforced low-sodium diet - goal is systolic BP of at least 130 to 140 mm or less Continue Losartan 50 mg QD (4) Cardiomyopathy: Code(s): I42.9 - Cardiomyopathy, unspecified Category: Medical Qualifiers: Cardiomyopathy type: unspecified Qualified Code(s): I42.9 - Cardiomyopathy, unspecified Plan: EF was incidentally noted to be at 15-20% on echocardiogram; patient was clinically not in heart failure as he denied any symptoms or shortness of breath, easy fatigability or edema at the time 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 Most recent echocardiogram done in August 2022 showed (+) significant improvement of his cardiac function - there is normal left ventricular wall thickness;?the left ventricular systolic function is borderline reduced and?the visually estimated ejection fraction is between 45-50% Follow up with cardiology as scheduled (5) Vitamin D deficiency: Code(s): E55.9 - Vitamin D deficiency, unspecified Category: Medical Plan: Continue Vitamin D3 1000 units QD (6) Primary osteoarthritis of left shoulder: Code(s): M19.012 - Primary osteoarthritis, left shoulder Category: Medical Plan: X-rays of the left shoulder done a couple of years ago showed (+) OA changes Patient is encouraged to continue with regular shoulder exercises to help manage his symptoms Follow-up with Orthopedics as scheduled (7) Osteoarthritis of knee: Code(s): M17.10 - Unilateral primary osteoarthritis, unspecified knee Category: Medical Qualifiers: Laterality: unspecified laterality Osteoarthritis type: primary Qualified Code(s): M17.10 - Unilateral primary osteoarthritis, unspecified knee Plan: Continue Ibuprofen 400 mg 3 times a day as needed and Tramadol 50 mg TID PRN for symptomatic relief (8) Allergic rhinitis: Code(s): J30.9 - Allergic rhinitis, unspecified Category: Medical Qualifiers: Allergic rhinitis seasonality: unspecified Allergic rhinitis trigger: unspecified Qualified Code(s): J30.9 - Allergic rhinitis, unspecified Plan: Continue Loratadine 10 mg QD PRN (9) Acute atopic dermatitis of hand: Code(s): L20.9 - Atopic dermatitis, unspecified Category: Medical Plan: Will start patient on Triamcinolone Acetonide 0.5% cream to the rash on his hands BID (10) Erectile dysfunction: Code(s): N52.9 - Male erectile dysfunction, unspecified Category: Medical Qualifiers: Erectile dysfunction type: unspecified Qualified Code(s): N52.9 - Male erectile dysfunction, unspecified Plan: Continue Sildenafil 50 mg QD PRN as instructed (11) Benign prostatic hyperplasia: Code(s): N40.0 - Benign prostatic hyperplasia without lower urinary tract symptoms Category: Medical Qualifiers: Lower urinary tract symptom presence: unspecified whether lower urinary tract symptoms present Qualified Code(s): N40.0 - Benign prostatic hyperplasia without lower urinary tract symptoms Plan: Continue Tamsulosin 0.4 mg Q HS Follow-up with urology as scheduled (12) Obesity (BMI 30-39.9): Code(s): E66.9 - Obesity, unspecified Category: Medical Plan: Reinforced diet/ exercise as tolerated/ lose weight Plan Follow up in 4 months Orders: Orders Lipid Panel 4 Months E78.00 - Pure hypercholesterolemia, unspecified Comprehensive Elizabeth. Panel Fast 4 Months E78.00 - Pure hypercholesterolemia, unspecified Hemoglobin A1c 4 Months E11.9 - Type 2 diabetes mellitus without complications Microalbumin, Random (w Creat) 4 Months E11.9 - Type 2 diabetes mellitus without complications Complete Blood Count Auto Diff 4 Months D64.9 - Anemia, unspecified Medications: New triamcinolone acetonide 0.5% 1 appl topical BID PRN 15 grams 2RF rash
--- OUTSIDE RECORDS SUMMARY | 2025-03-05 13:12 | XMS_ITS | Clinical Summary ---
Author Organization [address] [facility] Address [address] [place] [address] Phone Care Team Providers Care Auto Finance Sales Rep Name Role Phone Alphonse Senior MD Primary Care Provider Social History Tobacco Use Types Packs/Day Years Used Date Smoking Tobacco: Never Assessed Sex and Gender Information Value Date Recorded Sex Assigned at Not on file Legal Sex Male 10:01 PM EST Gender Identity Not on file Sexual Orientation Not on file Plan of Treatment Upcoming Encounters Date Type Department Care Team ([facility] Contact Info) Description 04/13/2025 1:45 PM EDT Office Visit Orthopedic Surgery [facility] [address] [phone] Jamel Blas, DPM [address] [address] Health Maintenance Due Date Last Done Comments DTaP,Tdap,and Td Vaccines (1 - Tdap) 1969 [...] 10/04/2024 Social Influencers of Health Screening 10/04/2024 Influenza Vaccine (Season Ended) 2025 RSV Immunization [...] Insurance MEDICARE MEDICAID - [place] Care Teams Auto Finance Sales Rep Relationship Specialty Start Date End Date Alphonse Senior MD [address] [place] [address] Jill 101 KO oFx PCP - General Internal Medicine 11/10/24
== END 2025-03-05 12:08 | disposition home or self-care (01) ==
LOC: HO.HMCH 11:04
PROVIDERS: PCP Internal Medicine; Visit Provider Internal Medicine
DX: E11.9 Type 2 diabetes mellitus without complications (principal); I42.9 Cardiomyopathy, unspecified; E66.9 Obesity, unspecified; Z68.34 Body mass index [BMI] 34.0-34.9, adult; E78.1 Pure hyperglyceridemia; I10 Essential (primary) hypertension; E55.9 Vitamin D deficiency, unspecified; M19.012 Primary osteoarthritis, left shoulder; M17.10 Unilateral primary osteoarthritis, unspecified knee; J30.9 Allergic rhinitis, unspecified; L20.9 Atopic dermatitis, unspecified; N52.9 Male erectile dysfunction, unspecified

== ENCOUNTER → 2025-03-05 11:03 | Outpatient (BNVA) | payer MEDICARE, MEDICAID, SELFPAY | PROVIDERS: PCP Internal Medicine; Visit Provider Internal Medicine | DX: E11.9 Type 2 diabetes mellitus without complications (principal); E78.1 Pure hyperglyceridemia; I10 Essential (primary) hypertension; I42.9 Cardiomyopathy, unspecified; E55.9 Vitamin D deficiency, unspecified; M19.012 Primary osteoarthritis, left shoulder; M17.10 Unilateral primary osteoarthritis, unspecified knee; J30.9 Allergic rhinitis, unspecified; L20.9 Atopic dermatitis, unspecified; N52.9 Male erectile dysfunction, unspecified; N40.0 Benign prostatic hyperplasia without lower urinary tract symptoms; E66.9 Obesity, unspecified; Z68.41 Body mass index [BMI] 40.0-44.9, adult; Z71.3 Dietary counseling and surveillance | CPT/HCPCS: 96127; 99212 ==

== ENCOUNTER → 2025-03-20 23:59 | Outpatient (BNV) | payer MEDICARE, MEDICAID, SELFPAY ==
--- NOTE | 2025-04-26 21:20 | MHC.OFFVIS ---
Intake Visit Reasons: Remote HF monitoring- [employer] Allergies amoxicillin (AMOXICILLIN) Allergy (Intermediate, Verified 03/05/25 11:51) Rash clindamycin (Clindamycin) Allergy (Intermediate, Verified 03/05/25 11:51) RASH Sulfa (Sulfonamide Antibiotics) Allergy (Intermediate, Verified 03/05/25 11:51) RASH ibuprofen (From Motrin) Adverse Reaction (Intermediate, Verified 03/05/25 11:51) Gastrointestinal Upset PFSH Medical History Hx of TB skin testing History of macular degeneration Cardiomyopathy Cardiac arrhythmia, unspecified COVID-19 vaccine series completed BPH associated with nocturia Obesity (BMI 30-39.9) Carpal tunnel syndrome on both sides Benign prostatic hyperplasia Erectile dysfunction Allergic rhinitis Primary osteoarthritis of left shoulder Osteoarthritis of knee Vitamin D deficiency Hypertriglyceridemia Benign essential hypertension Diabetes mellitus Arthritis Diabetes History of BPH Surgical History History of implantable cardioverter-defibrillator (ICD) insertion Status post cardiac catheterization H/O cardiac catheterization History of bilateral cataract extraction History of colonoscopy History of transurethral resection of prostate Family History Father Diabetes Mother Kidney problem Sister Asthma Hypertension Social History Housing: Apartment Are you a primary child care group leader to a significant other at home: No Do you presently have visiting nurse or other home services: No Alcohol intake: never Patient Tobacco Use Status: Former Tobacco user Tobacco use type: Cigarette e-Cigarette/Vaping Use: Never Used Second Hand Smoke Exposure: Yes service: No Current occupational status: employed Cognitive needs: No Hearing needs: No Vision needs: Yes (glasses) Office Procedures Cardiac Device Check Cardiac Device Check Details: HF monitoring Thoracic impedance stable [id number] Cardiac Device Interrogation, cardio physiologic monitor Procedure code (CPT) selection complete Assessment & Plan Assessment & Plan (1) Cardiomyopathy: Code(s): I42.9 - Cardiomyopathy, unspecified Category: Medical Qualifiers: Cardiomyopathy type: unspecified Qualified Code(s): I42.9 - Cardiomyopathy, unspecified Plan Coding Level of Care Code Procedure Only Diagnoses Cardiomyopathy, unspecified type I42.9 Cardiomyopathy type: unspecified CPT Codes Cardiac Device Check - Cardiac Device 15: [id number] Cardiac Device Interrogation, cardio physiologic monitor ([id number])
== END ==
PROVIDERS: PCP Internal Medicine; Visit Provider Internal Medicine Cardiovascular Disease
DX: I42.9 Cardiomyopathy, unspecified (principal); Z95.810 Presence of automatic (implantable) cardiac defibrillator
CPT/HCPCS: 93297

== ENCOUNTER → 2025-04-20 23:59 | Outpatient (BNV) | payer MEDICARE, MEDICAID, SELFPAY ==
--- NOTE | 2025-05-10 15:27 | MHC.OFFVIS ---
Intake Visit Reasons: Remote ICD check- [employer] Allergies amoxicillin (AMOXICILLIN) Allergy (Intermediate, Verified 03/05/25 11:51) Rash clindamycin (Clindamycin) Allergy (Intermediate, Verified 03/05/25 11:51) RASH Sulfa (Sulfonamide Antibiotics) Allergy (Intermediate, Verified 03/05/25 11:51) RASH ibuprofen (From Motrin) Adverse Reaction (Intermediate, Verified 03/05/25 11:51) Gastrointestinal Upset PFSH Medical History Hx of TB skin testing History of macular degeneration Cardiomyopathy Cardiac arrhythmia, unspecified COVID-19 vaccine series completed BPH associated with nocturia Obesity (BMI 30-39.9) Carpal tunnel syndrome on both sides Benign prostatic hyperplasia Erectile dysfunction Allergic rhinitis Primary osteoarthritis of left shoulder Osteoarthritis of knee Vitamin D deficiency Hypertriglyceridemia Benign essential hypertension Diabetes mellitus Arthritis Diabetes History of BPH Surgical History History of implantable cardioverter-defibrillator (ICD) insertion Status post cardiac catheterization H/O cardiac catheterization History of bilateral cataract extraction History of colonoscopy History of transurethral resection of prostate Family History Father Diabetes Mother Kidney problem Sister Asthma Hypertension Social History Housing: Apartment Are you a primary district manager primary care sales to a significant other at home: No Do you presently have visiting nurse or other home services: No Alcohol intake: never Patient Tobacco Use Status: Former Tobacco user Tobacco use type: Cigarette e-Cigarette/Vaping Use: Never Used Second Hand Smoke Exposure: Yes service: No Current occupational status: employed Cognitive needs: No Hearing needs: No Vision needs: Yes (glasses) Office Procedures Cardiac Device Check 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 Bi paced 99% [id number] Cardiac Device Interrogation, pacemaker or defibrillator Procedure code (CPT) selection complete Assessment & Plan Assessment & Plan (1) Cardiomyopathy: Code(s): I42.9 - Cardiomyopathy, unspecified Category: Medical Qualifiers: Cardiomyopathy type: unspecified Qualified Code(s): I42.9 - Cardiomyopathy, unspecified Plan Coding Level of Care Code Procedure Only Diagnoses Cardiomyopathy, unspecified type I42.9 Cardiomyopathy type: unspecified CPT Codes Cardiac Device Check - Cardiac Device 14: [id number] Cardiac Device Interrogation, pacemaker or defibrillator ([id number])
== END ==
PROVIDERS: PCP Internal Medicine; Visit Provider Internal Medicine Cardiovascular Disease
DX: I42.9 Cardiomyopathy, unspecified (principal); Z95.810 Presence of automatic (implantable) cardiac defibrillator
CPT/HCPCS: 93295

== ENCOUNTER → 2025-04-20 23:59 | Outpatient (BNV) | payer MEDICARE, MEDICAID, SELFPAY ==
--- NOTE | 2025-05-10 15:29 | MHC.OFFVIS ---
Intake Visit Reasons: Remote HF monitoring- [employer] Allergies amoxicillin (AMOXICILLIN) Allergy (Intermediate, Verified 03/05/25 11:51) Rash clindamycin (Clindamycin) Allergy (Intermediate, Verified 03/05/25 11:51) RASH Sulfa (Sulfonamide Antibiotics) Allergy (Intermediate, Verified 03/05/25 11:51) RASH ibuprofen (From Motrin) Adverse Reaction (Intermediate, Verified 03/05/25 11:51) Gastrointestinal Upset PFSH Medical History Hx of TB skin testing History of macular degeneration Cardiomyopathy Cardiac arrhythmia, unspecified COVID-19 vaccine series completed BPH associated with nocturia Obesity (BMI 30-39.9) Carpal tunnel syndrome on both sides Benign prostatic hyperplasia Erectile dysfunction Allergic rhinitis Primary osteoarthritis of left shoulder Osteoarthritis of knee Vitamin D deficiency Hypertriglyceridemia Benign essential hypertension Diabetes mellitus Arthritis Diabetes History of BPH Surgical History History of implantable cardioverter-defibrillator (ICD) insertion Status post cardiac catheterization H/O cardiac catheterization History of bilateral cataract extraction History of colonoscopy History of transurethral resection of prostate Family History Father Diabetes Mother Kidney problem Sister Asthma Hypertension Social History Housing: Apartment Are you a primary senior resident care director to a significant other at home: No Do you presently have visiting nurse or other home services: No Alcohol intake: never Patient Tobacco Use Status: Former Tobacco user Tobacco use type: Cigarette e-Cigarette/Vaping Use: Never Used Second Hand Smoke Exposure: Yes service: No Current occupational status: employed Cognitive needs: No Hearing needs: No Vision needs: Yes (glasses) Office Procedures Cardiac Device Check Cardiac Device Check Details: HF monitoring Stable thoracic impedance. [id number] Cardiac Device Interrogation, cardio physiologic monitor Procedure code (CPT) selection complete Assessment & Plan Assessment & Plan (1) Cardiomyopathy: Code(s): I42.9 - Cardiomyopathy, unspecified Category: Medical Qualifiers: Cardiomyopathy type: unspecified Qualified Code(s): I42.9 - Cardiomyopathy, unspecified Plan Coding Level of Care Code Procedure Only Diagnoses Cardiomyopathy, unspecified type I42.9 Cardiomyopathy type: unspecified CPT Codes Cardiac Device Check - Cardiac Device 15: [id number] Cardiac Device Interrogation, cardio physiologic monitor ([id number])
== END ==
PROVIDERS: PCP Internal Medicine; Visit Provider Internal Medicine Cardiovascular Disease
DX: I42.9 Cardiomyopathy, unspecified (principal)
CPT/HCPCS: 93297

== ENCOUNTER → 2025-05-21 23:59 | Outpatient (BNV) | payer MEDICARE, MEDICAID, SELFPAY ==
--- NOTE | 2025-07-04 13:14 | A.OFFVIS_ITS ---
Intake Visit Reasons: Remote HF monitoring- [employer] Allergies amoxicillin (AMOXICILLIN) Allergy (Intermediate, Verified 03/05/25 11:51) Rash clindamycin (Clindamycin) Allergy (Intermediate, Verified 03/05/25 11:51) RASH Sulfa (Sulfonamide Antibiotics) Allergy (Intermediate, Verified 03/05/25 11:51) RASH ibuprofen (From Motrin) Adverse Reaction (Intermediate, Verified 03/05/25 11:51) Gastrointestinal Upset PFSH Medical History Hx of TB skin testing History of macular degeneration Cardiomyopathy Cardiac arrhythmia, unspecified COVID-19 vaccine series completed BPH associated with nocturia Obesity (BMI 30-39.9) Carpal tunnel syndrome on both sides Benign prostatic hyperplasia Erectile dysfunction Allergic rhinitis Primary osteoarthritis of left shoulder Osteoarthritis of knee Vitamin D deficiency Hypertriglyceridemia Benign essential hypertension Diabetes mellitus Arthritis Diabetes History of BPH Surgical History History of implantable cardioverter-defibrillator (ICD) insertion Status post cardiac catheterization H/O cardiac catheterization History of bilateral cataract extraction History of colonoscopy History of transurethral resection of prostate Family History Father Diabetes Mother Kidney problem Sister Asthma Hypertension Social History Housing: Apartment Are you a primary animal caretaker to a significant other at home: No Do you presently have visiting nurse or other home services: No Alcohol intake: never Patient Tobacco Use Status: Former Tobacco user Tobacco use type: Cigarette e-Cigarette/Vaping Use: Never Used Second Hand Smoke Exposure: Yes service: No Current occupational status: employed Cognitive needs: No Hearing needs: No Vision needs: Yes (glasses) Office Procedures Cardiac Device Check Cardiac Device Check Details: HF monitoring Good battery life Stable thoracic impedance. [id number] Cardiac Device Interrogation, pacemaker or defibrillator Procedure code (CPT) selection complete Assessment & Plan Assessment & Plan (1) Cardiomyopathy: Code(s): I42.9 - Cardiomyopathy, unspecified Category: Medical Qualifiers: Cardiomyopathy type: unspecified Qualified Code(s): I42.9 - Cardiomyopathy, unspecified Plan Coding Level of Care Code Procedure Only Diagnoses Cardiomyopathy, unspecified type I42.9 Cardiomyopathy type: unspecified CPT Codes Cardiac Device Check - Cardiac Device 14: [id number] Cardiac Device Interrogation, pacemaker or defibrillator ([id number])
== END ==
PROVIDERS: PCP Internal Medicine; Visit Provider Internal Medicine Cardiovascular Disease
DX: I42.9 Cardiomyopathy, unspecified (principal); Z95.810 Presence of automatic (implantable) cardiac defibrillator
CPT/HCPCS: 93297

== ENCOUNTER → 2025-06-21 23:59 | Outpatient (BNV) | payer MEDICARE, MEDICAID, SELFPAY ==
--- NOTE | 2025-07-06 21:49 | MHC.OFFVIS ---
Intake Visit Reasons: Remote HF monitoring- [employer] Allergies amoxicillin (AMOXICILLIN) Allergy (Intermediate, Verified 03/05/25 11:51) Rash clindamycin (Clindamycin) Allergy (Intermediate, Verified 03/05/25 11:51) RASH Sulfa (Sulfonamide Antibiotics) Allergy (Intermediate, Verified 03/05/25 11:51) RASH ibuprofen (From Motrin) Adverse Reaction (Intermediate, Verified 03/05/25 11:51) Gastrointestinal Upset PFSH Medical History Hx of TB skin testing History of macular degeneration Cardiomyopathy Cardiac arrhythmia, unspecified COVID-19 vaccine series completed BPH associated with nocturia Obesity (BMI 30-39.9) Carpal tunnel syndrome on both sides Benign prostatic hyperplasia Erectile dysfunction Allergic rhinitis Primary osteoarthritis of left shoulder Osteoarthritis of knee Vitamin D deficiency Hypertriglyceridemia Benign essential hypertension Diabetes mellitus Arthritis Diabetes History of BPH Surgical History History of implantable cardioverter-defibrillator (ICD) insertion Status post cardiac catheterization H/O cardiac catheterization History of bilateral cataract extraction History of colonoscopy History of transurethral resection of prostate Family History Father Diabetes Mother Kidney problem Sister Asthma Hypertension Social History Housing: Apartment Are you a primary cardiac care unit nurse to a significant other at home: No Do you presently have visiting nurse or other home services: No Alcohol intake: never Patient Tobacco Use Status: Former Tobacco user Tobacco use type: Cigarette e-Cigarette/Vaping Use: Never Used Second Hand Smoke Exposure: Yes service: No Current occupational status: employed Cognitive needs: No Hearing needs: No Vision needs: Yes (glasses) Office Procedures Cardiac Device Check Cardiac Device Check Details: HF Stable thoracic impedance. [id number] Cardiac Device Interrogation, cardio physiologic monitor Procedure code (CPT) selection complete Assessment & Plan Assessment & Plan (1) Cardiomyopathy: Code(s): I42.9 - Cardiomyopathy, unspecified Category: Medical Qualifiers: Cardiomyopathy type: unspecified Qualified Code(s): I42.9 - Cardiomyopathy, unspecified Plan Coding Level of Care Code Procedure Only Diagnoses Cardiomyopathy, unspecified type I42.9 Cardiomyopathy type: unspecified CPT Codes Cardiac Device Check - Cardiac Device 15: [id number] Cardiac Device Interrogation, cardio physiologic monitor ([id number])
== END ==
PROVIDERS: PCP Internal Medicine; Visit Provider Internal Medicine Cardiovascular Disease
DX: I42.9 Cardiomyopathy, unspecified (principal); Z95.810 Presence of automatic (implantable) cardiac defibrillator
CPT/HCPCS: 93297

== ENCOUNTER 2025-07-31 06:03 | Outpatient (REF) | payer MEDICARE, MEDICAID, SELFPAY ==
--- OUTSIDE RECORDS SUMMARY | 2025-07-31 06:06 | XMS_ITS | Clinical Summary ---
Author Organization [address] [facility] Address [address] [place] [address] Phone Care Team Providers Care Bacteriology Technician Name Role Phone Alphonse Senior MD Primary Care Provider Social History Tobacco Use Types Packs/Day Years Used Date Smoking Tobacco: Never Assessed Sex and Gender Information Value Date Recorded Sex Assigned at Not on file Legal Sex Male 10:01 PM EST Gender Identity Not on file Sexual Orientation Not on file Plan of Treatment Health Maintenance Due Date Last Done Comments Colorectal Cancer Screening: Colonoscopy 1951 DTaP,Tdap,and Td Vaccines (1 - Tdap) 1970 Pneumococcal Vaccine: 50+ Ye ars (1 of 2 - PCV) 1970 RSV Immunization Adult Patie nts (1 - Risk 50-74 years 1-dose series) 2001 Zoster Vaccines (1 of 2) 2001 Depression Screening 09/10/2024 Abdominal Aortic Aneurysm (A AA) Screen 10/04/2024 Cholesterol Screening (Lipid Panel) 10/04/2024 Falls Risk Assessment 10/04/2024 Hepatitis C Screening 10/04/2024 Medicare Annual Wellness Visit 10/04/2024 Social Influencers of Health Screening 10/04/2024 COVID-19 Vaccine ( - 2024-2 6 season) 2025 Influenza Vaccine (#1) 2025 HIB Vaccines Aged Out No longer eligi [...] Insurance MEDICARE MEDICAID - [place] Care Teams Bacteriology Technician Relationship Specialty Start Date End Date Alphonse Senior MD [address] [place] [address] [address] [place] PCP - General Internal Medicine 11/10/24
[2025-07-31 06:27] LABS: MANUAL DIFF FLAG NO
[2025-07-31 07:20] LABS: Hematocrit 38.7 % (42.0-52.0); Hemoglobin 12.2 g/dl (14.0-18.0); Imm Gran Abs Auto 0.03 X10*3/uL (0.00-0.03); Imm Gran Pct Auto 0.4 % (0.0-0.4); Lymphocytes Absolute Auto 1.9 X10*3/uL (1.2-4.9); Mean Corpuscular HGB Conc 31.5 g/dl (31.0-36.0); Mean Corpuscular Hemoglobin 27.7 pg (27.0-33.0); Mean Corpuscular Volume 87.8 fL (80.0-98.0); NRBC Abs Auto 0.000 X10*3/uL (0.0-0.012); NRBC Pct Auto 0.0 /100WBC (0.0-0.2); Platelet Count 248 X10*3/uL (160-400); Red Blood Count 4.41 X10*6/uL (4.60-5.80); White Blood Count 7.8 X10*3/uL (4.8-10.8)
[2025-07-31 07:49] LABS: Alanine Aminotransferase 25 U/L (0-40); Albumin Level 4.4 g/dL (3.5-5.0); Alkaline Phosphatase 95 U/L (39-117); Anion Gap 13 (12-20); Aspartate Amino Transferase 27 U/L (5-37); Blood Urea Nitrogen 15 mg/dL (9-16); Calcium 9.3 mg/dL (8.4-10.2); Carbon Dioxide 28 mmol/L (22-29); Chloride 105 mmol/L (96-108); Cholesterol 118 mg/dL (<200); Estimated Glomerular Filt Rate 59; HDL Cholesterol 67 mg/dL (>40); Potassium 4.7 mmol/L (3.3-5.1); Sodium 141 mmol/L (135-145); Total Protein 7.4 g/dL (6.5-8.0); Triglycerides 48 mg/dL (<150)
[2025-07-31 07:59] LABS: Microalbum/Creatinine Ratio Ur 5.9 ug/mg cr (<30)
== END 2025-07-31 06:04 | disposition home or self-care (01) ==
LOC: HO.LAB 06:03
PROVIDERS: PCP Internal Medicine; Visit Provider Internal Medicine
DX: E11.9 Type 2 diabetes mellitus without complications (principal); E78.00 Pure hypercholesterolemia, unspecified; D64.9 Anemia, unspecified
CPT/HCPCS: 36415; 80053; 80061; 82043; 82570; 83036; 85025

== ENCOUNTER 2025-08-05 14:28 | Outpatient (AMB) | payer MEDICARE, MEDICAID, SELFPAY ==
[2025-08-05 14:30] VITALS: BP 110/70; PULSE 85; O2SAT 96; BMI 34.5
--- NOTE | 2025-08-05 14:30 | A.OFFPC_ITS ---
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 Accompanied by: Self / Same As Patient Allergies amoxicillin (AMOXICILLIN) Allergy (Intermediate, Verified 08/05/25 15:01) Rash clindamycin (Clindamycin) Allergy (Intermediate, Verified 08/05/25 15:01) RASH Sulfa (Sulfonamide Antibiotics) Allergy (Intermediate, Verified 08/05/25 15:01) RASH ibuprofen (From Motrin) Adverse Reaction (Intermediate, Verified 08/05/25 15:01) Gastrointestinal Upset Medication List - Last Reconciled 08/05/25 by Alphonse Senior MD aspirin 81 mg PO DAILY atorvastatin 20 mg PO BEDTIME carvedilol 12.5 mg PO BID 90 days cholecalciferol (vitamin D3) (Vitamin D3) 25 mcg PO DAILY flash glucose scanning reader ([employer] Zofia 14 Day [place]) As directed flash glucose sensor ([employer] Zofia 14 Day Sensor kit) 1 ea topical DIRECTED glipizide ER 10 mg PO DAILY 90 days Januvia (sitagliptin phosphate) 100 mg PO DAILY 90 days NS loratadine 10 mg PO DAILY PRN 90 days losartan 50 mg PO DAILY metformin 1,000 mg PO BID 90 days sodium,potassium,mag sulfates 17.5-3.13-1.6 gram (Suprep Bowel Prep Kit) DILUTE; drink 1/2 at 6-8 pm and half at 11 PM- 1AM tamsulosin 0.4 mg PO BEDTIME 90 days tramadol 50 mg PO BID-TID PRN triamcinolone acetonide 0.5% 1 appl topical BID PRN Tobacco use date assessed: 08/05/25 Fall risk assessment: No Falls in past year Last assessed Fall Risk: 08/05/25 Dental Screening Dental Screen Date: 08/05/25 Did you have a dental visit in the last 12 months?: Yes Did you have a dental problem in the last 6 months where you did not have access to dental care?: No Was dental information given to patient?: Patient has dentist HPI DM, hyperlipidemia, cardiomyopathy HPI Details Patient comes in for his follow up visit States that he feels okay He denies any headaches or dizziness Denies any chest pains, no increased SOB No nausea/vomiting, no abdominal pain No change in bowel habits noted He had his follow up labs done a few days ago - to discuss his results [facility] Medical History Hx of TB skin testing History of macular degeneration Cardiomyopathy Cardiac arrhythmia, unspecified COVID-19 vaccine series completed BPH associated with nocturia Obesity (BMI 30-39.9) Carpal tunnel syndrome on both sides Benign prostatic hyperplasia Erectile dysfunction Allergic rhinitis Primary osteoarthritis of left shoulder Osteoarthritis of knee Vitamin D deficiency Hypertriglyceridemia Benign essential hypertension Diabetes mellitus Arthritis Diabetes History of BPH Surgical History History of implantable cardioverter-defibrillator (ICD) insertion Status post cardiac catheterization H/O cardiac catheterization History of bilateral cataract extraction History of colonoscopy History of transurethral resection of prostate Family History Father Diabetes Mother Kidney problem Sister Asthma Hypertension Social History Housing: Apartment Are you a primary health care liaison to a significant other at home: No Do you presently have visiting nurse or other home services: No Alcohol intake: never Patient Tobacco Use Status: Former Tobacco user Tobacco use type: Cigarette e-Cigarette/Vaping Use: Never Used Second Hand Smoke Exposure: Yes service: No Current occupational status: employed Cognitive needs: No Hearing needs: No Vision needs: Yes (glasses) Questionnaire PHQ-9 Over the last 2 weeks, how often have you been bothered by any of the following problems? 1. Little interest or pleasure in doing things: not at all 2. Feeling down, depressed, or hopeless: not at all 3. Trouble falling or staying asleep, or sleeping too much: not at all 4. Feeling tired or having little energy: not at all 5. Poor appetite or overeating: not at all 6. Feeling bad about yourself - or that you are a failure or have let yourself or your family down: not at all 7. Trouble concentrating on things, such as reading the newspaper or watching television: not at all 8. Moving or speaking so slowly that other people could have noticed. Or the opposite - being so fidgety or restless that you have been moving around a lot more than usual: several days 9. Thoughts that you would be better off or of hurting yourself in some way: not at all Total score: 1 Depression Screening Interpretation: Negative Depression Screening Done: Yes 34332 - PHQ-9 Billing: Yes Source: Developed by Drs. Edu Will, Brittanie Salgado, Yogesh Copeland and colleagues, with an educational celina from [employer] Thrive Questionnaire Date Thrive assessed: 08/05/25 I am a: Patient What is your living situation today?: I have a steady place to live Within the past 12 months, did the food you bought not last and you didn't have the money to get more?: Never true Within the past 12 months, did you worry whether your food would run out before you got money to buy more?: Never true Do you have trouble paying for medicines?: No Do you have trouble getting transportation to medical appointments?: No Do you have trouble paying your heating and electricity bill?: Yes Do you have trouble taking care of your child, family member or friend?: No Do you have trouble with day-to-day activities such as bathing, preparing meals, shopping, managing finances, etc.?: No Are you currently unemployed and looking for a job?: Yes Are you interested in more education?: No Please select the resources that you would like help with: Utilities Currently or been in a relationship where the following occur: No concerns reported THRIVE Score: 1 AUDIT C Alcohol Use Questionnaire (AUDIT-C) 1. How often do you have a drink containing alcohol?: Never 3. How often do you have six or more drinks on one occasion?: Never Total Score: 0 Score Reviewed/Action Taken: Yes CAREY-7 AMB Questionnaire CAREY-7 Date CAREY - 7 assessed: 08/05/25 Feeling nervous, anxious, or on edge: 0 = Not at all Not being able to stop or control worryin = Not at all Worrying too much about different things: 0 = Not at all Trouble relaxin = Not at all Being so restless that it is hard to sit still: 0 = Not at all Becoming easily annoyed or irritable: 0 = Not at all Feeling afraid as if something awful might happen: 1 = Several days Total CAREY-7 score (0-4 normal; 5-9 mild; 10-14 moderate; 15-21 severe): 1 Source: Developed by Drs. Edu Will, Brittanie Salgado, Yogesh Copeland and colleagues, with an educational celina from [employer] Review of Systems Const Denies chills, Denies fatigue, Denies fever(s) and Denies headache(s) ENT Denies dysphagia, Denies dizziness, Denies otalgia, Denies headache(s), Denies neck pain, Denies odynophagia and Denies sore throat Card Denies chest pain, Denies palpitations and Denies dyspnea Resp Denies cough and Denies dyspnea GI Denies abdominal pain, Denies constipation, Denies dysphagia, Denies heartburn, Denies diarrhea, Denies nausea, Denies odynophagia and Denies vomiting Denies dysuria, Denies nocturia and Denies urinary frequency Musc Denies back pain, Reports arthralgias (on and off in both knees) and Denies neck pain Skin/Breast Denies rash Neuro Denies dizziness and Denies headache(s) Endo Denies fatigue and Denies palpitations Physical exam (Primary Care) Vital Signs: Last Vital Signs Pulse 85 08/05/25 14:30 BP 110/70 08/05/25 14:30 Pulse Ox 96 08/05/25 14:30 Oxygen Delivery Method Room Air 08/05/25 14:30 BMI result Body Mass Index 34.5 Tobacco/Smoking Status: Tobacco use Status Tobacco use date assessed 08/05/25 08/05/25 14:35 Patient Tobacco Use Status Former Tobacco user 08/05/25 14:35 Tobacco use type Cigarette 08/05/25 14:35 e-Cigarette/Vaping Use Never Used 08/05/25 14:35 PHQ-9: PHQ-9 Score PHQ-9: Total score 1 08/05/25 15:11 Depression Screening Interpretation: Negative Thrive Assessment: Date of Thrive Assessment Date Thrive assessed 08/05/25 08/05/25 14:35 Currently or been in a relationship where the following occur: No concerns reported Const General: no acute distress and alert HENMT Ears: TM's normal bilaterally and EAC's normal Throat: Yes posterior oropharynx normal and Yes tonsils normal (no TP congestion noted) Neck Neck: Yes supple and No lymphadenopathy Thyroid: Thyroid normal Resp Auscultation: clear to auscultation bilaterally, no rales and no wheezes Cardio Rate: regular rate Rhythm: abnormal rhythm with ectopic beats Heart sounds: no murmurs GI Palpation (GI): Soft to palpation and nontender Auscultation: normal bowel sounds General: Yes no CVA tenderness Back/Spine/Pelvis Back: no CVA tenderness Skin Rashes: no rashes Extrem General: Yes no clubbing, cyanosis or edema Left upper extremity: shoulder/upper arm Details: tenderness (mild) Location: of the A-C joint Left lower extremity: knee Details: tenderness; no swelling and foot Details: tenderness Location: of the dorsal foot and no edema Results Reviewed Results Reviewed: Laboratory Tests 07/31/25 07/31/25 06:21 06:25 WBC 7.8 Hgb 12.2 L Hct 38.7 L Plt Count 248 Sodium 141 Potassium 4.7 Creatinine 1.20 Estimated GFR 59 Fasting Glucose 110 H Hemoglobin A1c % 6.7 H Calcium 9.3 AST 27 ALT 25 Triglycerides 48 Cholesterol 118 LDL Cholesterol, Calc 42 HDL Cholesterol 67 Microalb/Creat Ratio 5.9 Coding Level of Care Code Est Pt Level 4 (16530) Diagnoses Type 2 diabetes mellitus without complication, without long-term current use of insulin E11.9 Diabetes mellitus complication status: without complication Diabetes mellitus 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 of exercise science insulin use: without professor of exercise science use Diabetes mellitus type: type 2 Hypertriglyceridemia E78.1 Benign essential hypertension I10 Cardiomyopathy, unspecified type I42.9 Cardiomyopathy type: unspecified Vitamin D deficiency E55.9 Primary osteoarthritis of left shoulder M19.012 Primary osteoarthritis of knee, unspecified laterality M17.10 Laterality: unspecified laterality Osteoarthritis type: primary Allergic rhinitis, unspecified seasonality, unspecified trigger J30.9 Allergic rhinitis seasonality: unspecified Allergic rhinitis trigger: unspecified Acute atopic dermatitis of hand L20.9 Erectile dysfunction, unspecified erectile dysfunction type N52.9 Erectile dysfunction type: unspecified Benign prostatic hyperplasia, unspecified whether lower urinary tract symptoms present N40.0 Lower urinary tract symptom presence: unspecified whether lower urinary tract symptoms present Obesity (BMI 30-39.9) E66.9 Additional Codes PHQ-9 - 66773 - PHQ-9 Billing: Yes ([id number]) Assessment & Plan Assessment & Plan (1) Diabetes mellitus: Code(s): E11.9 - Type 2 diabetes mellitus without complications Category: Medical Qualifiers: Diabetes mellitus complication status: without complication Diabetes mellitus professor of exercise science insulin use: without professor of exercise science use Diabetes mellitus type: type 2 Qualified Code(s): E11.9 - Type 2 diabetes mellitus without complications Plan: His HgbA1c was at 6.7% on his recent labs done a few days ago; was previously at 6.4% a few months ago - goal is <7.0% Reinforced diabetic diet Continue Glipizide ER 10 mg QD, Metformin 1000 mg BID, Piogitazone 30 mg QD and Januvia 100 mg QD - Tradjenta was no longer covered by his insurance (2) Hypertriglyceridemia: Code(s): E78.1 - Pure hyperglyceridemia Category: Medical Plan: Results of his labs done a few days ago reviewed and discussed with patient Reinforced low cholesterol diet Continue Atorvastatin 20 mg QD Will recheck his labs and fasting lipids in 4 months for follow-up (3) Benign essential hypertension: Code(s): I10 - Essential (primary) hypertension Category: Medical Plan: Reinforced low-sodium diet - goal is systolic BP of at least 130 to 140 mm or less Continue Losartan 50 mg QD (4) Cardiomyopathy: Code(s): I42.9 - Cardiomyopathy, unspecified Category: Medical Qualifiers: Cardiomyopathy type: unspecified Qualified Code(s): I42.9 - Cardiomyopathy, unspecified Plan: EF was incidentally noted to be at 15-20% on echocardiogram done in 2020; patient was clinically not in heart failure as he denied any symptoms or shortness of breath, easy fatigability or edema at the time 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 Most recent echocardiogram done in August 2022 showed (+) significant improvement of his cardiac function - there is normal left ventricular wall thickness;?the left ventricular systolic function is borderline reduced and?the visually estimated ejection fraction is between 45-50% Follow up with cardiology as scheduled (5) Vitamin D deficiency: Code(s): E55.9 - Vitamin D deficiency, unspecified Category: Medical Plan: Continue Vitamin D3 1000 units QD (6) Primary osteoarthritis of left shoulder: Code(s): M19.012 - Primary osteoarthritis, left shoulder Category: Medical Plan: X-rays of the left shoulder done a couple of years ago showed (+) OA changes Patient is encouraged to continue with regular shoulder exercises to help manage his symptoms Follow-up with Orthopedics as scheduled (7) Osteoarthritis of knee: Code(s): M17.10 - Unilateral primary osteoarthritis, unspecified knee Category: Medical Qualifiers: Laterality: unspecified laterality Osteoarthritis type: primary Qualified Code(s): M17.10 - Unilateral primary osteoarthritis, unspecified knee Plan: Continue Ibuprofen 400 mg 3 times a day as needed and Tramadol 50 mg TID PRN for symptomatic relief (8) Allergic rhinitis: Code(s): J30.9 - Allergic rhinitis, unspecified Category: Medical Qualifiers: Allergic rhinitis seasonality: unspecified Allergic rhinitis trigger: unspecified Qualified Code(s): J30.9 - Allergic rhinitis, unspecified Plan: Continue Loratadine 10 mg QD PRN (9) Acute atopic dermatitis of hand: Code(s): L20.9 - Atopic dermatitis, unspecified Category: Medical Plan: Improved Continue Triamcinolone Acetonide 0.5% cream to the rash on his hands BID (10) Erectile dysfunction: Code(s): N52.9 - Male erectile dysfunction, unspecified Category: Medical Qualifiers: Erectile dysfunction type: unspecified Qualified Code(s): N52.9 - Male erectile dysfunction, unspecified Plan: Continue Sildenafil 50 mg QD PRN as instructed (11) Benign prostatic hyperplasia: Code(s): N40.0 - Benign prostatic hyperplasia without lower urinary tract symptoms Category: Medical Qualifiers: Lower urinary tract symptom presence: unspecified whether lower urinary tract symptoms present Qualified Code(s): N40.0 - Benign prostatic hyperplasia without lower urinary tract symptoms Plan: Continue Tamsulosin 0.4 mg Q HS Follow-up with urology as scheduled (12) Obesity (BMI 30-39.9): Code(s): E66.9 - Obesity, unspecified Category: Medical Plan: Reinforced diet/ exercise as tolerated/ lose weight Plan Follow up in 4 months Orders: Orders Hemoglobin A1c 4 Months E11.9 - Type 2 diabetes mellitus without complications Microalbumin, Random (w Creat) 4 Months E11.9 - Type 2 diabetes mellitus without complications Complete Blood Count Auto Diff 4 Months D64.9 - Anemia, unspecified UA CC w/rflx Micro + Cult 4 Months R30.0 - Dysuria Vitamin B12 and Folate 4 Months E53.8 - Deficiency of other specified B group vitamins Vitamin D 25-OH Total 4 Months E55.9 - Vitamin D deficiency, unspecified Lipid Panel 4 Months E78.00 - Pure hypercholesterolemia, unspecified Comprehensive [place]. Panel Fast 4 Months E78.00 - Pure hypercholesterolemia, unspecified NT Pro B Type Natriuretic Pept 4 Months R06.09 - Other forms of dyspnea TSH reflex Free T4 4 Months E78.00 - Pure hypercholesterolemia, unspecified
== END 2025-08-05 15:10 | disposition home or self-care (01) ==
LOC: HO.HMCH 14:29
PROVIDERS: PCP Internal Medicine; Visit Provider Internal Medicine
DX: E11.9 Type 2 diabetes mellitus without complications (principal); E78.1 Pure hyperglyceridemia; I42.9 Cardiomyopathy, unspecified; I10 Essential (primary) hypertension; E55.9 Vitamin D deficiency, unspecified; E66.9 Obesity, unspecified; Z68.34 Body mass index [BMI] 34.0-34.9, adult; M19.012 Primary osteoarthritis, left shoulder; M17.10 Unilateral primary osteoarthritis, unspecified knee; J30.9 Allergic rhinitis, unspecified; L20.9 Atopic dermatitis, unspecified; N52.9 Male erectile dysfunction, unspecified; N40.0 Benign prostatic hyperplasia without lower urinary tract symptoms

== ENCOUNTER → 2025-08-05 14:28 | Outpatient (BNVA) | payer MEDICARE, MEDICAID, SELFPAY | PROVIDERS: PCP Internal Medicine; Visit Provider Internal Medicine | DX: E11.9 Type 2 diabetes mellitus without complications (principal); E78.2 Mixed hyperlipidemia; I10 Essential (primary) hypertension; I42.9 Cardiomyopathy, unspecified; E55.9 Vitamin D deficiency, unspecified; M19.012 Primary osteoarthritis, left shoulder; M17.10 Unilateral primary osteoarthritis, unspecified knee; J30.9 Allergic rhinitis, unspecified; L20.9 Atopic dermatitis, unspecified; N52.9 Male erectile dysfunction, unspecified; E66.9 Obesity, unspecified; Z13.31 Encounter for screening for depression; Z13.39 Encounter for screening examination for other mental health and behavioral disorders | CPT/HCPCS: 96127; 99212 ==

== ENCOUNTER → 2025-08-19 10:12 | Outpatient (BNV) | payer MEDICARE, MEDICAID, SELFPAY | PROVIDERS: PCP Internal Medicine; Visit Provider Internal Medicine Cardiovascular Disease | DX: I50.9 Heart failure, unspecified (principal); Z95.810 Presence of automatic (implantable) cardiac defibrillator | CPT/HCPCS: 93297 ==

== ENCOUNTER → 2025-08-19 10:13 | Outpatient (BNV) | payer MEDICARE, MEDICAID, SELFPAY | PROVIDERS: PCP Internal Medicine; Visit Provider Internal Medicine Cardiovascular Disease | DX: I42.9 Cardiomyopathy, unspecified (principal); Z95.810 Presence of automatic (implantable) cardiac defibrillator | CPT/HCPCS: 93295 ==